=== PATIENT | female | born 1985 | race Caucasian/White ===

== ENCOUNTER 2023-06-14 13:30 | Outpatient (OUT) | payer OTHER, SELFPAY ==
--- NOTE | 2023-06-14 13:42 | US_ITS ---
[address] [address] Patient Name: AZAR LEE MRN: [id number] date: 1985 Sex: F Assigned Patient Location: [facility] Current Patient Location: [facility] Accession/Order Number: [id number] Exam Date: 06/14/2023 13:41 Report Date: 06/14/2023 14:42 At the request of: JOAQUIN ROTHMAN Procedure: US OB transvaginal EXAMINATION: US OB transvaginal HISTORY: MISSED MENSES COMPARISON: No relevant comparison available. FINDINGS: GESTATIONAL SAC: Present and normal appearing. YOLK SAC: Present and normal appearing. POLE: Present and normal appearing. CARDIAC: Present. UTERUS: Normal size and appearance. OVARIES: Right: Normal. Left: Normal. CERVIX: 3.8 cm in length and closed. CUL-DE-SAC: Normal. OTHER: None. AGE BY LMP: Unknown LMP DUYEN BY LMP: AGE BY US CRL: 10 weeks 4 days DUYEN BY US CRL: 01/06/2024 US/US OB transvaginal IMPRESSION: 1. Single live intrauterine 10 weeks 4 days by today's ultrasound. Electronically authenticated by: ANITA SIMENTAL Date: 06/14/2023 14:42
== END 2023-06-14 13:31 | disposition home or self-care (01) ==
LOC: NOMS 13:31
PROVIDERS: Family Provider Internal Medicine; Visit Provider Obstetrics & Gynecology
DX: Z34.91 Encounter for supervision of normal pregnancy, unspecified, first trimester (principal); Z3A.10 10 weeks gestation of pregnancy; N92.6 Irregular menstruation, unspecified
CPT/HCPCS: 76817

== ENCOUNTER 2023-06-16 09:00 | Outpatient (OUT) | payer OTHER, SELFPAY ==
[2023-06-16 09:27] LABS: Basophils Absolute Auto 0.1 10^3/uL (0.0-0.1); Basophils Percent Auto 0.9 % (0.2-2.0); Eosinophils Absolute Auto 0.2 10^3/uL (0.0-0.7); Eosinophils Percent Auto 3.1 % (0.9-7.0); Hemoglobin 12.7 g/dL (12.0-16.0); Immature Granulocytes Abs Auto 0.02 10^3/uL (0.00-0.03); Immature Granulocytes Pct Auto 0.3 % (0.0-0.5); Lymphocytes Absolute Auto 1.5 10^3/uL (1.2-3.8); Mean Corpuscular HGB Conc 34.3 g/dL (29.9-35.2); Mean Corpuscular Hemoglobin 31.5 pg (26.7-34.0); Mean Corpuscular Volume 91.8 fL (81.0-99.0); Mean Platelet Volume 10.3 fL (9.5-13.5); Monocytes Absolute Auto 0.6 10^3/uL (0.3-0.8); Monocytes Percent Auto 8.8 % (1.7-12.0); Neutrophils Absolute Auto 4.3 10^3/uL (1.4-6.5); Neutrophils Percent Auto 63.9 % (43.0-75.0); Platelet Count 245 10^3/uL (150-450); Red Blood Count 4.03 10^6/uL (4.20-5.40); Red Cell Distribution Width 11.4 % (11.0-15.0); White Blood Count 6.7 10^3/uL (4.0-11.0)
[2023-06-16 10:13] LABS: Estimated Average Glucose 88 mg/dL; Glycohemoglobin A1C 4.7 % (4.5-6.2)
[2023-06-17 07:06] LABS: Rubella Antibodies, IgG 1.46 index (Immune >0.99)
[2023-06-17 08:08] LABS: Rapid Plasma Reagin, Quant Non Reactive titer (NonRea<1:1)
[2023-06-17 12:07] LABS: HBsAg Screen Negative (Negative); HCV Ab Non Reactive (Non Reactive); HIV Ab/p24 Ag Screen Non Reactive (Non Reactive)
== END 2023-06-16 09:01 | disposition home or self-care (01) ==
LOC: LAB 09:01
PROVIDERS: Family Provider Internal Medicine; Visit Provider Obstetrics & Gynecology
DX: N92.6 Irregular menstruation, unspecified (principal)
CPT/HCPCS: 36415; 83036; 85025; 86592; 86762; 86803; 86850; 86900; 86901; 87086; 87340; 87389

== ENCOUNTER 2023-07-07 07:03 | Outpatient (OUT) | payer OTHER, SELFPAY ==
[2023-07-07 09:14] LABS: BOX Test Sent Out done
== END 2023-07-07 07:04 | disposition home or self-care (01) ==
LOC: LAB 07:03
PROVIDERS: Family Provider Internal Medicine; Visit Provider Obstetrics & Gynecology
DX: Z34.80 Encounter for supervision of other normal pregnancy, unspecified trimester (principal)
CPT/HCPCS: 36415

== ENCOUNTER 2023-07-18 21:05 | Outpatient (REF) | payer OTHER, SELFPAY ==
[2023-07-23 09:09] LABS: Age Gdln ACOG Testing Note (.); HPV Aptima Negative (Negative); IGP, Aptima HPV, rfx 16/18,45 Note (.)
== END 2023-07-18 21:06 | disposition home or self-care (01) ==
LOC: LAB 21:05
PROVIDERS: Family Provider Internal Medicine; Visit Provider Obstetrics & Gynecology
DX: Z01.419 Encounter for gynecological examination (general) (routine) without abnormal findings (principal)
CPT/HCPCS: 87624; G0145

== ENCOUNTER 2023-08-21 10:55 | Outpatient (OUT) | payer OTHER, SELFPAY ==
--- OUTSIDE RECORDS SUMMARY | 2023-08-21 11:01 | XMS_ITS | CCD ---
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 Name Role Phone Unavailable Primary Care Provider UnavailPAOLA Hong Admitting Unavailable PAOLA VILLANUEVA Attending Unavailable Rene Cruz Unavailable Joseph Lamar Unavailable Bela Fishman Unavailable JOAQUIN ROTHMAN Attending Unavailable Medications Current Medications Medication Drug Class(es) Dates Sig (Normalized) Sig (Original) acetaminophen 325 mg / oxyCODONE hydrochloride 5 mg oral tablet (2 sources) Opioid Agonist Start: 01-28-2021 End: 02-04-2021 oxyCODONE-acetamin ophen (PERCOCET) 5-325 MG per tablet Indications: Rupture of anterior cruciate ligament of right knee, initial encounter Take 1 tablet by mouth every 6 hours as needed for Pain for up to 7 days. Intended supply: 7 days. Take lowest dose possible to manage pain 28 tablet 0 01/28/2021 02/04/2021 Active Start: 01-28-2021 End: 01-28-2021 oxyCODONE-acetaminophen (PER COCET) 5-325 MG per tablet 1 tablet [id number] 200 actuat albuterol 0.09 mg/actuat metered dose inhaler (3 sources) beta2-Adrenergic Agonist Start: 05-17-2023 take 1 puff(s) by inhalation every four hours as needed Albuterol Sulfate Active 1 PUFF INHALATION Every 4 hours May 17, 2023 1:00am [employer] puff as needed Inhalation every 4 hrs; Note: Source Status: Taking; Provider: Sravanthi Cramer ( ) take 1 puff(s) by in halation every four hours as needed Albuterol Sulfate HFA 108 (90 Base) MCG/ACT 1 puff as needed Inhalation every 4 hrs Active 24 hr buPROPion hydrochloride 150 mg extended release oral tablet (1 source) Aminoketone Start: 05-17-2023 take 1 tablet by mouth once daily in the morning Bupropion Hcl (Wellbutrin Xl) 150 mg tablet extended release 24 hr Active 150 MG PO Every morning May 17, 2023 1:00am calcium chloride 0.0014 meq/ml / potassium chloride 0.004 meq/ml / sodium chloride 0.103 meq/ml / sodium lactate 0.028 meq/ml injectable solution (1 source) Start: 01-28-2021 lactated ringers infusion dexamethasone 4 mg oral tablet (3 sources) Corticosteroid Start: 02-17-2020 take 2 tablets by mouth every twenty-four hours Dexamethasone 4 MG 2 tablets Orally Once a day for 5 days Jan, Active 1 ml diphenhydrAMINE hydrochloride 50 mg/ml cartridge (1 source) Histamine-1 Receptor Antagonist Start: 01-28-2021 End: 01-28-2021 diphenhydrAMINE (BENADRYL) injection 12.5 mg docosahexaenoic acid 200 mg oral capsule (1 source) Start: 06-26-2023 Docosahexaenoic Acid ( Dha) 200 mg capsule Active MG PO June 26, 2023 12:00am 1 ml hydrALAZINE hydrochloride 20 mg/ml injection (1 source) Arteriolar Vasodilator Start: 01-28-2021 hydrALAZINE (APRESOLINE) injection 10 mg labetalol (NORMODYNE;TRANDATE) injection syringe 10 mg (1 source) Start: 01-28-2021 labetalol (NORMODYNE;TRANDATE ) injection syringe 10 mg 10 ml lidocaine hydrochloride 10 mg/ml injection (1 source) Antiarrhythmic, Amide Local Anesthetic Start: 01-28-2021 End: 01-28-2021 lidocaine PF 1 % injection 1 mL meperidine hydrochloride 50 mg/ml injectable solution (1 source) Opioid Agonist Start: 01-28-2021 meperidine (DEMEROL) injection 12.5 mg 1 ml morphine sulfate 2 mg/ml cartridge (1 source) Opioid Agonist Start: 01-28-2021 morphine (PF) injection 2 mg 2 ml ondansetron 2 mg/ml injection (1 source) Serotonin-3 Receptor Antagonist Start: 01-28-2021 End: 01-28-2021 ondansetron (ZOFRAN) injection 4 mg predniSONE 20 mg oral tablet (3 sources) Start: 12-10-2022 take 1 tablet by mouth every twelve hours predniSONE 20 MG 1 tablet Orally bid for 5 day(s) Nov, Active Start: 11-11-2021 prednisone 10 mg 5 tablets for 2 days, 4 tablets x2 days, then 3 x2 days, 2 x2 days, 1 x2 days Orally as directed for 10 days Oct, Not-Taking 1 ml promethazine hydrochloride 25 mg/ml injection (1 source) Phenothiazine Start: 01-28-2021 promethazine ( PHENERGAN) injection 6.25 mg 5 ml sodium chloride 9 mg/ml injection (4 sources) Start: 01-28-2021 End: 01-28-2021 0.9 % sodium chloride bolus Start: 01-28-2021 0.9 % sodium c hloride infusion Start: 01-28-2021 sodium chlorid e flush 0.9 % injection 10 mL Completed/Discontinued Medications Medication Drug Class(es) Dates Sig (Normalized) Sig (Original) acetaminophen 325 mg / HYDROcodone bitartrate 5 mg oral tablet (2 sources) Opioid Agonist Start: 12-31-2020 End: 05-17-2023 take 1 tablet by mouth every six hours Hydrocodone-Acetam inophen Discontinued 1 TAB PO Q6H 10 3 December 31, 2020 May 17, 2023 9:12am aprepitant 40 mg oral capsule (1 source) Substance P/Neurokinin-1 Receptor Antagonist Start: 01-28-2021 End: 01-28-2021 aprepitant (EMEND) 40 MG capsule cetirizine hydrochloride 10 mg oral capsule (6 sources) Histamine-1 Receptor Antagonist Start: 12-31-2020 End: 05-17-2023 take 2 capsules by mouth once daily Cetirizine (Zyrtec) 10 mg Capsule Discontinued 20 MG PO Daily December 31, 2020 12:00am May 17, 2023 9:12am take 1 tablet by mouth once jia y ZyrTEC 10 MG 1 tablet Orally Once a day Active 2 ml famotidine 10 mg/ml injection (1 source) Histamine-2 Receptor Antagonist Start: 01-28-2021 End: 01-28-2021 famotidine (PEPCID) 20 MG/2ML injection 2 ml fentaNYL 0.05 mg/ml injection (1 source) Opioid Agonist Start: 01-28-2021 End: 01-28-2021 fentaNYL (SUBLIMAZE) 100 MCG/2ML injection 1 ml HYDROmorphone hydrochloride 1 mg/ml cartridge (4 sources) Opioid Agonist Start: 01-28-2021 End: 01-28-2021 HYDROmorphone (DILAUDID) 1 MG/ML injection Start: 01-28-2021 HYDROmorphone (DILAUDID) injection 0.25 mg Start: 01-28-2021 HYDROmorphone (DILAUDID) injection 0.5 mg ketorolac tromethamine 10 mg oral tablet (5 sources) Nonsteroidal Anti-inflammatory Drug, Cyclooxygenase Inhibitor Start: 12-31-2020 End: 05-17-2023 take 10 mg by mouth every eight hours Ketorolac Discontinued 10 MG PO Q8H December 31, 2020 12:00am May 17, 2023 9:13am 2 ml midazolam 1 mg/ml injection (1 source) Benzodiazepine Start: 01-28-2021 End: 01-28-2021 midazolam (VERSED) 2 MG/2ML injection Multivitamin preparation (2 sources) Start: 05-17-2023 End: 06-26-2023 take 1 tablet by mouth once daily Multivitamin Discontinued 1 TAB PO Daily May 17, 2023 1:00am June 26, 2023 7:36am Start: 05-17-2023 take 1 tablet by jaden once daily Multivitamin Active 1 TAB PO Daily May 17, 2023 12:00am naproxen sodium 220 mg oral capsule (2 sources) Nonsteroidal Anti-inflammatory Drug Start: 05-17-2023 End: 06-26-2023 take 1 capsule by mouth every twelve hours Naproxen Sodium (Aleve) 220 mg capsule Discontinued 220 MG PO Every 12 hours May 17, 2023 1:00am June 26, 2023 7:36am 72 hr scopolamine 0.0139 mg/hr transdermal system (1 source) Anticholinergic Start: 01-28-2021 End: 01-28-2021 scopolamine (TRANSDERM-SCOP) 1 MG/3DAYS transdermal patch traMADol hydrochloride 50 mg oral tablet (5 sources) Opioid Agonist Start: 01-05-2021 take 1 tablet by mouth every four to six hours as needed for pain traMADol HCl 50 MG 1 tablet as needed for pain Orally every 4-6 hrs for 7 days Dec, Not-Taking triamcinolone acetonide 40 mg/ml injectable suspension (3 sources) Corticosteroid Start: 12-10-2022 Kenalog-40 Nov, 40 mg Start: 11-11-2021 Kenalog-40 Oct, 60 mg Problems Active Problems Problem Classification Problem Date Documented Date Episodic/Chronic Acute bronchitis (5 sources) Acute bronchitis; Translations: [Acute bronchitis] Episodic Administrative/social admission (1 source) Persons encountering health services in other specified circumstances; Translations: [Other reasons for seeking consultation] 05-17-2023 Episodic Allergic reactions (2 sources) Allergic contact dermatitis due to plants, except food Onset: 11-11-2021 Resolved: 11-11-2021 Episodic Anxiety disorders (4 sources) Anxiety; Translations: [Anxiety disorder, unspecified] 05-17-2023 Chronic Cardiac dysrhythmias (2 sources) Palpitations; Translations: [Palpitations] 05-17-2023 Episodic Headache; including migraine (4 sources) Migraine; Translations: [Migraine, unspecified, not intractable, without status migrainosus] 05-17-2023 Chronic Joint disorders and dislocations; trauma-related (6 sources) Internal derangement of right knee; Translations: [Unspecified internal derangement of right knee] Onset: 01-05-2021 Resolved: 01-05-2021 Chronic Joint disorders and dislocations; trauma-related (4 sources) Acute tear of lateral meniscus of right knee; Translations: [Other tear of lateral meniscus, current injury, right knee, initial encounter] Onset: 01-07-2021 Resolved: 01-07-2021 Episodic Other nervous system disorders (4 sources) Attention and concentration deficit; Translations: [Impaired concentration] 05-17-2023 Chronic Other and delivery including normal (2 sources) Urine test positive; Translations: [Encounter for test, result positive] 05-30-2023 Episodic Other screening for suspected conditions (not mental disorders or infectious disease) (8 sources) Patient encounter status; Translations: [Encounter for screening for cardiovascular disorders] 05-17-2023 Episodic Residual codes; unclassified (2 sources) Insomnia; Translations: [Insomnia, unspecified] 05-17-2023 Episodic Residual codes; unclassified (2 sources) Insomnia, unspecified; Translations: [Insomnia, unspecified] 05-17-2023 Episodic Sprains and strains (5 sources) Rupture of anterior cruciate ligament of right knee; Translations: [Sprain of anterior cruciate ligament of right knee, initial encounter] Onset: 01-07-2021 Resolved: 01-07-2021 Episodic Past or Other Problems Problem Classification Problem Date Documented Da te Episodic/Chronic Other non-traumatic joint disorders (2 sources) Pain in right knee; Translations: [Acute pain of right knee M25.561] Onset: 01-05-2021 Resolved: 01-07-2021 Episodic Other non-traumatic joint disorders (1 source) Effusion, right knee; Translations: [Swelling of right knee joint M25.461] Onset: 01-05-2021 Resolved: 01-05-2021 Episodic Results Test Name Value Interpretation Reference Range Facil ity Choriogonadotropin.beta subu nit ( test) [Presence] in Urineon 05-25-2023 Beta HCG ( test) Ql (U) Positive [facility] POCT urine pregnancyOrdered By: Paola Villanueva on 01-28-2021 Beta HCG ( test) Ql (U) Negative NEGATIVE [employer] Phone: Comment on above: Specimens with hCG l evels near the threshold of the test (25 mIU/mL) may give a negative or indeterminate result. In such cases, another test should be performed with a new specimen in 48-72 hours. If early is suspected clinically in this setting, correlation with quantitative serum b-hCG level is suggested. TESTING PERFORMED AT [address] [address] [employer] Phone: MR knee RT wo conon 01-07-20 MR knee RT wo con [facility] Main [place] [address] [place] [id number] MRI Report Signed Patient: Kathia Martinez MR#: [id number] 71 : 1985 Acct:[id number] Age/Sex: 35 / F ADM Date: 01/06/21 Loc: [facility] Room: Type: [facility] CLI Attending Dr: Rene Cruz DO Ordering Provider: Rene Cruz DO Date of Service: 01/06/21 MR/MR knee RT wo con: M23.91 INTER DEANGEMENT OF RT KNEE Copies to: Rene Cruz DO MR knee RT wo con 01/06/2021 12:30 PM SIGNS AND SYMPTOMS: Fall from truck 1 week ago with pain laterally and posteriorly. Swelling. PROTOCOL: Multiplanar multisequence MR images of the right knee were obtained without IV contrast. COMPARISON: Radiographs from 12/31/2020 FINDINGS: Fluid: There is a moderate joint effusion. There is no evidence of Aden's cyst. Medial compartment: Medial meniscus: There is a minimally displaced tear of the posterior horn of the medial meniscus.. Medial collateral ligament: There is edema along both sides of the medial collateral ligament suggesting a grade 2 MCL sprain.. Medial femoral condyle cartilage: Preserved. Medial tibial plateau cartilage: There. Lateral compartment: Lateral meniscus: Intact. Lateral collateral ligament: Intact. Lateral femoral condyle cartilage: Preserved. Lateral tibial plateau cartilage: Preserved. Posterolateral corner: Popliteus tendon: Intact. Popliteofibular ligament: Intact. Proximal tibiofibular joint: Intact. Anterior compartment: Alignment: Normal. Quadriceps tendon: Intact. Patellar tendon: Intact. Retinaculum: Medial intact. Lateral intact. Patellar cartilage: Intact. Trochlea: Intact. . Plica: None. Hoffa fat pad: Normal. Intercondylar compartment: Anterior cruciate ligament: There is a full-thickness tear with dependently layering fibers.. Posterior cruciate ligament: Intact. Bones (other than subarticular marrow): There is bone marrow edema along the posterior lateral corner of the lateral tibial plateau and the posterior aspect of the medial tibial plateau to a lesser extent. There is marrow edema along the medial most aspect of the medial femoral condyle. Muscles: Normal. Vessels: Normal. Nerves: Normal. MR/MR knee RT wo con IMPRESSION: There is a full-thickness tear of the anterior cruciate ligament with dependently layering fibers. There is a grade 2 medial collateral ligament sprain. There is a minimally displaced tear of the posterior horn of the medial meniscus. Bone contusions are noted along the posterior aspect of the tibial plateaus, left greater than right and along the medial aspect of the medial femoral condyle. There is a moderate joint effusion. Impression dictated by: Reuben Valentine M.D.01/06/2021 1:43 PM Dictation Location: [place] [address] Transcribed By: [facility] 01/06/21 1343 Dictated By: Reuben Valentine II, MD 01/06/21 1329 Signed By: 01/06/21 1343 [facility] XR knee RT 4V*on 12-31-2020 XR knee RT 4V* [facility] [place] [address] XRay Report Signed Patient: Kathia Martinez MR#: [id number] 71 : 1985 Acct:[id number] Age/Sex: 35 / F ADM Date: 12/31/20 Loc: ER Room: Type: [facility] Attending Dr: Ordering Provider: SELINA Goode Date of Service: 12/31/20 XR/XR knee RT 4V*: Extremity Injury, Lower Copies to: SELINA Goode Right knee 12/31/2020. CLINICAL DATA: Right knee pain after injury. FINDINGS: 4 views of the right knee were obtained. No acute fracture or dislocation is identified. No other bony abnormality is seen. There is no suprapatellar effusion. XR/XR knee RT 4V* IMPRESSION: No acute bony abnormality or effusion. Impression dictated by: Roberth Vargas Jr., M.D.12/31/2020 10:31 AM Dictation Location: [facility] Transcribed By: [facility] 12/31/20 1031 Dictated By: Roberth Vargas Jr, MD 12/31/20 1026 Signed By: 12/31/20 1031 [facility] Vital Signs Date Time Vital Sign Value Performing Clinician Facility 06-26-2023 07:35-0400 Body height 160.02 cm [facility] 06-26-2023 07:35-0400 Body mass index (BMI) [Ratio] 29.4 kg/m2 [facility] 06-26-2023 07:35-0400 Body weight 75.29 kg [facility] 06-26-2023 07:35-0400 Diastolic blood pressure 81 mm[Hg] [facility] 06-26-2023 07:35-0400 Heart rate 89 /min [facility] 06-26-2023 07:35-0400 SaO2% (BldA) [Mass fraction] 95 % [facility] 06-26-2023 07:35-0400 Systolic blood pressure 119 mm[Hg] [facility] 05-25-2023 10:30-0500 Body height 160.02 cm [facility] 05-25-2023 10:30-0500 Body mass index (BMI) [Ratio] 30.4 kg/m2 [facility] 05-25-2023 10:30-0500 Body weight 78.01 kg [facility] 05-25-2023 10:30-0500 Diastolic blood pressure 89 mm[Hg] [facility] 05-25-2023 10:30-0500 Heart rate 86 /min [facility] 05-25-2023 10:30-0500 SaO2% (BldA) [Mass fraction] 99 % [facility] 05-25-2023 10:30-0500 Systolic blood pressure 129 mm[Hg] [facility] 05-17-2023 08:11-0500 Body height 160.02 cm [facility] 05-17-2023 08:11-0500 Body mass index (BMI) [Ratio] 30.2 kg/m2 [facility] 05-17-2023 08:11-0500 Body weight 77.56 kg [facility] 05-17-2023 08:11-0500 Diastolic blood pressure 82 mm[Hg] [facility] 05-17-2023 08:11-0500 Heart rate 78 /min [facility] 05-17-2023 08:11-0500 SaO2% (BldA) [Mass fraction] 98 % [facility] 05-17-2023 08:11-0500 Systolic blood pressure 135 mm[Hg] [facility] 12-10-2022 12:05-0400 Body height 160.02 cm Bela Fishman Other [employer] Other 12-10-2022 12:05-0400 Body mass index (BMI) [Ratio] 30.11 kg/m2 Bela Fishman Other [employer] Other 12-10-2022 12:05-0400 Body temperature 100.3 [degF] Bela Fishman Other [employer] Other 12-10-2022 12:05-0400 Body weight 77.11 kg Bela Fishman Other [employer] Other 12-10-2022 12:05-0400 Diastolic blood pressure 106 mm[Hg] Bela Fishman Other [employer] Other 12-10-2022 12:05-0400 Respiratory rate 18 /min Bela Fishman Other [employer] Other 12-10-2022 12:05-0400 SaO2% (BldA) [Mass fraction] 99 % Bela Fishman Other [employer] Other 12-10-2022 12:05-0400 Systolic blood pressure 170 mm[Hg] Bela Fishman Other [employer] Other 11-11-2021 17:40-0400 Body height 160.02 cm Joseph Lamar Other [employer] Other 11-11-2021 17:40-0400 Body mass index (BMI) [Ratio] 31 kg/m2 Joseph Lamar Other [employer] Other 11-11-2021 17:40-0400 Body temperature 99.8 [degF] Joseph Lamar Other [employer] Other 11-11-2021 17:40-0400 Body weight 79.38 kg Joseph Lamar Other [employer] Other 11-11-2021 17:40-0400 Respiratory rate 18 /min Joseph Lamar Other [employer] Other 11-11-2021 17:40-0400 SaO2% (BldA) [Mass fraction] 98 % Joseph Lamar Other [employer] Other 01-28-2021 14:35-0400 Diastolic blood pressure 88 mm[Hg] Paola Villanueva MD Work Phone: [facility] Work Phone: 01-28-2021 14:35-0400 Heart rate 64 /min Paola Villanueva MD Work Phone: [facility] Work Phone: 01-28-2021 14:35-0400 Respiratory rate 11 /min Paola Villanueva MD Work Phone: [facility] Work Phone: 01-28-2021 14:35-0400 SaO2% (BldA) [Mass fraction] 98 % Paola Villanueva MD Work Phone: [facility] Work Phone: 01-28-2021 14:35-0400 Systolic blood pressure 132 mm[Hg] Paola Villanueva MD Work Phone: [facility] Work Phone: 01-28-2021 13:31-0400 Body temperature 97.81 [degF] Paola Villanueva MD Work Phone: [facility] Work Phone: 01-28-2021 10:22-040 Body height 160 cm Paola Villanueva MD Work Phone: [facility] Work Phone: 01-28-2021 10:10-0400 Body mass index (BMI) [Ratio] 34.72 kg/m2 Paola Villanueva MD Work Phone: [facility] Work Phone: 01-28-2021 10:10040 Body weight 88.91 kg Paola Villanueva MD Work Phone: [facility] Work Phone: Encounters Encounter Date Encounter Type Care Provider Facility Start: 07-18-2023 End: 07-18-2023 ambulatory JOAQUIN LORNA Not Available Start: 06-26-2023 End: 06-26-2023 ambulatory [facility] Work Phone: Start: 06-26-2023 End: 06-26-2023 Patient encounter procedure [facility] Work Phone: Start: 06-14-2023 End: 06-14-2023 ambulatory JOAQUIN LORNA Not Available Start: 05-25-2023 End: 05-25-2023 Patient encounter procedure [facility] Physician [facility] Work Phone: Start: 05-17-2023 End: 05-17-2023 ambulatory [facility] Work Phone: Start: 05-17-2023 End: 05-17-2023 Patient encounter procedure [facility] Physician [facility] Work Phone: Start: 12-10-2022 End: 12-10-2022 ambulatory Bela Fishman Other [employer] Other Start: 12-10-2022 Office outpatient visit 15 minutes Bela Fishman [facility] Start: 11-11-2021 End: 11-11-2021 ambulatory Joseph Lamar Other [employer] Other Start: 11-11-2021 Office outpatient visit 15 minutes Joseph Lamar [facility] Start: 01-28-2021 End: 01-28-2021 ambulatory PAOLA VILLANUEVA [facility] Start: 01-28-2021 End: 01-28-2021 Subsequent hospital visit by physician Paola Villanueva MD Work Phone: [facility] [place] Comment on above: Rupture of anterior cruciate ligament of right knee, initial encounter (Primary Dx) Start: 01-25-2021 Subsequent hospital visit by physician God[facility] Pat Schedule [facility] Pre-Admit Testing Comment on above: Canceled (Other) Start: 01-18-2021 Telephone encounter Rene CARBAJAL [facility] Start: 01-07-2021 Office outpatient visit 25 minutes Rene Cruz [facility] Start: 01-05-2021 Office outpatient ne w 45 minutes Rene Cruz [facility] Procedures Date Procedure Procedure Detail Performing Clinician Start: 01-28-2021 Urine test visual color cmprsn meths Paola Villanueva MD Work Phone: Plan of Treatment Date Care Activity Detail Author Start: 02-10-2021 End: 02-10-2021 Patient encounter procedure [facility] Start: 11-24-2020 Influenza vaccination Flu vaccine (# 1) [facility] Start: 11-22-2013 Screening for malign ant neoplasm of cervix [facility] Start: 11-22-2004 Screening for malign ant neoplasm of cervix Pap smear [facility] Start: 11-22-2002 DTaP/Tdap/Td vaccine (1 - Tdap) DTaP/Tdap/Td vaccine (1 - Tdap) [facility] Start: 11-22-1998 HIV screening HIV screen [facility] Start: 11-22-1984 Varicella vaccine (1 of 2 - 2-dose childhood series) Varicella vaccine (1 of 2 - 2-dose childhood series) [facility] Start: 1985 Hepatitis C screening Hepatitis C [facility] [employer] Comprehensive metabo lic 2000 panel - Serum or Plasma [facility] Oxygen therapy [Mini [facility] Data Set] Initiate Oxygen Therapy Protocol Respiratory Care Routine Daily until discontinued starting 01/28/2021 [employer] Phone: Comment on above: Daily until disconti nued starting 01/28/2021 Phase I & II - meter ed glucose Phase I & II - metered glucose Point of Care Testing Routine As Needed until discontinued starting 01/28/2021 [employer] Phone: Comment on above: As Needed until disc ontinued starting 01/28/2021 End: 01-28-2021 , urine POCT , urine POCT Point of Care Testing Routine One Time for 1 Occurrences starting 01/28/2021 until 01/28/2021 [employer] Phone: Comment on above: One Time for 1 Occur rences starting 01/28/2021 until 01/28/2021 [facility] Payers Date Payer Category Payer Unknown [id number] 1985 Unknown [id number] 1985 Unknown [id number] 1985 Unknown [id number] Self-pay Self Pay [id number] Unknown HCAP/HFA/FAP Active [id number] Social History Date Type Detail Facility Start: 01-24-2021 End: 01-28-2021 Tobacco [facility] status [facility] Start: 01-24-2021 End: 01-28-2021 Tobacco use and exposure Never used [facility] Start: 01-28-2021 Alcohol intake Current drinke r of alcohol (finding) [facility] Work Phone: Start: 01-24-2021 Alcohol Comment social [employer] Work Phone: Start: 1985 Sex Assigned At Not on file M [employer] Work Phone: Exposure to SARS-CoV-2 (event) Not sure [facility] Sex Assigned At Sex Assigned At Bir th [employer] Other Start: 05-17-2023 End: 05-17-2023 Tobacco smoking status NHIS Ex-smoker (finding) [facility] Start: 1985 Sex Assigned At Female F [facility] Medical Equipment Procedure Code Equipment Code Equipment Original Text Equipment Identifier Dates Implant Tib L30m m [id number] Jacques Drvr Fix Dev Aperfix Ii [id number] Start: 01-28-2021 Implant Fem L24m m [id number] Insrt Aperfix Am [id number] Start: 01-28-2021 Single Strand Semitendinosus 0.45 X23.0cm [id number] Start: 01-28-2021 Single Strand Semitendinosus 5mm X 22.3cm [id number] Start: 01-28-2021 Clinical Notes 01-05-2021 to 12-10-2022 Note Date & Type Note Facility 12-10-2022 Evaluation note Encounter Date Diagnosis Assessment Notes Nov, Poison lola dermatitis (ICD-10 - L23.7) Plenty fluids, get plenty of rest. Take the prednisone as prescribed until gone. You may take Benadryl as needed for itching. You may use calamine lotion as well. Follow-up with your family physician if no improvement in 2 to 3 days [employer] Other 08-19-2022 Evaluation note* Encounter Date Diagnosis Assessment Notes Treatment Notes Treatment Clinical Notes Oct, Poison lola dermatitis (ICD-10 - L23.7) Pt received 60mg IM Kenalog in office today. Pt tolerated well. Performed by Lisa Gonzalez CMA. Pt to take meds as prescribed -- start tomorrow. No other nsaids while on steroid. Pt to avoid contact with allergen. Avoid hot showers as it draws out rash. Pt to use topical calamine lotion or benadryl cream prn for itching. Otc benadryl prn. Pt to f/u with pcp as needed for persistent or worsening symptoms. Pt understood and agreed to treatment plan. [employer] Other 11-05-2021 Hospital Discharge instructions* Discharge Instr - Activity* Paola Villanueva MD - 01/28/2021 1:36 PM EDT Crutches partial weightbearing right knee. Patient to wear previous brace as necessary * Additional Instructions* Paola Villanueva MD - [facility]28/2021 [facility]. Paola Villanueva M.D. [phone] POST OPERATIVE DISCHARGE INSTRUCTIONS KNEE ARTHROSCOPY 1. Follow-up in office seven to ten days after surgery. Call for appointment if not already made. ([phone]). 2. Take pain medication as ordered. 3. Keep the dressing/krys wrap on for 72 hours (3 days). After the 72 hours, may remove krys wrap anddressing, place Band-Aids over sutures and then if desired reapply krys wrap. Start wrapping at the ankle and wrap up to the top of the leg. 4. You may shower, but keep the dressing & wounds dry with plastic bag around knee/leg until seen by Dr. Villanueva. 5. After surgery, it is weight bearing as tolerated, unless instructed differently by Dr. Villanueva after surgery. Use crutches or a walker as needed based on how your knee feels. 6. Be sure to keep your leg elevated when sitting or lying down. Use 2-3 pillows under leg. 7. Ice to surgical site for 20 to 30 minutes four times a day for [address] Villauneva recommends taking one Aspirin 325 mg daily for 7 days after surgery to help prevent blood clots. 9. Be sure to do your leg exercises daily. Examples of these exercises are in the knee arthroscopy booklet given in Dr. Villanueva s office. Call Dr. Villanueva s office if you experience any of the followin. Temperature above 101 F. 2. Persistent nausea and vomiting. 3. Severe swelling in the knee, calf, or foot. 4. Severe pain that is not relieved by pain medications. [facility] Dr. Paola Villanueva M.D. [phone] POST OPERATIVE DISCHARGE INSTRUCTIONS KNEE ARTHROSCOPY Follow-up in office seven to ten days after surgery. Call for appointment if not already made. ([phone]). Take pain medication as ordered. Keep the dressing/krys wrap on for 72 hours (3 days). After the 72 hours, may remove krys wrap and dressing, place Band-Aids over sutures and then if desired reapply krys wrap. Start wrapping at the ankle and wrap up to the top of the leg. You may shower, but keep the dressing & wounds dry with plastic bag around knee/leg until seen by Dr. Villauneva. After surgery, it is weight bearing as tolerated, unless instructed differently by Dr. Villanueva after surgery. Use crutches or a walker as needed based on how your knee feels. Be sure to keep your leg elevated when sitting or lying down. Use 2-3 pillows under leg. Ice to surgical site for 20 to 30 minutes four times a day for [address] Villanueva recommends taking one Aspirin 325 mg daily for 7 days after surgery to help prevent bloodclots. Be sure to do your leg exercises daily. Examples of these exercises are in the knee arthroscopy booklet given in Dr. Villanueva s office. Call Dr. Villanueva s office if you experience any of the following: Temperature above 101 F. Persistent nausea and vomiting. Severe swelling in the knee, calf, or foot. Severe pain that is not relieved by pain medications. documented in this [facility] Phone: 1(394) 787-453011-02-2021 History of Present illness Narrative* Venkatesh Hoffman - 01/25/2021 1:00 PM EDT CLINICAL PHARMACY NOTE: MEDS TO BEDS Total # of Prescriptions Filled: 1 The following medications were delivered to the patient: Percocet Additional Documentation: Delivered Medication to Patient * Mima Arias RN - 01/25/2021 1:00 PM EDT DAY OF SURGERY/PROCEDURE GUIDELINES As a patient at the [facility], you can expect quality medical and nursing care that is centered on your individual needs. It is our goal to make your surgical experience as comfortable and excellent as possible. The following instructions are general guidelines, if any information on this sheet is different from what your doctor has instructed you to do, please follow your doctor's instructions. Please arrive on 01/28 @1000 Enter through entrance C. Check in at registration Upon arrival you will be taken to the pre-operative area to get ready for surgery, your family willstay in the waiting room and visit with you once you are ready for surgery. Due to special limitations please limit visitation to 1-2 members of your family at a time. When it is time for surgery your family will return to the waiting room. You will be given a specific time when you will NOT be able to eat, drink, smoke, suck or chew ANYTHING (no water, gum, mints, cigarettes, cigars, pipes, snuff, chewing tobacco, etc.) or your surgerymay be canceled. This will occur during your PAT appointment or by phone 1-2 days before surgery Take a shower or bath on the morning of your surgery/procedure (Hibiclens if directed) [place] your teeth, but do not swallow any water IN CASE OF ILLNESS - If you have a cold or flu symptoms (high fever, runny nose, sore throat, cough, etc.) rash, nausea, vomiting, loose stools, and/or recent contact with someone who has a contagious disease (chick pox, measles, etc.) please call your doctor before coming to the surgery center Take a small sip of water with heart, blood pressure, and/or seizure medication the morning of surgery. If applicable bring your: Inhaler (s) Hearing aid(s) Eyeglasses and Case (If you wear contacts they have to be removed before surgery, bring case and solution) CPAP DO NOT take anticoagulants (blood thinners, aspirin or aspirin-containing products) as instructed by your physician. DO NOT take any diabetic pills or insulin morning of your surgery. Wear loose, comfortable clothing that is easy to put on and take off. They will remain in post-op with the nurse. If you will be returning home the same day as your surgery, you will need to have a responsible adult (18 years of age or older) present to drive you home. You will need someone stay with you at homefor the first 24 hours following your surgery. This is due to the anesthesia and the medication given to you during surgery and recovery. documented in this [facility] Phone: [phone]) 103-567810-15-2021 Evaluation note* Encounter Date Diagnosis Assessment Notes Treatment Notes Treatment Clinical Notes Dec, Acute pain of right knee (ICD-10 - M25.561) Dec, Rupture of anterior cruciate ligament of right knee, subsequent encounter (ICD-10 - S83.511D) Kathia returns today for follow-up of her MRI right knee. At this juncture we have discussed the findings and diagnosis as well as personally reviewed appropriate imaging and performed interpretation of related testing and examination with the patient in office today. Her imaging and exam is consistent with ACL, medial meniscus tears and MCL sprain. At this time I would recommend referral to sports surgery, Dr. Felipe Cortes at [facility] per patient request.at her last visit we did aspirate and inject the knee and she does still have an effusion today. I have instructed on compression as well as icing of the knee. I have also asked her to start physical therapy to obtain a full range of motion. We have also ordered a hinged knee brace in order to treat her MCL although we have been to keep her touchdown weightbearing with use of crutches for the time being. She can follow-up with me as needed The patient has been involved in our cooperative treatment plan and agrees to move forward with treatment at this time. Patient is in need of a hinged knee brace due to their diagnosis of ACL tear, MCL sprain, and medial meniscal tear. This is needed for aid in activities of daily living by increasing safety and stability. This will be needed for approximately 6-12 months. Dec, Sprain of medial collateral ligament of right knee, subsequent encounter (ICD-10 - S83.411D) Hinged knee brace ordered today. She will be kept touchdown weightbearing with use of crutches until evaluated by Dr. Cortes Dec, Other tear of medial meniscus of right knee as current injury, subsequent encounter (ICD-10 - S83.241D) Continue touchdown weightbearing with use of crutches. PT for full range of motion. Compression and ice for swelling. Further care by Dr. Cortes Patient given order for hinged knee brace. Patient instructed to limit weight bearing. Order given for physical therapy to work on ROM exercises. Patient also referred to Dr Felipe Cortes at [facility] Dec, Other The patient has been involved in our cooperative treatment plan and agrees to move forward with treatment at this time. [employer] Other 10-13-2021 Evaluation note* Encounter Date Diagnosis Assessment Notes Treatment Notes Treatment Clinical Notes Dec, Acute pain of right knee (ICD-10 - M25.561) Dec, Internal derangement of right knee (ICD-10 - M23.91) Kathia presents with right knee noncontact pivoting injury and concern for internal derangement. At this juncture we have discussed the findings and diagnosis as well as personally reviewed appropriate imaging and performed interpretation of related testing and examination with the patient in office today. Prior medical notes from the emergency department and history have been reviewed. At this time I would recommend MRI of the knee for evaluation of internal derangement. I have offered aspiration injection of the knee which patient has agreed to. Under sterile technique patient's right knee was aspirated via the superolateral portal vein and 35 cc of blood-tinged joint fluid and injected with 10 cc of Marcaine. We will plan for follow-up after MRI. I have recommended continued use of crutches and limited weightbearing on the right leg until MRI is obtained. We will give her some tramadol for pain control. The patient has been involved in our cooperative treatment plan and agrees to move forward with treatment at this time. I am concerned about potential anterior cruciate ligament (ACL) tear and/or lateral collateral ligament. that will not improve with conservative and non-operative treatments. Continued active use of the knee can lead to worsening of the condition and lead to irreversible damage to the knee. An MRI of the knee will be necessary to identify the source of pain and plan potential surgical treatment. Patient was prepped and knee was injected with lidocaine under sterile conditions. Patient was then aspirated of approximately 30 mls of sanguineous appearing fluid under sterile conditions. 10cc Marcaine injected. Dressing was applied to knee. Dec, Swelling of right knee joint (ICD-10 - M25.461) Dec, Other See orders for this visit as documented in the electronic medical record. [employer] Other Evaluation note* Diagnosis Rupture of anterior cruciate ligament of right knee, initial encounter- Primary Acute lateral meniscus tear of right knee Tear of lateral cartilage or meniscus of knee, current documented in this encounter [employer] Work Phone: evaluation noteNo InformationNort [facility] Other Evaluation note* Diagnosis Onset Date Resolution Status Anxiety acute Impaired concentration acute Insomnia acute Migraine headache acute Screening for heart disease acute Screening for metabolic disorder acute [facility] Work Phone: Evaluation note* Diagnosis Onset Date Resolution Status Anxiety acute Impaired concentration acute Insomnia acute Migraine headache acute Palpitations acute Screening for heart disease acute Screening for metabolic disorder acute Encounter to establish care with new doctor noneactive Positive urine test acute [facility] Work Phone: History general Narrative - Reported* Type Description Date Medical History migraine headache Medical History bacterial infection- stomach inf ection Medical History asthma [employer] Other History general Narrative - Reported* Type Description Date Medical History migraine headache Medical History bacterial infection- stomach inf ection Medical History asthma Surgical History acl repair [employer] Other Summary Purpose Family History No Family History Records Found Relationship Condition Age at Onset Recorded Date/T sonny father Diabetes mellitus Unknown Not Specified Cerebrovascular accident (CVA) Unknown Advance Directives No Advanced Directives Records Found Advance Directive Response Recorded Date/ Time Advance Directives No April 25, 2023 9:26am Advance Directive Response Recorded Date/ Time Advance Directives No April 25, 2023 10:26am Reason for Referral Reason Please refer to Miguelina Cortes [facility]Ortho Surgery Diagnosis 1 Rupture of anterior cruciate ligament of right knee, initial encounter (S83.511A) Referral Organization [facility] Referring Provider First Name Rene Referring Provider Last Name Nancy Referring Provider Specialty Orthopedic Surgery Referred Organization [facility] Referred Address [address] [place] [place], [place],[address] Referred Provider Specialty Orthopedic S urgery Referral Priority Routine Chief Complaint and Reason for Visit Chief Complaint ESTABLISH Reason for Visit Anxiety Impaired concentration Insomnia Migraine headache Screening for heart disease Screening for metabolic disorder Chief Complaint ESTABLISH well woman with pap 6 week follow up Reason for Visit Anxiety Impaired concentration Insomnia Migraine headache Palpitations Screening for heart disease Screening for metabolic disorder Encounter to establish care with new doctor Positive urine test Additional Source Comments Reason for Visit (unrecogniz ed section and content) Status Reason Specialty Diagnoses / Procedures Re ferred By Contact Referred To Contact Diagnoses Tears of meniscus and anterior cruciate ligament of right knee RIGHT KNEE ACL TEAR Procedures OK KNEE SCOPE,AID ANT CRUCIATE REPAIR RIGHT KNEE ACL ARTHROSCOPIC RECONSTRUCTION WITH BIOMET Paola Villanueva MD [address] [place] [address] [facility] Ordered Prescriptions (unrec ognized section and content) Prescription Sig Dispensed Refills Start Date End Da te oxyCODONE-acetaminophen (PERCOCET) 5-325 MG per tabletIndications:Ruptur e of anterior cruciate ligament of right knee, initial encounter Take 1 tablet by mouth every 6 hours as needed for Pain for up to 7 days. Intended supply: 7 days. Take lowest dose possible to manage pain 28 tablet 0 01/28/2021 02/04/2021 Scheduled Active and Recently Administ ered Medications (unrecognized section and content) Medication Order 01/26/2021 01/27/2021 01/28/2021 midazolam PF (VERSED) injection 1 mg 1 mg, IntraVENous, ONCE, On Sun01/28/21 at 1130, For 1 dose, UP TO 2MG, PACU only 1130 (Due) sodium chloride flush 0.9 % injection 10 mL 10 mL, IntraVENous, EVERY 12 HOURS SCHEDULED (2 times per day), First dose on Sun01/28/21 at 1115, Pre-op (day of surgery) 1115 (Due)2100 (Due) Continuous Medication Order 01/26/2021 01/27/2021 01/28/2021 lactated ringers infusion IntraVENous, at 100 mL/hr, CONTINUOUS, Starting on Sun01/28/21 at 1115, Pre-op (day of surgery) 1115 (New Bag - Prov ider: Mechelle Johansen MD)1310 (Anesthesia Volume Adjustment - Provider: Yolis Montiel APRN - [employer] CL[employer])1333 (Anesthesia Volume Adjustment - Provider: Mitchel Saucedo MD) PRN Medication Order 01/26/2021 01/27/2021 01/28/2021 0.9 % sodium chloride bolus 500 mL (5.62 mL/kg), IntraVENous, at 250 mL/hr, Administer over 2 Hours, ONCE PRN, Nausea, Starting on Sun01/28/21 at 1059, For 1 dose, PACU only 0.9 % sodium chloride infusion 25 mL, IntraVENous, at 100 mL/hr, PRN, If patient receiving piggyback infusions without ordered maintenance IV fluids or with frequent/long duration piggyback infusions, Starting on Sun01/28/21 at 1045, Administer at the same rate as the piggyback being infused., Pre-op (day of surgery) diphenhydrAMINE (BENADRYL) injection 12.5 mg 12.5 mg, IntraVENous, ONCE PRN, Itching, Starting on Sun01/28/21 at 1059, For 1 dose, PACU only hydrALAZINE (APRESOLINE) injection 10 mg 10 mg, IntraVENous, EVERY 10 MIN PRN, High Blood Pressure, Starting on Sun01/28/21 at 1059, PRN for SBP > 160 for 2 consecutive measurements, and if one of the following conditions is met: 1) If IV labetolol is ineffective. 2) If HR is under 60. 3) If patient has heart block, COPD or asthma. If both labetalol and hydralazine ineffective, notify anesthesiologist., PACU only HYDROmorphone (DILAUDID) injection 0.25 mg 0.25 mg, IntraVENous, EVERY 5 MIN PRN, Pain Moderate (4-6), Starting on Sun01/28/21 at 1059, For 8 doses, Phase I - Secondary therapy to be used after all initial moderate pain medication doses have been administered., PACU only HYDROmorphone (DILAUDID) injection 0.5 mg 0.5 mg, IntraVENous, EVERY 5 MIN PRN, Pain Severe (7-10), Starting on Sun01/28/21 at 1059, For 4 doses, Phase I - Initial therapy for severe pain., PACU only HYDROmorphone (DILAUDID) injection 0.5 mg 0.5 mg, IntraVENous, EVERY 5 MIN PRN, Pain Severe (7-10), Starting on Sun01/28/21 at 1059, For 4 doses, Phase I - Secondary therapy to be used after all initial severe pain medication doses have been administered., PACU only 1335 (Given - Provid er: Brea Denise RN) labetalol (NORMODYNE;TRANDATE) injection syringe 10 mg 10 mg, IntraVENous, EVERY 10 MIN PRN, High Blood Pressure, Starting on Sun01/28/21 at 1059, PRN for SBP >160 for 2 consecutive measurements, if HR is 60 or greater. If beta radha is contraindicated (HR less than 60, heart block, COPD or asthma) use hydralazine IV order., PACU only lidocaine PF 1 % injection 1 mL 1 mL, IntraDERmal, ONCE PRN, IV start, Starting on Sun01/28/21 at 1045, For 1 dose, Pre-op (day of surgery) meperidine (DEMEROL) injection 12.5 mg 12.5 mg, IntraVENous, EVERY 5 MIN PRN, Shivering, , Starting on Sun01/28/21 at 1059, May give every 5 minutes to max of 25mg., PACU only morphine (PF) injection 2 mg 2 mg, IntraVENous, EVERY 5 MIN PRN, Pain Moderate (4-6), Starting on Sun01/28/21 at 1059, For 10 doses, Phase I - Initial therapy for moderate pain., PACU only ondansetron (ZOFRAN) injection 4 mg 4 mg, IntraVENous, ONCE PRN, Nausea, Starting on Sun01/28/21 at 1059, For 1 dose, PACU only oxyCODONE-acetaminophen (PERCOCET) 5-325 MG per tablet 1 tablet(Linked Group 1) 1 tablet, Oral, PRN, Pain Moderate (4-6), Starting on Sun01/28/21 at 1059, For 1 dose, PHASE II, PACU only oxyCODONE-acetaminophen (PERCOCET) 5-325 MG per tablet 2 tablet(Linked Group 1) 2 tablet, Oral, PRN, Pain Severe (7-10), Starting on Sun01/28/21 at 1059, For 1 dose, PHASE II, PACU only promethazine (PHENERGAN) injection 6.25 mg 6.25 mg, IntraVENous, EVERY 15 MIN PRN, Nausea, Starting on Sun01/28/21 at 1059, For 2 doses, Recommended route is IM. Caution if used IV:Check IV site for infiltrate prior to and during administration. Secondary antiemetic therapy. For IV administration, dilute to 10ml with normal saline. Must be administered over at least 10 minutes., PACU only sodium chloride flush 0.9 % injection 10 mL 10 mL, IntraVENous, PRN, Line Care, After every IV line use, Starting on Sun01/28/21 at 1045, Pre-op (day of surgery) No Frequency Medication Order 01/26/2021 01/27/2021 01/28/2021 aprepitant (EMEND) 40 MG capsule (COMPLETED) Starting on Sun01/28/21 at 1052, For 1 dose, Lisa Arellano: cabinet override 1058 (Given - Provid er: Lisa Arellano, SIRI) dexamethasone (DECADRON) 4 MG/ML injection Starting on Sun01/28/21 at 1336, For 1 dose, NICOLA PLASCENCIA: cabinet override 1345 (Due) famotidine (PEPCID) 20 MG/2ML injection (COMPLETED) Starting on Sun01/28/21 at 1051, For 1 dose, Lisa Arellano: kamilleinet override 1058 (Given - Provid er: Lisa Arellano, SIRI) fentaNYL (SUBLIMAZE) 100 MCG/2ML injection (COMPLETED) Starting on Sun01/28/21 at 1018, For 1 dose, Lisa Arellano: cabinet override 1131 (Given - Provid er: Lisa Arellano, SIRI) midazolam (VERSED) 2 MG/2ML injection (COMPLETED) Starting on Sun01/28/21 at 1018, For 1 dose, Lisa Arellano: cabinet override 1132 (Given - Provid er: Lisa Arellano, RN) scopolamine (TRANSDERM-SCOP) 1 MG/3DAYS transdermal patch (COMPLETED) Starting on Sun01/28/21 at 1051, For 1 dose, Lisa Arellano: cabinet override 1058 (Patch Applied - Provider: Lisa Arellano RN) Linked Groups Order Group 1: oxyCODONE-acetaminophen (PERCOCET) 5-325 MG per tablet 1 tabletJump to med 1 tablet, Oral, PRN, Pain Moderate (4-6), Starting on Sun01/28/21 at 1059, For 1 dose
PHASE II
PACU only Or oxyCODONE-acetaminophen (PERCOCET) 5-325 MG per tablet 2 tabletJump to med 2 tablet, Oral, PRN, Pain Severe (7-10), Starting on Sun01/28/21 at 1059, For 1 dose
PHASE II
PACU only INFORMATION SOURCE (unrecogn ized section and content) DATE CREATED AUTHOR 01/29/2021 [facility] DATE CREATED AUTHOR AUTHOR'S ORGANIZ ATION 06/22/2021 [facility] DATE CREATED AUTHOR AUTHOR'S ORGANIZ ATION 07/20/2023 [facility] [employer] Care Teams (unrecognized sec tion and content) Team Status: Active Member Role Status Dates Cayla Barroso APRN Primary Care Provider Activ e Team Status: Inactive Member Role Status Dates Cayla Barroso APRN Primary Care Provider, Attending Provider Active Start: May 17, 2023 End: May 17, 2023 Team Status: Inactive Member Role Status Dates Cayla Barroso APRN Primary Care Provider, Attending Provider Active Start: May 25, 2023 End: May 25, 2023 Team Status: Inactive Member Role Status Dates Cayla Barroso APRN Primary Care Provider, Attending Provider Active Start: June 26, 2023 End: June 26, 2023 Goals (unrecognized section and content) Goals may be documented in a n alternate section FOR RECORDS PERTAINING TO PATIENTS WHO ARE OR HAVE BEEN ENROLLED IN A CHEMICAL DEPENDENCY/SUBSTANCEABUSE PROGRAM, SOME INFORMATION MAY BE OMITTED. This clinical summary was aggregated from multiple sources. Caution should be exercised in using it in the provision of clinical care. This summary normalizes information from multiple sources, and as a consequence, information in this document may materially change the coding, format and clinical context of patient data. In addition, data may be omitted in some cases. CLINICAL DECISIONS SHOULD BE BASED ON THE PRIMARY CLINICAL RECORDS. [facility] [employer] provides no warranty or guarantee of the accuracy or completeness of information in this document.
[2023-08-23 02:07] LABS: AFP Value 80.9 ng/mL (.); Gest. Age on Collection Date 20.3 weeks (.); Gestat. Age Based On Ultrasound (.); Insulin Dep Diabetes No (.); Maternal Age At EDD 40.1 yr (.); OSBR Risk 1 IN 3220 (.); Results Report (.)
== END 2023-08-21 10:56 | disposition home or self-care (01) ==
LOC: LAB 10:55
PROVIDERS: Family Provider Internal Medicine; Visit Provider Obstetrics & Gynecology
DX: Z34.92 Encounter for supervision of normal pregnancy, unspecified, second trimester (principal); Z3A.15 15 weeks gestation of pregnancy
CPT/HCPCS: 36415; 82105

== ENCOUNTER 2023-08-31 16:50 | Outpatient (OUT) | payer OTHER, SELFPAY ==
--- NOTE | 2023-08-31 | US_ITS ---
[address] [address] Patient Name: AZAR LEE MRN: [id number] date: 1985 Sex: F Assigned Patient Location: US Current Patient Location: Accession/Order Number: [id number] Exam Date: 08/31/2023 17:05 Report Date: 09/01/2023 05:39 At the request of: JOAQUIN ROTHMAN Procedure: US OB cervical length EXAMINATION: US OB anatomy, US OB cervical length HISTORY: Screening, , for anatomic survey, Z36.89 COMPARISON: No relevant comparison available. TECHNIQUE: Transabdominal sonographic examination was performed for obstetrical and evaluation. FINDINGS: Number: 1 Heart Rate: 146.7 bpm H.B. /min Amniotic Fluid Volume: Subjectively normal Placental Location: ANTERIOR with lower margin 1.3 cm from os. Cervix Length: 4.8 cm, closed. ANATOMY: Normal Structures -cerebellum, choroid plexus, cisterna magna, lateral cerebral ventricles, orbits, midline falx, hard palate, four-chamber heart, RVOT, LVOT, stomach, kidneys, bladder, umbilical cord insertion into abdomen, three-vessel cord, cervical spine, thoracic spine, lumbar spine, sacral spine, right upper extremity, left upper extremity, right lower extremity, left lower extremity. SUBOPTIMALLY SEEN: None ABNORMALITIES: None BIOMETRY: BPD: 5.4 cm 22 weeks 4 days HC: 20.1 cm 22 weeks 1 days AC: 17.5 cm 22 weeks 3 days FL: 3.7 cm 21 weeks 4 days EFW:474.8 grams; 64% FL/AC: 20.9 FL/BPD: 67.2 HC/AC: 1.1 GESTATIONAL AGE: Age by EDC: 21 weeks 5 days DUYEN by EDC: 01/06/2024 Age by current US: 22 weeks 1 days DUYEN by current US: 01/03/2024 US/US OB cervical length IMPRESSION: 1. Single live intrauterine with growth detailed above. 2. Low-lying anterior placenta. Electronically authenticated by: ANITA SIMENTAL Date: 09/01/2023 05:39
--- NOTE | 2023-08-31 | US_ITS ---
[address] [address] Patient Name: AZAR LEE MRN: [id number] date: 1985 Sex: F Assigned Patient Location: US Current Patient Location: Accession/Order Number: [id number] Exam Date: 08/31/2023 17:05 Report Date: 09/01/2023 05:39 At the request of: JOAQUIN ROTHMAN Procedure: US OB anatomy EXAMINATION: US OB anatomy, US OB cervical length HISTORY: Screening, , for anatomic survey, Z36.89 COMPARISON: No relevant comparison available. TECHNIQUE: Transabdominal sonographic examination was performed for obstetrical and evaluation. FINDINGS: Number: 1 Heart Rate: 146.7 bpm H.B. /min Amniotic Fluid Volume: Subjectively normal Placental Location: ANTERIOR with lower margin 1.3 cm from os. Cervix Length: 4.8 cm, closed. ANATOMY: Normal Structures -cerebellum, choroid plexus, cisterna magna, lateral cerebral ventricles, orbits, midline falx, hard palate, four-chamber heart, RVOT, LVOT, stomach, kidneys, bladder, umbilical cord insertion into abdomen, three-vessel cord, cervical spine, thoracic spine, lumbar spine, sacral spine, right upper extremity, left upper extremity, right lower extremity, left lower extremity. SUBOPTIMALLY SEEN: None ABNORMALITIES: None BIOMETRY: BPD: 5.4 cm 22 weeks 4 days HC: 20.1 cm 22 weeks 1 days AC: 17.5 cm 22 weeks 3 days FL: 3.7 cm 21 weeks 4 days EFW:474.8 grams; 64% FL/AC: 20.9 FL/BPD: 67.2 HC/AC: 1.1 GESTATIONAL AGE: Age by EDC: 21 weeks 5 days DUYEN by EDC: 01/06/2024 Age by current US: 22 weeks 1 days DUYEN by current US: 01/03/2024 US/US OB anatomy IMPRESSION: 1. Single live intrauterine with growth detailed above. 2. Low-lying anterior placenta. Electronically authenticated by: ANITA SIMENTAL Date: 09/01/2023 05:39
== END 2023-08-31 16:51 | disposition home or self-care (01) ==
LOC: US 16:50
PROVIDERS: Family Provider Internal Medicine; Visit Provider Obstetrics & Gynecology
DX: Z36.89 Encounter for other specified antenatal screening (principal); O44.42 Low lying placenta NOS or without hemorrhage, second trimester; Z3A.22 22 weeks gestation of pregnancy
CPT/HCPCS: 76805; 76817

== ENCOUNTER 2023-09-28 12:00 | Outpatient (OUT) | payer OTHER, SELFPAY ==
--- NOTE | 2023-09-28 12:02 | US_ITS ---
The [address] [address] Patient Name: AZAR LEE MRN: [id number] date: 1985 Sex: F Assigned Patient Location: US Current Patient Location: Accession/Order Number: [id number] Exam Date: 09/28/2023 12:07 Report Date: 09/29/2023 04:11 At the request of: JOAQUIN ROTHMAN Procedure: US OB placenta EXAMINATION: US OB placenta, US OB cervical length HISTORY: Low Laying Placenta O44.40 COMPARISON: Ultrasound OB anatomy 08/31/2023 FINDINGS: PLACENTA: Anterior with lower margin 7.8 cm from os. CERVIX LENGTH: 4.5 cm, closed. Hypoechoic 0.9 cm area within posterior wall of cervix; complex nabothian cyst is favored over a mass. HEART RATE: 144 bpm OTHER: None. US/US OB placenta IMPRESSION: 1. Anterior placenta which is no longer low-lying. 2. Closed cervix 4.5 cm in length. Electronically authenticated by: ANITA SIMENTAL Date: 09/29/2023 04:11
--- OUTSIDE RECORDS SUMMARY | 2023-09-28 12:04 | XMS_ITS | CCD ---
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 Name Role Phone Unavailable Primary Care Provider UnavailPAOLA Hong Admitting Unavailable PAOLA VILLANUEVA Attending Unavailable Rene Cruz Unavailable Joseph Lamar Unavailable Bela Fishman Unavailable JOAQUIN ROTHMAN Attending Unavailable JOAQUIN ROTHMAN Attending Unavailable JOAQUIN ROTHMAN Attending Unavailable Medications Current [...] COCET) 5-325 MG per tablet 1 tablet [id number] 200 actuat albuterol 0.09 mg/actuat metered dose [...] Beta HCG ( test) Ql (U) Positive [facility] POCT urine pregnancyOrdered By: Paola Villanueva on 01-28-2021 Beta HCG ( test) Ql (U) Negative NEGATIVE Embedded Chat Phone: Comment on above: Specimens with hCG l evels near the threshold of the test (25 mIU/mL) may give a negative or indeterminate result. In such cases, another test should be performed with a new specimen in 48-72 hours. If early is suspected clinically in this setting, correlation with quantitative serum b-hCG level is suggested. TESTING PERFORMED AT [address] [address] Embedded Chat Phone: MR knee RT wo conon 01-07-20 21 MR knee RT wo con [facility] Main [address] [address] MRI Report Signed Patient: Kathia Martinez MR#: [id number] 71 : 1985 Acct:[id number] Age/Sex: 35 / F ADM Date: 01/06/21 Loc: [facility] Room: Type: REG CLI Attending Dr: Rene Cruz DO Ordering [...] Reuben Valentine M.D.01/06/2021 1:43 PM Dictation Location: [facility]- Transcribed By: [facility] 01/06/21 1343 Dictated By: Reuben Valentine II, MD 01/06/21 1329 Signed By: 01/06/21 1343 [facility] XR knee RT 4V*on 12-31-2020 XR knee RT 4V* [facility] Main [place] [address] [place] [address] XRay Report Signed Patient: Kathia Martinez MR#: [id number] 71 : 1985 Acct:[id number] Age/Sex: 35 / F ADM Date: 12/31/20 Loc: ER Room: Type: [facility] ER Attending Dr: Ordering Provider: SELINA Goode Date [...] Vargas Jr., M.D.12/31/2020 10:31 AM Dictation Location: [facility]06 Transcribed By: [facility] 12/31/20 1031 Dictated By: Roberth Vargas Jr, MD 12/31/20 1026 Signed By: 12/31/20 1031 [facility] Vital Signs Date Time Vital Sign Value Performing Clinician Facility 06-26-2023 07:35-0400 Body height 160.02 cm [facility] 06-26-2023 07:35-0400 Body mass index (BMI) [Ratio] 29.4 kg/m2 [facility] 06-26-2023 07:35-0400 Body weight 75.29 kg [facility] 06-26-2023 07:35-0400 Diastolic blood pressure 81 mm[Hg] [facility] 06-26-2023 07:35-0400 Heart rate 89 /min [facility] 06-26-2023 07:35-0400 SaO2% (BldA) [Mass fraction] 95 % [facility] 06-26-2023 07:35-0400 Systolic blood pressure 119 mm[Hg] [facility] 05-25-2023 10:30-0500 Body height 160.02 cm [facility] 05-25-2023 10:30-0500 Body mass index (BMI) [Ratio] 30.4 kg/m2 [facility] 05-25-2023 10:30-0500 Body weight 78.01 kg [facility] 05-25-2023 10:30-0500 Diastolic blood pressure 89 mm[Hg] [facility] 05-25-2023 10:30-0500 Heart rate 86 /min [facility] 05-25-2023 10:30-0500 SaO2% (BldA) [Mass fraction] 99 % [facility] 05-25-2023 10:30-0500 Systolic blood pressure 129 mm[Hg] [facility] 05-17-2023 08:11-0500 Body height 160.02 cm [facility] 05-17-2023 08:11-0500 Body mass index (BMI) [Ratio] 30.2 kg/m2 [facility] 05-17-2023 08:11-0500 Body weight 77.56 kg [facility] 05-17-2023 08:11-0500 Diastolic blood pressure 82 mm[Hg] [facility] 05-17-2023 08:11-0500 Heart rate 78 /min [facility] 05-17-2023 08:11-0500 SaO2% (BldA) [Mass fraction] 98 % [facility] 05-17-2023 08:11-0500 Systolic blood pressure 135 mm[Hg] [facility] 12-10-2022 12:05-0400 Body height 160.02 cm Bela Fishman Other [facility] Other 12-10-2022 12:05-0400 Body mass index (BMI) [Ratio] 30.11 kg/m2 Bela Fishman Other [facility] Other 12-10-2022 12:05-0400 Body temperature 100.3 [degF] Bela Fishman Other [facility] Other 12-10-2022 12:05-0400 Body weight 77.11 kg Bela Fishman Other [facility] Other 12-10-2022 12:05-0400 Diastolic blood pressure 106 mm[Hg] Bela Fishman Other [facility] Other 12-10-2022 12:05-0400 Respiratory rate 18 /min Bela Fishman Other [facility] Other 12-10-2022 12:05-0400 SaO2% (BldA) [Mass fraction] 99 % Bela Fishman Other [facility] Other 12-10-2022 12:05-0400 Systolic blood pressure 170 mm[Hg] Bela Fishman Other [facility] Other 11-11-2021 17:40-0400 Body height 160.02 cm Joseph Lamar Other [facility] Other 11-11-2021 17:40-0400 Body mass index (BMI) [Ratio] 31 kg/m2 Joseph Lamar Other [facility] Other 11-11-2021 17:40-0400 Body temperature 99.8 [degF] Joseph Lamar Other [facility] Other 11-11-2021 17:40-0400 Body weight 79.38 kg Joseph Lamar Other [facility] Other 11-11-2021 17:40-0400 Respiratory rate 18 /min Joseph Lamar Other [facility] Other 11-11-2021 17:40-0400 SaO2% (BldA) [Mass fraction] 98 % Joseph Lamar Other [facility] Other 01-28-2021 14:35-0400 Diastolic blood pressure 88 mm[Hg] Paola Villanueva MD Work Phone: [facility] Work Phone: 01-28-2021 14:35-0400 Heart rate 64 /min Paola Villanueva MD Work Phone: [employer] Work Phone: 01-28-2021 14:35-0400 Respiratory rate 11 /min Paola Villanueva MD Work Phone: [employer] Work Phone: 01-28-2021 14:35-0400 SaO2% (BldA) [Mass fraction] 98 % Paola Villanueva MD Work Phone: [facility] Work Phone: 01-28-2021 14:35-0400 Systolic blood pressure 132 mm[Hg] Paola Villanueva MD Work Phone: [employer] Work Phone: 01-28-2021 13:31-0400 Body temperature 97.81 [degF] Paola Villanueva MD Work Phone: [employer] [facility] [employer] Work Phone: 01-28-2021 10:22-040 Body height 160 cm Paola Villanueva MD Work Phone: [employer] [facility] [employer] Work Phone: 01-28-2021 10:10-040 Body mass index (BMI) [Ratio] 34.72 kg/m2 Paola Villanueva MD Work Phone: [employer] Work Phone: 01-28-2021 10:10040 Body weight 88.91 kg Paola Villanueva MD Work Phone: [employer] Work Phone: Encounters Encounter Date Encounter Type Care Provider Facility Start: 09-19-2023 End: 09-19-2023 ambulatory JOAQUIN LORNA Not Available Start: 08-21-2023 End: 08-21-2023 ambulatory JOAQUIN LORNA Not Available Start: 07-18-2023 End: 07-18-2023 ambulatory JOAQUIN LORNA Not Available Start: 06-26-2023 End: 06-26-2023 ambulatory [facility] Work Phone: Start: 06-26-2023 End: 06-26-2023 Patient encounter procedure [facility] Work Phone: Start: 06-14-2023 End: 06-14-2023 ambulatory JOAQUIN LORNA Not Available Start: 05-25-2023 End: 05-25-2023 Patient encounter procedure [facility] Work Phone: Start: 05-17-2023 End: 05-17-2023 ambulatory [facility] Work Phone: Start: 05-17-2023 End: 05-17-2023 Patient encounter procedure [facility] Work Phone: Start: 12-10-2022 End: 12-10-2022 ambulatory Bela Sravanthi Other [facility] Other Start: 12-10-2022 Office outpatient visit 15 minutes Bela Sravanthi [facility] Start: 11-11-2021 End: 11-11-2021 ambulatory Joseph Lamar Other [facility] Other Start: 11-11-2021 Office outpatient visit 15 minutes Joseph Lamar [facility] Start: 01-28-2021 End: 01-28-2021 ambulatory PAOLA VILLANUEVA [facility] Start: 01-28-2021 End: 01-28-2021 Subsequent hospital visit by physician Paola Villanueva MD Work Phone: [facility] Comment on above: Rupture of anterior cruciate ligament of right knee, initial encounter (Primary Dx) Start: 01-25-2021 Subsequent hospital visit by physician [facility] Pat Schedule [facility] Pre-Admit Testing Comment on above: Canceled (Other) Start: 01-18-2021 Telephone encounter Rene CARBAJAL G [facility] Start: 01-07-2021 Office outpatient visit 25 minutes Rene Cruz [facility] Start: 01-05-2021 Office outpatient ne w 45 minutes Rene Cruz [facility] Procedures Date Procedure Procedure Detail Performing Clinician Start: 01-28-2021 Urine test visual color cmprsn meths Paola Villanueva MD Work Phone: Plan of Treatment Date Care Activity Detail Author Start: 02-10-2021 End: 02-10-2021 Patient encounter procedure [facility] Start: 11-24-2020 Influenza vaccination Flu vaccine (# 1) [facility] Start: 11-22-2013 Screening for malign ant neoplasm of cervix [facility] Start: 11-22-2004 Screening for malign ant neoplasm of cervix Pap smear [facility] Start: 11-22-2002 DTaP/Tdap/Td vaccine (1 - Tdap) DTaP/Tdap/Td vaccine (1 - Tdap) [facility] Start: 11-22-1998 HIV screening HIV screen [facility] Start: 11-22-1984 Varicella vaccine (1 of 2 - 2-dose childhood series) Varicella vaccine (1 of 2 - 2-dose childhood series) [facility] Start: 1985 Hepatitis C screening Hepatitis C [facility] Comprehensive metabo lic 2000 panel - Serum or Plasma [facility] Oxygen therapy [[facility] Data Set] Initiate Oxygen Therapy Protocol Respiratory Care Routine Daily until discontinued [facility] Comment on above: Daily until disconti nued starting 01/28/2021 Phase I & II - meter ed glucose Phase I & II - metered glucose Point of Care Testing Routine As Needed until discontinued starting [facility]/28[facility]20[facility] Comment on above: As Needed until disc ontinued starting 01/28/2021 End: 01-28-2021 , urine POCT , urine POCT Point of Care Testing Routine One Time for 1 Occurrences starting 01/28/2021 until 01/28/2021 [facility] Phone: Comment on above: One Time for 1 Occur rences starting 01/28/2021 until 01/28/2021 [facility] Payers Date Payer Category Payer Unknown [id number] 1985 Unknown [id number] 1985 Unknown [id number] 1985 Unknown [id number] [id number] 1985 Unknown [id number] [id number] 1985 Unknown [id number] Self-pay Self Pay [id number] Unknown HCAP/HFA/FAP Active [id number] Social History Date Type Detail Facility Start: 01-24-2021 End: 01-28-2021 Tobacco smoking status WIIS Never smoker [facility] Start: 01-24-2021 End: 01-28-2021 Tobacco use and exposure Never used [facility] Start: 01-28-2021 Alcohol intake Current drinke r of alcohol (finding) [facility] Work Phone: Start: 01-24-2021 Alcohol Comment social meets Work Phone: Start: 1985 Sex Assigned At Not on file M [employer] Work Phone: Exposure to SARS-CoV-2 (event) Not sure [facility] Sex Assigned At Sex Assigned At Bir th [facility] Other Start: 05-17-2023 End: 05-17-2023 Tobacco smoking status [facility] Ex-smoker (finding) [facility] Start: 1985 Sex Assigned At Female F [facility] Medical Equipment Procedure Code Equipment Code Equipment Original Text Equipment Identifier Dates Implant Tib L30m m [id number] Jacques Drvr Fix Dev [employer] [id number] Start: 01-28-2021 Implant Fem L24m m [id number] Insrt [employer] Am [id number] Start: 01-28-2021 Single [...] no improvement in 2 to 3 days [facility] Other 08-19-2022 Evaluation note* Encounter Date Diagnosis [...] Pt understood and agreed to treatment plan. [facility] Other 11-05-2021 Hospital Discharge instructions* Discharge Instr - Activity* Paola Villanueva MD - 01/28/2021 1:36 PM EDT Crutches partial weightbearing right knee. Patient to wear previous brace as necessary * Additional Instructions* Paola Villanueva MD - 01/28/2021 [facility] Dr. Paola Villanueva M.D. [phone] POST OPERATIVE DISCHARGE INSTRUCTIONS KNEE ARTHROSCOPY 1. Follow-up in office seven to ten days after surgery. Call for appointment if not already made. ([phone]). 2. Take pain medication as ordered. 3. [...] a day for [address] Villanueva recommends taking one Aspirin 325 [...] that is not relieved by pain medications. [facility] Dr. Paola Villanueva M.D. [phone] POST OPERATIVE DISCHARGE INSTRUCTIONS KNEE ARTHROSCOPY Follow-up in office seven to ten days after surgery. Call for appointment if not already made. ([phone]). Take pain medication as ordered. Keep the [...] around knee/leg until seen by Dr. Villanueva. After surgery, it is weight bearing as [...] relieved by pain medications. documented [facility] this [facility] Phone: 1(769) 940-711911-02-2021 History of Present illness Narrative* Venkatesh Hoffman - 01/25/2021 1:00 PM EDT CLINICAL PHARMACY NOTE: MEDS TO BEDS Total # of Prescriptions Filled: 1 The following medications were delivered to the patient: Percocet 5/325 Additional Documentation: Delivered Medication to Patient * Mima Arias RN - 01/25/2021 1:00 PM EDT DAY OF SURGERY/PROCEDURE GUIDELINES As a patient at the [facility], you can expect quality medical and nursing [...] morning of your surgery/procedure (Hibiclens if directed) [place] your teeth, but do not swallow any [...] during surgery and recovery. documented [facility] this [facility] Phone: 1(881) 746-539410-15-2021 Evaluation note* Encounter Date Diagnosis Assessment Notes [...] to sports surgery, Dr. Felipe Cortes at [facility] per patient request.at her last visit we [...] also referred to Dr Felipe Cortes at [facility] Dec, Other The patient has been involved in our cooperative treatment plan and agrees to move forward with treatment at this time. [facility] Other 10-13-2021 Evaluation note* Encounter Date Diagnosis [...] as documented in the electronic medical record. [place] [facility] Other Evaluation note* Diagnosis Rupture of anterior cruciate ligament of right knee, initial encounter- Primary Acute lateral meniscus tear of right knee Tear of lateral cartilage or meniscus of knee, current documented in this encounter Embedded Chat Phone: evaluation noteNo Information[facility] Other Evaluation note* Diagnosis Onset Date Resolution Status Anxiety acute Impaired concentration acute Insomnia acute Migraine headache acute Screening for heart disease acute Screening for metabolic disorder acute [facility] Work Phone: Evaluation note* Diagnosis Onset Date Resolution Status Anxiety acute Impaired concentration acute Insomnia acute Migraine headache acute Palpitations acute Screening for heart disease acute Screening for metabolic disorder acute Encounter to establish care with new doctor noneactive Positive urine test [facility] Work Phone: Hisbcgp general Narrative - Reported* Type Description Date Medical History migraine headache Medical History bacterial infection- stomach inf ection Medical History asthma [facility] Other [facility] general Narrative - Reported* Type Description Date Medical History migraine headache Medical History bacterial infection- stomach inf ection Medical History asthma Surgical History acl repair [facility] Other Summary Purpose Family History No Family [...] cruciate ligament of right knee, initial encounter (S83.322A) Referral Organization [facility] Referring Provider First Name Rene Referring Provider Last Name Nancy Referring Provider Specialty Orthopedic Surgery Referred Organization [facility] [address]erred Address [address] [place],[address] Referred Provider Specialty Orthopedic S urgery Referral [...] right knee RIGHT KNEE ACL TEAR Procedures HI KNEE SCOPE,AID ANT CRUCIATE REPAIR RIGHT KNEE ACL ARTHROSCOPIC RECONSTRUCTION WITH BIOMET Paola Villanueva MD [address] [place] [address] [facility] [email or web address] Ordered Prescriptions (unrec ognized section and content) [...] Adjustment - Provider: Yolis Montiel APRN - GREEN ENERGY MARKETING ANALYST)1333 (Anesthesia Volume Adjustment - Provider: Mitchel Saucedo [...] override 1058 (Given - Provid er: Lisa Arellano RN) fentaNYL (SUBLIMAZE) 100 MCG/2ML injection (COMPLETED) Starting on Sun01/28/21 at 1018, For 1 dose, Lisa Arellaon: cabinet override 1131 (Given - Provid er: Lisa Arellano, SIRI) midazolam (VERSED) 2 MG/2ML injection (COMPLETED) Starting on Sun01/28/21 at 1018, For 1 dose, Lisa Arellano: cabinet override 1132 (Given - Provid er: Lisa Arellano RN) scopolamine (TRANSDERM-SCOP) 1 MG/3DAYS transdermal patch [...] section and content) DATE CREATED AUTHOR 01/29/2021 [facility] DATE CREATED AUTHOR AUTHOR'S ORGANIZ ATION 06/22/2021 [facility] DATE CREATED AUTHOR AUTHOR'S ORGANIZ ATION 09/21/2023 [facility] EPIC Care Teams (unrecognized [...] BE BASED ON THE PRIMARY CLINICAL RECORDS. [employer] provides no warranty or guarantee of the accuracy or completeness of information in this document.
--- NOTE | 2023-09-28 12:49 | US_ITS ---
The [address] [address] Patient Name: AZAR LEE MRN: [id number] date: 1985 Sex: F Assigned Patient Location: US Current Patient Location: Accession/Order Number: [id number] Exam Date: 09/28/2023 12:49 Report Date: 09/29/2023 04:11 At the request of: JOAQUIN ROTHMAN Procedure: US OB cervical length EXAMINATION: US OB placenta, US OB cervical length HISTORY: Low Laying Placenta O44.40 COMPARISON: Ultrasound OB anatomy 08/31/2023 FINDINGS: PLACENTA: Anterior with lower margin 7.8 cm from os. CERVIX LENGTH: 4.5 cm, closed. Hypoechoic 0.9 cm area within posterior wall of cervix; complex nabothian cyst is favored over a mass. HEART RATE: 144 bpm OTHER: None. US/US OB cervical length IMPRESSION: 1. Anterior placenta which is no longer low-lying. 2. Closed cervix 4.5 cm in length. Electronically authenticated by: ANITA SIMENTAL Date: 09/29/2023 04:11
== END 2023-09-28 12:01 | disposition home or self-care (01) ==
LOC: US 12:00
PROVIDERS: Family Provider Internal Medicine; Visit Provider Obstetrics & Gynecology
DX: O44.40 Low lying placenta NOS or without hemorrhage, unspecified trimester (principal)
CPT/HCPCS: 76815; 76817

== ENCOUNTER 2023-10-06 08:19 | Outpatient (OUT) | payer OTHER, SELFPAY ==
[2023-10-06 09:41] LABS: Basophils Absolute Auto 0.1 10^3/uL (0.0-0.1); Basophils Percent Auto 0.6 % (0.2-2.0); Eosinophils Absolute Auto 0.1 10^3/uL (0.0-0.7); Hematocrit 36.4 % (36.0-48.0); Hemoglobin 12.4 g/dL (12.0-16.0); Immature Granulocytes Abs Auto 0.08 10^3/uL (0.00-0.03); Lymphocytes Absolute Auto 1.6 10^3/uL (1.2-3.8); Lymphocytes Percent Auto 20.4 % (20.5-60.0); Mean Corpuscular HGB Conc 34.1 g/dL (29.9-35.2); Mean Corpuscular Hemoglobin 31.8 pg (26.7-34.0); Mean Corpuscular Volume 93.3 fL (81.0-99.0); Mean Platelet Volume 10.6 fL (9.5-13.5); Monocytes Absolute Auto 0.5 10^3/uL (0.3-0.8); Monocytes Percent Auto 6.1 % (1.7-12.0); Neutrophils Absolute Auto 5.6 10^3/uL (1.4-6.5); Neutrophils Percent Auto 70.9 % (43.0-75.0); Platelet Count 188 10^3/uL (150-450); White Blood Count 7.9 10^3/uL (4.0-11.0)
[2023-10-06 10:29] LABS: Glucose 1 Hour 133 mg/dL (<130)
== END 2023-10-06 08:20 | disposition home or self-care (01) ==
LOC: LAB 08:19
PROVIDERS: Family Provider Internal Medicine; Visit Provider Obstetrics & Gynecology
DX: Z34.92 Encounter for supervision of normal pregnancy, unspecified, second trimester (principal)
CPT/HCPCS: 36415; 82950; 85025

== ENCOUNTER 2023-10-19 16:56 | Outpatient (OUT) | payer OTHER, SELFPAY ==
--- NOTE | 2023-10-19 16:57 | US_ITS ---
[address] [address] Patient Name: AZAR LEE MRN: [id number] date: 1985 Sex: F Assigned Patient Location: US Current Patient Location: Accession/Order Number: [id number] Exam Date: 10/19/2023 17:36 Report Date: 10/23/2023 05:02 At the request of: JOAQUIN ROTHMAN Procedure: US OB growth EXAMINATION: US OB growth HISTORY: MULTIGRAVIDA OF ADVANCED MATERNAL AGE O09.523 COMPARISON: Ultrasound OB anatomy 08/31/2023 FINDINGS: Heart Rate: 144.39 bpm Amniotic Fluid Volume: 18.5 cm Number: 1 Position: CEPHALIC BIOMETRY: BPD: 7.36 cm; 29 weeks 4 days; 65 % HC: 27.56 cm; 30 weeks 1 day; 60.90 % AC: 25.07 cm; 29 weeks 2 days; 60.80 % FL: 5.21 cm; 27 weeks 5 days; 13.10 % EFW: 1299.96 g; 43.10 % FL/AC: 20.79 FL/BPD: 70.75 HC/AC: 1.10 GESTATIONAL AGE: Age by EDC: 28 weeks 5 days DUYEN by EDC: 2024-01-06 Age by US: 29 weeks 1 day DUYEN by US: 2024-01-03 US/US OB growth IMPRESSION: 1 single live intrauterine with growth detailed above. Electronically authenticated by: ANITA SIMENTAL Date: 10/23/2023 05:02
--- OUTSIDE RECORDS SUMMARY | 2023-10-19 16:59 | XMS_ITS | CCD ---
Author Organization [facility] Care Team Providers Care Bilingual Medical Receptionist Name Role Phone Unavailable Primary Care Provider [...] COCET) 5-325 MG per tablet 1 tablet [id number] 200 actuat albuterol 0.09 mg/actuat metered dose [...] Beta HCG ( test) Ql (U) Positive [facility] POCT urine pregnancyOrdered By: Paola Villanueva on 01-28-2021 Beta HCG ( test) Ql (U) Negative NEGATIVE [employer] Phone: Comment on above: Specimens with hCG l evels near the threshold of the test (25 mIU/mL) may give a negative or indeterminate result. In such cases, another test should be performed with a new specimen in 48-72 hours. If early is suspected clinically in this setting, correlation with quantitative serum b-hCG level is suggested. TESTING PERFORMED AT [address] [address] [employer] Phone: MR knee RT wo conon 01-07-20 21 MR knee RT wo con [facility] Main [address] [address] MRI Report Signed Patient: Kathia Martinez MR#: [id number] 73 : 1985 Acct:[id number] Age/Sex: 35 / F ADM Date: 01/06/21 Loc: [facility] Room: Type: REG CLI Attending [...] Reuben Valentine M.D.01/06/2021 1:43 PM Dictation Location: [facility] [address]- Transcribed By: [facility] 01/06/21 1343 Dictated By: Reuben Valentine II, MD 01/06/21 1329 Signed By: 01/06/21 1343 [facility] XR knee RT 4V*on 12-31-2020 XR knee RT 4V* [facility] Main [place] [address] [place] [address] XRay Report Signed Patient: Kathia Martinez MR#: [id number] 73 : 1985 Acct:[id number] Age/Sex: 35 / F ADM Date: 12/31/20 Loc: ER Room: Type: [facility] ER Attending Dr: Ordering Provider: SELINA [...] Vargas Jr., M.D.12/31/2020 10:31 AM Dictation Location: [facility]06 Transcribed By: [facility] 12/31/20 1031 Dictated By: Roberth Vargas Jr, MD 12/31/20 1026 Signed By: 12/31/20 1031 [facility] Vital Signs Date Time Vital Sign Value Performing Clinician Facility 06-26-2023 07:35-0400 Body height 160.02 cm [facility] 06-26-2023 07:35-0400 Body mass index (BMI) [Ratio] 29.4 kg/m2 [facility] 06-26-2023 07:35-0400 Body weight 75.29 kg [facility] 06-26-2023 07:35-0400 Diastolic blood pressure 81 mm[Hg] [facility] 06-26-2023 07:35-0400 Heart rate 89 /min [facility] 06-26-2023 07:35-0400 SaO2% (BldA) [Mass fraction] 95 % [facility] 06-26-2023 07:35-0400 Systolic blood pressure 119 mm[Hg] [facility] 05-25-2023 10:30-0500 Body height 160.02 cm [facility] 05-25-2023 10:30-0500 Body mass index (BMI) [Ratio] 30.4 kg/m2 [facility] 05-25-2023 10:30-0500 Body weight 78.01 kg [facility] 05-25-2023 10:30-0500 Diastolic blood pressure 89 mm[Hg] [facility] 05-25-2023 10:30-0500 Heart rate 86 /min [facility] 05-25-2023 10:30-0500 SaO2% (BldA) [Mass fraction] 99 % [facility] 05-25-2023 10:30-0500 Systolic blood pressure 129 mm[Hg] [facility] 05-17-2023 08:11-0500 Body height 160.02 cm [facility] 05-17-2023 08:11-0500 Body mass index (BMI) [Ratio] 30.2 kg/m2 [facility] 05-17-2023 08:11-0500 Body weight 77.56 kg [facility] 05-17-2023 08:11-0500 Diastolic blood pressure 82 mm[Hg] [facility] 05-17-2023 08:11-0500 Heart rate 78 /min [facility] 05-17-2023 08:11-0500 SaO2% (BldA) [Mass fraction] 98 % [facility] 05-17-2023 08:11-0500 Systolic blood pressure 135 mm[Hg] [facility] 12-10-2022 12:05-0400 Body height 160.02 cm Bela Fishman Other [employer] Other 12-10-2022 12:05-0400 Body mass index (BMI) [Ratio] 30.11 kg/m2 Bela Fishman Other [employer] Other 12-10-2022 12:05-0400 Body temperature 100.3 [degF] Bela Fishman Other [employer] Other 12-10-2022 12:05-0400 Body weight 77.11 kg Bela Fishman Other [employer] Other 12-10-2022 12:05-0400 Diastolic blood pressure 106 mm[Hg] Bela Fishman Other [employer] Other 12-10-2022 12:05-0400 Respiratory rate 18 /min Bela Fishman Other [employer] Other 12-10-2022 12:05-0400 SaO2% (BldA) [Mass fraction] 99 % Bela Fishman Other [employer] Other 12-10-2022 12:05-0400 Systolic blood pressure 170 mm[Hg] Bela Fishman Other [employer] Other 11-11-2021 17:40-0400 Body height 160.02 cm Joseph Lamar Other [employer] Other 11-11-2021 17:40-0400 Body mass index (BMI) [Ratio] 31 kg/m2 Joseph Lamar Other [employer] Other 11-11-2021 17:40-0400 Body temperature 99.8 [degF] Joseph Lamar Other [employer] Other 11-11-2021 17:40-0400 Body weight 79.38 kg Joseph Lamar Other [employer] Other 11-11-2021 17:40-0400 Respiratory rate 18 /min Joseph Lamar Other [employer] Other 11-11-2021 17:40-0400 SaO2% (BldA) [Mass fraction] 98 % Joseph Lamar Other [employer] Other 01-28-2021 14:35-0400 Diastolic blood pressure 88 mm[Hg] Paola Villanueva MD Work Phone: [facility] Work Phone: 01-28-2021 14:35-0400 Heart rate 64 /min Paola Villanueva MD Work Phone: [facility] Work Phone: 01-28-2021 14:35-0400 Respiratory rate 11 /min Paola Villanueva MD Work Phone: [facility] Work Phone: 01-28-2021 14:35-0400 SaO2% (BldA) [Mass fraction] 98 % Paola Villanueva MD Work Phone: [facility] Work Phone: 01-28-2021 14:35-0400 Systolic blood pressure 132 mm[Hg] Paola Villanueva MD Work Phone: [facility] Work Phone: 01-28-2021 13:31-0400 Body temperature 97.81 [degF] Paola Villanueva MD Work Phone: [facility] Work Phone: 01-28-2021 10:22-040 Body height 160 cm Paola Villanueva MD Work Phone: [facility] Work Phone: 01-28-2021 10:10-040 Body mass index (BMI) [Ratio] 34.72 kg/m2 Paola Villanueva MD Work Phone: [facility] Work Phone: 01-28-2021 10:10040 Body weight 88.91 kg Paola Villanueva MD Work Phone: [facility] Work Phone: Encounters Encounter Date Encounter Type Care Provider Facility Start: 09-19-2023 End: 09-19-2023 ambulatory JOAQUIN LORNA Not Available Start: 08-21-2023 End: 08-21-2023 ambulatory JOAQUIN LORNA Not Available Start: 07-18-2023 End: 07-18-2023 ambulatory JOAQUIN LORNA Not Available Start: 06-26-2023 End: 06-26-2023 ambulatory [facility] Work Phone: Start: 06-26-2023 End: 06-26-2023 Patient encounter procedure [facility] Physician [facility] Work Phone: Start: 06-14-2023 End: 06-14-2023 ambulatory JOAQUIN LORNA Not Available Start: 05-25-2023 End: 05-25-2023 Patient encounter procedure [facility] Physician [facility] Work Phone: Start: 05-17-2023 End: 05-17-2023 ambulatory [facility] Work Phone: Start: 05-17-2023 End: 05-17-2023 Patient encounter procedure [facility] Physician [facility] Work Phone: Start: 12-10-2022 End: 12-10-2022 ambulatory Bela Sravanthi Other [employer] Other Start: 12-10-2022 Office outpatient visit 15 minutes Bela Sravanthi [facility] Start: 11-11-2021 End: 11-11-2021 ambulatory Joseph Lamar Other [employer] Other Start: 11-11-2021 Office outpatient visit 15 minutes Joseph Lamar [facility] [address] Start: 01-28-2021 End: 01-28-[address] [facility] Start: 01-28-2021 End: 01-28-2021 Subsequent hospital visit by physician Paola Villanueva MD Work Phone: [facility] [place] Comment on above: Rupture of anterior cruciate ligament of right knee, initial encounter (Primary Dx) Start: 01-25-2021 Subsequent hospital visit by physician Godfrey [facility] Pat Schedule [facility] Pre-Admit Testing Comment on above: Canceled (Other) Start: 01-18-2021 Telephone encounter Rene CARBAJAL G [facility] Start: 01-07-2021 Office outpatient visit 25 minutes Rene Cruz [facility] Start: 01-05-2021 Office outpatient ne w 45 minutes Rene Cruz [facility] Procedures Date Procedure Procedure Detail Performing Clinician Start: 01-28-2021 Urine test visual color cmprsn meths Paola Villanueva MD Work Phone: Plan of Treatment Date Care Activity Detail Author Start: 02-10-2021 End: 02-10-2021 Patient encounter procedure [facility] Start: 11-24-2020 Influenza vaccination Flu vaccine (# 1) [facility] Start: 11-22-2013 Screening for malign ant neoplasm of cervix [facility] Start: 11-22-2004 Screening for malign ant neoplasm of cervix Pap smear [facility] Start: 11-22-2002 DTaP/Tdap/Td vaccine (1 - Tdap) DTaP/Tdap/Td vaccine (1 - Tdap) [facility] Start: 11-22-1998 HIV screening HIV screen [facility] Start: 11-22-1984 Varicella vaccine (1 of 2 - 2-dose childhood series) Varicella vaccine (1 of 2 - 2-dose childhood series) [facility] Start: 1985 Hepatitis C screening Hepatitis C [facility] Comprehensive metabo lic 2000 panel - Serum or Plasma [facility] Oxygen therapy [[facility] Data Set] Initiate Oxygen Therapy Protocol Respiratory Care Routine Daily until discontinued [facility] Comment on above: Daily until disconti nued starting 01/28/2021 Phase I & II - meter ed glucose Phase I & II - metered glucose Point of Care Testing Routine As Needed until discontinued starting [facility]/28/2021 [facility]: Comment on above: As Needed until disc ontinued starting 01/28/2021 End: 01-28-2021 , urine POCT , urine POCT Point of Care Testing Routine One Time for 1 Occurrences starting 01/28/2021 until 01/28/2021 [facility] [employer] Phone: Comment on above: One Time for 1 Occur rences starting 01/28/2021 until 01/28/2021 [facility] [place] [facility] Payers Date Payer Category Payer Unknown [id number] 1985 Unknown [id number] 1985 Unknown [id number] [id number] 1985 Unknown [id number] [id number] [id number] 1985 Unknown [id number] 2.16.84 [id number] 1985 Unknown [id number] [id number] [id number] Self-pay Self Pay [id number] Unknown HCAP/HFA/FAP Active [id number] Social History Date Type Detail Facility Start: 01-24-2021 End: 01-28-2021 Tobacco smoking status SCIS Never smoker [facility] Start: 01-24-2021 End: 01-28-2021 Tobacco use and exposure Never used [facility] Start: 01-28-2021 Alcohol intake Current drinke r of alcohol (finding) [facility] Work Phone: Start: 01-24-2021 Alcohol Comment social [facility] Work Phone: Start: 1985 Sex Assigned At Not on file [facility] Work Phone: Exposure to SARS-CoV-2 (event) Not sure [facility] Sex Assigned At Sex Assigned At Bir th [employer] Other Start: 05-17-2023 End: 05-17-2023 Tobacco smoking status [facility] Ex-smoker (finding) [facility] Start: 1985 Sex Assigned At Female F [facility] Medical Equipment Procedure Code Equipment Code Equipment Original Text Equipment Identifier Dates Implant Tib L30m m [id number] Jacques Drvr Fix Dev [employer] [id number] Start: 01-28-2021 Implant Fem L24m m [id number] Insrt [employer] [id number] Start: 01-28-2021 Single [...] no improvement in 2 to 3 days [employer] Other 08-19-2022 Evaluation note* Encounter Date Diagnosis [...] Pt understood and agreed to treatment plan. [employer] Other 11-05-2021 Hospital Discharge instructions* Discharge Instr - Activity* Paola Villanueva MD - 01/28/2021 1:36 PM EDT Crutches partial weightbearing right knee. Patient to wear previous brace as necessary * Additional Instructions* Paola Villanueva MD - 01/28/2021 AK[facility]SHA KLINE [facility] Dr. Paola Villanueva M.D. [phone] POST OPERATIVE DISCHARGE INSTRUCTIONS KNEE ARTHROSCOPY 1. Follow-up in office seven to ten days after surgery. Call for appointment if not already made. ([phone]). 2. Take pain medication as ordered. 3. [...] that is not relieved by pain medications. [facility] Dr. Paola Villanueva M.D. [phone] POST OPERATIVE DISCHARGE INSTRUCTIONS KNEE ARTHROSCOPY Follow-up in office seven to ten days after surgery. Call for appointment if not already made. ([phone]). Take pain medication as ordered. Keep the [...] relieved by pain medications. documented [facility] this [facility] Phone: 1(213) 792-353211-02-2021 History of Present illness Narrative* Venkatesh Hoffman - 01/25/2021 1:00 PM EDT CLINICAL PHARMACY NOTE: MEDS TO BEDS Total # of Prescriptions Filled: 1 The following medications were delivered to the patient: Percocet 5/325 Additional Documentation: Delivered Medication to Patient * Mima Arias RN - 01/25/2021 1:00 PM EDT DAY OF SURGERY/PROCEDURE GUIDELINES As a patient at the [facility], you can expect quality medical and nursing [...] morning of your surgery/procedure (Hibiclens if directed) [place] your teeth, but do not swallow any [...] during surgery and recovery. documented in this [facility] Phone: 1(256) 958-379910-15-2021 Evaluation note* Encounter Date Diagnosis Assessment Notes [...] to sports surgery, Dr. Felipe Cortes at [facility] per patient request.at her last visit [...] use of crutches until evaluated by Dr. Cortse Dec, Other tear of medial meniscus of [...] also referred to Dr Felipe Cortes at [facility] Dec, Other The patient has been involved in our cooperative treatment plan and agrees to move forward with treatment at this time. [employer] Other 10-13-2021 Evaluation note* Encounter Date Diagnosis [...] as documented in the electronic medical record. [employer] Other Evaluation note* Diagnosis Rupture of anterior cruciate ligament of right knee, initial encounter- Primary Acute lateral meniscus tear of right knee Tear of lateral cartilage or meniscus of knee, current documented in this encounter [employer] Phone: evaluation [facility]No [facility] [employer] Other Evaluation note* Diagnosis Onset Date Resolution Status Anxiety acute Impaired concentration acute Insomnia acute Migraine headache acute Screening for heart disease acute Screening for metabolic disorder acute [facility] Work Phone: Evaluation note* Diagnosis Onset Date Resolution Status Anxiety acute Impaired concentration acute Insomnia acute Migraine headache acute Palpitations acute Screening for heart disease acute Screening for metabolic disorder acute Encounter to establish care with new doctor noneactive Positive urine test [facility] Work Phone: Hiszrcu general Narrative - Reported* Type Description Date Medical History migraine headache Medical History bacterial infection- stomach inf ection Medical History asthma [facility] [employer] Other [facility] general Narrative - Reported* Type Description Date Medical History migraine headache Medical History bacterial infection- stomach inf ection Medical History asthma Surgical History acl repair [facility] [employer] Other Summary Purpose Family History No Family [...] cruciate ligament of right knee, initial encounter (S83.544A) Referral Organization [facility] Referring Provider First Name Rene Referring Provider Last Name Nancy Referring Provider Specialty Orthopedic Surgery Referred Organization [facility] Referred Address [address] [place] [place],[address] Referred Provider Specialty Orthopedic S urgery Referral [...] right knee RIGHT KNEE ACL TEAR Procedures ME KNEE SCOPE,AID ANT CRUCIATE REPAIR RIGHT KNEE ACL ARTHROSCOPIC RECONSTRUCTION WITH BIOMET Paola Villanueva MD [address] [place] [address] [facility] [employer] Ordered Prescriptions (unrec ognized section and content) [...] Adjustment - Provider: Yolis Montiel APRN - WASH AND GREASER)[id number] (Anesthesia Volume Adjustment - Provider: Mitchel Saucedo [...] section and content) DATE CREATED AUTHOR 01/29/2021 [facility] DATE CREATED AUTHOR AUTHOR'S ORGANIZ ATION 06/22/2021 [facility] DATE CREATED AUTHOR AUTHOR'S ORGANIZ ATION 09/21/2023 [facility] EPIC Care Teams (unrecognized [...] BE BASED ON THE PRIMARY CLINICAL RECORDS. [employer] provides no warranty or guarantee of the accuracy or completeness of information in this document.
== END 2023-10-19 16:57 | disposition home or self-care (01) ==
LOC: US 16:56
PROVIDERS: Family Provider Internal Medicine; Visit Provider Obstetrics & Gynecology
DX: O09.523 Supervision of elderly multigravida, third trimester (principal); Z3A.29 29 weeks gestation of pregnancy
CPT/HCPCS: 76816

== ENCOUNTER 2023-11-12 07:13 | Outpatient (OUT) | payer OTHER, SELFPAY ==
--- OUTSIDE RECORDS SUMMARY | 2023-11-12 07:15 | XMS_ITS | CCD ---
Author Organization [facility] Care Team Providers Care Software Installation Engineer Name Role Phone Unavailable Primary Care Provider UnavailPAOLA Hong Admitting Unavailable PAOLA VILLANUEVA Attending Unavailable Rene Cruz Unavailable Joseph Lamar Unavailable Bela Fishman Unavailable JOAQUIN ROTHMAN Attending Unavailable JOAQUIN ROTHMAN Attending Unavailable JOAQUIN ROTHMAN Attending Unavailable CAMILLE PACHECO Attending Unavailable JOAQUIN ROTHMAN Attending Unavailable Medications [...] COCET) 5-325 MG per tablet 1 tablet [id number] 200 actuat albuterol 0.09 mg/actuat metered dose [...] Start: 05-17-2023 take 1 tablet by jaden th once daily Multivitamin Active 1 TAB PO [...] Beta HCG ( test) Ql (U) Positive [facility] POCT urine pregnancyOrdered By: Paola Villanueva on 01-28-2021 Beta HCG ( test) Ql (U) Negative NEGATIVE [employer] Phone: Comment on above: Specimens with hCG l evels near the threshold of the test (25 mIU/mL) may give a negative or indeterminate result. In such cases, another test should be performed with a new specimen in 48-72 hours. If early is suspected clinically in this setting, correlation with quantitative serum b-hCG level is suggested. TESTING PERFORMED AT [address] [address] [employer] Phone: MR knee RT wo conon 01-07-20 MR knee RT wo con [facility] Main [facility] [address] [place] [address] MRI Report Signed Patient: Kathia Martinez MR#: [id number] 71 : 1985 Acct:[id number] Age/Sex: 35 / F ADM Date: 01/06/21 Loc: [facility] Room: Type: [facility] Attending Dr: Rene Cruz DO Ordering Provider: [...] Reuben Valentine M.D.01/06/2021 1:43 PM Dictation Location: [place] [address] Transcribed By: [facility] 01/06/21 1343 Dictated By: Reuben Valentine II, MD 01/06/21 1329 Signed By: 01/06/21 1343 [facility] XR knee RT 4V*on 12-31-2020 XR knee RT 4V* [facility] Main [facility] [address] [place] [address] XRay Report Signed Patient: Kathia Martinez MR#: [id number] 73 : 1985 Acct:[id number] Age/Sex: 35 / F ADM Date: 12/31/20 Loc: ER Room: Type: [facility] ER Attending Dr: Ordering Provider: SELINA Goode [...] Vargas Jr., M.D.12/31/2020 10:31 AM Dictation Location: [facility]06 Transcribed By: [facility] 12/31/20 1031 Dictated By: Roberth Vargas Jr, MD 12/31/20 1026 Signed By: 12/31/20 1031 [facility] Vital Signs Date Time Vital Sign Value Performing Clinician Facility 06-26-2023 07:35-0400 Body height 160.02 cm [facility] 06-26-2023 07:35-0400 Body mass index (BMI) [Ratio] 29.4 kg/m2 [facility] 06-26-2023 07:35-0400 Body weight 75.29 kg [facility] 06-26-2023 07:35-0400 Diastolic blood pressure 81 mm[Hg] [facility] 06-26-2023 07:35-0400 Heart rate 89 /min [facility] 06-26-2023 07:35-0400 SaO2% (BldA) [Mass fraction] 95 % [facility] 06-26-2023 07:35-0400 Systolic blood pressure 119 mm[Hg] [facility] 05-25-2023 10:30-0500 Body height 160.02 cm [facility] 05-25-2023 10:30-0500 Body mass index (BMI) [Ratio] 30.4 kg/m2 [facility] 05-25-2023 10:30-0500 Body weight 78.01 kg [facility] 05-25-2023 10:30-0500 Diastolic blood pressure 89 mm[Hg] [facility] 05-25-2023 10:30-0500 Heart rate 86 /min [facility] 05-25-2023 10:30-0500 SaO2% (BldA) [Mass fraction] 99 % [facility] 05-25-2023 10:30-0500 Systolic blood pressure 129 mm[Hg] [facility] 05-17-2023 08:11-0500 Body height 160.02 cm [facility] 05-17-2023 08:11-0500 Body mass index (BMI) [Ratio] 30.2 kg/m2 [facility] 05-17-2023 08:11-0500 Body weight 77.56 kg [facility] 05-17-2023 08:11-0500 Diastolic blood pressure 82 mm[Hg] [facility] 05-17-2023 08:11-0500 Heart rate 78 /min [facility] 05-17-2023 08:11-0500 SaO2% (BldA) [Mass fraction] 98 % [facility] 05-17-2023 08:11-0500 Systolic blood pressure 135 mm[Hg] [facility] 12-10-2022 12:05-0400 Body height 160.02 cm Bela Fishman Other [employer] Other 12-10-2022 12:05-0400 Body mass index (BMI) [Ratio] 30.11 kg/m2 Bela Fishman Other [employer] Other 12-10-2022 12:05-0400 Body temperature 100.3 [degF] Bela Fishman Other [employer] Other 12-10-2022 12:05-0400 Body weight 77.11 kg Bela Fishman Other [employer] Other 12-10-2022 12:05-0400 Diastolic blood pressure 106 mm[Hg] Bela Fishman Other [employer] Other 12-10-2022 12:05-0400 Respiratory rate 18 /min Bela Fishman Other [employer] Other 12-10-2022 12:05-0400 SaO2% (BldA) [Mass fraction] 99 % Bela Fishman Other [employer] Other 12-10-2022 12:05-0400 Systolic blood pressure 170 mm[Hg] Bela Nguyenmond Other [employer] Other 11-11-2021 17:40-0400 Body height 160.02 cm Joseph Lamar Other [employer] Other 11-11-2021 17:40-0400 Body mass index (BMI) [Ratio] 31 kg/m2 Joseph Lamar Other [employer] Other 11-11-2021 17:40-0400 Body temperature 99.8 [degF] Joseph Lamar Other [employer] Other 11-11-2021 17:40-0400 Body weight 79.38 kg Joseph Lamar Other [employer] Other 11-11-2021 17:40-0400 Respiratory rate 18 /min Joseph Lamar Other [employer] Other 11-11-2021 17:40-0400 SaO2% (BldA) [Mass fraction] 98 % Joseph Lamar Other [employer] Other 01-28-2021 14:35-0400 Diastolic blood pressure 88 mm[Hg] Paola Villanueva MD Work Phone: [employer] Work Phone: 01-28-2021 14:35-0400 Heart rate 64 /min Paola Villanueva MD Work Phone: [employer] Work Phone: 01-28-2021 14:35-0400 Respiratory rate 11 /min Paola Villanueva MD Work Phone: [employer] Work Phone: 01-28-2021 14:35-0400 SaO2% (BldA) [Mass fraction] 98 % Paola Villanueva MD Work Phone: [employer] Work Phone: 01-28-2021 14:35-0400 Systolic blood pressure 132 mm[Hg] Paola Villanueva MD Work Phone: [employer] Work Phone: 01-28-2021 13:31-0400 Body temperature 97.81 [degF] Paola Villanueva MD Work Phone: [employer] Work Phone: 01-28-2021 10:22-0400 Body height 160 cm Paola Villanueva MD Work Phone: [employer] Work Phone: 01-28-2021 10:10-0400 Body mass index (BMI) [Ratio] 34.72 kg/m2 Paola Villanueva MD Work Phone: [employer] Work Phone: 01-28-2021 10:10040 Body weight 88.91 kg Paola Villanueva MD Work Phone: [employer] Work Phone: Encounters Encounter Date Encounter Type Care Provider Facility Start: 10-31-2023 End: 10-31-2023 ambulatory JOAQUIN LORNA Not Available Start: 10-17-2023 End: 10-17-2023 ambulatory CAMILLE TARA Not Available Start: 09-19-2023 End: 09-19-2023 ambulatory JOAQUIN LORNA Not Available Start: 08-21-2023 End: 08-21-2023 ambulatory JOAQUIN LORNA Not Available Start: 07-18-2023 End: 07-18-2023 ambulatory JOAQUIN LORNA Not Available Start: 06-26-2023 End: 06-26-2023 ambulatory [facility] Work Phone: Start: 06-26-2023 End: 06-26-2023 Patient encounter procedure [facility] Work Phone: Start: 06-14-2023 End: 06-14-2023 ambulatory JOAQUIN LORNA Not Available Start: 05-25-2023 End: 05-25-2023 Patient encounter procedure [facility] Work Phone: Start: 05-17-2023 End: 05-17-2023 ambulatory [facility] Work Phone: Start: 05-17-2023 End: 05-17-2023 Patient encounter procedure [facility] Work Phone: Start: 12-10-2022 End: 12-10-2022 ambulatory Bela Nguyenmond Other [employer] Other Start: 12-10-2022 Office outpatient visit 15 minutes Bela Fishman [facility] Start: 11-11-2021 End: 11-11-2021 ambulatory Natyclare Brianda Other [employer] Other Start: 11-11-2021 Office outpatient visit 15 minutes Joseph Lamar [facility] [address] Start: 01-28-2021 End: 01-28-2021 ambulatory PAOLA VILLANUEVA [facility] Start: 01-28-2021 End: 01-28-2021 Subsequent hospital visit by physician Paola Villanueva MD Work Phone: [facility] Comment on above: Rupture of anterior cruciate ligament of right knee, initial encounter (Primary Dx) Start: 01-25-2021 Subsequent hospital visit by physician God[facility] Pat Schedule [facility] Pre-Admit Testing Comment on above: Canceled (Other) Start: 01-18-2021 Telephone encounter Rene CARBAJAL [facility] Start: 01-07-2021 Office outpatient visit 25 minutes Rene Cruz [facility] Start: 01-05-2021 Office outpatient ne w 45 minutes Rene Cruz [facility] Procedures Date Procedure Procedure Detail Performing Clinician Start: 01-28-2021 Urine test visual color cmprsn meths Paola Villanueva MD Work Phone: Plan of Treatment Date Care Activity Detail Author Start: 02-10-2021 End: 02-10-2021 Patient encounter procedure [facility] Start: 11-24-2020 Influenza vaccination Flu vaccine (# 1) [facility] Start: 11-22-2013 Screening for malign ant neoplasm of cervix [facility] Start: 11-22-2004 Screening for malign ant neoplasm of cervix Pap smear [facility] Start: 11-22-2002 DTaP/Tdap/Td vaccine (1 - Tdap) DTaP/Tdap/Td vaccine (1 - Tdap) [facility] Start: 11-22-1998 HIV screening HIV screen [facility] Start: 11-22-1984 Varicella vaccine (1 of 2 - 2-dose childhood series) Varicella vaccine (1 of 2 - 2-dose childhood series) [facility] Start: 1985 Hepatitis C screening Hepatitis C sc reen [facility] Comprehensive metabo lic 2000 panel - Serum or Plasma [facility] Oxygen therapy [[facility] Data Set] Initiate Oxygen Therapy Protocol Respiratory Care Routine Daily until discontinued starting [facility]/28[facility]2021 [facility]: Comment on above: Daily until disconti nued starting 01/28/2021 Phase I & II - meter ed glucose Phase I & II - metered glucose Point of Care Testing Routine As Needed until discontinued starting 01/28/2021 [facility] [employer] Phone: Comment on above: As Needed until disc ontinued starting 01/28/2021 End: 01-28-2021 , urine POCT , urine POCT Point of Care Testing Routine One Time for 1 Occurrences starting 01/28/2021 until 01/28/2021 [facility] Phone: Comment on above: One Time for 1 Occur rences starting 01/28/2021 until 01/28/2021 [facility] Payers Date Payer Category Payer Unknown [id number] 1985 Unknown [id number] 1985 Unknown [id number] 2.16.84 [id number] 1985 Unknown [id number] 2.16.84 [id number] 1985 Unknown [id number] 2.16.84 [id number] 1985 Unknown [id number] 2.16.84 [id number] 1985 Unknown [id number] 2.16.84 [id number] 1985 Unknown [id number] 2.16.84 [id number] Self-pay Self Pay [id number] Unknown HCAP/HFA/FAP Active [id number] Social History Date Type Detail Facility Start: 01-24-2021 End: 01-28-2021 Tobacco smoking status NDIS Never smoker [facility] Start: 01-24-2021 End: 01-28-2021 Tobacco use and exposure Never used [facility] Start: 01-28-2021 Alcohol intake Current drinke r of alcohol (finding) [employer] Work Phone: Start: 01-24-2021 Alcohol Comment social [facility] [employer] [facility] Work Phone: Start: 1985 Sex Assigned At Not on file [email or web address] Work Phone: Exposure to SARS-CoV-2 (event) Not sure [facility] Sex Assigned At Sex Assigned At Bir th [employer] Other Start: 05-17-2023 End: 05-17-2023 Tobacco smoking status [facility] Ex-smoker (finding) [facility] Start: 1985 Sex Assigned At Female F [facility] Medical Equipment Procedure Code Equipment Code Equipment Original Text Equipment Identifier Dates Implant Tib L30m m [id number] Jacques Drvr Fix Dev [employer] Ii [id number] Start: 01-28-2021 Implant Fem L24m m [id number] Insrt [employer] Am [id number] Start: 01-28-2021 Single [...] no improvement in 2 to 3 days [employer] Other 08-19-2022 Evaluation note* Encounter Date Diagnosis [...] Pt understood and agreed to treatment plan. [employer] Other 11-05-2021 Hospital Discharge instructions* Discharge Instr - Activity* Paola Villanueva MD - 01/28/2021 1:36 PM EDT Crutches partial weightbearing right knee. Patient to wear previous brace as necessary * Additional Instructions* Paola Villanueva MD - 01/28/2021 [facility] Dr. Paola Villanueva M.D. [phone] POST OPERATIVE DISCHARGE INSTRUCTIONS KNEE ARTHROSCOPY 1. Follow-up in office seven to ten days after surgery. Call for appointment if not already made. ([phone]). 2. Take pain medication as ordered. 3. [...] that is not relieved by pain medications. [facility] Dr. Paola Villanueva M.D. [phone] POST OPERATIVE DISCHARGE INSTRUCTIONS KNEE ARTHROSCOPY Follow-up in office seven to ten days after surgery. Call for appointment if not already made. ([phone]). Take pain medication as ordered. Keep the [...] relieved by pain medications. [facility] Phone: 1(600) 651-578511-02-2021 History of Present illness Narrative* Venkatesh Hoffman - 01/25/2021 1:00 PM EDT CLINICAL PHARMACY NOTE: MEDS TO BEDS Total # of Prescriptions Filled: 1 The following medications were delivered to the patient: Percocet 5/325 Additional Documentation: Delivered Medication to Patient * Mima Arias RN - 01/25/2021 1:00 PM EDT DAY OF SURGERY/PROCEDURE GUIDELINES As a patient at the [facility], you can expect quality medical and nursing care that is centered on your individual needs. It is our goal to make your surgical experience as comfortable and excellent as possible. The following instructions are general guidelines, if any information on this sheet is different from what your doctor has instructed you to do, please follow your doctor's instructions. Please arrive on 11/5 @1000 Enter through entrance C. Check in [...] morning of your surgery/procedure (Hibiclens if directed) [place] your teeth, but do not swallow any [...] during surgery and recovery. documented [facility] this [facility] Phone: [phone]) 190-126510-15-2021 Evaluation note* Encounter Date Diagnosis Assessment Notes [...] surgery, Dr. Felipe Cortes at [facility] per patient request.at her last visit we [...] to Dr Felipe Cortes at [facility] Dec, Other The patient has been involved in our cooperative treatment plan and agrees to move forward with treatment at this time. [employer] Other 10-13-2021 Evaluation note* Encounter Date Diagnosis [...] as documented in the electronic medical record. [employer] Other Evaluation note* Diagnosis Rupture of anterior cruciate ligament of right knee, initial encounter- Primary Acute lateral meniscus tear of right knee Tear of lateral cartilage or meniscus of knee, current documented in this encounter [employer] Phone: evaluation [facility]No [facility] [employer] Other Evaluation note* Diagnosis Onset Date Resolution Status Anxiety acute Impaired concentration acute Insomnia acute Migraine headache acute Screening for heart disease acute Screening for metabolic disorder acute [facility] Work Phone: Evaluation note* Diagnosis Onset Date Resolution Status Anxiety acute Impaired concentration acute Insomnia acute Migraine headache acute Palpitations acute Screening for heart disease acute Screening for metabolic disorder acute Encounter to establish care with new doctor noneactive Positive urine test acute [facility] Work Phone: History general Narrative - Reported* Type Description Date Medical History migraine headache Medical History bacterial infection- stomach inf ection Medical History asthma [employer] [facility] [employer] Other Hiscjtd general Narrative - Reported* Type Description Date Medical History migraine headache Medical History bacterial infection- stomach inf ection Medical History asthma Surgical History acl repair [facility] [employer] Other Summary Purpose Family History No Family [...] cruciate ligament of right knee, initial encounter (S83.518A) Referral Organization [facility] Referring Provider First Name Rene Referring Provider Last Name Nancy Referring Provider Specialty Orthopedic Surgery Referred Organization [facility] Ref[place] Address [address] [place] [place],[address] Referred Provider Specialty Orthopedic S urgery Referral [...] right knee RIGHT KNEE ACL TEAR Procedures [place] KNEE SCOPE,AID ANT CRUCIATE REPAIR RIGHT KNEE ACL ARTHROSCOPIC RECONSTRUCTION WITH BIOMET Paola Villanueva MD [address] [place] [address] [facility] Ordered Prescriptions (unrec ognized section and [...] Adjustment - Provider: Yolis Montiel APRN - PIPE LAYER HELPER)1333 (Anesthesia Volume Adjustment - Provider: Mitchel Saucedo [...] at 1052, For 1 dose, Lisa Arellano: kamilleinet override 1058 (Given - Provid er: Lisa Arellano, SIRI) dexamethasone (DECADRON) 4 MG/ML injection Starting on Sun01/28/21 at 1336, For 1 dose, NICOLA PLASCENCIA: cabinet override 1345 (Due) famotidine (PEPCID) 20 MG/2ML injection (COMPLETED) Starting on Sun01/28/21 at 1051, For 1 dose, Lisa Arellano: cabinet override 1058 (Given - Provid er: Lisa Arellnao RN) fentaNYL (SUBLIMAZE) 100 MCG/2ML injection (COMPLETED) Starting on Sun01/28/21 at 1018, For 1 dose, Lisa Arellano: kamilleinet override 1131 (Given - Provid er: Lisa Arellano RN) midazolam (VERSED) 2 MG/2ML injection (COMPLETED) Starting on Sun01/28/21 at 1018, For 1 dose, Lisa Arellano: kamilleinet override 1132 (Given - Provid er: Lisa Arellano RN) scopolamine (TRANSDERM-SCOP) 1 MG/3DAYS transdermal patch (COMPLETED) Starting on Sun01/28/21 at 1051, For 1 dose, Lisa Arellano: kamilleinet override 1058 (Patch Applied - Provider: Lisa Arellano RN) Linked Groups Order Group 1: oxyCODONE-acetaminophen (PERCOCET) 5-325 MG per tablet 1 tabletJump to med 1 tablet, Oral, PRN, Pain Moderate (4-6), Starting on Sun01/28/21 at 1059, For 1 dose
PHASE II
PACU only Or oxyCODONE-acetaminophen (PERCOCET) 5-325 MG per tablet 2 tabletJump to med 2 tablet, Oral, PRN, Pain Severe (7-10), Starting on 01/28/21 at 1059, For 1 dose
PHASE II
PACU only INFORMATION SOURCE (unrecogn ized section and content) DATE CREATED AUTHOR 01/29/2021 [facility] DATE CREATED AUTHOR AUTHOR'S ORGANIZ ATION 06/22/2021 [facility] DATE CREATED AUTHOR AUTHOR'S ORGANIZ ATION 11/03/2023 [facility] EPIC Care Teams (unrecognized sec [...] BE BASED ON THE PRIMARY CLINICAL RECORDS. [employer] provides no warranty or guarantee of the accuracy or completeness of information in this document.
--- NOTE | 2023-11-12 17:11 | US_ITS ---
[address] [address] Patient Name: AZAR LEE MRN: [id number] date: 1985 Sex: F Assigned Patient Location: [facility] Current Patient Location: Accession/Order Number: [id number] Exam Date: 11/12/2023 17:15 Report Date: 11/13/2023 07:12 At the request of: JOAQUIN ROTHMAN Procedure: US OB BPP w non-stress EXAMINATION: US OB BPP w non-stress HISTORY: MULTIGRAVIDA OF ADVANCED MATERNAL AGE O09.523 COMPARISON: No relevant comparison available. TECHNIQUE: Ultrasound biophysical profile was performed in the radiology department. non-reactive stress testing was performed by nursing staff in the birthing center. FINDINGS: BREATHING MOVEMENTS: 2 GROSS BODY MOVEMENTS: 2 TONE: 2 QUALITATIVE AMNIOTIC FLUID VOLUME: 2 PRESENTATION: CEPHALIC HEART RATE: 143.62 bpm AMNIOTIC FLUID VOLUME: 14.0 cm GESTATIONAL AGE: 32 weeks 0 days US/US OB BPP w non-stress IMPRESSION: Total biophysical profile score: 8 Electronically authenticated by: REE MILLER Date: 11/13/2023 07:12
[2023-11-12 18:05] VITALS: BP 136/87; PULSE 74
== END 2023-11-12 18:11 | disposition home or self-care (01) ==
LOC: US 07:13 → FBC 17:08
PROVIDERS: Family Provider Internal Medicine; Visit Provider Obstetrics & Gynecology
DX: O09.523 Supervision of elderly multigravida, third trimester (principal); Z3A.32 32 weeks gestation of pregnancy
CPT/HCPCS: 76818

== ENCOUNTER 2023-11-15 07:07 | Outpatient (OUT) | payer OTHER, SELFPAY ==
--- OUTSIDE RECORDS SUMMARY | 2023-11-15 07:09 | XMS_ITS | CCD ---
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 In such cases, another test should be performed with a new specimen in 48-72 hours. If early is suspected clinically in this setting, correlation with quantitative serum b-hCG level is suggested. TESTING PERFORMED AT [address] [address] [employer] Phone: MR knee RT wo conon 01-07-20 MR knee RT wo con [facility] Main [place] [address] [place] [address] MRI Report Signed Patient: Kathia Martinez MR#: [id number] 71 : 1985 Acct:[id number] Age/Sex: 35 / F ADM Date: 01/06/21 Loc: [facility] Room: Type: [facility] Attending Dr: Rene Cruz DO Ordering Provider: [...] Reuben Valentine M.D.01/06/2021 1:43 PM Dictation Location: [place] [address] Transcribed By: [facility] 01/06/21 1343 Dictated By: Reuben Valentine II, MD 01/06/21 1329 Signed By: 01/06/21 1343 [facility] XR knee RT 4V*on 12-31-2020 XR knee RT 4V* [facility] Main [place] [address] [place] [address] XRay Report Signed Patient: Kathia Martinez MR#: [id number] 71 : 1985 Acct:[id number] Age/Sex: 35 / F ADM Date: 12/31/20 Loc: ER Room: Type: [facility] ER Attending Dr: Ordering Provider: SELINA [...] Vargas Jr., M.D.12/31/2020 10:31 AM Dictation Location: [facility]06 Transcribed By: [facility] 12/31/20 1031 Dictated By: Roberth Vargas Jr, MD 12/31/20 1026 Signed By: 12/31/20 1031 [facility] Vital Signs Date Time Vital Sign Value Performing Clinician Facility 06-26-2023 07:35-0400 Body height 160.02 cm [facility] 06-26-2023 07:35-0400 Body mass index (BMI) [Ratio] 29.4 kg/m2 [facility] 06-26-2023 07:35-0400 Body weight 75.29 kg [facility] 06-26-2023 07:35-0400 Diastolic blood pressure 81 mm[Hg] [facility] 06-26-2023 07:35-0400 Heart rate 89 /min [facility] 06-26-2023 07:35-0400 SaO2% (BldA) [Mass fraction] 95 % [facility] 06-26-2023 07:35-0400 Systolic blood pressure 119 mm[Hg] [facility] 05-25-2023 10:30-0500 Body height 160.02 cm [facility] 05-25-2023 10:30-0500 Body mass index (BMI) [Ratio] 30.4 kg/m2 [facility] 05-25-2023 10:30-0500 Body weight 78.01 kg [facility] 05-25-2023 10:30-0500 Diastolic blood pressure 89 mm[Hg] [facility] 05-25-2023 10:30-0500 Heart rate 86 /min [facility] 05-25-2023 10:30-0500 SaO2% (BldA) [Mass fraction] 99 % [facility] 05-25-2023 10:30-0500 Systolic blood pressure 129 mm[Hg] [facility] 05-17-2023 08:11-0500 Body height 160.02 cm [facility] 05-17-2023 08:11-0500 Body mass index (BMI) [Ratio] 30.2 kg/m2 [facility] 05-17-2023 08:11-0500 Body weight 77.56 kg [facility] 05-17-2023 08:11-0500 Diastolic blood pressure 82 mm[Hg] [facility] 05-17-2023 08:11-0500 Heart rate 78 /min [facility] 05-17-2023 08:11-0500 SaO2% (BldA) [Mass fraction] 98 % [facility] 05-17-2023 08:11-0500 Systolic blood pressure 135 mm[Hg] [facility] 12-10-2022 12:05-0400 Body height 160.02 cm Bela Fishman Other [facility] Other 12-10-2022 12:05-0400 Body mass index (BMI) [Ratio] 30.11 kg/m2 Bela Fishman Other [facility] Other 12-10-2022 12:05-0400 Body temperature 100.3 [degF] Bela Fishman Other [facility] Other 12-10-2022 12:05-0400 Body weight 77.11 kg Bela Fishman Other [facility] Other 12-10-2022 12:05-0400 Diastolic blood pressure 106 mm[Hg] Bela Fishman Other [facility] Other 12-10-2022 12:05-0400 Respiratory rate 18 /min Bela Fishman Other [facility] Other 12-10-2022 12:05-0400 SaO2% (BldA) [Mass fraction] 99 % Bela Fishman Other [facility] Other 12-10-2022 12:05-0400 Systolic blood pressure 170 mm[Hg] Bela Nguyenmond Other [facility] Other 11-11-2021 17:40-0400 Body height 160.02 cm Joseph Lamar Other [facility] Other 11-11-2021 17:40-0400 Body mass index (BMI) [Ratio] 31 kg/m2 Joseph Lamar Other [facility] Other 11-11-2021 17:40-0400 Body temperature 99.8 [degF] Joseph Lamar Other [facility] Other 11-11-2021 17:40-0400 Body weight 79.38 kg Joseph Lamar Other [facility] Other 11-11-2021 17:40-0400 Respiratory rate 18 /min Joseph Lamar Other [facility] Other 11-11-2021 17:40-0400 SaO2% (BldA) [Mass fraction] 98 % Joseph Lamar Other [facility] Other 01-28-2021 14:35-0400 Diastolic blood pressure 88 mm[Hg] Paola Villanueva MD Work Phone: [facility] Work Phone: 01-28-2021 14:35-0400 Heart rate 64 /min Paola Villanueva MD Work Phone: [facility] Work Phone: 01-28-2021 14:35-0400 Respiratory rate 11 /min Paola Villanueva MD Work Phone: [facility] Work Phone: 01-28-2021 14:35-0400 SaO2% (BldA) [Mass fraction] 98 % Paola Villanueva MD Work Phone: [facility] Work Phone: 01-28-2021 14:35-0400 Systolic blood pressure 132 mm[Hg] Paola Villanueva MD Work Phone: [facility] Work Phone: 01-28-2021 13:31-0400 Body temperature 97.81 [degF] Paola Villanueva MD Work Phone: [facility] Work Phone: 01-28-2021 10:22-0400 Body height 160 cm Paola Villanueva MD Work Phone: [facility] Work Phone: 01-28-2021 10:10-0400 Body mass index (BMI) [Ratio] 34.72 kg/m2 Paola Villanueva MD Work Phone: [facility] Work Phone: 01-28-2021 10:10040 Body weight 88.91 kg Paola Villanueva MD Work Phone: [facility] Work Phone: Encounters Encounter Date Encounter Type Care Provider Facility Start: 10-31-2023 End: 10-31-2023 ambulatory JOAQUIN LORNA Not Available Start: 10-17-2023 End: 10-17-2023 ambulatory CAMILLE TARA Not Available Start: 09-19-2023 End: 09-19-2023 ambulatory JOAQUIN LORNA Not Available Start: 08-21-2023 End: 08-21-2023 ambulatory JOAQUIN LORNA Not Available Start: 07-18-2023 End: 07-18-2023 ambulatory JOAQUIN LORNA Not Available Start: 06-26-2023 End: 06-26-2023 ambulatory [facility] Work Phone: Start: 06-26-2023 End: 06-26-2023 Patient encounter procedure [facility] Work Phone: Start: 06-14-2023 End: 06-14-2023 ambulatory JOAQUIN LORNA Not Available Start: 05-25-2023 End: 05-25-2023 Patient encounter procedure [facility] Work Phone: Start: 05-17-2023 End: 05-17-2023 ambulatory [facility] Work Phone: Start: 05-17-2023 End: 05-17-2023 Patient encounter procedure [facility] Work Phone: Start: 12-10-2022 End: 12-10-2022 ambulatory Bela Nguyenmond Other [facility] Other Start: 12-10-2022 Office outpatient visit 15 minutes Bela Fishman [facility] Start: 11-11-2021 End: 11-11-2021 ambulatory Natyclare Brianda Other [facility] Other Start: 11-11-2021 Office outpatient visit 15 minutes Joseph Lamar [facility] [address] Start: 01-28-2021 End: 01-28-2021 ambulatory PAOLA VILLANUEVA [facility] Start: 01-28-2021 End: 01-28-2021 Subsequent hospital visit [...] outpatient visit 25 minutes Rene Cruz [facility] Start: 01-05-2021 Office outpatient ne w 45 minutes Rene Cruz [facility] Procedures Date Procedure Procedure Detail Performing Clinician Start: 01-28-2021 Urine test visual color cmprsn meths Paola Villanueva MD Work Phone: Plan of Treatment Date Care Activity Detail Author Start: 02-10-2021 End: 02-10-2021 Patient encounter procedure [facility] Start: 11-24-2020 Influenza vaccination Flu vaccine (# 1) [facility] Start: 11-22-2013 Screening for malign ant neoplasm of cervix [facility] Start: 11-22-2004 Screening for malign ant neoplasm of cervix Pap smear [facility] Start: 11-22-2002 DTaP/Tdap/Td vaccine (1 - Tdap) DTaP/Tdap/Td vaccine (1 - Tdap) [facility] Start: 11-22-1998 HIV screening HIV screen [facility] Start: 11-22-1984 Varicella vaccine (1 of 2 - 2-dose childhood series) Varicella vaccine (1 of 2 - 2-dose childhood series) [facility] Start: 1985 Hepatitis C screening Hepatitis C sc reen [facility] Comprehensive metabo lic 2000 panel - Serum or Plasma [facility] Oxygen therapy [[facility] Data Set] Initiate Oxygen Therapy Protocol Respiratory Care Routine Daily until discontinued starting 01/28/2021 [facility]: Comment on above: Daily until disconti nued starting 01/28/2021 Phase I & II - meter ed glucose Phase I & II - metered glucose Point of Care Testing Routine As Needed until discontinued starting 01/28/2021 [facility] [employer] Phone: Comment on above: As Needed until disc ontinued starting 01/28/2021 End: 01-28-2021 , urine POCT , urine POCT Point of Care Testing Routine One Time for 1 Occurrences starting 01/28/2021 until 01/28/2021 [facility] Phone: Comment on above: One Time for 1 Occur rences starting 01/28/2021 until 01/28/2021 [facility] Payers Date Payer Category Payer Unknown [id number] 1985 Unknown [id number] 1985 Unknown [id number] 2.16.84 [id number] 1985 Unknown [id number] 2.16.84 [id number] 1985 Unknown [id number] 2.16.84 [id number] 1985 Unknown [id number] 2.16.84 [id number] 1985 Unknown [id number] 2.16.84 [id number] 1985 Unknown [id number] 2.16.84 [id number] Self-pay Self Pay [id number] Unknown HCAP/HFA/FAP Active [id number] Social History Date Type Detail Facility Start: 01-24-2021 End: 01-28-2021 Tobacco smoking status NVIS Never smoker [facility] Start: 01-24-2021 End: 01-28-2021 Tobacco use and exposure Never used [facility] Start: 01-28-2021 Alcohol intake Current drinke r of alcohol (finding) [facility] Work Phone: Start: 01-24-2021 Alcohol Comment social [place] Work Phone: Start: 1985 Sex Assigned At Not on file M [employer] Work Phone: Exposure to SARS-CoV-2 (event) Not sure [facility] Sex Assigned At Sex Assigned At Bir th [facility] Other Start: 05-17-2023 End: 05-17-2023 Tobacco smoking status [facility] Ex-smoker (finding) [facility] Start: 1985 Sex Assigned At Female F [facility] Medical Equipment Procedure Code Equipment Code Equipment Original Text Equipment Identifier Dates Implant Tib L30m m [id number] Jacques Drvr Fix Dev [employer] [id number] Start: 01-28-2021 Implant Fem L24m m [id number] Insrt [employer] Am [id number] Start: 01-28-2021 Single [...] no improvement in 2 to 3 days [facility] Other 08-19-2022 Evaluation note* Encounter Date Diagnosis [...] Pt understood and agreed to treatment plan. [facility] Other 11-05-2021 Hospital Discharge instructions* Discharge Instr - Activity* Paola Villanueva MD - 01/28/2021 1:36 PM EDT Crutches partial weightbearing right knee. Patient to wear previous brace as necessary * Additional Instructions* Paola Villanueva MD - 01/28/2021 [facility] Dr. Paola Villanueva M.D. [phone] POST OPERATIVE DISCHARGE INSTRUCTIONS KNEE ARTHROSCOPY 1. Follow-up in office seven to ten days after surgery. Call for appointment if not already made. ([phone]). 2. Take pain medication as ordered. 3. [...] that is not relieved by pain medications. [facility] Dr. Paola Villanueva M.D. [phone] POST OPERATIVE DISCHARGE INSTRUCTIONS KNEE ARTHROSCOPY Follow-up in office seven to ten days after surgery. Call for appointment if not already made. ([phone]). Take pain medication as ordered. Keep the [...] relieved by pain medications. [facility]: 1(669) 200-344311-02-2021 History of Present illness Narrative* Venkatesh Hoffman - 01/25/2021 1:00 PM EDT CLINICAL PHARMACY NOTE: MEDS TO BEDS Total # of Prescriptions Filled: 1 The following medications were delivered to the patient: Percocet 5/325 Additional Documentation: Delivered Medication to Patient * Mima Arias RN - 01/25/2021 1:00 PM EDT DAY OF SURGERY/PROCEDURE GUIDELINES As a patient at the [facility], you can expect quality medical and nursing [...] morning of your surgery/procedure (Hibiclens if directed) [place] your teeth, but do not swallow any [...] during surgery and recovery. [facility] Phone: 1(767) 293-957810-15-2021 Evaluation note* Encounter Date Diagnosis Assessment Notes [...] move forward with treatment at this time. [facility] Other 10-13-2021 Evaluation note* Encounter Date Diagnosis [...] as documented in the electronic medical record. [facility] Other Evaluation note* Diagnosis Rupture of anterior cruciate ligament of right knee, initial encounter- Primary Acute lateral meniscus tear of right knee Tear of lateral cartilage or meniscus of knee, current documented in this encounter [employer] Phone: evaluation noteNo [facility] [employer] Other Evaluation note* Diagnosis Onset Date Resolution Status Anxiety acute Impaired concentration acute Insomnia acute Migraine headache acute Screening for heart disease acute Screening for metabolic disorder acute [facility] Work Phone: Evaluation note* Diagnosis Onset Date Resolution Status Anxiety acute Impaired concentration acute Insomnia acute Migraine headache acute Palpitations acute Screening for heart disease acute Screening for metabolic disorder acute Encounter to establish care with new doctor noneactive Positive urine test acute [facility] Work Phone: History general Narrative - Reported* Type Description Date Medical History migraine headache Medical History bacterial infection- stomach inf ection Medical History asthma [employer] [facility] [employer] Other Hisjbto general Narrative - Reported* Type Description Date Medical History migraine headache Medical History bacterial infection- stomach inf ection Medical History asthma Surgical History acl repair [facility] [employer] Other Summary Purpose Family History No Family [...] cruciate ligament of right knee, initial encounter (S83.808A) Referral Organization [facility] Referring Provider First Name Rene Referring Provider Last Name Nancy Referring Provider Specialty Orthopedic Surgery Referred Organization [facility] [address]erred Address [address] [place] [place],[address] Referred Provider Specialty Orthopedic S urgery Referral [...] right knee RIGHT KNEE ACL TEAR Procedures CT KNEE SCOPE,AID ANT CRUCIATE REPAIR RIGHT KNEE ACL ARTHROSCOPIC RECONSTRUCTION WITH BIOMET Paola Villanueva MD [address] [place] [address] [facility] Ordered Prescriptions (unrec ognized section and content) [...] Adjustment - Provider: Yolis Montiel APRN - VIDEO CONTROL OPERATOR)1333 (Anesthesia Volume Adjustment - Provider: Mitchel Saucedo [...] section and content) DATE CREATED AUTHOR 01/29/2021 [facility] DATE CREATED AUTHOR AUTHOR'S ORGANIZ ATION 06/22/2021 [facility] DATE CREATED AUTHOR AUTHOR'S ORGANIZ ATION 11/03/2023 [facility] [employer] Care Teams (unrecognized sec [...] BE BASED ON THE PRIMARY CLINICAL RECORDS. [employer] provides no warranty or guarantee of the accuracy or completeness of information in this document.
[2023-11-15 17:03] VITALS: BP 146/86; PULSE 75
[2023-11-15 17:50] VITALS: BP 149/100; PULSE 68
[2023-11-15 17:51] VITALS: BP 141/95; PULSE 69
[2023-11-15] MEDS: LABETALOL HCL 200 MG TABLET PO (18:13)
[2023-11-15 18:21] LABS: Basophils Absolute Auto 0.1 10^3/uL (0.0-0.1); Basophils Percent Auto 0.5 % (0.2-2.0); Eosinophils Absolute Auto 0.1 10^3/uL (0.0-0.7); Hematocrit 37.4 % (36.0-48.0); Hemoglobin 12.8 g/dL (12.0-16.0); Immature Granulocytes Abs Auto 0.09 10^3/uL (0.00-0.03); Immature Granulocytes Pct Auto 0.7 % (0.0-0.5); Lymphocytes Absolute Auto 2.2 10^3/uL (1.2-3.8); Lymphocytes Percent Auto 16.7 % (20.5-60.0); Mean Corpuscular HGB Conc 34.2 g/dL (29.9-35.2); Mean Corpuscular Hemoglobin 31.7 pg (26.7-34.0); Mean Corpuscular Volume 92.6 fL (81.0-99.0); Mean Platelet Volume 11.6 fL (9.5-13.5); Monocytes Absolute Auto 1.1 10^3/uL (0.3-0.8); Monocytes Percent Auto 7.9 % (1.7-12.0); Neutrophils Absolute Auto 9.7 10^3/uL (1.4-6.5); Neutrophils Percent Auto 73.2 % (43.0-75.0); Platelet Count 198 10^3/uL (150-450); Red Blood Count 4.04 10^6/uL (4.20-5.40); Red Cell Distribution Width 11.9 % (11.0-15.0); White Blood Count 13.3 10^3/uL (4.0-11.0)
[2023-11-15 18:27] LABS: Alanine Aminotransferase 21 U/L (14-59); Aspartate Amino Transferase 16 U/L (15-37); Estimated GFR (African America >60 (>=60); Estimated GFR (Non-African Ame >60 (>=60); Uric Acid 4.2 mg/dL (2.6-6.0)
[2023-11-15 18:37] VITALS: BP 134/86; PULSE 74
--- NOTE | 2023-11-15 18:43 | PC.NURSE ---
1749: BP repeated at 149/100 - patient denies visual changes, headaches, or epigastric pain. DTR's 1+ bilateral patellar. 1800: TC to DR Pierre and report given regarding BP's and patient asymptomatic. Order received and plan of care discussed with patient. 1813: labetalol 200 mg po. If labs WNL and BP< 140/90 after medication - patient may be discharged and complete 24 hour urine protein as outpatient.
[2023-11-15 18:52] VITALS: BP 124/80; PULSE 72
[2023-11-15 19:10] LABS: Partial Thromboplastin Time 24.7 sec (22.3-36.2); Prothrombin Time 9.3 sec (9.0-11.6)
[2023-11-15 20:23] LABS: INR <0.93
[2023-11-15 20:38] LABS: Fibrinogen 474 mg/dL (200-400)
== END 2023-11-15 18:55 | disposition home or self-care (01) ==
LOC: FBCO 07:07 → FBC 16:57
PROVIDERS: Family Provider Internal Medicine; Visit Provider Obstetrics & Gynecology
DX: O09.519 Supervision of elderly primigravida, unspecified trimester (principal)
CPT/HCPCS: 36415; 59025; 82565; 84450; 84460; 84520; 84550; 85025; 85384; 85610; 85730

== ENCOUNTER 2023-11-16 18:30 | Outpatient (REF) | payer OTHER, SELFPAY ==
--- OUTSIDE RECORDS SUMMARY | 2023-11-16 18:34 | XMS_ITS | CCD ---
Author Organization [facility] Care Team Providers Care Revenue Audit Clerk Name Role Phone Unavailable Primary Care Provider UnavailPAOLA Hong Admitting Unavailable PAOLA VILLANUEVA Attending Unavailable Rene Cruz Unavailable Joseph Lamar Unavailable Bela Fishman Unavailable JOAQUIN ROTHMAN Attending Unavailable JOAQUIN ROTHMAN Attending Unavailable JOAQUIN ROTHMAN Attending Unavailable CAMILLE PACHECO Attending Unavailable JOAQUIN ROTHMAN Attending Unavailable JOAQUIN [...] COCET) 5-325 MG per tablet 1 tablet [id number] 200 actuat albuterol 0.09 mg/actuat metered dose [...] Beta HCG ( test) Ql (U) Positive [facility] POCT urine pregnancyOrdered By: Paola Villanueva on 01-28-2021 Beta HCG ( test) Ql (U) Negative NEGATIVE [employer] Phone: Comment on above: Specimens with hCG l evels near the threshold of the test (25 mIU/mL) may give a negative or indeterminate result. In such cases, another test should be performed with a new specimen in 48-72 hours. If early is suspected clinically in this setting, correlation with quantitative serum b-hCG level is suggested. TESTING PERFORMED AT [address] [address] [employer] Phone: MR knee RT wo conon 01-07-20 MR knee RT wo con [facility] [place] [address] MRI Report Signed Patient: Kathia Martinez MR#: [id number] 73 : 1985 Acct:[id number] Age/Sex: 35 / F ADM Date: 01/06/21 Loc: [facility] Room: Type: [facility] CLI Attending Dr: Rene Cruz DO [...] Reuben Valentine M.D.01/06/2021 1:43 PM Dictation Location: [place] [address] Transcribed By: [facility] 01/06/21 1343 Dictated By: Reuben Valentine II, MD 01/06/21 1329 Signed By: 01/06/21 1343 [facility] XR knee RT 4V*on 12-31-2020 XR knee RT 4V* [facility] [address] XRay Report Signed Patient: Kathia Martinez MR#: [id number] 73 : 1985 Acct:[id number] Age/Sex: 35 / F ADM Date: 12/31/20 Loc: ER Room: Type: [facility] ER Attending Dr: Ordering Provider: SELINA [...] Vargas Jr., M.D.12/31/2020 10:31 AM Dictation Location: [facility] Transcribed By: [facility] 12/31/20 1031 Dictated By: Roberth Vargas Jr, MD 12/31/20 1026 Signed By: 12/31/20 1031 [facility] Vital Signs Date Time Vital Sign Value Performing Clinician Facility 06-26-2023 07:35-0400 Body height 160.02 cm [facility] 06-26-2023 07:35-0400 Body mass index (BMI) [Ratio] 29.4 kg/m2 [facility] 06-26-2023 07:35-0400 Body weight 75.29 kg [facility] 06-26-2023 07:35-0400 Diastolic blood pressure 81 mm[Hg] [facility] 06-26-2023 07:35-0400 Heart rate 89 /min [facility] 06-26-2023 07:35-0400 SaO2% (BldA) [Mass fraction] 95 % [facility] 06-26-2023 07:35-0400 Systolic blood pressure 119 mm[Hg] [facility] 05-25-2023 10:30-0500 Body height 160.02 cm [facility] 05-25-2023 10:30-0500 Body mass index (BMI) [Ratio] 30.4 kg/m2 [facility] 05-25-2023 10:30-0500 Body weight 78.01 kg [facility] 05-25-2023 10:30-0500 Diastolic blood pressure 89 mm[Hg] [facility] 05-25-2023 10:30-0500 Heart rate 86 /min [facility] 05-25-2023 10:30-0500 SaO2% (BldA) [Mass fraction] 99 % [facility] 05-25-2023 10:30-0500 Systolic blood pressure 129 mm[Hg] [facility] 05-17-2023 08:11-0500 Body height 160.02 cm [facility] 05-17-2023 08:11-0500 Body mass index (BMI) [Ratio] 30.2 kg/m2 [facility] 05-17-2023 08:11-0500 Body weight 77.56 kg [facility] 05-17-2023 08:11-0500 Diastolic blood pressure 82 mm[Hg] [facility] 05-17-2023 08:11-0500 Heart rate 78 /min [facility] 05-17-2023 08:11-0500 SaO2% (BldA) [Mass fraction] 98 % [facility] 05-17-2023 08:11-0500 Systolic blood pressure 135 mm[Hg] [facility] 12-10-2022 12:05-0400 Body height 160.02 cm Bela Fishman Other [employer] Other 12-10-2022 12:05-0400 Body mass index (BMI) [Ratio] 30.11 kg/m2 Bela Fishman Other [facility] Other 12-10-2022 12:05-0400 Body temperature 100.3 [degF] Bela Fishman Other [facility] Other 12-10-2022 12:05-0400 Body weight 77.11 kg Bela Fishman Other [facility] Other 12-10-2022 12:05-0400 Diastolic blood pressure 106 mm[Hg] Bela Fishman Other [facility] Other 12-10-2022 12:05-0400 Respiratory rate 18 /min Bela Fishman Other [facility] [facility] Other 12-10-2022 12:05-0400 SaO2% (BldA) [Mass fraction] 99 % Bela Fishman Other [facility] [facility] Other 12-10-2022 12:05-0400 Systolic blood pressure 170 mm[Hg] Bela Fishman Other [facility] Other 11-11-2021 17:40-0400 Body height 160.02 cm Joseph Lamar Other [facility] Other 11-11-2021 17:40-0400 Body mass index (BMI) [Ratio] 31 kg/m2 Joseph Lamar Other [facility] Other 11-11-2021 17:40-0400 Body temperature 99.8 [degF] Joseph Lamar Other [facility] Other 11-11-2021 17:40-0400 Body weight 79.38 kg Joseph Lamar Other [facility] Other 11-11-2021 17:40-0400 Respiratory rate 18 /min Joseph Lamar Other [facility] Other 11-11-2021 17:40-0400 SaO2% (BldA) [Mass fraction] 98 % Joseph Lamar Other [facility] Other 01-28-2021 14:35-0400 Diastolic blood pressure 88 mm[Hg] Paola Villanueva MD Work Phone: [employer] Work Phone: 01-28-2021 14:35-0400 Heart rate 64 /min Paola Villanueva MD Work Phone: [employer] Work Phone: 01-28-2021 14:35-0400 Respiratory rate 11 /min Paola Villanueva MD Work Phone: [employer] Work Phone: 01-28-2021 14:35-0400 SaO2% (BldA) [Mass fraction] 98 % Paola Villanueva MD Work Phone: [employer] Work Phone: 01-28-2021 14:35-0400 Systolic blood pressure 132 mm[Hg] Paola Villanueva MD Work Phone: [employer] Work Phone: 01-28-2021 13:31-0400 Body temperature 97.81 [degF] Paola Villanueva MD Work Phone: [employer] Work Phone: 01-28-2021 10:22-0400 Body height 160 cm Paola Villanueva MD Work Phone: [employer] Work Phone: 01-28-2021 10:10-0400 Body mass index (BMI) [Ratio] 34.72 kg/m2 Paola Villanueva MD Work Phone: [employer] Work Phone: 01-28-2021 10:10-0400 Body weight 88.91 kg Paola Villanueva MD Work Phone: [employer] Work Phone: Encounters Encounter Date Encounter Type Care Provider Facility Start: 11-14-2023 End: 11-14-2023 ambulatory JOAQUIN LORNA Not Available Start: 10-31-2023 End: 10-31-2023 ambulatory JOAQUIN LORNA Not Available Start: 10-17-2023 End: 10-17-2023 ambulatory CAMILLE TARA Not Available Start: 09-19-2023 End: 09-19-2023 ambulatory JOAQUIN LORNA Not Available Start: 08-21-2023 End: 08-21-2023 ambulatory JOAQUIN LORNA Not Available Start: 07-18-2023 End: 07-18-2023 ambulatory JOAQUIN LORNA Not Available Start: 06-26-2023 End: 06-26-2023 ambulatory [facility] Work Phone: Start: 06-26-2023 End: 06-26-2023 Patient encounter procedure [facility]ly [facility] Work Phone: Start: 06-14-2023 End: 06-14-2023 ambulatory JOAQUIN LORNA Not Available Start: 05-25-2023 End: 05-25-2023 Patient encounter procedure [facility] Work Phone: Start: 05-17-2023 End: 05-17-2023 ambulatory [facility] Work Phone: Start: 05-17-2023 End: 05-17-2023 Patient encounter procedure [facility] Work Phone: Start: 12-10-2022 End: 12-10-2022 ambulatory Bela Fishman Other [facility] Other Start: 12-10-2022 Office outpatient visit 15 minutes Bela Fishman [facility] Start: 11-11-2021 End: 11-11-2021 ambulatory Joseph Lamar Other [facility] Other Start: 11-11-2021 Office outpatient visit 15 minutes Joseph Lamar [facility] Start: 01-28-2021 End: 01-28-2021 ambulatory PAOLA VILLANUEVA [facility] Start: 01-28-2021 End: 01-28-2021 Subsequent hospital visit [...] 01-07-2021 Office outpatient visit 25 minutes Rene GUTIERREZ [facility] Start: 01-05-2021 Office outpatient ne w 45 minutes Rene Cruz [facility] Procedures Date Procedure Procedure Detail Performing Clinician Start: 01-28-2021 Urine test visual color cmprsn meths Paola Villanueva MD Work Phone: Plan of Treatment Date Care Activity Detail Author Start: 02-10-2021 End: 02-10-2021 Patient encounter procedure [facility] Start: 11-24-2020 Influenza vaccination Flu vaccine (# 1) [facility] Start: 11-22-2013 Screening for malign ant neoplasm of cervix [facility] Start: 11-22-2004 Screening for malign ant neoplasm of cervix Pap smear [facility] Start: 11-22-2002 DTaP/Tdap/Td vaccine (1 - Tdap) DTaP/Tdap/Td vaccine (1 - Tdap) [facility] Start: 11-22-1998 HIV screening HIV screen [facility] Start: 11-22-1984 Varicella vaccine (1 of 2 - 2-dose childhood series) Varicella vaccine (1 of 2 - 2-dose childhood series) [facility] Start: 1985 Hepatitis C [facility] metab[facility] lic 2000 panel - Serum or Plasma [facility] Oxygen therapy [[facility] Data Set] Initiate Oxygen Therapy Protocol Respiratory Care Routine Daily until discontinued starting 01/28/2021 [facility] [employer] Phone: Comment on above: Daily until disconti nued starting 01/28/2021 Phase I & II - meter ed glucose Phase I & II - metered glucose Point of Care Testing Routine As Needed until discontinued starting 01/28/2021 [facility] [employer] Phone: Comment on above: As Needed until disc ontinued starting 01/28/2021 End: 01-28-2021 , urine POCT , urine POCT Point of Care Testing Routine One Time for 1 Occurrences starting 01/28/2021 until 01/28/2021 [facility] [employer] Phone: Comment on above: One Time for 1 Occur rences starting 01/28/2021 until 01/28/2021 [facility] Payers Date Payer Category Payer Unknown [id number] 1985 Unknown [id number] [id number] 1985 Unknown [id number] 2.16.84 [id number] 1985 Unknown [id number] 2.16.84 [id number] 1985 Unknown [id number] 2.16.84 [id number] 1985 Unknown [id number] 2.16.84 [id number] 1985 Unknown [id number] 2.16.84 [id number] 1985 Unknown [id number] 2.16.84 [id number] 1985 Unknown [id number] 2.16.84 [id number] Self-pay Self Pay [id number] Unknown HCAP/HFA/FAP Active [id number] Social History Date Type Detail Facility Start: 01-24-2021 End: 01-28-2021 Tobacco smoking status [email or web address] Never smoker [employer] Start: 01-24-2021 End: 01-28-2021 Tobacco use and exposure Never used [facility] Start: 01-28-2021 Alcohol intake Current drinke r of alcohol (finding) [employer] Work Phone: Start: 01-24-2021 Alcohol Comment social [employer] [facility] Work Phone: Start: 1985 Sex Assigned At Not on file M [employer] Work Phone: Exposure to SARS-CoV-2 (event) Not sure [employer] Sex Assigned At Sex Assigned At Bir th [facility] Other Start: 05-17-2023 End: 05-17-2023 Tobacco smoking status HIIS Ex-smoker (finding) [facility] Start: 1985 Sex Assigned At Female F [place] [facility] Procedure Code Equipment Code Equipment Original Text Equipment Identifier Dates Implant Tib L30m m [id number] Jacques Drvr Fix Dev [employer] [id number] [id number] Start: 01-28-2021 Implant Fem L24m m [id number] Insrt [employer] Am [id number] Start: 01-28-2021 Single [...] no improvement in 2 to 3 days [facility] Other 08-19-2022 Evaluation note* Encounter Date Diagnosis [...] Pt understood and agreed to treatment plan. [facility] Other 11-05-2021 Hospital Discharge instructions* Discharge Instr - Activity* Paola Villanueva MD - 01/28/2021 1:36 PM EDT Crutches partial weightbearing right knee. Patient to wear previous brace as necessary * Additional Instructions* Paola Villanueva MD - 01/28/2021 [facility] Dr. Paola Villanueva M.D. [phone] POST OPERATIVE DISCHARGE INSTRUCTIONS KNEE ARTHROSCOPY 1. Follow-up in office seven to ten days after surgery. Call for appointment if not already made. ([phone]). 2. Take pain medication as ordered. 3. [...] is not relieved by pain medications. [facility] Dr. Paola Villanueva M.D. [phone] POST OPERATIVE DISCHARGE INSTRUCTIONS KNEE ARTHROSCOPY Follow-up in office seven to ten days after surgery. Call for appointment if not already made. ([phone]). Take pain medication as ordered. Keep the [...] relieved by pain medications. [facility] this [facility] Phone: 1(919) 248-156511-02-2021 History of Present illness Narrative* Venkatesh Hoffman - 01/25/2021 1:00 PM EDT CLINICAL PHARMACY NOTE: MEDS TO BEDS Total # of Prescriptions Filled: 1 The following medications were delivered to the patient: Percocet 5/325 Additional Documentation: Delivered Medication to Patient * Mima Arias RN - 01/25/2021 1:00 PM EDT DAY OF SURGERY/PROCEDURE GUIDELINES As a patient at the [facility], you can expect quality medical [...] morning of your surgery/procedure (Hibiclens if directed) [place] your teeth, but do not swallow any [...] during surgery and recovery. documented in [employer] Phone: [phone]) 643-572810-15-2021 Evaluation note* Encounter Date Diagnosis Assessment Notes [...] to sports surgery, Dr. Felipe Cortes at [facility] per patient request.at her last visit [...] also referred to Dr Felipe Cortes at [facility] Dec, Other The patient has been involved in our cooperative treatment plan and agrees to move forward with treatment at this time. [facility] Other 10-13-2021 Evaluation note* Encounter Date Diagnosis [...] as documented in the electronic medical record. [employer] Other Evaluation note* Diagnosis Rupture of anterior cruciate ligament of right knee, initial encounter- Primary Acute lateral meniscus tear of right knee Tear of lateral cartilage or meniscus of knee, current documented in this encounter [employer] Work Phone: evaluation noteNo InformationNortUpper [facility] [employer] Other Evaluation note* Diagnosis Onset Date Resolution Status Anxiety acute Impaired concentration acute Insomnia acute Migraine headache acute Screening for heart disease acute Screening for metabolic disorder acute [facility] Work Phone: Evaluation note* Diagnosis Onset Date Resolution Status Anxiety acute Impaired concentration acute Insomnia acute Migraine headache acute Palpitations acute Screening for heart disease acute Screening for metabolic disorder acute Encounter to establish care with new doctor noneactive Positive urine test acute [facility] Work Phone: History general Narrative - Reported* Type Description Date Medical History migraine headache Medical History bacterial infection- stomach inf ection Medical History asthma [employer] Other History general Narrative - Reported* Type Description Date Medical History migraine headache Medical History bacterial infection- stomach inf ection Medical History asthma Surgical History acl repair [employer] [facility] [employer] Other Summary Purpose Family History No Family [...] right knee, initial encounter (S83.511A) Referral Organization [facility] Referring Provider First Name Rene Referring Provider Last Name Nancy Referring Provider Specialty Orthopedic Surgery Referred Organization [facility] [address] Address [address] [place],[address] Referred Provider Specialty Orthopedic S urgery Referral [...] right knee RIGHT KNEE ACL TEAR Procedures [place] KNEE SCOPE,AID ANT CRUCIATE REPAIR RIGHT KNEE ACL ARTHROSCOPIC RECONSTRUCTION WITH BIOMET Paola Villanueva MD [address] [place] [address] [facility] Ordered Prescriptions (unrec ognized section and [...] Adjustment - Provider: Yolis Montiel APRN - MARKETING CO OP)[phone] (Anesthesia Volume Adjustment - Provider: Mitchel Saucedo [...] section and content) DATE CREATED AUTHOR 01/29/2021 [facility] DATE CREATED AUTHOR AUTHOR'S ORGANIZ ATION 06/22/2021 [facility] DATE CREATED AUTHOR AUTHOR'S ORGANIZ ATION 11/16/2023 [facility] EPIC Care Teams (unrecognized [...] BE BASED ON THE PRIMARY CLINICAL RECORDS. [employer] [facility]. provides no warranty or guarantee of the accuracy or completeness of information in this document.
[2023-11-17 11:07] LABS: Total Protein Urine Random 14.9 mg/dL (<=11.9)
[2023-11-17 12:48] LABS: Total Protein 24 Hour Urine 163.9 mg/24hr (<=149.1); Total Volume 24 Hour Urine 1100 mL/24hr
== END 2023-11-16 18:31 | disposition home or self-care (01) ==
LOC: LAB 18:30
PROVIDERS: Family Provider Internal Medicine; Visit Provider Obstetrics & Gynecology
DX: I10 Essential (primary) hypertension (principal)
CPT/HCPCS: 81050; 84156

== ENCOUNTER 2023-11-19 07:16 | Outpatient (OUT) | payer OTHER, SELFPAY ==
--- OUTSIDE RECORDS SUMMARY | 2023-11-19 07:23 | XMS_ITS | CCD ---
Author Organization [facility] Care Team Providers Care Manager Of Internal Name Role Phone Unavailable Primary Care Provider [...] COCET) 5-325 MG per tablet 1 tablet [id number] 200 actuat albuterol 0.09 mg/actuat metered dose [...] Beta HCG ( test) Ql (U) Positive [facility] POCT urine pregnancyOrdered By: Paola Villanueva on 01-28-2021 Beta HCG ( test) Ql (U) Negative NEGATIVE [employer] Phone: Comment on above: Specimens with hCG l evels near the threshold of the test (25 mIU/mL) may give a negative or indeterminate result. In such cases, another test should be performed with a new specimen in 48-72 hours. If early is suspected clinically in this setting, correlation with quantitative serum b-hCG level is suggested. TESTING PERFORMED AT [address] [address] [employer] Phone: MR knee RT wo conon 01-07-20 MR knee RT wo con [place] [address] MRI Report Signed Patient: Kathia Martinez MR#: [id number] 73 : 1985 Acct:[id number] Age/Sex: 35 / F ADM Date: 01/06/21 Loc: [facility] Room: Type: [facility] CLI Attending Dr: Rene Cruz DO Ordering [...] Reuben Valentine M.D.01/06/2021 1:43 PM Dictation Location: [place] [address] Transcribed By: [facility] 01/06/21 1343 Dictated By: Reuben Valentine II, MD 01/06/21 1329 Signed By: 01/06/21 1343 [facility] XR knee RT 4V*on 12-31-2020 XR knee RT 4V* [place] [address] XRay Report Signed Patient: Kathia Martinez MR#: [id number] [birth year] : 1985 Acct:[id number] Age/Sex: 35 / F ADM Date: 12/31/20 Loc: ER Room: Type: [facility] ER Attending Dr: Ordering Provider: SELINA [...] Vargas Jr., M.D.12/31/2020 10:31 AM Dictation Location: [facility] Transcribed By: [facility] 12/31/20 1031 Dictated By: Roberth Vargas Jr, MD 12/31/20 1026 Signed By: 12/31/20 1031 [facility] Vital Signs Date Time Vital Sign Value Performing Clinician Facility 06-26-2023 07:35-0400 Body height 160.02 cm [facility] 06-26-2023 07:35-0400 Body mass index (BMI) [Ratio] 29.4 kg/m2 [facility] 06-26-2023 07:35-0400 Body weight 75.29 kg [facility] 06-26-2023 07:35-0400 Diastolic blood pressure 81 mm[Hg] [facility] 06-26-2023 07:35-0400 Heart rate 89 /min [facility] 06-26-2023 07:35-0400 SaO2% (BldA) [Mass fraction] 95 % [facility] 06-26-2023 07:35-0400 Systolic blood pressure 119 mm[Hg] [facility] 05-25-2023 10:30-0500 Body height 160.02 cm [facility] 05-25-2023 10:30-0500 Body mass index (BMI) [Ratio] 30.4 kg/m2 [facility] 05-25-2023 10:30-0500 Body weight 78.01 kg [facility] 05-25-2023 10:30-0500 Diastolic blood pressure 89 mm[Hg] [facility] 05-25-2023 10:30-0500 Heart rate 86 /min [facility] 05-25-2023 10:30-0500 SaO2% (BldA) [Mass fraction] 99 % [facility] 05-25-2023 10:30-0500 Systolic blood pressure 129 mm[Hg] [facility] 05-17-2023 08:11-0500 Body height 160.02 cm [facility] 05-17-2023 08:11-0500 Body mass index (BMI) [Ratio] 30.2 kg/m2 [facility] 05-17-2023 08:11-0500 Body weight 77.56 kg [facility] 05-17-2023 08:11-0500 Diastolic blood pressure 82 mm[Hg] [facility] 05-17-2023 08:11-0500 Heart rate 78 /min [facility] 05-17-2023 08:11-0500 SaO2% (BldA) [Mass fraction] 98 % [facility] 05-17-2023 08:11-0500 Systolic blood pressure 135 mm[Hg] [facility] 12-10-2022 12:05-0400 Body height 160.02 cm Bela Fishman Other [employer] Other 12-10-2022 12:05-0400 Body mass index (BMI) [Ratio] 30.11 kg/m2 Bela Fishman Other [facility] Other 12-10-2022 12:05-0400 Body temperature 100.3 [degF] Bela Fishman Other [employer] Other 12-10-2022 12:05-0400 Body weight 77.11 kg Bela Fishman Other [employer] Other 12-10-2022 12:05-0400 Diastolic blood pressure 106 mm[Hg] Bela Fishman Other [employer] Other 12-10-2022 12:05-0400 Respiratory rate 18 /min Bela Fishman Other [employer] Other 12-10-2022 12:05-0400 SaO2% (BldA) [Mass fraction] 99 % Bela Fishman Other [employer] Other 12-10-2022 12:05-0400 Systolic blood pressure 170 mm[Hg] Bela Fishman Other [employer] Other 11-11-2021 17:40-0400 Body height 160.02 cm Joseph Lamar Other [employer] Other 11-11-2021 17:40-0400 Body mass index (BMI) [Ratio] 31 kg/m2 Joseph Lamar Other [employer] Other 11-11-2021 17:40-0400 Body temperature 99.8 [degF] Joseph Lamar Other [employer] Other 11-11-2021 17:40-0400 Body weight 79.38 kg Joseph Lamar Other [employer] Other 11-11-2021 17:40-0400 Respiratory rate 18 /min Joseph Lamar Other [employer] Other 11-11-2021 17:40-0400 SaO2% (BldA) [Mass fraction] 98 % Joseph Lamar Other [employer] Other 01-28-2021 14:35-0400 Diastolic blood pressure 88 mm[Hg] Paola Villanueva MD Work Phone: [facility] Work Phone: 01-28-2021 14:35-0400 Heart rate 64 /min Paola Villanueva MD Work Phone: [facility] Work Phone: 01-28-2021 14:35-0400 Respiratory rate 11 /min Paola Villanueva MD Work Phone: [facility] Work Phone: 01-28-2021 14:35-0400 SaO2% (BldA) [Mass fraction] 98 % Paola Villanueva MD Work Phone: [facility] Work Phone: 01-28-2021 14:35-0400 Systolic blood pressure 132 mm[Hg] Paola Villanueva MD Work Phone: [facility] Work Phone: 01-28-2021 13:31-0400 Body temperature 97.81 [degF] Paola Villanueva MD Work Phone: [facility] Work Phone: 01-28-2021 10:22-0400 Body height 160 cm Paola Villanueva MD Work Phone: [facility] Work Phone: 01-28-2021 10:10-0400 Body mass index (BMI) [Ratio] 34.72 kg/m2 Paola Villanueva MD Work Phone: [facility] Work Phone: 01-28-2021 10:10-0400 Body weight 88.91 kg Paola Villanueva MD Work Phone: [facility] Work Phone: Encounters Encounter Date Encounter Type [...] Not Available Start: 06-26-2023 End: 06-26-2023 ambulatory [facility] Work Phone: Start: 06-26-2023 End: 06-26-2023 Patient encounter procedure [facility] Work Phone: Start: 06-14-2023 End: 06-14-2023 ambulatory JOAQUIN LORNA Not Available Start: 05-25-2023 End: 05-25-2023 Patient encounter procedure [facility] Work Phone: Start: 05-17-2023 End: 05-17-2023 ambulatory [facility] Work Phone: Start: 05-17-2023 End: 05-17-2023 Patient encounter procedure [facility] Work Phone: Start: 12-10-2022 End: 12-10-2022 ambulatory Bela Fishman Other [employer] Other Start: 12-10-2022 Office outpatient visit 15 minutes Bela Fishman [facility] Start: 11-11-2021 End: 11-11-2021 ambulatory Joseph Lamar Other [employer] Other Start: 11-11-2021 Office outpatient visit 15 minutes Joseph Lamar [facility] Start: 01-28-2021 End: 01-28-2021 ambulatory PAOLA VILLANUEVA [facility] Start: 01-28-2021 End: 01-28-2021 Subsequent hospital [...] Office outpatient visit 25 minutes Rene GUTIERREZ [facility] Start: 01-05-2021 Office outpatient ne w 45 minutes Rene Cruz [facility] Procedures Date Procedure Procedure Detail Performing Clinician Start: 01-28-2021 Urine test visual color cmprsn meths Paola Villanueva MD Work Phone: Plan of Treatment Date Care Activity Detail Author Start: 02-10-2021 End: 02-10-2021 Patient encounter procedure [facility] Start: 11-24-2020 Influenza vaccination Flu vaccine (# 1) [facility] Start: 11-22-2013 Screening for malign ant neoplasm of cervix [facility] Start: 11-22-2004 Screening for malign ant neoplasm of cervix Pap smear [facility] Start: 11-22-2002 DTaP/Tdap/Td vaccine (1 - Tdap) DTaP/Tdap/Td vaccine (1 - Tdap) [facility] Start: 11-22-1998 HIV screening HIV screen [facility] Start: 11-22-1984 Varicella vaccine (1 of 2 - 2-dose childhood series) Varicella vaccine (1 of 2 - 2-dose childhood series) [facility] Start: 1985 Hepatitis C screening [facility] 2000 panel - Serum or Plasma [facility] Oxygen therapy [[facility] Data Set] Initiate Oxygen Therapy Protocol Respiratory Care Routine Daily until discontinued starting 01/28/2021 [facility] [employer] Phone: Comment on above: Daily until disconti nued starting 01/28/2021 Phase I & II - meter ed glucose Phase I & II - metered glucose Point of Care Testing Routine As Needed until discontinued starting 01/28/2021 [facility] [employer] Phone: Comment on above: As Needed until disc ontinued starting 01/28/2021 End: 01-28-2021 , urine POCT , urine POCT Point of Care Testing Routine One Time for 1 Occurrences starting 01/28/2021 until 01/28/2021 [facility] [employer] Phone: Comment on above: One Time for 1 Occur rences starting 01/28/2021 until 01/28/2021 [facility] Payers Date Payer Category Payer Unknown [id number] 1985 Unknown [id number] [id number] 1985 Unknown [id number] 2.16.84 [id number] 1985 Unknown [id number] 2.16.84 [id number] 1985 Unknown [id number] 2.16.84 [id number] 1985 Unknown [id number] 2.16.84 [id number] 1985 Unknown [id number] 2.16.84 [id number] 1985 Unknown [id number] 2.16.84 [id number] 1985 Unknown [id number] 2.16.84 [id number] Self-pay Self Pay [id number] Unknown HCAP/HFA/FAP Active [id number] Social History Date Type Detail Facility Start: 01-24-2021 End: 01-28-2021 Tobacco smoking status [facility] Never smoker [facility] Start: 01-24-2021 End: 01-28-2021 Tobacco use and exposure Never used [facility] Start: 01-28-2021 Alcohol intake Current drinke r of alcohol (finding) [facility] Work Phone: Start: 01-24-2021 Alcohol Comment social [facility] Work Phone: Start: 1985 Sex Assigned At Not on file M [employer] Work Phone: Exposure to SARS-CoV-2 (event) Not sure [facility] Sex Assigned At Sex Assigned At Bir th [facility] [facility] Other Start: 05-17-2023 End: 05-17-2023 Tobacco smoking status LAIS Ex-smoker (finding) [facility] Start: 1985 Sex Assigned At Female F [facility] Medical Equipment Procedure Code Equipment Code Equipment Original Text Equipment Identifier Dates Implant Tib L30m m [id number] Jacques Drvr Fix Dev [employer] [id number] Start: 01-28-2021 Implant Fem L24m m [id number] Insrt [employer] Am [id number] Start: 01-28-2021 Single [...] no improvement in 2 to 3 days [employer] Other 08-19-2022 Evaluation note* Encounter Date Diagnosis [...] Pt understood and agreed to treatment plan. [employer] Other 11-05-2021 Hospital Discharge instructions* Discharge Instr - Activity* Paola Villanueva MD - 01/28/2021 1:36 PM EDT Crutches partial weightbearing right knee. Patient to wear previous brace as necessary * Additional Instructions* Paola Villanueva MD - 01/28/2021 [facility] Dr. Paola Villanueva M.D. [phone] POST OPERATIVE DISCHARGE INSTRUCTIONS KNEE ARTHROSCOPY 1. Follow-up in office seven to ten days after surgery. Call for appointment if not already made. ([phone]). 2. Take pain medication as ordered. 3. [...] that is not relieved by pain medications. [facility] Dr. Paola Villanueva M.D. [phone] POST OPERATIVE DISCHARGE INSTRUCTIONS KNEE ARTHROSCOPY Follow-up in office seven to ten days after surgery. Call for appointment if not already made. ([phone]). Take pain medication as ordered. Keep the [...] relieved by pain medications. [facility]: 1(151) 418-369211-02-2021 History of Present illness Narrative* Venkatesh Hoffman - 01/25/2021 1:00 PM EDT CLINICAL PHARMACY NOTE: MEDS TO BEDS Total # of Prescriptions Filled: 1 The following medications were delivered to the patient: Percocet 5/325 Additional Documentation: Delivered Medication to Patient * Mima Arias RN - 01/25/2021 1:00 PM EDT DAY OF SURGERY/PROCEDURE GUIDELINES As a patient at the [facility], you can expect quality medical and [...] morning of your surgery/procedure (Hibiclens if directed) May your teeth, but do not swallow any [...] during surgery and recovery. documented in this [facility] Phone: 1(514) 465-560110-15-2021 Evaluation note* Encounter Date Diagnosis Assessment Notes [...] to sports surgery, Dr. Felipe Cortes at [facility] per patient request.at her last visit [...] also referred to Dr Felipe Cortes at [facility] Dec, Other The patient has been involved in our cooperative treatment plan and agrees to move forward with treatment at this time. [employer] Other 10-13-2021 Evaluation note* Encounter Date Diagnosis [...] as documented in the electronic medical record. [employer] Other Evaluation note* Diagnosis Rupture of anterior cruciate ligament of right knee, initial encounter- Primary Acute lateral meniscus tear of right knee Tear of lateral cartilage or meniscus of knee, current documented in this encounter [facility] Work Phone: evaluation noteNo InformationNortHoly [facility] [employer] Other Evaluation note* Diagnosis Onset Date Resolution Status Anxiety acute Impaired concentration acute Insomnia acute Migraine headache acute Screening for heart disease acute Screening for metabolic disorder acute [facility] Work Phone: Evaluation note* Diagnosis Onset Date Resolution Status Anxiety acute Impaired concentration acute Insomnia acute Migraine headache acute Palpitations acute Screening for heart disease acute Screening for metabolic disorder acute Encounter to establish care with new doctor noneactive Positive urine test acute [facility] Work Phone: History general Narrative - Reported* Type Description Date Medical History migraine headache Medical History bacterial infection- stomach inf ection Medical History asthma [employer] Other History general Narrative - Reported* Type Description Date Medical History migraine headache Medical History bacterial infection- stomach inf ection Medical History asthma Surgical History acl repair [employer] [facility] [employer] Other Summary Purpose Family History No Family [...] right knee, initial encounter (S83.511A) Referral Organization [facility] Referring Provider First Name Rene Referring Provider Last Name Nancy Referring Provider Specialty Orthopedic Surgery Referred Organization [facility] [place] Address [address] [place] [place],[address] Referred Provider Specialty Orthopedic S urgery Referral [...] ARTHROSCOPIC RECONSTRUCTION WITH BIOMET Paola Villanueva MD [address] [facility] [address] [place] [address] [facility] Ordered Prescriptions (unrec ognized section and [...] Adjustment - Provider: Yolis Montiel APRN - OPHTHALMOLOGY TECHNICIAN)[id number] (Anesthesia Volume Adjustment - Provider: Mitchel Saucedo [...] section and content) DATE CREATED AUTHOR 01/29/2021 [facility] DATE CREATED AUTHOR AUTHOR'S ORGANIZ ATION 06/22/2021 [facility] DATE CREATED AUTHOR AUTHOR'S ORGANIZ ATION 11/16/2023 [facility] [employer] Care Teams (unrecognized [...] BE BASED ON THE PRIMARY CLINICAL RECORDS. [employer] [facility]. provides no warranty or guarantee of the accuracy or completeness of information in this document.
[2023-11-19 16:51] VITALS: BP 124/86; PULSE 83
--- NOTE | 2023-11-19 17:12 | US_ITS ---
[address] [address] Patient Name: AZAR LEE MRN: [facility]:[id number] date: 1985 Sex: F Assigned Patient Location: [facility] Current Patient Location: Accession/Order Number: [id number] Exam Date: 11/19/2023 17:50 Report Date: 11/20/2023 07:17 At the request of: CAMILLE PACHECO Procedure: US OB BPP w non-stress EXAMINATION: US OB BPP w non-stress HISTORY: MULTIGRAVIDA OF ADVANCED MATERNAL AGE O09.523 COMPARISON: No relevant comparison available. TECHNIQUE: Ultrasound biophysical profile was performed in the radiology department. non-reactive stress testing was performed by nursing staff in the birthing center. FINDINGS: BREATHING MOVEMENTS: 2 GROSS BODY MOVEMENTS: 2 TONE: 2 QUALITATIVE AMNIOTIC FLUID VOLUME: 2 PRESENTATION: CEPHALIC HEART RATE: 145.16 bpm AMNIOTIC FLUID VOLUME: 16.7 cm GESTATIONAL AGE: 33 weeks 1 day US/US OB BPP w non-stress IMPRESSION: Total biophysical profile score: 8 Electronically authenticated by: REE MILLER Date: 11/20/2023 07:17
== END 2023-11-19 18:48 | disposition home or self-care (01) ==
LOC: US 07:16 → FBC 16:45
PROVIDERS: Family Provider Internal Medicine; Visit Provider Physician Assistant
DX: O09.523 Supervision of elderly multigravida, third trimester (principal); Z3A.33 33 weeks gestation of pregnancy
CPT/HCPCS: 76818

== ENCOUNTER 2023-11-22 09:08 | Outpatient (OUT) | payer OTHER, SELFPAY ==
--- OUTSIDE RECORDS SUMMARY | 2023-11-22 09:33 | XMS_ITS | CCD ---
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 In such cases, another test should be performed with a new specimen in 48-72 hours. If early is suspected clinically in this setting, correlation with quantitative serum b-hCG level is suggested. TESTING PERFORMED AT [address] [address] [employer] Phone: MR knee RT wo conon 01-07-20 MR knee RT wo con [facility] [place] [address] MRI Report Signed Patient: Kathia Martinez MR#: [id number] 71 : 1985 Acct:[id number] Age/Sex: 35 / F ADM Date: 01/06/21 Loc: [facility] Room: Type: [facility] CLI Attending Dr: Rene Cruz DO [...] Reuben Valentine M.D.01/06/2021 1:43 PM Dictation Location: [place] [address] Transcribed By: [facility] 01/06/21 1343 Dictated By: Reuben Valentine II, MD 01/06/21 1329 Signed By: 01/06/21 1343 [facility] XR knee RT 4V*on 12-31-2020 XR knee RT 4V* [facility] [place] [address] XRay Report Signed Patient: Kathia Martinez MR#: [id number] 71 : 1985 Acct:[id number] Age/Sex: 35 / F ADM Date: 12/31/20 Loc: ER Room: Type: [facility] ER Attending Dr: Ordering Provider: SELINA [...] Vargas Jr., M.D.12/31/2020 10:31 AM Dictation Location: [facility] Transcribed By: [facility] 12/31/20 1031 Dictated By: Roberth Vargas Jr, MD 12/31/20 1026 Signed By: 12/31/20 1031 [facility] Vital Signs Date Time Vital Sign Value Performing Clinician Facility 06-26-2023 07:35-0400 Body height 160.02 cm [facility] 06-26-2023 07:35-0400 Body mass index (BMI) [Ratio] 29.4 kg/m2 [facility] 06-26-2023 07:35-0400 Body weight 75.29 kg [facility] 06-26-2023 07:35-0400 Diastolic blood pressure 81 mm[Hg] [facility] 06-26-2023 07:35-0400 Heart rate 89 /min [facility] 06-26-2023 07:35-0400 SaO2% (BldA) [Mass fraction] 95 % [facility] 06-26-2023 07:35-0400 Systolic blood pressure 119 mm[Hg] [facility] 05-25-2023 10:30-0500 Body height 160.02 cm [facility] 05-25-2023 10:30-0500 Body mass index (BMI) [Ratio] 30.4 kg/m2 [facility] 05-25-2023 10:30-0500 Body weight 78.01 kg [facility] 05-25-2023 10:30-0500 Diastolic blood pressure 89 mm[Hg] [facility] 05-25-2023 10:30-0500 Heart rate 86 /min [facility] 05-25-2023 10:30-0500 SaO2% (BldA) [Mass fraction] 99 % [facility] 05-25-2023 10:30-0500 Systolic blood pressure 129 mm[Hg] [facility] 05-17-2023 08:11-0500 Body height 160.02 cm [facility] 05-17-2023 08:11-0500 Body mass index (BMI) [Ratio] 30.2 kg/m2 [facility] 05-17-2023 08:11-0500 Body weight 77.56 kg [facility] 05-17-2023 08:11-0500 Diastolic blood pressure 82 mm[Hg] [facility] 05-17-2023 08:11-0500 Heart rate 78 /min [facility] 05-17-2023 08:11-0500 SaO2% (BldA) [Mass fraction] 98 % [facility] 05-17-2023 08:11-0500 Systolic blood pressure 135 mm[Hg] [facility] 12-10-2022 12:05-0400 Body height 160.02 cm Bela Fishman Other [employer] Other 12-10-2022 12:05-0400 Body mass index (BMI) [Ratio] 30.11 kg/m2 Bela Fishman Other [employer] Other 12-10-2022 12:05-0400 Body temperature 100.3 [degF] Bela Fishman Other [employer] Other 12-10-2022 12:05-0400 Body weight 77.11 kg Bela Fishman Other [employer] Other 12-10-2022 12:05-0400 Diastolic blood pressure 106 mm[Hg] Bela Fishman Other [employer] Other 12-10-2022 12:05-0400 Respiratory rate 18 /min Bela Fishman Other [employer] Other 12-10-2022 12:05-0400 SaO2% (BldA) [Mass fraction] 99 % Bela Fishman Other [employer] Other 12-10-2022 12:05-0400 Systolic blood pressure 170 mm[Hg] Bela Fishman Other [employer] Other 11-11-2021 17:40-0400 Body height 160.02 cm Joseph Lamar Other [employer] Other 11-11-2021 17:40-0400 Body mass index (BMI) [Ratio] 31 kg/m2 Joseph Lamar Other [employer] Other 11-11-2021 17:40-0400 Body temperature 99.8 [degF] Joseph Lamar Other [employer] Other 11-11-2021 17:40-0400 Body weight 79.38 kg Joseph Lamar Other [employer] Other 11-11-2021 17:40-0400 Respiratory rate 18 /min Joseph Lamar Other [employer] Other 11-11-2021 17:40-0400 SaO2% (BldA) [Mass fraction] 98 % Joseph Lamar Other [employer] Other 01-28-2021 14:35-0400 Diastolic blood pressure 88 mm[Hg] Paola Villanueva MD Work Phone: [employer] Work Phone: 01-28-2021 14:35-0400 Heart rate 64 /min Paola Villanueva MD Work Phone: [employer] Work Phone: 01-28-2021 14:35-0400 Respiratory rate 11 /min Paola Villanueva MD Work Phone: [employer] Work Phone: 01-28-2021 14:35-0400 SaO2% (BldA) [Mass fraction] 98 % Paola Villanueva MD Work Phone: [employer] Work Phone: 01-28-2021 14:35-0400 Systolic blood pressure 132 mm[Hg] Paola Villanueva MD Work Phone: [employer] Work Phone: 01-28-2021 13:31-0400 Body temperature 97.81 [degF] Paola Villanueva MD Work Phone: [employer] Work Phone: 01-28-2021 10:22-0400 Body height 160 cm Paola Villanueva MD Work Phone: [employer] Work Phone: 01-28-2021 10:10-0400 Body mass index (BMI) [Ratio] 34.72 kg/m2 Paola Villanueva MD Work Phone: [employer] Work Phone: 01-28-2021 10:10-0400 Body weight 88.91 kg Paola Villanueva MD Work Phone: [employer] Work Phone: Encounters Encounter Date Encounter Type Care Provider Facility Start: 11-14-2023 End: 11-14-2023 ambulatory JOAQUIN LORNA Not Available Start: 10-31-2023 End: 10-31-2023 ambulatory JOAQUIN LORNA Not Available Start: 10-17-2023 End: 10-17-2023 ambulatory CAMILLE TARA Not Available Start: 09-19-2023 End: 09-19-2023 ambulatory JOAQUIN LORNA Not Available Start: 08-21-2023 End: 08-21-2023 ambulatory JOAQUIN LORNA Not Available Start: 07-18-2023 End: 07-18-2023 ambulatory JOAQUIN LONRA Not Available Start: 06-26-2023 End: 06-26-2023 ambulatory [facility] Work Phone: Start: 06-26-2023 End: 06-26-2023 Patient encounter procedure [facility] Work Phone: Start: 06-14-2023 End: 06-14-2023 ambulatory JOAQUIN LORNA Not Available Start: 05-25-2023 End: 05-25-2023 Patient encounter procedure [facility] Work Phone: Start: 05-17-2023 End: 05-17-2023 ambulatory [facility] Work Phone: Start: 05-17-2023 End: 05-17-2023 Patient encounter procedure [facility] Work Phone: Start: 12-10-2022 End: 12-10-2022 ambulatory Bela Fishman Other [employer] Other Start: 12-10-2022 Office outpatient visit 15 minutes Bela Fishman [facility] Start: 11-11-2021 End: 11-11-2021 ambulatory Joseph Lamar Other [employer] Other Start: 11-11-2021 Office outpatient visit 15 minutes Joseph Lamar [facility] Start: 01-28-2021 End: 01-28-2021 ambulatory PAOLA VILLANUEVA [facility] Start: 01-28-2021 End: 01-28-2021 Subsequent hospital [...] Office outpatient visit 25 minutes Rene GUTIERREZ [facility] Start: 01-05-2021 Office outpatient ne w 45 minutes Rene Cruz [facility] Procedures Date Procedure Procedure Detail Performing Clinician Start: 01-28-2021 Urine test visual color cmprsn meths Paola Villanueva MD Work Phone: Plan of Treatment Date Care Activity Detail Author Start: 02-10-2021 End: 02-10-2021 Patient encounter procedure [facility] Start: 11-24-2020 Influenza vaccination Flu vaccine (# 1) [facility] Start: 11-22-2013 Screening for malign ant neoplasm of cervix [facility] Start: 11-22-2004 Screening for malign ant neoplasm of cervix Pap smear [facility] Start: 11-22-2002 DTaP/Tdap/Td vaccine (1 - Tdap) DTaP/Tdap/Td vaccine (1 - Tdap) [facility] Start: 11-22-1998 HIV screening HIV screen [facility] Start: 11-22-1984 Varicella vaccine (1 of 2 - 2-dose childhood series) Varicella vaccine (1 of 2 - 2-dose childhood series) [facility] Start: 1985 Hepatitis C screening [facility] 2000 panel - Serum or Plasma [facility] Oxygen therapy [Mini [facility] Data Set] Initiate Oxygen Therapy Protocol Respiratory Care Routine Daily until discontinued starting 01/28/2021 [facility] [employer] Phone: Comment on above: Daily until disconti nued starting 01/28/2021 Phase I & II - meter ed glucose Phase I & II - metered glucose Point of Care Testing Routine As Needed until discontinued starting 01/28/2021 [facility] [employer] Phone: Comment on above: As Needed until disc ontinued starting 01/28/2021 End: 01-28-2021 , urine POCT , urine POCT Point of Care Testing Routine One Time for 1 Occurrences starting 01/28/2021 until 01/28/2021 [facility] [employer] Phone: Comment on above: One Time for 1 Occur rences starting 01/28/2021 until 01/28/2021 [facility] Payers Date Payer Category Payer Unknown [id number] 1985 Unknown [id number] 1985 Unknown [id number] 2.16.84 [id number] 1985 Unknown [id number] 2.16.84 [id number] 1985 Unknown [id number] 2.16.84 [id number] 1985 Unknown [id number] 2.16.84 [id number] 1985 Unknown [id number] 2.16.84 [id number] 1985 Unknown [id number] 2.16.84 [id number] 1985 Unknown [id number] 2.16.84 [id number] Self-pay Self Pay [id number] Unknown HCAP/HFA/FAP Active [id number] Social History Date Type Detail Facility Start: 01-24-2021 End: 01-28-2021 Tobacco smoking status [facility] Never smoker [employer] Start: 01-24-2021 End: 01-28-2021 Tobacco use and exposure Never used [employer] Start: 01-28-2021 Alcohol intake Current drinke r of alcohol (finding) [employer] Work Phone: Start: 01-24-2021 Alcohol Comment social [employer] [facility] Work Phone: Start: 1985 Sex Assigned At Not on file M [employer] Work Phone: Exposure to SARS-CoV-2 (event) Not sure [employer] Sex Assigned At Sex Assigned At Bir th [employer] Other Start: 05-17-2023 End: 05-17-2023 Tobacco smoking status MNIS Ex-smoker (finding) [facility] Start: 1985 Sex Assigned At Female F [facility] Medical Equipment Procedure Code Equipment Code Equipment Original Text Equipment Identifier Dates Implant Tib L30m m [id number] Jacques Drvr Fix Dev [employer] [id number] Start: 01-28-2021 Implant Fem L24m m [id number] Insrt [employer] Am [id number] Start: 01-28-2021 Single [...] no improvement in 2 to 3 days [employer] Other 08-19-2022 Evaluation note* Encounter Date Diagnosis [...] Pt understood and agreed to treatment plan. [employer] Other 11-05-2021 Hospital Discharge instructions* Discharge Instr - Activity* Paola Villanueva MD - 01/28/2021 1:36 PM EDT Crutches partial weightbearing right knee. Patient to wear previous brace as necessary * Additional Instructions* Paola Villanueva MD - 01/28/2021 [facility] Dr. Paola Villanueva M.D. [phone] POST OPERATIVE DISCHARGE INSTRUCTIONS KNEE ARTHROSCOPY 1. Follow-up in office seven to ten days after surgery. Call for appointment if not already made. ([phone]). 2. Take pain medication as ordered. 3. [...] is not relieved by pain medications. [facility] Dr. Paola Villanueva M.D. [phone] POST OPERATIVE DISCHARGE INSTRUCTIONS KNEE ARTHROSCOPY Follow-up in office seven to ten days after surgery. Call for appointment if not already made. ([phone]). Take pain medication as ordered. Keep the [...] relieved by pain medications. [facility] 1(918) 702-913111-02-2021 History of Present illness Narrative* Venkatesh Hoffman - 01/25/2021 1:00 PM EDT CLINICAL PHARMACY NOTE: MEDS TO BEDS Total # of Prescriptions Filled: 1 The following medications were delivered to the patient: Percocet 5/325 Additional Documentation: Delivered Medication to Patient * Mima Arias RN - 01/25/2021 1:00 PM EDT DAY OF SURGERY/PROCEDURE GUIDELINES As a patient at the [facility], you can expect quality medical and nursing [...] morning of your surgery/procedure (Hibiclens if directed) [place] your teeth, but do not swallow any [...] during surgery and recovery. documented in this encounter[employer] Phone: [phone]) 892-970510-15-2021 Evaluation note* Encounter Date Diagnosis Assessment Notes [...] to sports surgery, Dr. Felipe Cortes at [facility] per patient request.at her last visit we [...] also referred to Dr Felipe Cortes at [facility] Dec, Other The patient has been involved in our cooperative treatment plan and agrees to move forward with treatment at this time. [employer] Other 10-13-2021 Evaluation note* Encounter Date Diagnosis [...] as documented in the electronic medical record. [employer] Other Evaluation note* Diagnosis Rupture of anterior cruciate ligament of right knee, initial encounter- Primary Acute lateral meniscus tear of right knee Tear of lateral cartilage or meniscus of knee, current documented in this encounter [employer] Work Phone: evaluation noteNo Information[facility]Al[facility] [employer] Other Evaluation note* Diagnosis Onset Date Resolution Status Anxiety acute Impaired concentration acute Insomnia acute Migraine headache acute Screening for heart disease acute Screening for metabolic disorder acute [facility] Work Phone: Evaluation note* Diagnosis Onset Date Resolution Status Anxiety acute Impaired concentration acute Insomnia acute Migraine headache acute Palpitations acute Screening for heart disease acute Screening for metabolic disorder acute Encounter to establish care with new doctor noneactive Positive urine test acute [facility] Work Phone: History general Narrative - Reported* Type Description Date Medical History migraine headache Medical History bacterial infection- stomach inf ection Medical History asthma [employer] Other History general Narrative - Reported* Type Description Date Medical History migraine headache Medical History bacterial infection- stomach inf ection Medical History asthma Surgical History acl repair [email or web address] [facility] [employer] Other Summary Purpose Family History No Family [...] Referring Provider Specialty Orthopedic Surgery Referred Organization [facility] [address] Address [address] [place], [place],[address] Referred Provider Specialty Orthopedic S urgery Referral [...] ARTHROSCOPIC RECONSTRUCTION WITH BIOMET Paola Villanueva MD [address] [facility] [address] [place] [address] [facility] Ordered Prescriptions (unrec ognized section and [...] Adjustment - Provider: Yolis Montiel APRN - WHEEL GRINDER)[id number] (Anesthesia Volume Adjustment - Provider: Mitchel Saucedo [...] section and content) DATE CREATED AUTHOR 01/29/2021 [facility] DATE CREATED AUTHOR AUTHOR'S ORGANIZ ATION 06/22/2021 [facility] DATE CREATED AUTHOR AUTHOR'S ORGANIZ ATION 11/16/2023 [facility] dical Specialists EPIC Care Teams (unrecognized [...] BE BASED ON THE PRIMARY CLINICAL RECORDS. [employer] [facility]. provides no warranty or guarantee of the accuracy or completeness of information in this document.
[2023-11-22 16:44] VITALS: BP 132/80; PULSE 65
== END 2023-11-22 17:15 | disposition home or self-care (01) ==
LOC: FBCO 09:08 → FBC 16:30
PROVIDERS: Family Provider Internal Medicine; Visit Provider Obstetrics & Gynecology
DX: O09.529 Supervision of elderly multigravida, unspecified trimester (principal)
CPT/HCPCS: 59025

== ENCOUNTER 2023-11-27 07:13 | Outpatient (OUT) | payer OTHER, SELFPAY ==
--- OUTSIDE RECORDS SUMMARY | 2023-11-27 07:15 | XMS_ITS | CCD ---
Author Organization [facility] Care Team Providers Care Information Technology Officer Name Role Phone Unavailable Primary Care Provider UnavailPAOLA Hong Admitting Unavailable PAOLA VILLANUEVA Attending Unavailable Rene Cruz Unavailable Joseph Lamar Unavailable Bela Fishman Unavailable JOAQUIN ROTHMAN Attending Unavailable JOAQUIN ROTHMAN Attending Unavailable JOAQUIN ROTHMAN Attending Unavailable CAMILLE PACHECO Attending Unavailable JOAQUIN ROTHMAN Attending Unavailable OJAQUIN ROTHMAN Attending Unavailable Medications Current Medications Medication [...] COCET) 5-325 MG per tablet 1 tablet [id number] 200 actuat albuterol 0.09 mg/actuat metered dose [...] HCG ( test) Ql (U) Positive [facility] POCT urine pregnancyOrdered By: Paola Villanueva on 01-28-2021 Beta HCG ( test) Ql (U) Negative NEGATIVE [employer] Phone: Comment on above: Specimens with hCG l evels near the threshold of the test (25 mIU/mL) may give a negative or indeterminate result. In such cases, another test should be performed with a new specimen in 48-72 hours. If early is suspected clinically in this setting, correlation with quantitative serum b-hCG level is suggested. TESTING PERFORMED AT [address] [address] [employer] Phone: MR knee RT wo conon 01-07-20 MR knee RT wo con [facility] [address] MRI Report Signed Patient: Kathia Martinez MR#: [id number] 71 : 1985 Acct:[id number] Age/Sex: 35 / F ADM Date: 01/06/21 Loc: [facility] Room: Type: [facility] CLI Attending Dr: Rene Cruz DO Ordering [...] Reuben Valentine M.D.01/06/2021 1:43 PM Dictation Location: [place] [address] Transcribed By: [facility] 01/06/21 1343 Dictated By: Reuben Valentine II, MD 01/06/21 1329 Signed By: 01/06/21 1343 [facility] XR knee RT 4V*on 12-31-2020 XR knee RT 4V* [place] [address] XRay Report Signed Patient: Kathia Martinez MR#: [id number] 73 : 1985 Acct:[id number] Age/Sex: 35 / F ADM Date: 12/31/20 Loc: ER Room: Type: [facility] ER Attending Dr: Ordering Provider: SELINA Goode [...] Vargas Jr., M.D.12/31/2020 10:31 AM Dictation Location: [facility] Transcribed By: [facility] 12/31/20 1031 Dictated By: Roberth Vargas Jr, MD 12/31/20 1026 Signed By: 12/31/20 1031 [facility] Vital Signs Date Time Vital Sign Value Performing Clinician Facility 06-26-2023 07:35-0400 Body height 160.02 cm [facility] 06-26-2023 07:35-0400 Body mass index (BMI) [Ratio] 29.4 kg/m2 [facility] 06-26-2023 07:35-0400 Body weight 75.29 kg [facility] 06-26-2023 07:35-0400 Diastolic blood pressure 81 mm[Hg] [facility] 06-26-2023 07:35-0400 Heart rate 89 /min [facility] 06-26-2023 07:35-0400 SaO2% (BldA) [Mass fraction] 95 % [facility] 06-26-2023 07:35-0400 Systolic blood pressure 119 mm[Hg] [facility] 05-25-2023 10:30-0500 Body height 160.02 cm [facility] 05-25-2023 10:30-0500 Body mass index (BMI) [Ratio] 30.4 kg/m2 [facility] 05-25-2023 10:30-0500 Body weight 78.01 kg [facility] 05-25-2023 10:30-0500 Diastolic blood pressure 89 mm[Hg] [facility] 05-25-2023 10:30-0500 Heart rate 86 /min [facility] 05-25-2023 10:30-0500 SaO2% (BldA) [Mass fraction] 99 % [facility] 05-25-2023 10:30-0500 Systolic blood pressure 129 mm[Hg] [facility] 05-17-2023 08:11-0500 Body height 160.02 cm [facility] 05-17-2023 08:11-0500 Body mass index (BMI) [Ratio] 30.2 kg/m2 [facility] 05-17-2023 08:11-0500 Body weight 77.56 kg [facility] 05-17-2023 08:11-0500 Diastolic blood pressure 82 mm[Hg] [facility] 05-17-2023 08:11-0500 Heart rate 78 /min [facility] 05-17-2023 08:11-0500 SaO2% (BldA) [Mass fraction] 98 % [facility] 05-17-2023 08:11-0500 Systolic blood pressure 135 mm[Hg] [facility] 12-10-2022 12:05-0400 Body height 160.02 cm Bela Fishman Other [employer] Other 12-10-2022 12:05-0400 Body mass index (BMI) [Ratio] 30.11 kg/m2 Bela Fishman Other [facility] [employer] Other 12-10-2022 12:05-0400 Body temperature 100.3 [degF] Bela Fishman Other [facility] Other 12-10-2022 12:05-0400 Body weight 77.11 kg Bela Fishman Other [facility] Other 12-10-2022 12:05-0400 Diastolic blood pressure 106 mm[Hg] Bela Fishman Other [facility] Other 12-10-2022 12:05-0400 Respiratory rate 18 /min Bela Fishman Other [facility] [facility] Other 12-10-2022 12:05-0400 SaO2% (BldA) [Mass fraction] 99 % Bela Fishman Other [facility] Other 12-10-2022 12:05-0400 Systolic blood pressure 170 mm[Hg] Bela Fishman Other [facility] Other 11-11-2021 17:40-0400 Body height 160.02 cm Joseph Lamar Other [facility] Other 11-11-2021 17:40-0400 Body mass index (BMI) [Ratio] 31 kg/m2 Joseph Lamar Other [facility] Other 11-11-2021 17:40-0400 Body temperature 99.8 [degF] Joseph Lamar Other [facility] Other 11-11-2021 17:40-0400 Body weight 79.38 kg Joseph Lamar Other [facility] Other 11-11-2021 17:40-0400 Respiratory rate 18 /min Joseph Lamar Other [facility] Other 11-11-2021 17:40-0400 SaO2% (BldA) [Mass fraction] 98 % Joseph Lamar Other [facility] Other 01-28-2021 14:35-0400 Diastolic blood pressure 88 mm[Hg] Paola Villanueva MD Work Phone: [employer] Work Phone: 01-28-2021 14:35-0400 Heart rate 64 /min Paola Villanueva MD Work Phone: [employer] Work Phone: 01-28-2021 14:35-0400 Respiratory rate 11 /min Paloa Villanueva MD Work Phone: [employer] Work Phone: 01-28-2021 14:35-0400 SaO2% (BldA) [Mass fraction] 98 % Paola Villanueva MD Work Phone: [employer] Work Phone: 01-28-2021 14:35-0400 Systolic blood pressure 132 mm[Hg] Paola Villanueva MD Work Phone: [employer] Work Phone: 01-28-2021 13:31-0400 Body temperature 97.81 [degF] Paola Villanueva MD Work Phone: [employer] Work Phone: 01-28-2021 10:22-0400 Body height 160 cm Paola Villanueva MD Work Phone: [employer] Work Phone: 01-28-2021 10:10-0400 Body mass index (BMI) [Ratio] 34.72 kg/m2 Paola Villanueva MD Work Phone: [employer] Work Phone: 01-28-2021 10:10-0400 Body weight 88.91 kg Paola Villanueva MD Work Phone: [employer] Work Phone: Encounters Encounter Date Encounter Type [...] Not Available Start: 06-26-2023 End: 06-26-2023 ambulatory [facility] Work Phone: Start: 06-26-2023 End: 06-26-2023 Patient encounter procedure [facility] Work Phone: Start: 06-14-2023 End: 06-14-2023 ambulatory JOAQUIN LORNA Not Available Start: 05-25-2023 End: 05-25-2023 Patient encounter procedure [facility] Work Phone: Start: 05-17-2023 End: 05-17-2023 ambulatory [facility] Work Phone: Start: 05-17-2023 End: 05-17-2023 Patient encounter procedure [facility] Work Phone: Start: 12-10-2022 End: 12-10-2022 ambulatory Bela Fishman Other [facility] [employer] Other Start: 12-10-2022 Office outpatient visit 15 minutes Bela Fishman [facility] Start: 11-11-2021 End: 11-11-2021 ambulatory Joseph Lamar Other [facility] [employer] Other Start: 11-11-2021 Office outpatient visit 15 minutes Joseph Lamar [facility] Start: 01-28-2021 End: 01-28-2021 ambulatory PAOLA VILLANUEVA [facility] Start: 01-28-2021 End: 01-28-2021 Subsequent hospital visit [...] Office outpatient visit 25 minutes Rene GUTIERREZ [facility] Start: 01-05-2021 Office outpatient ne w 45 minutes Rene Cruz [facility] Procedures Date Procedure Procedure Detail Performing Clinician Start: 01-28-2021 Urine test visual color cmprsn meths Paola Villanueva MD Work Phone: Plan of Treatment Date Care Activity Detail Author Start: 02-10-2021 End: 02-10-2021 Patient encounter procedure [facility] Start: 11-24-2020 Influenza vaccination Flu vaccine (# 1) [facility] Start: 11-22-2013 Screening for malign ant neoplasm of cervix [facility] Start: 11-22-2004 Screening for malign ant neoplasm of cervix Pap smear [facility] Start: 11-22-2002 DTaP/Tdap/Td vaccine (1 - Tdap) DTaP/Tdap/Td vaccine (1 - Tdap) [facility] Start: 11-22-1998 HIV screening HIV screen [facility] Start: 11-22-1984 Varicella vaccine (1 of 2 - 2-dose childhood series) Varicella vaccine (1 of 2 - 2-dose childhood series) [facility] Start: 1985 Hepatitis C screening [facility] metabo lic 2000 panel - Serum or Plasma [facility] Oxygen therapy [Mini [facility] Data Set] Initiate Oxygen Therapy Protocol Respiratory Care Routine Daily until discontinued starting 01/28/2021 [facility] [employer] Phone: Comment on above: Daily until disconti nued starting 01/28/2021 Phase I & II - meter ed glucose Phase I & II - metered glucose Point of Care Testing Routine As Needed until discontinued starting 01/28/2021 [facility] [employer] Phone: Comment on above: As Needed until disc ontinued starting 01/28/2021 End: 01-28-2021 , urine POCT , urine POCT Point of Care Testing Routine One Time for 1 Occurrences starting 01/28/2021 until 01/28/2021 [facility] [employer] Phone: Comment on above: One Time for 1 Occur rences starting 01/28/2021 until 01/28/2021 [facility] Payers Date Payer Category Payer Unknown [id number] 1985 Unknown [id number] [id number] 1985 Unknown [id number] 2.16.84 [id number] 1985 Unknown [id number] 2.16.84 [id number] 1985 Unknown [id number] 2.16.84 [id number] 1985 Unknown [id number] 2.16.84 [id number] 1983 Unknown [id number] 2.16.84 [id number] 1985 Unknown [id number] 2.16.84 [id number] 1985 Unknown [id number] 2.16.84 [id number] Self-pay Self Pay [id number] Unknown HCAP/HFA/FAP Active [id number] Social History Date Type Detail Facility Start: 01-24-2021 End: 01-28-2021 Tobacco smoking status [facility] Never smoker [employer] [employer] Start: 01-24-2021 End: 01-28-2021 Tobacco use and exposure Never used [employer] [employer] Start: 01-28-2021 Alcohol intake Current drinke r of alcohol (finding) [employer] Work Phone: Start: 01-24-2021 Alcohol Comment [email or web address] [facility] Work Phone: Start: 1985 Sex Assigned At Not on file [facility] [employer] Work Phone: Exposure to SARS-CoV-2 (event) Not sure [employer] Sex Assigned At Sex Assigned At Bir th [employer] Other Start: 05-17-2023 End: 05-17-2023 Tobacco smoking status WAIS Ex-smoker (finding) [facility] Start: 1985 Sex Assigned At Female F [facility] Medical Equipment Procedure Code Equipment Code Equipment Original Text Equipment Identifier Dates Implant Tib L30m m [id number] Jacques Drvr Fix Dev [employer] [id number] [id number] Start: 01-28-2021 Implant Fem L24m m [id number] Insrt [employer] Am [id number] Start: 01-28-2021 Single [...] no improvement in 2 to 3 days [employer] Other 08-19-2022 Evaluation note* Encounter Date Diagnosis [...] Pt understood and agreed to treatment plan. [employer] [facility] Other 11-05-2021 Hospital Discharge instructions* Discharge Instr - Activity* Paola Villanueva MD - 01/28/2021 1:36 PM EDT Crutches partial weightbearing right knee. Patient to wear previous brace as necessary * Additional Instructions* Paola Villanueva MD - 01/28/[address] [facility] [address] Paola Villanueva M.D. [phone] POST OPERATIVE DISCHARGE INSTRUCTIONS KNEE ARTHROSCOPY 1. Follow-up in office seven to ten days after surgery. Call for appointment if not already made. ([phone]). 2. Take pain medication as ordered. 3. [...] that is not relieved by pain medications. [facility] Dr. Paola Villanueva M.D. [phone] POST OPERATIVE DISCHARGE INSTRUCTIONS KNEE ARTHROSCOPY Follow-up in office seven to ten days after surgery. Call for appointment if not already made. ([phone]). Take pain medication as ordered. Keep the [...] relieved by pain medications. documented in this [facility] Phone: 1(850) 810-410211-02-2021 History of Present illness Narrative* Venkatesh Hoffman - 01/25/2021 1:00 PM EDT CLINICAL PHARMACY NOTE: MEDS TO BEDS Total # of Prescriptions Filled: 1 The following medications were delivered to the patient: Percocet 5/325 Additional Documentation: Delivered Medication to Patient * Mima Arias RN - 01/25/2021 1:00 PM EDT DAY OF SURGERY/PROCEDURE GUIDELINES As a patient at the [facility], you can expect quality medical and [...] morning of your surgery/procedure (Hibiclens if directed) [place] your teeth, but do not swallow any [...] during surgery and recovery. documented [employer] Phone: 1(765) 303-567410-15-2021 Evaluation note* Encounter Date Diagnosis Assessment Notes [...] to sports surgery, Dr. Felipe Cortes at [facility] per patient request.at her last visit [...] also referred to Dr Felipe Cortes at [facility] Dec, Other The patient has been involved in our cooperative treatment plan and agrees to move forward with treatment at this time. [employer] Other 10-13-2021 Evaluation note* Encounter Date Diagnosis [...] as documented in the electronic medical record. [employer] Other Evaluation note* Diagnosis Rupture of anterior cruciate ligament of right knee, initial encounter- Primary Acute lateral meniscus tear of right knee Tear of lateral cartilage or meniscus of knee, current documented in this encounter [employer] Work Phone: evaluation noteNo InformationN[facility]Cl[facility] [employer] Other Evaluation note* Diagnosis Onset Date Resolution Status Anxiety acute Impaired concentration acute Insomnia acute Migraine headache acute Screening for heart disease acute Screening for metabolic disorder acute [facility] Work Phone: Evaluation note* Diagnosis Onset Date Resolution Status Anxiety acute Impaired concentration acute Insomnia acute Migraine headache acute Palpitations acute Screening for heart disease acute Screening for metabolic disorder acute Encounter to establish care with new doctor noneactive Positive urine test acute [facility] Work Phone: History general Narrative - Reported* Type Description Date Medical History migraine headache Medical History bacterial infection- stomach inf ection Medical History asthma [employer] Other History general Narrative - Reported* Type Description Date Medical History migraine headache Medical History bacterial infection- stomach inf ection Medical History asthma Surgical History acl repair [facility] [employer] Other Summary Purpose Family History No Family [...] right knee, initial encounter (S83.511A) Referral Organization [facility] Referring Provider First Name Rene Referring Provider Last Name Nancy Referring Provider Specialty Orthopedic Surgery Referred Organization [facility] [place] Address [address] [place],[address] Referred Provider Specialty Orthopedic S urgery Referral [...] right knee RIGHT KNEE ACL TEAR Procedures RI KNEE SCOPE,AID ANT CRUCIATE REPAIR RIGHT KNEE ACL ARTHROSCOPIC RECONSTRUCTION WITH BIOMET Paola Villanueva MD [address] [place] [address] [facility] Ordered Prescriptions (unrec ognized section and content) [...] Adjustment - Provider: Yolis Montiel APRN - PATIENT ACCESS REGISTRAR)1333 (Anesthesia Volume Adjustment - Provider: Mitchel Saucedo [...] section and content) DATE CREATED AUTHOR 01/29/2021 [facility] DATE CREATED AUTHOR AUTHOR'S ORGANIZ ATION 06/22/2021 [facility] DATE CREATED AUTHOR AUTHOR'S ORGANIZ ATION 11/16/2023 [facility] [employer] Care Teams (unrecognized sec [...] BE BASED ON THE PRIMARY CLINICAL RECORDS. [employer] [facility]. provides no warranty or guarantee of the accuracy or completeness of information in this document.
--- NOTE | 2023-11-27 16:04 | US_ITS ---
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 BREATHING MOVEMENTS: 2 GROSS BODY MOVEMENTS: 2 TONE: 2 QUALITATIVE AMNIOTIC FLUID VOLUME: 2 PRESENTATION: CEPHALIC HEART RATE: 154.29 bpm AMNIOTIC FLUID VOLUME: 14.52 cm GESTATIONAL AGE: 34 weeks 2 days US/US OB BPP w non-stress IMPRESSION: Total biophysical profile score: 8 Electronically authenticated by: ANITA SIMENTAL Date: 11/28/2023 05:53
[2023-11-27 16:36] VITALS: BP 131/77; PULSE 81
== END 2023-11-27 17:20 | disposition home or self-care (01) ==
LOC: US 07:13 → FBC 15:57
PROVIDERS: Family Provider Internal Medicine; Visit Provider Physician Assistant
DX: O09.523 Supervision of elderly multigravida, third trimester (principal); Z3A.34 34 weeks gestation of pregnancy
CPT/HCPCS: 76818

== ENCOUNTER 2023-11-30 07:00 | Outpatient (OUT) | payer OTHER, SELFPAY ==
--- OUTSIDE RECORDS SUMMARY | 2023-11-30 07:03 | XMS_ITS | CCD ---
Author Organization [facility] Care Team Providers Care It Web Development Consultant Name Role Phone Unavailable Primary Care Provider [...] COCET) 5-325 MG per tablet 1 tablet [id number] 200 actuat albuterol 0.09 mg/actuat metered dose [...] Beta HCG ( test) Ql (U) Positive [facility] POCT urine pregnancyOrdered By: Paola Villanueva on 01-28-2021 Beta HCG ( test) Ql (U) Negative NEGATIVE [facility] Phone: Comment on above: Specimens with hCG l evels near the threshold of the test (25 mIU/mL) may give a negative or indeterminate result. In such cases, another test should be performed with a new specimen in 48-72 hours. If early is suspected clinically in this setting, correlation with quantitative serum b-hCG level is suggested. TESTING PERFORMED AT [address] [address] [facility] Phone: MR knee RT wo conon 01-07-20 MR knee RT wo con [facility] [place] [address] MRI Report Signed Patient: Kathia Martinez MR#: [id number] 71 : 1985 Acct:[id number] Age/Sex: 35 / F ADM Date: 01/06/21 Loc: [facility] Room: Type: [facility] CLI Attending Dr: Rene Cruz [...] Reuben Valentine M.D.01/06/2021 1:43 PM Dictation Location: [place] [address] Transcribed By: [facility] 01/06/21 1343 Dictated By: Reuben Valentine II, MD 01/06/21 1329 Signed By: 01/06/21 1343 [facility] XR knee RT 4V*on 12-31-2020 XR knee RT 4V* [facility] [place] [address] XRay Report Signed Patient: Kathia Martinez MR#: [id number] 71 : 1985 Acct:[id number] Age/Sex: 35 / F ADM Date: 12/31/20 Loc: ER Room: Type: [facility] ER Attending Dr: Ordering Provider: [...] Vargas Jr., M.D.12/31/2020 10:31 AM Dictation Location: [facility] Transcribed By: [facility] 12/31/20 1031 Dictated By: Roberth Vargas Jr, MD 12/31/20 1026 Signed By: 12/31/20 1031 [facility] Vital Signs Date Time Vital Sign Value Performing Clinician Facility 06-26-2023 07:35-0400 Body height 160.02 cm [facility] 06-26-2023 07:35-0400 Body mass index (BMI) [Ratio] 29.4 kg/m2 [facility] 06-26-2023 07:35-0400 Body weight 75.29 kg [facility] 06-26-2023 07:35-0400 Diastolic blood pressure 81 mm[Hg] [facility] 06-26-2023 07:35-0400 Heart rate 89 /min [facility] 06-26-2023 07:35-0400 SaO2% (BldA) [Mass fraction] 95 % [facility] 06-26-2023 07:35-0400 Systolic blood pressure 119 mm[Hg] [facility] 05-25-2023 10:30-0500 Body height 160.02 cm [facility] 05-25-2023 10:30-0500 Body mass index (BMI) [Ratio] 30.4 kg/m2 [facility] 05-25-2023 10:30-0500 Body weight 78.01 kg [facility] 05-25-2023 10:30-0500 Diastolic blood pressure 89 mm[Hg] [facility] 05-25-2023 10:30-0500 Heart rate 86 /min [facility] 05-25-2023 10:30-0500 SaO2% (BldA) [Mass fraction] 99 % [facility] 05-25-2023 10:30-0500 Systolic blood pressure 129 mm[Hg] [facility] 05-17-2023 08:11-0500 Body height 160.02 cm [facility] 05-17-2023 08:11-0500 Body mass index (BMI) [Ratio] 30.2 kg/m2 [facility] 05-17-2023 08:11-0500 Body weight 77.56 kg [facility] 05-17-2023 08:11-0500 Diastolic blood pressure 82 mm[Hg] [facility] 05-17-2023 08:11-0500 Heart rate 78 /min [facility] 05-17-2023 08:11-0500 SaO2% (BldA) [Mass fraction] 98 % [facility] 05-17-2023 08:11-0500 Systolic blood pressure 135 mm[Hg] [facility] 12-10-2022 12:05-0400 Body height 160.02 cm Bela Fishman Other [facility] Other 12-10-2022 12:05-0400 Body mass index (BMI) [Ratio] 30.11 kg/m2 Bela Fishman Other [facility] Other 12-10-2022 12:05-0400 Body temperature 100.3 [degF] Bela Fishman Other [facility] Other 12-10-2022 12:05-0400 Body weight 77.11 kg Bela Fishman Other [facility] Other 12-10-2022 12:05-0400 Diastolic blood pressure 106 mm[Hg] Bela Fishman Other [facility] Other 12-10-2022 12:05-0400 Respiratory rate 18 /min Bela Fishman Other [facility] Other 12-10-2022 12:05-0400 SaO2% (BldA) [Mass fraction] 99 % Bela Fishman Other [facility] Other 12-10-2022 12:05-0400 Systolic blood pressure 170 mm[Hg] Bela Fishman Other [facility] Other 11-11-2021 17:40-0400 Body height 160.02 cm Joseph Lamar Other [facility] Other 11-11-2021 17:40-0400 Body mass index (BMI) [Ratio] 31 kg/m2 Joseph Lamar Other [facility] Other 11-11-2021 17:40-0400 Body temperature 99.8 [degF] Joseph Lamar Other [facility] Other 11-11-2021 17:40-0400 Body weight 79.38 kg Joseph Lamar Other [facility] Other 11-11-2021 17:40-0400 Respiratory rate 18 /min Joseph Lamar Other [facility] Other 11-11-2021 17:40-0400 SaO2% (BldA) [Mass fraction] 98 % Joseph Lamar Other [facility] Other 01-28-2021 14:35-0400 Diastolic blood pressure 88 mm[Hg] Paola Villanueva MD Work Phone: [facility] Work Phone: 01-28-2021 14:35-0400 Heart rate 64 /min Paola Villanueva MD Work Phone: [facility] Work Phone: 01-28-2021 14:35-0400 Respiratory rate 11 /min Paola Villanueva MD Work Phone: [facility] Work Phone: 01-28-2021 14:35-0400 SaO2% (BldA) [Mass fraction] 98 % Paola Villanueva MD Work Phone: [facility] Work Phone: 01-28-2021 14:35-0400 Systolic blood pressure 132 mm[Hg] Paola Villanueva MD Work Phone: [facility] Work Phone: 01-28-2021 13:31-0400 Body temperature 97.81 [degF] Paola Villanueva MD Work Phone: [facility] Work Phone: 01-28-2021 10:22-0400 Body height 160 cm Paola Villanueva MD Work Phone: [facility] Work Phone: 01-28-2021 10:10-0400 Body mass index (BMI) [Ratio] 34.72 kg/m2 Paola Villanueva MD Work Phone: [facility] Work Phone: 01-28-2021 10:10-0400 Body weight 88.91 kg Paola Villanueva MD Work Phone: [facility] Work Phone: Encounters Encounter Date Encounter Type [...] Not Available Start: 06-26-2023 End: 06-26-2023 ambulatory [facility] Work Phone: Start: 06-26-2023 End: 06-26-2023 Patient encounter procedure [facility] Work Phone: Start: 06-14-2023 End: 06-14-2023 ambulatory JOAQUIN LORNA Not Available Start: 05-25-2023 End: 05-25-2023 Patient encounter procedure [facility] Work Phone: Start: 05-17-2023 End: 05-17-2023 ambulatory [facility] Work Phone: Start: 05-17-2023 End: 05-17-2023 Patient encounter procedure [facility] Work Phone: Start: 12-10-2022 End: 12-10-2022 ambulatory Bela Fishman Other [facility] Other Start: 12-10-2022 Office outpatient visit 15 minutes Bela Fishman [facility] Start: 11-11-2021 End: 11-11-2021 ambulatory Joseph Lamar Other [facility] Other Start: 11-11-2021 Office outpatient visit 15 minutes Joseph Lamar [facility] Start: 01-28-2021 End: 01-28-2021 ambulatory PAOLA VILLANUEVA [facility] Start: 01-28-2021 End: 01-28-2021 Subsequent hospital [...] Office outpatient visit 25 minutes Rene GUTIERREZ [facility] Start: 01-05-2021 Office outpatient ne w 45 minutes Rene Cruz [facility] Procedures Date Procedure Procedure Detail Performing Clinician Start: 01-28-2021 Urine test visual color cmprsn meths Paola Villanueva MD Work Phone: Plan of Treatment Date Care Activity Detail Author Start: 02-10-2021 End: 02-10-2021 Patient encounter procedure [facility] Start: 11-24-2020 Influenza vaccination Flu vaccine (# 1) [facility] Start: 11-22-2013 Screening for malign ant neoplasm of cervix [facility] Start: 11-22-2004 Screening for malign ant neoplasm of cervix Pap smear [facility] Start: 11-22-2002 DTaP/Tdap/Td vaccine (1 - Tdap) DTaP/Tdap/Td vaccine (1 - Tdap) [facility] Start: 11-22-1998 HIV screening HIV screen [facility] Start: 11-22-1984 Varicella vaccine (1 of 2 - 2-dose childhood series) Varicella vaccine (1 of 2 - 2-dose childhood series) [facility] Start: 1985 Hepatitis C screening [facility] Comprehensive metabo lic 2000 panel - Serum or Plasma [facility] O[place] therapy [place] [place] Initiate Oxygen Therapy Protocol Respiratory Care Routine Daily until discontinued starting 01/28/2021 [facility] Phone: Comment on above: Daily until disconti nued starting 01/28/2021 Phase I & II - meter ed glucose Phase I & II - metered glucose Point of Care Testing Routine As Needed until discontinued starting 01/28/2021 [facility] Phone: Comment on above: As Needed until disc ontinued starting 01/28/2021 End: 01-28-2021 , urine POCT , urine POCT Point of Care Testing Routine One Time for 1 Occurrences starting 01/28/2021 until 01/28/2021 [facility] Phone: Comment on above: One Time for 1 Occur rences starting 01/28/2021 until 01/28/2021 [facility] Payers Date Payer Category Payer Unknown [id number] 1985 Unknown [id number] [id number] 1985 Unknown [id number] 2.16.84 [id number] 1985 Unknown [id number] 2.16.84 [id number] 1985 Unknown [id number] 2.16.84 [id number] 1985 Unknown [id number] 2.16.84 [id number] 1985 Unknown [id number] 2.16.84 [id number] 1985 Unknown [id number] 2.16.84 [id number] 1985 Unknown [id number] 2.16.84 [id number] Self-pay Self Pay [id number] Unknown HCAP/HFA/FAP Active [id number] Social History Date Type Detail Facility Start: 01-24-2021 End: 01-28-2021 Tobacco smoking status [facility] Never smoker [facility] Start: 01-24-2021 End: 01-28-2021 Tobacco use and exposure Never used [facility] Start: 01-28-2021 Alcohol intake Current drinke r of alcohol (finding) [facility] Work Phone: Start: 01-24-2021 Alcohol Comment social [facility] Work Phone: Start: 1985 Sex Assigned At Not on file [employer] Work Phone: Exposure to SARS-CoV-2 (event) Not sure [facility] Sex Assigned At Sex Assigned At Bir th [facility] Other Start: 05-17-2023 End: 05-17-2023 Tobacco smoking status [facility] Ex-smoker (finding) [facility] Start: 1985 Sex Assigned At Female F [facility] Medical Equipment Procedure Code Equipment Code Equipment Original Text Equipment Identifier Dates Implant Tib L30m m [id number] Jacques Drvr Fix Dev [employer] [id number] Start: 01-28-2021 Implant Fem L24m m [id number] Insrt [employer] Am [id number] Start: 01-28-2021 Single [...] no improvement in 2 to 3 days [facility] Other 08-19-2022 Evaluation note* Encounter Date Diagnosis [...] Pt understood and agreed to treatment plan. [facility] Other 11-05-2021 Hospital Discharge instructions* Discharge Instr - Activity* Paola Villanueva MD - 01/28/2021 1:36 PM EDT Crutches partial weightbearing right knee. Patient to wear previous brace as necessary * Additional Instructions* Paola Villanueva MD - 01/28/[address]21 [facility] [address] Paola Villanueva M.D. [phone] POST OPERATIVE DISCHARGE INSTRUCTIONS KNEE ARTHROSCOPY 1. Follow-up in office seven to ten days after surgery. Call for appointment if not already made. ([phone]). 2. Take pain medication as ordered. 3. [...] that is not relieved by pain medications. [facility] Dr. Paola Villanueva M.D. [phone] POST OPERATIVE DISCHARGE INSTRUCTIONS KNEE ARTHROSCOPY Follow-up in office seven to ten days after surgery. Call for appointment if not already made. ([phone]). Take pain medication as ordered. Keep the [...] [facility]: 1(763) 321-322011-02-2021 History of Present illness Narrative* Venkatesh Hoffman - 01/25/2021 1:00 PM EDT CLINICAL PHARMACY NOTE: MEDS TO BEDS Total # of Prescriptions Filled: 1 The following medications were delivered to the patient: Percocet 5/325 Additional Documentation: Delivered Medication to Patient * Mima Arias RN - 01/25/2021 1:00 PM EDT DAY OF SURGERY/PROCEDURE GUIDELINES As a patient at the [facility], you can expect quality medical and [...] morning of your surgery/procedure (Hibiclens if directed) [place] your teeth, but do not swallow any [...] during surgery and recovery. documented in this encounter[facility] Phone: [phone]) 955-685910-15-2021 Evaluation note* Encounter Date Diagnosis Assessment Notes [...] to sports surgery, Dr. Felipe Cortes at [facility] per patient request.at her last visit [...] ROM exercises. Patient also referred to Dr Feilpe Cortes at [facility] Dec, Other The patient has been involved in our cooperative treatment plan and agrees to move forward with treatment at this time. [facility] Other 10-13-2021 Evaluation note* Encounter Date Diagnosis [...] as documented in the electronic medical record. [facility] Other Evaluation note* Diagnosis Rupture of anterior cruciate ligament of right knee, initial encounter- Primary Acute lateral meniscus tear of right knee Tear of lateral cartilage or meniscus of knee, current documented in this encounter [facility] Work Phone: evaluation noteNo InformationNortEncompass [facility] Other Evaluation note* Diagnosis Onset Date Resolution Status Anxiety acute Impaired concentration acute Insomnia acute Migraine headache acute Screening for heart disease acute Screening for metabolic disorder acute [facility] Work Phone: Evaluation note* Diagnosis Onset Date Resolution Status Anxiety acute Impaired concentration acute Insomnia acute Migraine headache acute Palpitations acute Screening for heart disease acute Screening for metabolic disorder acute Encounter to establish care with new doctor noneactive Positive urine test acute [facility] Work Phone: History general Narrative - Reported* Type Description Date Medical History migraine headache Medical History bacterial infection- stomach inf ection Medical History asthma [facility] Other History general Narrative - Reported* Type Description Date Medical History migraine headache Medical History bacterial infection- stomach inf ection Medical History asthma Surgical History acl repair [employer] [facility] [employer] Other Summary Purpose Family History No Family [...] right knee, initial encounter (S83.511A) Referral Organization [facility] Referring Provider First Name Rene Referring Provider Last Name Nancy Referring Provider Specialty Orthopedic Surgery Referred Organization [facility] [address] Address [address] [place],[address] Referred Provider Specialty Orthopedic S urgery Referral [...] right knee RIGHT KNEE ACL TEAR Procedures [place] KNEE SCOPE,AID ANT CRUCIATE REPAIR RIGHT KNEE ACL ARTHROSCOPIC RECONSTRUCTION WITH BIOMET Paola Villanueva MD [address] [facility] [address] [place] [address] [facility] Ordered Prescriptions (unrec ognized section [...] Adjustment - Provider: Yolis Montiel APRN - ASSET ACCOUNTANT)[id number] (Anesthesia Volume Adjustment - Provider: Mitchel Saucedo [...] section and content) DATE CREATED AUTHOR 01/29/2021 [facility] DATE CREATED AUTHOR AUTHOR'S ORGANIZ ATION 06/22/2021 [facility] DATE CREATED AUTHOR AUTHOR'S ORGANIZ ATION 11/16/2023 [facility] [employer] Care Teams (unrecognized [...] BE BASED ON THE PRIMARY CLINICAL RECORDS. [employer] [facility]. provides no warranty or guarantee of the accuracy or completeness of information in this document.
[2023-11-30 14:29] VITALS: BP 131/89; PULSE 69; TEMP 36.2
== END 2023-11-30 14:52 | disposition home or self-care (01) ==
LOC: FBCO 07:00 → FBC 14:23
PROVIDERS: Family Provider Internal Medicine; Visit Provider Obstetrics & Gynecology
DX: O09.523 Supervision of elderly multigravida, third trimester (principal); Z3A.00 Weeks of gestation of pregnancy not specified
CPT/HCPCS: 59025

== ENCOUNTER 2023-12-03 07:07 | Outpatient (OUT) | payer OTHER, SELFPAY ==
--- OUTSIDE RECORDS SUMMARY | 2023-12-03 07:09 | XMS_ITS | CCD ---
Author Organization [facility] Care Team Providers Care Financial Services Education Consultant Name Role Phone Unavailable Primary Care Provider UnavailPAOLA Hong Admitting Unavailable PAOLA VILLANUEVA Attending Unavailable Rene Cruz Unavailable Joseph Lamar Unavailable Bela Fishman Unavailable JOAQUIN ROTHMAN Attending Unavailable JOAQUIN ROTHMAN Attending Unavailable JOAQUIN ROTHMAN Attending Unavailable CAMILLE PACHECO Attending Unavailable JOAQUIN ROTHMAN Attending Unavailable JOAQUIN ROTHMAN Attending Unavailable CAMILLE PACHECO Attending Unavailable Medications Current Medications Medication Drug [...] COCET) 5-325 MG per tablet 1 tablet [id number] 200 actuat albuterol 0.09 mg/actuat metered dose [...] Beta HCG ( test) Ql (U) Positive [facility] POCT urine pregnancyOrdered By: Paola Villanueva on 01-28-2021 Beta HCG ( test) Ql (U) Negative NEGATIVE [employer] Phone: Comment on above: Specimens with hCG l evels near the threshold of the test (25 mIU/mL) may give a negative or indeterminate result. In such cases, another test should be performed with a new specimen in 48-72 hours. If early is suspected clinically in this setting, correlation with quantitative serum b-hCG level is suggested. TESTING PERFORMED AT [address] [address] [employer] Phone: MR knee RT wo shanaeon 01-07-20 MR knee RT wo con [facility] [place] [address] [place], [place] [address] MRI Report Signed Patient: Kathia Martinez MR#: [id number] 73 : 1985 Acct:[id number] Age/Sex: 35 / F ADM Date: 01/06/21 Loc: [facility] Room: Type: [facility] CLI Attending Dr: Rene Cruz DO [...] Reuben Valentine M.D.01/06/2021 1:43 PM Dictation Location: [place] [address] Transcribed By: [facility] 01/06/21 1343 Dictated By: Reuben Valentine II, MD 01/06/21 1329 Signed By: 01/06/21 1343 [facility] XR knee RT 4V*on 12-31-2020 XR knee RT 4V* [facility] [place] [place] [address] XRay Report Signed Patient: Kathia Martinez MR#: [id number] 73 : 1985 Acct:[id number] Age/Sex: 35 / F ADM Date: 12/31/20 Loc: ER Room: Type: [facility] ER Attending Dr: Ordering Provider: SELINA [...] Vargas Jr., M.D.12/31/2020 10:31 AM Dictation Location: [place] [address] Transcribed By: [facility] 12/31/20 1031 Dictated By: Roberth Vargas Jr, MD 12/31/20 1026 Signed By: 12/31/20 1031 [facility] Vital Signs Date Time Vital Sign Value Performing Clinician Facility 06-26-2023 07:35-0400 Body height 160.02 cm [facility] 06-26-2023 07:35-0400 Body mass index (BMI) [Ratio] 29.4 kg/m2 [facility] 06-26-2023 07:35-0400 Body weight 75.29 kg [facility] 06-26-2023 07:35-0400 Diastolic blood pressure 81 mm[Hg] [facility] 06-26-2023 07:35-0400 Heart rate 89 /min [facility] 06-26-2023 07:35-0400 SaO2% (BldA) [Mass fraction] 95 % [facility] 06-26-2023 07:35-0400 Systolic blood pressure 119 mm[Hg] [facility] 05-25-2023 10:30-0500 Body height 160.02 cm [facility] 05-25-2023 10:30-0500 Body mass index (BMI) [Ratio] 30.4 kg/m2 [facility] 05-25-2023 10:30-0500 Body weight 78.01 kg [facility] 05-25-2023 10:30-0500 Diastolic blood pressure 89 mm[Hg] [facility] 05-25-2023 10:30-0500 Heart rate 86 /min [facility] 05-25-2023 10:30-0500 SaO2% (BldA) [Mass fraction] 99 % [facility] 05-25-2023 10:30-0500 Systolic blood pressure 129 mm[Hg] [facility] 05-17-2023 08:11-0500 Body height 160.02 cm [facility] 05-17-2023 08:11-0500 Body mass index (BMI) [Ratio] 30.2 kg/m2 [facility] 05-17-2023 08:11-0500 Body weight 77.56 kg [facility] 05-17-2023 08:11-0500 Diastolic blood pressure 82 mm[Hg] [facility] 05-17-2023 08:11-0500 Heart rate 78 /min [facility] 05-17-2023 08:11-0500 SaO2% (BldA) [Mass fraction] 98 % [facility] 05-17-2023 08:11-0500 Systolic blood pressure 135 mm[Hg] [facility] 12-10-2022 12:05-0400 Body height 160.02 cm Bela Fishman Other [employer] Other 12-10-2022 12:05-0400 Body mass index (BMI) [Ratio] 30.11 kg/m2 Bela Fishman Other [employer] Other 12-10-2022 12:05-0400 Body temperature 100.3 [degF] Bela Fishman Other [employer] Other 12-10-2022 12:05-0400 Body weight 77.11 kg Bela Fishman Other [employer] Other 12-10-2022 12:05-0400 Diastolic blood pressure 106 mm[Hg] Bela Fishman Other [employer] Other 12-10-2022 12:05-0400 Respiratory rate 18 /min Bela Fishman Other [employer] Other 12-10-2022 12:05-0400 SaO2% (BldA) [Mass fraction] 99 % Bela Fishman Other [employer] Other 12-10-2022 12:05-0400 Systolic blood pressure 170 mm[Hg] Bela Sravanthi Other [employer] Other 11-11-2021 17:40-0400 Body height 160.02 cm Joseph Lamar Other [employer] Other 11-11-2021 17:40-0400 Body mass index (BMI) [Ratio] 31 kg/m2 Joseph Lamar Other [employer] Other 11-11-2021 17:40-0400 Body temperature 99.8 [degF] Joseph Lamar Other [employer] Other 11-11-2021 17:40-0400 Body weight 79.38 kg Joseph Lamar Other [employer] Other 11-11-2021 17:40-0400 Respiratory rate 18 /min Joseph Lamar Other [employer] Other 11-11-2021 17:40-0400 SaO2% (BldA) [Mass fraction] 98 % Joseph Lamar Other [employer] Other 01-28-2021 14:35-0400 Diastolic blood pressure 88 mm[Hg] Paola Villanueva MD Work Phone: [employer] Work Phone: 01-28-2021 14:35-0400 Heart rate 64 /min Paola Villanueva MD Work Phone: [facility] Work Phone: 01-28-2021 14:35-0400 Respiratory rate 11 /min Paola Villanueva MD Work Phone: [facility] Work Phone: 01-28-2021 14:35-0400 SaO2% (BldA) [Mass fraction] 98 % Paola Villanueva MD Work Phone: [employer] Phone: 01-28-2021 14:35-0400 Systolic blood pressure 132 mm[Hg] Paola Villanueva MD Work Phone: [employer] Phone: 01-28-2021 13:31-0400 Body temperature 97.81 [degF] Paola Villanueva MD Work Phone: [facility] Work Phone: 01-28-2021 10:22-0400 Body height 160 cm Paola Villanueva MD Work Phone: [facility] Work Phone: 01-28-2021 10:10-0400 Body mass index (BMI) [Ratio] 34.72 kg/m2 Paola Villanueva MD Work Phone: [facility] Work Phone: 01-28-2021 10:10-0400 Body weight 88.91 kg Paola Villanueva MD Work Phone: [facility] Work Phone: Encounters Encounter Date Encounter Type Care Provider Facility Start: 11-29-2023 End: 11-29-2023 ambulatory CAMILLE TARA Not Available Start: 11-14-2023 End: 11-14-2023 ambulatory JOAQUIN LORNA Not Available Start: 10-31-2023 End: 10-31-2023 ambulatory JOAQUIN LORNA Not Available Start: 10-17-2023 End: 10-17-2023 ambulatory CAMILLE TARA Not Available Start: 09-19-2023 End: 09-19-2023 ambulatory JOAQUIN LORNA Not Available Start: 08-21-2023 End: 08-21-2023 ambulatory JOAQUIN LORNA Not Available Start: 07-18-2023 End: 07-18-2023 ambulatory JOAQUIN LORNA Not Available Start: 06-26-2023 End: 06-26-2023 ambulatory [facility] Work Phone: Start: 06-26-2023 End: 06-26-2023 Patient encounter procedure [facility] Work Phone: Start: 06-14-2023 End: 06-14-2023 ambulatory JOAQUIN LORNA Not Available Start: 05-25-2023 End: 05-25-2023 Patient encounter procedure [facility] Work Phone: Start: 05-17-2023 End: 05-17-2023 ambulatory [facility] Work Phone: Start: 05-17-2023 End: 05-17-2023 Patient encounter procedure [facility] Work Phone: Start: 12-10-2022 End: 12-10-2022 ambulatory Bela Fishman Other [employer] Other Start: 12-10-2022 Office outpatient visit 15 minutes Bela Fishman [facility] Start: 11-11-2021 End: 11-11-2021 ambulatory Joseph Lamar Other [employer] Other Start: 11-11-2021 Office outpatient visit 15 minutes Joseph Lamar [facility] Start: 01-28-2021 End: 01-28-2021 ambulatory PAOLA VILLANUEVA [facility] Start: 01-28-2021 End: 01-28-2021 Subsequent hospital visit by physician Paola Villanueva MD Work Phone: [facility] Comment on above: Rupture of anterior cruciate ligament of right knee, initial encounter (Primary Dx) Start: 01-25-2021 Subsequent hospital visit by physician [facility] Pat Schedule [facility] Pre-Admit Testing Comment on above: Canceled (Other) Start: 01-18-2021 Telephone encounter Rene CARBAJAL G [facility] Start: 01-07-2021 Office outpatient visit 25 minutes Rene GUTIERREZ [facility] Start: 01-05-2021 Office outpatient ne w 45 minutes Rene Cruz [facility] Procedures Date Procedure Procedure Detail Performing Clinician Start: 01-28-2021 Urine test visual color cmprsn meths Paola Villanueva MD Work Phone: Plan of Treatment Date Care Activity Detail Author Start: 02-10-2021 End: 02-10-2021 Patient encounter procedure [facility] Start: 11-24-2020 Influenza vaccination Flu vaccine (# 1) [facility] Start: 11-22-2013 Screening for malign ant neoplasm of cervix [facility] Start: 11-22-2004 Screening for malign ant neoplasm of cervix Pap smear [facility] Start: 11-22-2002 DTaP/Tdap/Td vaccine (1 - Tdap) DTaP/Tdap/Td vaccine (1 - Tdap) [facility] Start: 11-22-1998 HIV screening HIV screen [facility] Start: 11-22-1984 Varicella vaccine (1 of 2 - 2-dose childhood series) Varicella vaccine (1 of 2 - 2-dose childhood series) [facility] Start: 1985 Hepatitis C screening Hepatitis C sc [facility] metabo lic 2000 panel - Serum or Plasma [facility] Oxygen therapy [[facility] Data Set] Initiate Oxygen Therapy Protocol Respiratory Care Routine Daily until discontinued starting 01/28/2021 [facility] Phone: Comment on above: Daily until disconti nued starting 01/28/2021 Phase I & II - meter ed glucose Phase I & II - metered glucose Point of Care Testing Routine As Needed until discontinued starting 01/28/2021 [facility]: Comment on above: As Needed until disc ontinued starting 01/28/2021 End: 01-28-2021 , urine POCT , urine POCT Point of Care Testing Routine One Time for 1 Occurrences starting 01/28/2021 until 01/28/2021 [facility]: Comment on above: One Time for 1 Occur rences starting 01/28/2021 until 01/28/2021 [facility] Payers Date Payer Category Payer Unknown [id number] 1985 Unknown [id number] 2.16.8 [id number] 1985 Unknown [id number] 2.16.84 [id number] 1985 Unknown [id number] 2.16.84 [id number] 1985 Unknown [id number] 2.16.84 [id number] 1985 Unknown [id number] 2.16.84 [id number] 1985 Unknown [id number] 2.16.84 [id number] 1985 Unknown [id number] 2.16.84 [id number] 1985 Unknown [id number] 2.16.84 [id number] 1985 Unknown [id number] 2.16.84 [id number] Self-pay Self Pay [id number] Unknown HCAP/HFA/FAP Active [id number] Social History Date Type Detail Facility Start: 01-24-2021 End: 01-28-2021 Tobacco smoking status [facility] Never smoker [facility] Start: 01-24-2021 End: 01-28-2021 Tobacco use and exposure Never used [facility] Start: 01-28-2021 Alcohol intake Current drinke r of alcohol (finding) [facility] Work Phone: Start: 01-24-2021 Alcohol Comment [facility] Work Phone: Start: 1985 Sex Assigned At [facility] Work Phone: Exposure to SARS-CoV-2 (event) Not sure [facility] Sex Assigned At Sex Assigned At Bir th [employer] Other Start: 05-17-2023 End: 05-17-2023 Tobacco smoking status NHIS Ex-smoker (finding) [facility] Start: 1985 Sex Assigned At Female F [facility] Medical Equipment Procedure Code Equipment Code Equipment Original Text Equipment Identifier Dates Implant Tib L30m m [id number] Drvr Fix Dev [employer] [id number] Start: 01-28-2021 Implant Fem L24m m [id number] Insrt [employer] Am [id number] Start: 01-28-2021 Single [...] no improvement in 2 to 3 days [employer] Other 08-19-2022 Evaluation note* Encounter Date Diagnosis [...] Pt understood and agreed to treatment plan. [employer] Other 11-05-2021 Hospital Discharge instructions* Discharge Instr - Activity* Villanueva, Paola J, MD - 01/28/2021 1:36 PM EDT Crutches partial weightbearing right knee. Patient to wear previous brace as necessary * Additional Instructions* Paola Villanueva MD - 01/28/2021 [facility] Dr. Paola Villanueva M.D. [phone] POST OPERATIVE DISCHARGE INSTRUCTIONS KNEE ARTHROSCOPY 1. Follow-up in office seven to ten days after surgery. Call for appointment if not already made. ([phone]). 2. Take pain medication as ordered. 3. [...] that is not relieved by pain medications. [facility] Dr. Paola Villanueva M.D. [phone] POST OPERATIVE DISCHARGE INSTRUCTIONS KNEE ARTHROSCOPY Follow-up in office seven to ten days after surgery. Call for appointment if not already made. ([phone]). Take pain medication as ordered. Keep the [...] relieved by pain medications. [facility] Phone: 1(525) 296-182411-02-2021 History of Present illness Narrative* Venkatesh Hoffman - 01/25/2021 1:00 PM EDT CLINICAL PHARMACY NOTE: MEDS TO BEDS Total # of Prescriptions Filled: 1 The following medications were delivered to the patient: Percocet 5/325 Additional Documentation: Delivered Medication to Patient * Mima Arias RN - 01/25/2021 1:00 PM EDT DAY OF SURGERY/PROCEDURE GUIDELINES As a patient at the [facility], you can expect quality medical [...] morning of your surgery/procedure (Hibiclens if directed) Hubbard your teeth, but do not swallow any [...] during surgery and recovery. documented in this [employer] Phone: [phone] 630-254610-15-2021 Evaluation note* Encounter Date Diagnosis Assessment Notes [...] to sports surgery, Dr. Felipe Cortes at [facility] per patient request.at her last visit we [...] also referred to Dr Felipe Cortes at [facility] Dec, Other The patient has been involved in our cooperative treatment plan and agrees to move forward with treatment at this time. [employer] Other 10-13-2021 Evaluation note* Encounter Date Diagnosis [...] as documented in the electronic medical record. [employer] Other Evaluation note* Diagnosis Rupture of anterior cruciate ligament of right knee, initial encounter- Primary Acute lateral meniscus tear of right knee Tear of lateral cartilage or meniscus of knee, current documented in this encounter [facility] [employer] [facility] Work Phone: evaluation noteNo [email or web address] Other Evaluation note* Diagnosis Onset Date Resolution Status Anxiety acute Impaired concentration acute Insomnia acute Migraine headache acute Screening for heart disease acute Screening for metabolic disorder acute [facility] Work Phone: Evaluation note* Diagnosis Onset Date Resolution Status Anxiety acute Impaired concentration acute Insomnia acute Migraine headache acute Palpitations acute Screening for heart disease acute Screening for metabolic disorder acute Encounter to establish care with new doctor noneactive Positive urine test acute [facility] Work Phone: Hissxry general Narrative - Reported* Type Description Date Medical History migraine headache Medical History bacterial infection- stomach inf ection Medical History asthma [employer] Other Hischjl general Narrative - Reported* Type Description Date Medical History migraine headache Medical History bacterial infection- stomach inf ection Medical History asthma Surgical History acl repair [employer] Other Summary Purpose Family History No Family [...] right knee, initial encounter (S83.511A) Referral Organization [facility] Referring Provider First Name Rene Referring Provider Last Name Nancy Referring Provider Specialty Orthopedic Surgery Referred Organization [facility] Referred Address [address] [place], [place],[address] Referred Provider Specialty Orthopedic S urgery Referral [...] ARTHROSCOPIC RECONSTRUCTION WITH BIOMET Paola Villanueva MD [address] [place] [address] [facility] Ordered Prescriptions (unrec ognized section and [...] Adjustment - Provider: Yolis Montiel APRN - WINDOWS MOBILE DEVELOPER)1333 (Anesthesia Volume Adjustment - Provider: Mitchel Saucedo [...] section and content) DATE CREATED AUTHOR 01/29/2021 [facility] DATE CREATED AUTHOR AUTHOR'S ORGANIZ ATION 06/22/2021 [facility] DATE CREATED AUTHOR AUTHOR'S ORGANIZ ATION 11/30/2023 [facility] d[facility] Specialists EPIC Care Teams (unrecognized sec [...] PRIMARY CLINICAL RECORDS. [facility]. provides no warranty or guarantee of the accuracy or completeness of information in this document.
--- NOTE | 2023-12-03 17:07 | US_ITS ---
[address] [address] Patient Name: AZAR LEE MRN: [facility]:[id number] date: 1985 Sex: F Assigned Patient Location: [facility] Current Patient Location: Accession/Order Number: [id number] Exam Date: 12/03/2023 17:11 Report Date: 12/04/2023 12:46 At the request of: CAMILLE PACHECO Procedure: US OB BPP w non-stress EXAMINATION: US OB BPP w non-stress HISTORY:MULTIGRAVIDA OF ADVANCED MATERNAL AGE O09.523 COMPARISON: OB biophysical 11/27/2023 TECHNIQUE: Ultrasound biophysical profile was performed in the radiology department. BREATHING MOVEMENTS: 2 GROSS BODY MOVEMENTS: 2 TONE: 2 QUALITATIVE AMNIOTIC FLUID VOLUME: 2 PRESENTATION: CEPHALIC HEART RATE: 145.16 bpm AMNIOTIC FLUID VOLUME: 16.54 cm GESTATIONAL AGE: 35 weeks 1 day US/US OB BPP w non-stress IMPRESSION: Total biophysical profile score: 8 Electronically authenticated by: ANITA SIMENTAL Date: 12/04/2023 12:46
[2023-12-03 17:36] VITALS: BP 129/81; PULSE 80
== END 2023-12-03 18:00 | disposition home or self-care (01) ==
LOC: US 07:07 → FBC 17:03
PROVIDERS: Family Provider Internal Medicine; Visit Provider Physician Assistant
DX: O09.523 Supervision of elderly multigravida, third trimester (principal); Z3A.35 35 weeks gestation of pregnancy
CPT/HCPCS: 76818

== ENCOUNTER 2023-12-05 08:05 | Outpatient (OUT) | payer OTHER, SELFPAY ==
--- NOTE | 2023-12-05 08:08 | US_ITS ---
[address] [address] Patient Name: AZAR LEE MRN: [facility]:[id number] date: 1985 Sex: F Assigned Patient Location: [facility] Current Patient Location: Accession/Order Number: [id number] Exam Date: 12/05/2023 08:08 Report Date: 12/05/2023 10:13 At the request of: CAMILLE PACHECO Procedure: US OB growth EXAMINATION: US OB growth HISTORY: ADVANCE MATERNAL AGE COMPARISON: No relevant comparison available. FINDINGS: Heart Rate: 143 bpm Amniotic Fluid Volume: 12.5 cm, largest fluid pocket 4.5 cm Number: 1 Position: Cephalic presentation, longitudinal lie BIOMETRY: BPD: 8.30 cm; 33 weeks 3 days; 7.40 % HC: 31.40 cm; 35 weeks 1 day; 14.50 % AC: 30.22 cm; 34 weeks 1 day; 22.90 % FL: 6.58 cm; 33 weeks 6 days; 10.90 % EFW: 2264.82 g; 16.50 %, 5 lbs. 3 oz. FL/AC: 21.77 FL/BPD: 79.28 HC/AC: 1.04 GESTATIONAL AGE: Age by EDC: 35 weeks 3 days DUYEN by EDC: 2024-01-06 Age by US: 34 weeks 1 day DUYEN by US: 2024-01-15 US/US OB growth IMPRESSION: Normal interval growth Electronically authenticated by: REE MILLER Date: 12/05/2023 10:13
== END 2023-12-05 08:06 | disposition home or self-care (01) ==
LOC: NOMS 08:06
PROVIDERS: Family Provider Internal Medicine; Visit Provider Physician Assistant
DX: O09.523 Supervision of elderly multigravida, third trimester (principal); Z3A.34 34 weeks gestation of pregnancy
CPT/HCPCS: 76816

== ENCOUNTER 2023-12-06 07:08 | Outpatient (OUT) | payer OTHER, SELFPAY ==
--- OUTSIDE RECORDS SUMMARY | 2023-12-06 07:11 | XMS_ITS | CCD ---
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 In such cases, another test should be performed with a new specimen in 48-72 hours. If early is suspected clinically in this setting, correlation with quantitative serum b-hCG level is suggested. TESTING PERFORMED AT [address] [address] [employer] Phone: MR knee RT wo shanaeon 01-07-20 MR knee RT wo con [facility] Main [place] [address] [place], [place] [id number] MRI Report Signed Patient: Kathia Martinez MR#: [id number] 71 : 1985 Acct:[id number] Age/Sex: 35 / F ADM Date: 01/06/21 Loc: [facility] Room: Type: [facility] CLI Attending Dr: Rene Cruz DO Ordering [...] M.D.01/06/2021 1:43 PM Dictation Location: [place] [address] Transcribed By: [facility] 01/06/21 1343 Dictated By: Reuben Valentine II, MD 01/06/21 1329 Signed By: 01/06/21 1343 [facility] XR knee RT 4V*on 12-31-2020 XR knee RT 4V* [facility] [place] [address] XRay Report Signed Patient: Kathia Martinez MR#: [id number] 71 : 1985 Acct:[id number] Age/Sex: 35 / F ADM Date: 12/31/20 Loc: ER Room: Type: [facility] ER Attending Dr: Ordering Provider: SELINA Goode [...] Vargas Jr., M.D.12/31/2020 10:31 AM Dictation Location: [place] [address] Transcribed By: [facility] 12/31/20 1031 Dictated By: Roberth Vargas Jr, MD 12/31/20 1026 Signed By: 12/31/20 1031 [facility] Vital Signs Date Time Vital Sign Value Performing Clinician Facility 06-26-2023 07:35-0400 Body height 160.02 cm [facility] 06-26-2023 07:35-0400 Body mass index (BMI) [Ratio] 29.4 kg/m2 [facility] 06-26-2023 07:35-0400 Body weight 75.29 kg [facility] 06-26-2023 07:35-0400 Diastolic blood pressure 81 mm[Hg] [facility] 06-26-2023 07:35-0400 Heart rate 89 /min [facility] 06-26-2023 07:35-0400 SaO2% (BldA) [Mass fraction] 95 % [facility] 06-26-2023 07:35-0400 Systolic blood pressure 119 mm[Hg] [facility] 05-25-2023 10:30-0500 Body height 160.02 cm [facility] 05-25-2023 10:30-0500 Body mass index (BMI) [Ratio] 30.4 kg/m2 [facility] 05-25-2023 10:30-0500 Body weight 78.01 kg [facility] 05-25-2023 10:30-0500 Diastolic blood pressure 89 mm[Hg] [facility] 05-25-2023 10:30-0500 Heart rate 86 /min [facility] 05-25-2023 10:30-0500 SaO2% (BldA) [Mass fraction] 99 % [facility] 05-25-2023 10:30-0500 Systolic blood pressure 129 mm[Hg] [facility] 05-17-2023 08:11-0500 Body height 160.02 cm [facility] 05-17-2023 08:11-0500 Body mass index (BMI) [Ratio] 30.2 kg/m2 [facility] 05-17-2023 08:11-0500 Body weight 77.56 kg [facility] 05-17-2023 08:11-0500 Diastolic blood pressure 82 mm[Hg] [facility] 05-17-2023 08:11-0500 Heart rate 78 /min [facility] 05-17-2023 08:11-0500 SaO2% (BldA) [Mass fraction] 98 % [facility] 05-17-2023 08:11-0500 Systolic blood pressure 135 mm[Hg] [facility] 12-10-2022 12:05-0400 Body height 160.02 cm Bela Fishman Other [employer] Other 12-10-2022 12:05-0400 Body mass index (BMI) [Ratio] 30.11 kg/m2 Bela Fishman Other [employer] Other 12-10-2022 12:05-0400 Body temperature 100.3 [degF] Bela Fishman Other [employer] Other 12-10-2022 12:05-0400 Body weight 77.11 kg Bela Fishman Other [employer] Other 12-10-2022 12:05-0400 Diastolic blood pressure 106 mm[Hg] Bela Fishman Other [employer] Other 12-10-2022 12:05-0400 Respiratory rate 18 /min Bela Fishman Other [employer] Other 12-10-2022 12:05-0400 SaO2% (BldA) [Mass fraction] 99 % Bela Fishman Other [employer] Other 12-10-2022 12:05-0400 Systolic blood pressure 170 mm[Hg] Bela Sravanthi Other [employer] Other 11-11-2021 17:40-0400 Body height 160.02 cm Joseph Lamar Other [employer] Other 11-11-2021 17:40-0400 Body mass index (BMI) [Ratio] 31 kg/m2 Joseph Lamar Other [employer] Other 11-11-2021 17:40-0400 Body temperature 99.8 [degF] Joseph Lamar Other [employer] Other 11-11-2021 17:40-0400 Body weight 79.38 kg Joseph Lamar Other [employer] Other 11-11-2021 17:40-0400 Respiratory rate 18 /min Joseph Lamar Other [employer] Other 11-11-2021 17:40-0400 SaO2% (BldA) [Mass fraction] 98 % Joseph Lamar Other [employer] Other 01-28-2021 14:35-0400 Diastolic blood pressure 88 mm[Hg] Paola Villanueva MD Work Phone: [employer] Work Phone: 01-28-2021 14:35-0400 Heart rate 64 /min Paola Villanueva MD Work Phone: [employer] Work Phone: 01-28-2021 14:35-0400 Respiratory rate 11 /min Paola Villanueva MD Work Phone: [employer] Work Phone: 01-28-2021 14:35-0400 SaO2% (BldA) [Mass fraction] 98 % Paola Villanueva MD Work Phone: [employer] Phone: 01-28-2021 14:35-0400 Systolic blood pressure 132 mm[Hg] Paola Villanueva MD Work Phone: [employer] Phone: 01-28-2021 13:31-0400 Body temperature 97.81 [degF] Paola Villanueva MD Work Phone: [employer] Work Phone: 01-28-2021 10:22-0400 Body height 160 cm Paola Villanueva MD Work Phone: [employer] Work Phone: 01-28-2021 10:10-0400 Body mass index (BMI) [Ratio] 34.72 kg/m2 Paola Villanueva MD Work Phone: [employer] Work Phone: 01-28-2021 10:10-0400 Body weight 88.91 kg Paola Villanueva MD Work Phone: [employer] Work Phone: Encounters Encounter Date Encounter Type Care Provider Facility Start: 11-29-2023 End: 11-29-2023 ambulatory CAMILLE TARA Not Available Start: 11-14-2023 End: 11-14-2023 ambulatory JOAQUIN LORNA Not Available Start: 10-31-2023 End: 10-31-2023 ambulatory JOAQUIN LORNA Not Available Start: 10-17-2023 End: 10-17-2023 ambulatory CAMILLE ATRA Not Available Start: 09-19-2023 End: 09-19-2023 ambulatory JOAQUIN LORNA Not Available Start: 08-21-2023 End: 08-21-2023 ambulatory JOAQUIN LORNA Not Available Start: 07-18-2023 End: 07-18-2023 ambulatory JOAQUIN LORNA Not Available Start: 06-26-2023 End: 06-26-2023 ambulatory [facility] Work Phone: Start: 06-26-2023 End: 06-26-2023 Patient encounter procedure [facility] Work Phone: Start: 06-14-2023 End: 06-14-2023 ambulatory JOAQUIN LORNA Not Available Start: 05-25-2023 End: 05-25-2023 Patient encounter procedure [facility] Work Phone: Start: 05-17-2023 End: 05-17-2023 ambulatory [facility] Work Phone: Start: 05-17-2023 End: 05-17-2023 Patient encounter procedure [facility] Work Phone: Start: 12-10-2022 End: 12-10-2022 ambulatory Bela Fishman Other [employer] Other Start: 12-10-2022 Office outpatient visit 15 minutes Bela Fishman [facility] Start: 11-11-2021 End: 11-11-2021 ambulatory Joseph Lamar Other [employer] Other Start: 11-11-2021 Office outpatient visit 15 minutes Joseph Lamar [facility] Start: 01-28-2021 End: 01-28-2021 ambulatory PAOLA VILLANUEVA [facility] Start: 01-28-2021 End: 01-28-2021 Subsequent hospital visit by physician Paola Villanueva MD Work Phone: [facility] Comment on above: Rupture of anterior cruciate ligament of right knee, initial encounter (Primary Dx) Start: 01-25-2021 Subsequent hospital visit by physician [facility] Pat Schedule [facility] Pre-Admit Testing Comment on above: Canceled (Other) Start: 01-18-2021 Telephone encounter Rene CARBAJAL [facility] Start: 01-07-2021 Office outpatient visit 25 minutes Rene GUTIERREZ [facility] Start: 01-05-2021 Office outpatient ne w 45 minutes Rene Cruz [facility] Procedures Date Procedure Procedure Detail Performing Clinician Start: 01-28-2021 Urine test visual color cmprsn meths Paola Villanueva MD Work Phone: Plan of Treatment Date Care Activity Detail Author Start: 02-10-2021 End: 02-10-2021 Patient encounter procedure [facility] Start: 11-24-2020 Influenza vaccination Flu vaccine (# 1) [facility] Start: 11-22-2013 Screening for malign ant neoplasm of cervix [facility] Start: 11-22-2004 Screening for malign ant neoplasm of cervix Pap smear [facility] Start: 11-22-2002 DTaP/Tdap/Td vaccine (1 - Tdap) DTaP/Tdap/Td vaccine (1 - Tdap) [facility] Start: 11-22-1998 HIV screening HIV screen [facility] Start: 11-22-1984 Varicella vaccine (1 of 2 - 2-dose childhood series) Varicella vaccine (1 of 2 - 2-dose childhood series) [facility] Start: 1985 Hepatitis C screening Hepatitis C sc [facility] metabo lic 2000 panel - Serum or Plasma [facility] Oxygen therapy [[facility] Data Set] Initiate Oxygen Therapy Protocol Respiratory Care Routine Daily until discontinued starting 01/28/[address] [facility]: Comment on above: Daily until disconti nued starting 01/28/2021 Phase I & II - meter ed glucose Phase I & II - metered glucose Point of Care Testing Routine As Needed until discontinued starting 01/28/[address] [facility]: Comment on above: As Needed until disc ontinued starting 01/28/2021 End: 01-28-2021 , urine POCT , urine POCT Point of Care Testing Routine One Time for 1 Occurrences starting 01/28/2021 until 01/28/[address] [facility] Phone: Comment on above: One Time for 1 Occur rences starting 01/28/2021 until 01/28/2021 [facility] Payers Date Payer Category Payer Unknown [id number] 1985 Unknown [id number] [id number] 1985 Unknown [id number] 2.16.84 [id number] 1985 Unknown [id number] 2.16.84 [id number] 1985 Unknown [id number] 2.16.84 [id number] 1985 Unknown [id number] 2.16.84 [id number] 1985 Unknown [id number] 2.16.84 [id number] 1985 Unknown [id number] 2.16.84 [id number] 1985 Unknown [id number] 2.16.84 [id number] 1985 Unknown [id number] 2.16.84 [id number] Self-pay Self Pay [id number] Unknown HCAP/HFA/FAP Active [id number] Social History Date Type Detail Facility Start: 01-24-2021 End: 01-28-2021 Tobacco smoking status [facility] Never smoker [facility] Start: 01-24-2021 End: 01-28-2021 Tobacco use and exposure Never used [facility] Start: 01-28-2021 Alcohol intake Current drinke r of alcohol (finding) [facility] Work Phone: Start: 01-24-2021 Alcohol Comment social [facility] Work Phone: Start: 1985 [facility]: Exposure to SARS-CoV-2 (event) Not sure [facility] Sex Assigned At Sex Assigned At Bir th [employer] Other Start: 05-17-2023 End: 05-17-2023 Tobacco smoking status NHIS Ex-smoker (finding) [facility] Start: 1985 Sex Assigned At Female F [facility] Medical Equipment Procedure Code Equipment Code Equipment Original Text Equipment Identifier Dates Implant Tib L30m m [id number] Jacques Drvr Fix Dev [employer] [id number] Start: 01-28-2021 Implant Fem L24m m [id number] Insrt [employer] Am [id number] Start: 01-28-2021 Single [...] no improvement in 2 to 3 days [employer] Other 08-19-2022 Evaluation note* Encounter Date [...] Pt understood and agreed to treatment plan. [employer] Other 11-05-2021 Hospital Discharge instructions* Discharge Instr - Activity* Villanueva, Paola J, MD - 01/28/2021 1:36 PM EDT Crutches partial weightbearing right knee. Patient to wear previous brace as necessary * Additional Instructions* Paola Villanueva MD - 01/28/2021 [facility] Dr. Paola Villanueva M.D. [phone] POST OPERATIVE DISCHARGE INSTRUCTIONS KNEE ARTHROSCOPY 1. Follow-up in office seven to ten days after surgery. Call for appointment if not already made. ([phone]). 2. Take pain medication as ordered. 3. [...] is not relieved by pain medications. [facility] Dr. Paola Villanueva M.D. [phone] POST OPERATIVE DISCHARGE INSTRUCTIONS KNEE ARTHROSCOPY Follow-up in office seven to ten days after surgery. Call for appointment if not already made. ([phone]). Take pain medication as ordered. Keep the [...] relieved by pain medications. documented in this [facility] Phone: 1(255) 385-636511-02-2021 History of Present illness Narrative* Venkatesh Hoffman - 01/25/2021 1:00 PM EDT CLINICAL PHARMACY NOTE: MEDS TO BEDS Total # of Prescriptions Filled: 1 The following medications were delivered to the patient: Percocet 5/325 Additional Documentation: Delivered Medication to Patient * Mima Arias RN - 01/25/2021 1:00 PM EDT DAY OF SURGERY/PROCEDURE GUIDELINES As a patient at the [facility], you can expect quality medical and [...] morning of your surgery/procedure (Hibiclens if directed) [place] your teeth, but do not swallow any [...] during surgery and recovery. documented in this [facility] Phone: [phone]) 867-981810-15-2021 Evaluation note* Encounter Date Diagnosis Assessment Notes [...] sports surgery, Dr. Felipe Cortes at [facility] per patient request.at her last [...] referred to Dr Felipe Cortes at [facility] Dec, Other The patient has been involved in our cooperative treatment plan and agrees to move forward with treatment at this time. [employer] Other 10-13-2021 Evaluation note* Encounter Date [...] as documented in the electronic medical record. [employer] Other Evaluation note* Diagnosis Rupture of anterior cruciate ligament of right knee, initial encounter- Primary Acute lateral meniscus tear of right knee Tear of lateral cartilage or meniscus of knee, current documented in this encounter [employer] Work Phone: evaluation noteNo InformationNort [employer] Other Evaluation note* Diagnosis Onset Date Resolution Status Anxiety acute Impaired concentration acute Insomnia acute Migraine headache acute Screening for heart disease acute Screening for metabolic disorder acute [facility] Work Phone: Evaluation note* Diagnosis Onset Date Resolution Status Anxiety acute Impaired concentration acute Insomnia acute Migraine headache acute Palpitations acute Screening for heart disease acute Screening for metabolic disorder acute Encounter to establish care with new doctor noneactive Positive urine test acute [facility] Work Phone: Hisxuby general Narrative - Reported* Type Description Date Medical History migraine headache Medical History bacterial infection- stomach inf ection Medical History asthma [employer] Other Hiszxle general Narrative - Reported* Type Description Date Medical History migraine headache Medical History bacterial infection- stomach inf ection Medical History asthma Surgical History acl repair [employer] Other Summary Purpose Family History No [...] right knee, initial encounter (S83.511A) Referral Organization [facility] Referring Provider First Name Rene Referring Provider Last Name Nancy Referring Provider Specialty Orthopedic Surgery Referred Organization [facility] Referred Address [address] [place], [place],[address] Referred Provider Specialty Orthopedic S urgery Referral [...] right knee RIGHT KNEE ACL TEAR Procedures IN KNEE SCOPE,AID ANT CRUCIATE REPAIR RIGHT KNEE ACL ARTHROSCOPIC RECONSTRUCTION WITH BIOMET Paola Villanueva MD [address] [place] [address] [facility] Ordered Prescriptions (unrec ognized section and [...] Adjustment - Provider: Yolis Montiel APRN - ECONOMICS PROFESSOR)[id number] (Anesthesia Volume Adjustment - Provider: Mitchel Saucedo [...] section and content) DATE CREATED AUTHOR 01/29/2021 [facility] DATE CREATED AUTHOR AUTHOR'S ORGANIZ ATION 06/22/2021 [facility] DATE CREATED AUTHOR AUTHOR'S ORGANIZ ATION 11/30/2023 [facility] EPIC Care Teams (unrecognized sec [...] BE BASED ON THE PRIMARY CLINICAL RECORDS. [facility] [employer] [facility]. provides no warranty or guarantee of the accuracy or completeness of information in this document.
[2023-12-06 17:07] VITALS: BP 141/92; PULSE 68
[2023-12-06 17:11] VITALS: BP 136/93; PULSE 69
[2023-12-06 17:41] VITALS: BP 147/87; PULSE 72
== END 2023-12-06 18:29 | disposition home or self-care (01) ==
LOC: FBCO 07:08 → FBC 16:45
PROVIDERS: Family Provider Internal Medicine; Visit Provider Obstetrics & Gynecology
DX: O09.529 Supervision of elderly multigravida, unspecified trimester (principal)
CPT/HCPCS: 59025

== ENCOUNTER 2023-12-07 09:49 | Observation (INO) | payer OTHER, SELFPAY ==
[2023-12-07] VITALS (7 sets, daily range): BP systolic 129–141; BP diastolic 87–96; PULSE 62–75; TEMP 36.5–36.6
--- OUTSIDE RECORDS SUMMARY | 2023-12-07 10:04 | XMS_ITS | CCD ---
Author Organization [facility] Care Team Providers Care Film Flat Inspector Name Role Phone Unavailable Primary Care Provider UnavailPAOLA Hong Admitting Unavailable PAOLA VILLANUEVA Attending Unavailable Rene Cruz Unavailable Joseph Lamar Unavailable Bela Fishman Unavailable JOAQUIN ROTHMAN Attending Unavailable JOAQUIN ROTHMAN Attending Unavailable LORNA, JOAQUIN Attending Unavailable CAMILLE PACHECO Attending Unavailable JOAQUIN ROTHMAN Attending Unavailable JOAQUIN ROTHMAN Attending Unavailable CAMILLE PACHECO Attending Unavailable CAMILLE PACHECO Attending Unavailable Medications [...] COCET) 5-325 MG per tablet 1 tablet [id number] 200 actuat albuterol 0.09 mg/actuat metered dose [...] Beta HCG ( test) Ql (U) Positive [facility] POCT urine pregnancyOrdered By: Paola Villanueva on 01-28-2021 Beta HCG ( test) Ql (U) Negative NEGATIVE [facility] Phone: Comment on above: Specimens with hCG l evels near the threshold of the test (25 mIU/mL) may give a negative or indeterminate result. In such cases, another test should be performed with a new specimen in 48-72 hours. If early is suspected clinically in this setting, correlation with quantitative serum b-hCG level is suggested. TESTING PERFORMED AT [address] [address] [facility] Phone: MR knee RT wo conon 01-07-20 MR knee RT wo con [facility] [place] [address] [place] [address] MRI Report Signed Patient: Kathia Martinez MR#: [id number] 73 : 1985 Acct:[id number] Age/Sex: 35 / F ADM Date: 01/06/21 Loc: [facility] Room: Type: [facility] Attending Dr: Rene Cruz DO [...] Reuben Valentine M.D.01/06/2021 1:43 PM Dictation Location: [place] [address] Transcribed By: [facility] 01/06/21 1343 Dictated By: Reuben Valentine II, MD 01/06/21 1329 Signed By: 01/06/21 1343 [facility] XR knee RT 4V*on 12-31-2020 XR knee RT 4V* [place] [address] XRay Report Signed Patient: Kathia Martinez MR#: [id number] 73 : 1985 Acct:[id number] Age/Sex: 35 / F ADM Date: 12/31/20 Loc: ER Room: Type: [facility] ER Attending Dr: Ordering Provider: SELINA [...] Vargas Jr., M.D.12/31/2020 10:31 AM Dictation Location: [place] [address] Transcribed By: [facility] 12/31/20 1031 Dictated By: Roberth Vargas Jr, MD 12/31/20 1026 Signed By: 12/31/20 1031 Normal [facility] Vital Signs Date Time Vital Sign Value Performing Clinician Facility 06-26-2023 07:35-0400 Body height 160.02 cm [place] 06-26-2023 07:35-0400 Body mass index (BMI) [Ratio] 29.4 kg/m2 [facility] 06-26-2023 07:35-0400 Body weight 75.29 kg [place] 06-26-2023 07:35-0400 Diastolic blood pressure 81 mm[Hg] [facility] 06-26-2023 07:35-0400 Heart rate 89 /min [place] 06-26-2023 07:35-0400 SaO2% (BldA) [Mass fraction] 95 % [facility] 06-26-2023 07:35-0400 Systolic blood pressure 119 mm[Hg] [facility] 05-25-2023 10:30-0500 Body height 160.02 cm [place] 05-25-2023 10:30-0500 Body mass index (BMI) [Ratio] 30.4 kg/m2 [facility] 05-25-2023 10:30-0500 Body weight 78.01 kg [place] 05-25-2023 10:30-0500 Diastolic blood pressure 89 mm[Hg] [facility] 05-25-2023 10:30-0500 Heart rate 86 /min [place] 05-25-2023 10:30-0500 SaO2% (BldA) [Mass fraction] 99 % [facility] 05-25-2023 10:30-0500 Systolic blood pressure 129 mm[Hg] [facility] 05-17-2023 08:11-0500 Body height 160.02 cm [place] 05-17-2023 08:11-0500 Body mass index (BMI) [Ratio] 30.2 kg/m2 [facility] 05-17-2023 08:11-0500 Body weight 77.56 kg [place] 05-17-2023 08:11-0500 Diastolic blood pressure 82 mm[Hg] [facility] 05-17-2023 08:11-0500 Heart rate 78 /min [place] 05-17-2023 08:11-0500 SaO2% (BldA) [Mass fraction] 98 % [facility] 05-17-2023 08:11-0500 Systolic blood pressure 135 mm[Hg] [facility] 12-10-2022 12:05-0400 Body height 160.02 cm Bela Nguyenmond Other [facility] Other 12-10-2022 12:05-0400 Body mass index (BMI) [Ratio] 30.11 kg/m2 Bela Nguyenmond Other [employer] Other 12-10-2022 12:05-0400 Body temperature 100.3 [degF] Bela Nguyenmond Other [employer] Other 12-10-2022 12:05-0400 Body weight 77.11 kg Bela Nguyenmond Other [employer] Other 12-10-2022 12:05-0400 Diastolic blood pressure 106 mm[Hg] Bela Nguyenmond Other [employer] Other 12-10-2022 12:05-0400 Respiratory rate 18 /min Bela Nguyenmond Other [employer] Other 12-10-2022 12:05-0400 SaO2% (BldA) [Mass fraction] 99 % Bela Nguyenmond Other [employer] Other 12-10-2022 12:05-0400 Systolic blood pressure 170 mm[Hg] Bela Sravanthi Other [employer] Other 11-11-2021 17:40-0400 Body height 160.02 cm Joseph Lamar Other [employer] Other 11-11-2021 17:40-0400 Body mass index (BMI) [Ratio] 31 kg/m2 Joseph Lamar Other [facility] Other 11-11-2021 17:40-0400 Body temperature 99.8 [degF] Joseph Lamar Other [employer] Other 11-11-2021 17:40-0400 Body weight 79.38 kg Joseph Lamar Other [employer] Other 11-11-2021 17:40-0400 Respiratory rate 18 /min Joseph Lamar Other [employer] Other 11-11-2021 17:40-0400 SaO2% (BldA) [Mass fraction] 98 % Joseph Lamar Other [employer] Other 01-28-2021 14:35-0400 Diastolic blood pressure 88 mm[Hg] Paola Villanueva MD Work Phone: [facility] Work Phone: 01-28-2021 14:35-0400 Heart rate 64 /min Paola Villanueva MD Work Phone: [facility] Work Phone: 01-28-2021 14:35-0400 Respiratory rate 11 /min Paola Villanueva MD Work Phone: [facility] Work Phone: 01-28-2021 14:35-0400 SaO2% (BldA) [Mass fraction] 98 % Paola Villanueva MD Work Phone: [facility] Work Phone: 01-28-2021 14:35-0400 Systolic blood pressure 132 mm[Hg] Paola Villanueva MD Work Phone: [facility] Work Phone: 01-28-2021 13:31-0400 Body temperature 97.81 [degF] Paola Villanueva MD Work Phone: [facility] Work Phone: 01-28-2021 10:22-0400 Body height 160 cm Paola Villanueva MD Work Phone: [facility] Work Phone: 01-28-2021 10:10-0400 Body mass index (BMI) [Ratio] 34.72 kg/m2 Paola Villanueva MD Work Phone: [facility] Work Phone: 01-28-2021 10:10-0400 Body weight 88.91 kg Paola Villanueva MD Work Phone: [facility] Work Phone: Encounters Encounter Date Encounter Type Care Provider Facility Start: 12-05-2023 End: 12-05-2023 ambulatory CAMILLE TARA Not Available Start: 11-29-2023 End: 11-29-2023 ambulatory CAMILLE TARA [...] Not Available Start: 06-26-2023 End: 06-26-2023 ambulatory [facility] Work Phone: Start: 06-26-2023 End: 06-26-2023 Patient encounter procedure [facility] Work Phone: Start: 06-14-2023 End: 06-14-2023 ambulatory JOAQUIN ROTHMAN Not Available Start: 05-25-2023 End: 05-25-2023 Patient encounter procedure [facility] Work Phone: Start: 05-17-2023 End: 05-17-2023 ambulatory [facility] Work Phone: Start: 05-17-2023 End: 05-17-2023 Patient encounter procedure [facility] Work Phone: Start: 12-10-2022 End: 12-10-2022 ambulatory Bela Fishman Other [facility] Other Start: 12-10-2022 Office outpatient visit [address] [facility] Start: 11-11-2021 End: 11-11-2021 ambulatory Joseph Lamar Other [facility] Other Start: 11-11-2021 Office outpatient visit [address] [facility] [address] Start: 01-28-2021 End: 01-28-2021 ambulatory PAOLA VILLANUEVA [facility] Start: 01-28-2021 End: 01-28-2021 Subsequent hospital visit by physician Paola Villanueva MD Work Phone: [facility] Comment on above: Rupture of anterior cruciate ligament of right knee, initial encounter (Primary Dx) Start: 01-25-2021 Subsequent hospital visit by physician [facility] Pat Schedule [facility] Pre-Admit Testing Comment on above: Canceled (Other) Start: 01-18-2021 Telephone encounter [facility] Start: 01-07-2021 Office outpatient visit [address] [facility] Start: 01-05-2021 Office outpatient ne w [address] [facility] Procedures Date Procedure Procedure Detail Performing Clinician Start: 01-28-2021 Urine test visual color cmprsn ahmets Paola Villanueva MD Work Phone: Plan of Treatment Date Care Activity Detail Author Start: 02-10-2021 End: 02-10-2021 Patient encounter procedure [facility] Start: 11-24-2020 Influenza vaccination Flu vaccine (# 1) [facility] Start: 11-22-2013 Screening for malign ant neoplasm of cervix [facility] Start: 11-22-2004 Screening for malign ant neoplasm of cervix Pap smear [facility] Start: 11-22-2002 DTaP/Tdap/Td vaccine (1 - Tdap) DTaP/Tdap/Td vaccine (1 - Tdap) [facility] Start: 11-22-1998 HIV screening HIV screen [facility] Start: 11-22-1984 Varicella vaccine (1 of 2 - 2-dose childhood series) Varicella vaccine (1 of 2 - 2-dose childhood series) [facility] Start: 1985 Hepatitis C screening Hepatitis C [facility] Comprehensive metabo lic 2000 panel - Serum or Plasma [facility] Oxygen therapy [[facility] Data Set] Initiate Oxygen Therapy Protocol Respiratory Care Routine Daily until discontinued starting 01/28/2021 [facility] Work Phone: Comment on above: Daily until disconti nued starting 01/28/2021 Phase I & II - meter ed glucose Phase I & II - metered glucose Point of Care Testing Routine As Needed until discontinued starting 01/28/2021 [facility] Work Phone: Comment on above: As Needed until disc ontinued starting 01/28/2021 End: 01-28-2021 , urine POCT , urine POCT Point of Care Testing Routine One Time for 1 Occurrences starting 01/28/2021 until 01/28/2021 [facility] [employer] Phone: Comment on above: One Time for 1 Occur rences starting 01/28/2021 until 01/28/2021 [facility] Payers Date Payer Category Payer Unknown [id number] 1985 Unknown [id number] [id number] 1985 Unknown [id number] 2.16.84 [id number] 1983 Unknown [id number] 2.16.84 [id number] 1983 Unknown [id number] 2.16.84 [id number] 1983 Unknown [id number] 2.16.84 [id number] 1983 Unknown [id number] 2.16.84 [id number] 1983 Unknown [id number] 2.16.84 [id number] 1983 Unknown [id number] 2.16.84 [id number] 1985 Unknown [id number] 2.16.84 [id number] 1985 Unknown [id number] 2.16.84 [id number] Self-pay Self Pay [id number] Unknown HCAP/HFA/FAP Active [id number] Social History Date Type Detail Facility Start: 01-24-2021 End: 01-28-2021 Tobacco smoking status ORIS Never smoker [facility] Start: 01-24-2021 End: 01-28-2021 Tobacco use and exposure Never used [facility] Start: 01-28-2021 Alcohol intake Current drinke r of alcohol (finding) [facility] Work Phone: Start: 01-24-2021 Alcohol Comment social [facility] Work Phone: Start: 1985 Sex Assigned At Not on file [facility] [employer] Work Phone: Exposure to SARS-CoV-2 (event) Not sure [facility] Sex Assigned At Sex Assigned At Bir th [facility] Other Start: 05-17-2023 End: 05-17-2023 Tobacco smoking status NHIS Ex-smoker (finding) [facility] Start: 1985 Sex Assigned At Female F [facility] Medical Equipment Procedure Code Equipment Code Equipment Original Text Equipment Identifier Dates Implant Tib L30m m [id number] Jacques Drvr Fix Dev [employer] [id number] Start: 01-28-2021 Implant Fem L24m m [id number] Insrt [employer] Am [id number] Start: 01-28-2021 Single [...] no improvement in 2 to 3 days [facility] [employer] Other 08-19-2022 Evaluation note* Encounter Date Diagnosis [...] Pt understood and agreed to treatment plan. [facility] Other 11-05-2021 Hospital Discharge instructions* Discharge Instr - Activity* Paola Villanueva MD - 01/28/2021 1:36 PM EDT Crutches partial weightbearing right knee. Patient to wear previous brace as necessary * Additional Instructions* Paola Villanueva MD - 01/28/2021 [facility] Dr. Paola Villanueva M.D. [phone] POST OPERATIVE DISCHARGE INSTRUCTIONS KNEE ARTHROSCOPY 1. Follow-up in office seven to ten days after surgery. Call for appointment if not already made. ([phone]). 2. Take pain medication as ordered. 3. [...] that is not relieved by pain medications. [facility] Dr. Paola Villanueva M.D. [phone] POST OPERATIVE DISCHARGE INSTRUCTIONS KNEE ARTHROSCOPY Follow-up in office seven to ten days after surgery. Call for appointment if not already made. ([phone]). Take pain medication as ordered. Keep the [...] this [facility] Phone: 1(966) 896-705411-02-2021 History of Present illness Narrative* Venkatesh Hoffman - 01/25/2021 1:00 PM EDT CLINICAL PHARMACY NOTE: MEDS TO BEDS Total # of Prescriptions Filled: 1 The following medications were delivered to the patient: Percocet 5/325 Additional Documentation: Delivered Medication to Patient * Mima Arias RN - 01/25/2021 1:00 PM EDT DAY OF SURGERY/PROCEDURE GUIDELINES As a patient at the [facility], you can expect quality medical [...] morning of your surgery/procedure (Hibiclens if directed) [place] your teeth, but do not swallow any [...] during surgery and recovery. documented in this [facility]Del[facility] Phone: [phone]) 331-755010-15-2021 Evaluation note* Encounter Date Diagnosis Assessment Notes [...] to sports surgery, Dr. Felipe Cortes at [facility] per patient request.at her last visit [...] also referred to Dr Felipe Cortes at [facility] Dec, Other The patient has been involved in our cooperative treatment plan and agrees to move forward with treatment at this time. [employer] Other 10-13-2021 Evaluation note* Encounter Date Diagnosis [...] as documented in the electronic medical record. [employer] Other Evaluation note* Diagnosis Rupture of anterior cruciate ligament of right knee, initial encounter- Primary Acute lateral meniscus tear of right knee Tear of lateral cartilage or meniscus of knee, current documented in this encounter [facility] Work Phone: evaluation noteNo InformationNort RecordSled Other Evaluation note* Diagnosis Onset Date Resolution Status Anxiety acute Impaired concentration acute Insomnia acute Migraine headache acute Screening for heart disease acute Screening for metabolic disorder acute [facility] Work Phone: Evaluation note* Diagnosis Onset Date Resolution Status Anxiety acute Impaired concentration acute Insomnia acute Migraine headache acute Palpitations acute Screening for heart disease acute Screening for metabolic disorder acute Encounter to establish care with new doctor noneactive Positive urine test acute [facility] Work Phone: Hisrgry general Narrative - Reported* Type Description Date Medical History migraine headache Medical History bacterial infection- stomach inf ection Medical History asthma [employer] Other History general Narrative - Reported* Type Description Date Medical History migraine headache Medical History bacterial infection- stomach inf ection Medical History asthma Surgical History acl repair [employer] Other Summary Purpose Family History No Family [...] cruciate ligament of right knee, initial encounter (S83.360A) Referral Organization [facility] Referring Provider First Name Rene Referring Provider Last Name Nancy Referring Provider Specialty Orthopedic Surgery Referred Organization [facility] Referred Address [address] [place], [place],[address] Referred Provider Specialty Orthopedic S urgery Referral [...] right knee RIGHT KNEE ACL TEAR Procedures MN KNEE SCOPE,AID ANT CRUCIATE REPAIR RIGHT KNEE ACL ARTHROSCOPIC RECONSTRUCTION WITH BIOMET Paola Villanueva MD [address] [facility] [address] [place] [address] [facility] Ordered Prescriptions (unrec ognized section and content) [...] Adjustment - Provider: Yolis Montiel APRN - EDUCATIONAL TECHNOLOGY COORDINATOR)1333 (Anesthesia Volume Adjustment - Provider: Mitchel Saucedo [...] override 1058 (Patch Applied - Provider: Lisa Arellano, RN) Linked Groups Order Group 1: oxyCODONE-acetaminophen [...] section and content) DATE CREATED AUTHOR 01/29/2021 [facility] DATE CREATED AUTHOR AUTHOR'S ORGANIZ ATION 06/22/2021 [place] DATE CREATED AUTHOR AUTHOR'S ORGANIZ ATION 12/07/2023 [facility] [employer] Care Teams (unrecognized [...] BE BASED ON THE PRIMARY CLINICAL RECORDS. [facility]. provides no warranty or guarantee of the accuracy or completeness of information in this document.
--- NOTE | 2023-12-07 11:51 | US_ITS ---
[address] [address] Patient Name: AZAR LEE MRN: [id number] date: 1985 Sex: F Assigned Patient Location: [facility] Current Patient Location: [facility] Accession/Order Number: [id number] Exam Date: 12/07/2023 11:52 Report Date: 12/07/2023 12:42 At the request of: JOAQUIN ROTHMAN Procedure: US OB BPP w non-stress EXAMINATION: US OB BPP w non-stress HISTORY: elevated bp COMPARISON: 12/03/2023 TECHNIQUE: Ultrasound biophysical profile was performed in the radiology department. non-reactive stress testing was performed by nursing staff in the birthing center. FINDINGS: BREATHING MOVEMENTS: 2 GROSS BODY MOVEMENTS: 2 TONE: 2 QUALITATIVE AMNIOTIC FLUID VOLUME: 2 PRESENTATION: CEPHALIC HEART RATE: 156.07 bpm AMNIOTIC FLUID VOLUME: 17.4 cm GESTATIONAL AGE: 35 weeks 5 days Other: Nuchal cord US/US OB BPP w non-stress IMPRESSION: Total biophysical profile score: 8/8 Nuchal cord Electronically authenticated by: REE MILLER Date: 12/07/2023 12:42
--- NOTE | 2023-12-07 12:12 | PC.NURSE ---
1040Dr Pierre on unit and reviews pt hx and complaints, orders obtained and explained to pt.
--- NOTE | 2023-12-07 12:21 | PC.NURSE ---
1110 24 hr urine collection begun, 1140 lab in and draws blood. declines tylenol for headache, states it is just slight
[2023-12-07 12:24] LABS: Basophils Absolute Auto 0.1 10^3/uL (0.0-0.1); Basophils Percent Auto 0.7 % (0.2-2.0); Eosinophils Absolute Auto 0.2 10^3/uL (0.0-0.7); Eosinophils Percent Auto 1.5 % (0.9-7.0); Hematocrit 40.3 % (36.0-48.0); Hemoglobin 13.6 g/dL (12.0-16.0); Lymphocytes Absolute Auto 1.8 10^3/uL (1.2-3.8); Lymphocytes Percent Auto 17.5 % (20.5-60.0); Mean Corpuscular HGB Conc 33.7 g/dL (29.9-35.2); Mean Corpuscular Hemoglobin 31.4 pg (26.7-34.0); Mean Corpuscular Volume 93.1 fL (81.0-99.0); Mean Platelet Volume 11.8 fL (9.5-13.5); Monocytes Absolute Auto 0.8 10^3/uL (0.3-0.8); Monocytes Percent Auto 7.8 % (1.7-12.0); Neutrophils Absolute Auto 7.4 10^3/uL (1.4-6.5); Neutrophils Percent Auto 71.5 % (43.0-75.0); Platelet Count 218 10^3/uL (150-450); Red Blood Count 4.33 10^6/uL (4.20-5.40); Red Cell Distribution Width 12.5 % (11.0-15.0); White Blood Count 10.4 10^3/uL (4.0-11.0)
[2023-12-07 12:30] LABS: Alanine Aminotransferase 24 U/L (14-59); Aspartate Amino Transferase 18 U/L (15-37); Estimated GFR (African America >60 (>=60); Estimated GFR (Non-African Ame >60 (>=60)
[2023-12-07 12:45] LABS: Creatinine Urine Random 47.71 mg/dL (20.00-300.00); Protein Creatinine Ratio Urine 0.18; Total Protein Urine Random 8.5 mg/dL (<=11.9)
[2023-12-07] MEDS: 0.9 % SODIUM CHLORIDE 1,000 ML 999 ML IV (13:10)
[2023-12-07 13:25] LABS: Partial Thromboplastin Time 26.4 sec (22.3-36.2); Prothrombin Time 9.2 sec (9.0-11.6)
[2023-12-07 13:41] LABS: INR <0.93
[2023-12-07 13:42] LABS: Fibrinogen 486 mg/dL (200-400)
[2023-12-07] MEDS: PROMETHAZINE HCL 12.5 MG in 0.9 % SODIUM CHLORIDE 50 ML 202 MG IV (14:14)
[2023-12-07] MEDS: 0.9 % SODIUM CHLORIDE 1,000 ML 125 ML IV ×2 (14:17→21:54)
[2023-12-07] MEDS: ONDANSETRON PF 4 MG/2 ML VIAL IV (17:49)
[2023-12-07] MEDS: LABETALOL HCL 200 MG TABLET PO (20:26)
[2023-12-07] MEDS: ZOLPIDEM TARTRATE 5 MG TABLET PO (21:51)
[2023-12-08] VITALS (16 sets, daily range): BP systolic 118–165; BP diastolic 70–99; PULSE 58–73; TEMP 35.8–36.8
[2023-12-08] MEDS: 0.9 % SODIUM CHLORIDE 1,000 ML 125 ML IV (05:30)
[2023-12-08] MEDS: LABETALOL HCL 200 MG TABLET PO (08:12)
--- NOTE | 2023-12-08 11:04 | PM.OBPN ---
OB - PN: Subj Subjective Interval history: denies severe headache, visual changes, RUQ pain, nausea and vomiting, dizziness, baby moving well Patient comments: no complaints Exam Narrative Exam Narrative: voicing no complaints Constitutional Vital Signs, click to edit/add: Last Vital Signs Temp 98.3 F 12/08/23 07:40 Pulse 66 12/08/23 08:53 Resp 16 12/08/23 07:40 BP 140/81 12/08/23 08:53 O2 Del Method Room Air 12/08/23 07:40 Common normals: no apparent distress, oriented x3, no limitations, healthy appearing, alert and well nourished General appearance: cooperative and comfortable HENNY Common normals: normocephalic and head/scalp atraumatic Eye Pupil: PERRL and accommodation reflex normal Neck & C-Spine Common normals: full ROM and supple Respiratory Common normals: normal respiratory effort Auscultation: clear to auscultation bilaterally Cardio Common normals: regular rate and regular rhythm GI Common normals: Normal to inspection, nondistended, normoactive bowel sounds present Common normals: no CVA tenderness Back & Pelvis Common normals: no thoracic nor lumbar tenderness Extremity Common normals: normal to inspection, full ROM, no clubbing, cyanosis or edema (plus one lower extremity edema, no nondependent edema) and no calf tenderness Neuro Common normals: CN's II-XII intact bilaterally, moves all extremities, no focal motor deficits, no sensory deficits noted and deep tendon reflexes 2+ bilaterally (not hyper reflexive) Sensorium/orientation: awake, alert, oriented to person and oriented to place Psych Common normals: mental status grossly normal, thought process normal, cooperative, affect normal and speech normal Results Labs Labs: Short CBC 12/07/23 Range/Units 12:09 WBC 10.4 (4.0-11.0) 10^3/uL Hgb 13.6 (12.0-16.0) g/dL Hct 40.3 (36.0-48.0) % Plt Count 218 (150-450) 10^3/uL BMP 12/07/23 12:09 BUN 12.0 Creatinine 0.67 Liver Function 12/07/23 Range/Units 12:09 AST 18 (15-37) U/L ALT 24 (14-59) U/L OB - PN: A/P Assessment and Plan (1) Gestational hypertension: Assessment and Plan: was started on labetalol 200 mg po bid, blood pressures in mid to high 150'sm no severe maternal features, P:C ration normal, 24 hour urine pending, clinical exam neg for significant dependent edema and no non dependent edema, BPP 8/8, baby moving well, LFT's normal. She is hemoconcentrated, platelets are normal and uric acid is 5. have increased her labetalol to 300 mg po q 12 hours. if can maintain blood pressure within 140's systolic and below 90's diastolic, and remains asymptomatic, may be discharged tomorrow pending Dr. Pierre's decision Plan not ready to discharge today, blood pressure still too high and will increase labetalol to 300 mg po BID. NST is CAT I. recent BPP 8/8. 24 hour urine for total protein and creatinine clearance pending. delivery for maternal severe features of toxemia or indications of jeopardy. Time Spent with Patient Time: Total time spent is greater than 50% in coordination of care (as documented) at patient's floor/unit and/or counseling patient: Total time spent with greater than 50% in coordination of care (as documented) at patient's floor/unit and/or counseling patient: 25 - 35 minutes (explained to patient and that blood pressure remains elevated and the dose of labetalol needs to be increased to 300 mg BID. described gestational hypertension vs preeclampsia. discussed indications, (maternal or ) for early delivery. stated understanding.)
[2023-12-08] MEDS: LABETALOL HCL 100 MG TABLET PO (11:18)
[2023-12-08] MEDS: ACETAMINOPHEN 500 MG TABLET 1000 MG PO (11:23)
[2023-12-08 11:53] LABS: Total Protein Urine Random <6.0 mg/dL (<=11.9)
[2023-12-08 11:54] LABS: Total Volume 24 Hour Urine 3800 mL/24hr
[2023-12-08] MEDS: ACETAMINOPHEN 300 MG/ 30 MG CODEINE TABLET 1 TAB PO (18:01)
[2023-12-08] MEDS: LABETALOL HCL 200 MG TABLET 300 MG PO (20:49)
[2023-12-08] MEDS: ZOLPIDEM TARTRATE 5 MG TABLET PO (21:58)
[2023-12-09] VITALS (8 sets, daily range): BP systolic 119–148; BP diastolic 73–93; PULSE 60–72; TEMP 35.9–36.3
[2023-12-09] MEDS: ACETAMINOPHEN 300 MG/ 30 MG CODEINE TABLET 1 TAB PO (05:29)
--- NOTE | 2023-12-09 05:47 | PC.NURSE ---
Rechecked blood pressure after settled in bed. Set BP cuff to cycle every 30 min
--- NOTE | 2023-12-09 05:48 | PC.NURSE ---
Patient sat up quickly while BP was taking. Complains of headache.
[2023-12-09] MEDS: LABETALOL HCL 200 MG TABLET 300 MG PO (08:45)
--- NOTE | 2023-12-09 11:47 | PM.OBPN ---
OB - PN: Subj Subjective Interval history: denies severe headache, visual changes, RUQ pain, nausea and vomiting, dizziness, baby moving well Patient comments: no complaints Exam Constitutional Vital Signs, click to edit/add: Last Vital Signs Temp 97.3 F L 12/09/23 08:42 Pulse 70 12/09/23 10:05 Resp 16 12/09/23 08:49 BP 131/84 12/09/23 10:05 O2 Del Method Room Air 12/09/23 08:49 Documenting provider has reviewed patient's vital signs: yes Common normals: no apparent distress Respiratory Common normals: clear to auscultation bilaterally Cardio Common normals: regular rate and regular rhythm GI Common normals: Normal to inspection, nondistended, normoactive bowel sounds present Extremity Common normals: no calf tenderness OB - PN: A/P Assessment and Plan (1) Gestational hypertension: Assessment and Plan: dc home, cont labetalol, rx given, precautions given Time Spent with Patient Time: Total time spent is greater than 50% in coordination of care (as documented) at patient's floor/unit and/or counseling patient: Total time spent with greater than 50% in coordination of care (as documented) at patient's floor/unit and/or counseling patient: less than 15 minutes
== END 2023-12-09 12:15 | disposition home or self-care (01) ==
PROVIDERS: Admitting Provider Obstetrics & Gynecology; Family Provider Internal Medicine; Visit Provider Obstetrics & Gynecology
DX: O13.3 Gestational [pregnancy-induced] hypertension without significant proteinuria, third trimester (principal); Z3A.35 35 weeks gestation of pregnancy
CPT/HCPCS: 36415; 76818; 81050; 82565; 82570; 84156; 84450; 84460; 84520; 84550; 85025; 85384; 85610; 85730; 96374; 96375; G0378; G0379; J2250; J2405

== ENCOUNTER 2023-12-10 07:02 | Outpatient (OUT) | payer OTHER, SELFPAY ==
--- OUTSIDE RECORDS SUMMARY | 2023-12-10 07:06 | XMS_ITS | CCD ---
Author Organization [facility] Care Team Providers Care Internship Name Role Phone Unavailable Primary Care Provider [...] COCET) 5-325 MG per tablet 1 tablet [id number] 200 actuat albuterol 0.09 mg/actuat metered dose [...] Beta HCG ( test) Ql (U) Positive [facility] POCT urine pregnancyOrdered By: Paola Villanueva on 01-28-2021 Beta HCG ( test) Ql (U) Negative NEGATIVE [employer] Phone: Comment on above: Specimens with hCG l evels near the threshold of the test (25 mIU/mL) may give a negative or indeterminate result. In such cases, another test should be performed with a new specimen in 48-72 hours. If early is suspected clinically in this setting, correlation with quantitative serum b-hCG level is suggested. TESTING PERFORMED AT [address] [address] [employer] Phone: MR knee RT wo conon 01-07-20 MR knee RT wo con [facility] [place] [address] [place] [address] MRI Report Signed Patient: Kathia Martinez MR#: [id number] 73 : 1985 Acct:[id number] Age/Sex: 35 / F ADM Date: 01/06/21 Loc: [facility] Room: Type: [facility] Attending Dr: Rene Cruz DO Ordering [...] Reuben Valentine M.D.01/06/2021 1:43 PM Dictation Location: [place] [address] Transcribed By: [facility] 01/06/21 1343 Dictated By: Reuben Valentine II, MD 01/06/21 1329 Signed By: 01/06/21 1343 [facility] XR knee RT 4V*on 12-31-2020 XR knee RT 4V* [facility] [place] [address] XRay Report Signed Patient: Kathia Martinez MR#: [id number] 71 : 1985 Acct:[id number] Age/Sex: 35 / F ADM Date: 12/31/20 Loc: ER Room: Type: [facility] ER Attending Dr: Ordering Provider: SELINA Goode [...] Vargas Jr., M.D.12/31/2020 10:31 AM Dictation Location: [place] [address] Transcribed By: [facility] 12/31/20 1031 Dictated By: Roberth Vargas Jr, MD 12/31/20 1026 Signed By: 12/31/20 1031 Normal [facility] Vital Signs Date Time Vital Sign Value Performing Clinician Facility 06-26-2023 07:35-0400 Body height 160.02 cm [facility] 06-26-2023 07:35-0400 Body mass index (BMI) [Ratio] 29.4 kg/m2 [facility] 06-26-2023 07:35-0400 Body weight 75.29 kg [facility] 06-26-2023 07:35-0400 Diastolic blood pressure 81 mm[Hg] [facility] 06-26-2023 07:35-0400 Heart rate 89 /min [facility] 06-26-2023 07:35-0400 SaO2% (BldA) [Mass fraction] 95 % [facility] 06-26-2023 07:35-0400 Systolic blood pressure 119 mm[Hg] [facility] 05-25-2023 10:30-0500 Body height 160.02 cm [facility] 05-25-2023 10:30-0500 Body mass index (BMI) [Ratio] 30.4 kg/m2 [facility] 05-25-2023 10:30-0500 Body weight 78.01 kg [facility] 05-25-2023 10:30-0500 Diastolic blood pressure 89 mm[Hg] [facility] 05-25-2023 10:30-0500 Heart rate 86 /min [facility] 05-25-2023 10:30-0500 SaO2% (BldA) [Mass fraction] 99 % [facility] 05-25-2023 10:30-0500 Systolic blood pressure 129 mm[Hg] [facility] 05-17-2023 08:11-0500 Body height 160.02 cm [facility] 05-17-2023 08:11-0500 Body mass index (BMI) [Ratio] 30.2 kg/m2 [facility] 05-17-2023 08:11-0500 Body weight 77.56 kg [facility] 05-17-2023 08:11-0500 Diastolic blood pressure 82 mm[Hg] [facility] 05-17-2023 08:11-0500 Heart rate 78 /min [facility] 05-17-2023 08:11-0500 SaO2% (BldA) [Mass fraction] 98 % [facility] 05-17-2023 08:11-0500 Systolic blood pressure 135 mm[Hg] [facility] 12-10-2022 12:05-0400 Body height 160.02 cm Bela Nguyenmond Other [employer] Other 12-10-2022 12:05-0400 Body mass index (BMI) [Ratio] 30.11 kg/m2 Bela Nguyenmond Other [employer] Other 12-10-2022 12:05-0400 Body temperature 100.3 [degF] Bela Nguyenmond Other [employer] Other 12-10-2022 12:05-0400 Body weight 77.11 kg Bela Nguyenmond Other [employer] Other 12-10-2022 12:05-0400 Diastolic blood pressure 106 mm[Hg] Bela Nguyenmond Other [employer] Other 12-10-2022 12:05-0400 Respiratory rate 18 /min Bela Nguyenmond Other [employer] Other 12-10-2022 12:05-0400 SaO2% (BldA) [Mass fraction] 99 % Bela Nguyenmond Other [employer] Other 12-10-2022 12:05-0400 Systolic blood pressure 170 mm[Hg] Bela Sravanthi Other [employer] Other 11-11-2021 17:40-0400 Body height 160.02 cm Joseph Lamar Other [employer] Other 11-11-2021 17:40-0400 Body mass index (BMI) [Ratio] 31 kg/m2 Joseph Lamar Other [employer] Other 11-11-2021 17:40-0400 Body temperature 99.8 [degF] Joseph Lamar Other [employer] Other 11-11-2021 17:40-0400 Body weight 79.38 kg Joseph Lamar Other [employer] Other 11-11-2021 17:40-0400 Respiratory rate 18 /min Joseph Lamar Other [employer] Other 11-11-2021 17:40-0400 SaO2% (BldA) [Mass fraction] 98 % Joseph Lamar Other [employer] Other 01-28-2021 14:35-0400 Diastolic blood pressure 88 mm[Hg] Paola Villanueva MD Work Phone: [employer] Work Phone: 01-28-2021 14:35-0400 Heart rate 64 /min Paola Villanueva MD Work Phone: [employer] Work Phone: 01-28-2021 14:35-0400 Respiratory rate 11 /min Paola Villanueva MD Work Phone: [employer] Work Phone: 01-28-2021 14:35-0400 SaO2% (BldA) [Mass fraction] 98 % Paola Villanueva MD Work Phone: [employer] Work Phone: 01-28-2021 14:35-0400 Systolic blood pressure 132 mm[Hg] Paola Villanueva MD Work Phone: [employer] Work Phone: 01-28-2021 13:31-0400 Body temperature 97.81 [degF] Paola Villanueva MD Work Phone: [employer] Work Phone: 01-28-2021 10:22-0400 Body height 160 cm Paola Villanueva MD Work Phone: [employer] Work Phone: 01-28-2021 10:10-0400 Body mass index (BMI) [Ratio] 34.72 kg/m2 Paola Villanueva MD Work Phone: [employer] Work Phone: 01-28-2021 10:10-0400 Body weight 88.91 kg Paola Villanueva MD Work Phone: [employer] Work Phone: Encounters Encounter Date Encounter [...] Not Available Start: 06-26-2023 End: 06-26-2023 ambulatory [facility] Work Phone: Start: 06-26-2023 End: 06-26-2023 Patient encounter procedure [facility] Work Phone: Start: 06-14-2023 End: 06-14-2023 ambulatory JOAQUIN ROTHMAN Not Available Start: 05-25-2023 End: 05-25-2023 Patient encounter procedure [facility] Work Phone: Start: 05-17-2023 End: 05-17-2023 ambulatory [facility] Work Phone: Start: 05-17-2023 End: 05-17-2023 Patient encounter procedure [facility] Work Phone: Start: 12-10-2022 End: 12-10-2022 ambulatory Bela Fishman Other [employer] Other Start: 12-10-2022 Office outpatient visit 15 minutes Bela Fishman [facility] Start: 11-11-2021 End: 11-11-2021 ambulatory Joseph Lamar Other [employer] Other Start: 11-11-2021 Office outpatient visit 15 minutes Joseph Lamar [facility] [address] Start: 01-28-2021 End: 01-28-2021 ambulatory PAOLA VILLANUEVA [facility] Start: 01-28-2021 End: 01-28-2021 Subsequent [...] Office outpatient visit 25 minutes Rene Cruz [facility] Start: 01-05-2021 Office outpatient ne w 45 minutes Rene Cruz [facility] Procedures Date Procedure Procedure Detail Performing Clinician Start: 01-28-2021 Urine test visual color cmprsn ahmets Paola Villanueva MD Work Phone: Plan of Treatment Date Care Activity Detail Author Start: 02-10-2021 End: 02-10-2021 Patient encounter procedure [facility] Start: 11-24-2020 Influenza vaccination Flu vaccine (# 1) [facility] Start: 11-22-2013 Screening for malign ant neoplasm of cervix [facility] Start: 11-22-2004 Screening for malign ant neoplasm of cervix Pap smear [facility] Start: 11-22-2002 DTaP/Tdap/Td vaccine (1 - Tdap) DTaP/Tdap/Td vaccine (1 - Tdap) [facility] Start: 11-22-1998 HIV screening HIV screen [facility] Start: 11-22-1984 Varicella vaccine (1 of 2 - 2-dose childhood series) Varicella vaccine (1 of 2 - 2-dose childhood series) [facility] Start: 1985 Hepatitis C screening Hepatitis C [facility] Comprehensive metabo lic 2000 panel - Serum or Plasma [facility] Oxygen therapy [Mini [facility] [place] Data Set] Initiate Oxygen Therapy Protocol Respiratory Care Routine Daily until discontinued starting 01/28/2021 [facility] Work Phone: Comment on above: Daily until disconti nued starting 01/28/2021 Phase I & II - meter ed glucose Phase I & II - metered glucose Point of Care Testing Routine As Needed until discontinued starting 01/28/2021 [facility] Work Phone: Comment on above: As Needed until disc ontinued starting 01/28/2021 End: 01-28-2021 , urine POCT , urine POCT Point of Care Testing Routine One Time for 1 Occurrences starting 01/28/2021 until 01/28/2021 [facility] [employer] Phone: Comment on above: One Time for 1 Occur rences starting 01/28/2021 until 01/28/2021 [facility] Payers Date Payer Category Payer Unknown [id number] 1985 Unknown [id number] [id number] 1985 Unknown [id number] 2.16.84 [id number] 1985 Unknown [id number] 2.16.84 [id number] 1985 Unknown [id number] 2.16.84 [id number] 1985 Unknown [id number] 2.16.84 [id number] 1983 Unknown [id number] 2.16.84 [id number] 1985 Unknown [id number] 2.16.84 [id number] 1985 Unknown [id number] 2.16.84 [id number] 1985 Unknown [id number] 2.16.84 [id number] 1985 Unknown [id number] 2.16.84 [id number] Self-pay Self Pay [id number] Unknown HCAP/HFA/FAP Active [id number] Social History Date Type Detail Facility Start: 01-24-2021 End: 01-28-2021 Tobacco smoking status MOIS Never smoker [employer] Start: 01-24-2021 End: 01-28-2021 Tobacco use and exposure Never used [employer] Start: 01-28-2021 Alcohol intake Current drinke r of alcohol (finding) [employer] Work Phone: Start: 01-24-2021 Alcohol Comment social [facility] Work Phone: Start: 1985 Sex Assigned At Not on file M [facility] Work Phone: Exposure to SARS-CoV-2 (event) Not sure [employer] Sex Assigned At Sex Assigned At Bir th [employer] Other Start: 05-17-2023 End: 05-17-2023 Tobacco smoking status NHIS Ex-smoker (finding) [facility] Start: 1985 Sex Assigned At Female F [facility] Medical Equipment Procedure Code Equipment Code Equipment Original Text Equipment Identifier Dates Implant Tib L30m m [id number] Jacques Drvr Fix Dev [employer] [id number] Start: 01-28-2021 Implant Fem L24m m [id number] Insrt [employer] Am [id number] Start: 01-28-2021 Single [...] no improvement in 2 to 3 days [facility] [employer] Other 08-19-2022 Evaluation note* Encounter Date Diagnosis [...] Pt understood and agreed to treatment plan. [employer] Other 11-05-2021 Hospital Discharge instructions* Discharge Instr - Activity* Paola Villanueva MD - 01/28/2021 1:36 PM EDT Crutches partial weightbearing right knee. Patient to wear previous brace as necessary * Additional Instructions* Paola Villanueva MD - 01/28/[address]21 [facility] Dr. Paola Villanueva M.D. [phone] POST OPERATIVE DISCHARGE INSTRUCTIONS KNEE ARTHROSCOPY 1. Follow-up in office seven to ten days after surgery. Call for appointment if not already made. ([phone]). 2. Take pain medication as ordered. 3. [...] that is not relieved by pain medications. [facility] Dr. Paola Villanueva M.D. [phone] POST OPERATIVE DISCHARGE INSTRUCTIONS KNEE ARTHROSCOPY Follow-up in office seven to ten days after surgery. Call for appointment if not already made. ([phone]). Take pain medication as ordered. Keep the [...] relieved by pain medications. documented [facility] Phone: 1(323) 394-348111-02-2021 History of Present illness Narrative* Venkatesh Hoffman - 01/25/2021 1:00 PM EDT CLINICAL PHARMACY NOTE: MEDS TO BEDS Total # of Prescriptions Filled: 1 The following medications were delivered to the patient: Percocet 5/325 Additional Documentation: Delivered Medication to Patient * Mima Arias RN - 01/25/2021 1:00 PM EDT DAY OF SURGERY/PROCEDURE GUIDELINES As a patient at the [facility], you can expect quality medical and [...] morning of your surgery/procedure (Hibiclens if directed) [place] your teeth, but do not swallow any [...] during surgery and recovery. documented in this [employer] Phone: 1(247) 975-696110-15-2021 Evaluation note* Encounter Date Diagnosis Assessment Notes [...] to sports surgery, Dr. Felipe Cortes at [facility] per patient request.at her last [...] also referred to Dr Felipe Cortes at [facility] Dec, Other The patient has been involved in our cooperative treatment plan and agrees to move forward with treatment at this time. [employer] Other 10-13-2021 Evaluation note* Encounter Date Diagnosis [...] as documented in the electronic medical record. [employer] Other Evaluation note* Diagnosis Rupture of anterior cruciate ligament of right knee, initial encounter- Primary Acute lateral meniscus tear of right knee Tear of lateral cartilage or meniscus of knee, current documented in this encounter [facility] Work Phone: evaluation noteNo [employer] Other Evaluation note* Diagnosis Onset Date Resolution Status Anxiety acute Impaired concentration acute Insomnia acute Migraine headache acute Screening for heart disease acute Screening for metabolic disorder acute [facility] Work Phone: Evaluation note* Diagnosis Onset Date Resolution Status Anxiety acute Impaired concentration acute Insomnia acute Migraine headache acute Palpitations acute Screening for heart disease acute Screening for metabolic disorder acute Encounter to establish care with new doctor noneactive Positive urine test acute [facility] Work Phone: [employer] general Narrative - Reported* Type Description Date Medical History migraine headache Medical History bacterial infection- stomach inf ection Medical History asthma [employer] Other History general Narrative - Reported* Type Description Date Medical History migraine headache Medical History bacterial infection- stomach inf ection Medical History asthma Surgical History acl repair [employer] Other Summary Purpose Family History No Family [...] cruciate ligament of right knee, initial encounter (S83.453A) Referral Organization [facility] Referring Provider First Name Rene Referring Provider Last Name Nancy Referring Provider Specialty Orthopedic Surgery Referred Organization [facility] Referred Address [address] [place], [place],[address] Referred Provider Specialty Orthopedic S urgery Referral [...] ARTHROSCOPIC RECONSTRUCTION WITH BIOMET Paola Villanueva MD [address] [facility] [address] [place] [address] [facility] Ordered Prescriptions (unrec ognized section and [...] Adjustment - Provider: Yolis Montiel APRN - MECHANICAL DESIGNER)[id number] (Anesthesia Volume Adjustment - Provider: Mitchel Saucedo [...] section and content) DATE CREATED AUTHOR 01/29/2021 [facility] DATE CREATED AUTHOR AUTHOR'S ORGANIZ ATION 06/22/2021 [facility] DATE CREATED AUTHOR AUTHOR'S ORGANIZ ATION 12/07/2023 [facility] EPIC Care Teams (unrecognized [...] BE BASED ON THE PRIMARY CLINICAL RECORDS. [facility] [employer] [facility]. provides no warranty or guarantee of the accuracy or completeness of information in this document.
--- NOTE | 2023-12-10 17:06 | US_ITS ---
[address] [address] Patient Name: AZAR LEE MRN: [id number] date: 1985 Sex: F Assigned Patient Location: [facility] Current Patient Location: Accession/Order Number: [id number] Exam Date: 12/10/2023 17:10 Report Date: 12/11/2023 07:40 At the request of: CAMILLE PACHECO Procedure: US OB BPP w non-stress EXAMINATION: US OB BPP w non-stress HISTORY: Multigravida of advanced maternal age O09.523 COMPARISON: No relevant comparison available. TECHNIQUE: Ultrasound biophysical profile was performed in the radiology department. non-reactive stress testing was performed by nursing staff in the birthing center. FINDINGS: BREATHING MOVEMENTS: 2 GROSS BODY MOVEMENTS: 2 TONE: 2 QUALITATIVE AMNIOTIC FLUID VOLUME: 2 PRESENTATION: CEPHALIC HEART RATE: 139.90 bpm AMNIOTIC FLUID VOLUME: 12.4 cm GESTATIONAL AGE: 36 weeks 0 days US/US OB BPP w non-stress IMPRESSION: Total biophysical profile score: 8 Electronically authenticated by: REE MILLER Date: 12/11/2023 07:40
[2023-12-10 17:27] VITALS: BP 138/92; PULSE 73
[2023-12-10 17:50] VITALS: BP 125/79; PULSE 72
== END 2023-12-10 17:58 | disposition home or self-care (01) ==
LOC: US 07:02 → FBC 16:57
PROVIDERS: Family Provider Internal Medicine; Visit Provider Physician Assistant
DX: O09.523 Supervision of elderly multigravida, third trimester (principal); Z3A.36 36 weeks gestation of pregnancy
CPT/HCPCS: 76818

== ENCOUNTER 2023-12-13 07:04 | Outpatient (OUT) | payer OTHER, SELFPAY ==
--- OUTSIDE RECORDS SUMMARY | 2023-12-13 07:07 | XMS_ITS | CCD ---
Author Organization [facility] Care Team Providers Care Staff Certified Nurse Midwife Name Role Phone Unavailable Primary Care Provider UnavailPAOLA Hong Admitting Unavailable PAOLA VILLANUEVA Attending Unavailable Rene Cruz Unavailable Joseph Lamar Unavailable Bela Fishman Unavailable JOAQUNI ROTHMAN Attending Unavailable JOAQUIN ROTHMAN Attending Unavailable [...] COCET) 5-325 MG per tablet 1 tablet [id number] 200 actuat albuterol 0.09 mg/actuat metered dose [...] Beta HCG ( test) Ql (U) Positive [facility] POCT urine pregnancyOrdered By: Paola Villanueva on 01-28-2021 Beta HCG ( test) Ql (U) Negative NEGATIVE [employer] Phone: Comment on above: Specimens with hCG l evels near the threshold of the test (25 mIU/mL) may give a negative or indeterminate result. In such cases, another test should be performed with a new specimen in 48-72 hours. If early is suspected clinically in this setting, correlation with quantitative serum b-hCG level is suggested. TESTING PERFORMED AT [address] [address] [employer] Phone: MR knee RT wo conon 01-07-20 MR knee RT wo con [facility] [place] [address] [place] [address] MRI Report Signed Patient: Kathia Martinez MR#: [id number] 73 : 1985 Acct:[id number] Age/Sex: 35 / F ADM Date: 01/06/21 Loc: [facility] Room: Type: [facility] Attending Dr: Rene Cruz DO Ordering [...] Reuben Valentine M.D.01/06/2021 1:43 PM Dictation Location: [place] [address] Transcribed By: [facility] 01/06/21 1343 Dictated By: Reuben Valentine II, MD 01/06/21 1329 Signed By: 01/06/21 1343 [facility] XR knee RT 4V*on 12-31-2020 XR knee RT 4V* [facility] [place] [address] XRay Report Signed Patient: Kathia Martinez MR#: [id number] 73 : 1985 Acct:[id number] Age/Sex: 35 / F ADM Date: 12/31/20 Loc: ER Room: Type: [facility] ER Attending Dr: Ordering Provider: SELINA Goode [...] Vargas Jr., M.D.12/31/2020 10:31 AM Dictation Location: [place] [address] Transcribed By: [facility] 12/31/20 1031 Dictated By: Roberth Vargas Jr, MD 12/31/20 1026 Signed By: 12/31/20 1031 Normal [facility] Vital Signs Date Time Vital Sign Value Performing Clinician Facility 06-26-2023 07:35-0400 Body height 160.02 cm [facility] 06-26-2023 07:35-0400 Body mass index (BMI) [Ratio] 29.4 kg/m2 [facility] 06-26-2023 07:35-0400 Body weight 75.29 kg [facility] 06-26-2023 07:35-0400 Diastolic blood pressure 81 mm[Hg] [facility] 06-26-2023 07:35-0400 Heart rate 89 /min [facility] 06-26-2023 07:35-0400 SaO2% (BldA) [Mass fraction] 95 % [facility] 06-26-2023 07:35-0400 Systolic blood pressure 119 mm[Hg] [facility] 05-25-2023 10:30-0500 Body height 160.02 cm [facility] 05-25-2023 10:30-0500 Body mass index (BMI) [Ratio] 30.4 kg/m2 [facility] 05-25-2023 10:30-0500 Body weight 78.01 kg [facility] 05-25-2023 10:30-0500 Diastolic blood pressure 89 mm[Hg] [facility] 05-25-2023 10:30-0500 Heart rate 86 /min [facility] 05-25-2023 10:30-0500 SaO2% (BldA) [Mass fraction] 99 % [facility] 05-25-2023 10:30-0500 Systolic blood pressure 129 mm[Hg] [facility] 05-17-2023 08:11-0500 Body height 160.02 cm [facility] 05-17-2023 08:11-0500 Body mass index (BMI) [Ratio] 30.2 kg/m2 [facility] 05-17-2023 08:11-0500 Body weight 77.56 kg [facility] 05-17-2023 08:11-0500 Diastolic blood pressure 82 mm[Hg] [facility] 05-17-2023 08:11-0500 Heart rate 78 /min [facility] 05-17-2023 08:11-0500 SaO2% (BldA) [Mass fraction] 98 % [facility] 05-17-2023 08:11-0500 Systolic blood pressure 135 mm[Hg] [facility] 12-10-2022 12:05-0400 Body height 160.02 cm Bela Nguyenmond Other [facility] Other 12-10-2022 12:05-0400 Body mass index (BMI) [Ratio] 30.11 kg/m2 Bela Nguyenmond Other [facility] Other 12-10-2022 12:05-0400 Body temperature 100.3 [degF] Bela Nguyenmond Other [facility] Other 12-10-2022 12:05-0400 Body weight 77.11 kg Bela Nguyenmond Other [facility] Other 12-10-2022 12:05-0400 Diastolic blood pressure 106 mm[Hg] Bela Nguyenmond Other [facility] Other 12-10-2022 12:05-0400 Respiratory rate 18 /min Bela Nguyenmond Other [facility] Other 12-10-2022 12:05-0400 SaO2% (BldA) [Mass fraction] 99 % Bela Nguyenmond Other [facility] Other 12-10-2022 12:05-0400 Systolic blood pressure 170 mm[Hg] Bela Sravanthi Other [facility] Other 11-11-2021 17:40-0400 Body height 160.02 cm Joseph Lamar Other [facility] Other 11-11-2021 17:40-0400 Body mass index (BMI) [Ratio] 31 kg/m2 Joseph Lamar Other [facility] Other 11-11-2021 17:40-0400 Body temperature 99.8 [degF] Joseph Lamar Other [facility] Other 11-11-2021 17:40-0400 Body weight 79.38 kg Joseph Lamar Other [facility] Other 11-11-2021 17:40-0400 Respiratory rate 18 /min Joseph aLmar Other [facility] Other 11-11-2021 17:40-0400 SaO2% (BldA) [Mass fraction] 98 % Joseph Lamar Other [facility] Other 01-28-2021 14:35-0400 Diastolic blood pressure 88 mm[Hg] Paola Villanueva MD Work Phone: [employer] Work Phone: 01-28-2021 14:35-0400 Heart rate 64 /min Paola Villaneuva MD Work Phone: [employer] Work Phone: 01-28-2021 14:35-0400 Respiratory rate 11 /min Paola Villanueva MD Work Phone: [employer] Work Phone: 01-28-2021 14:35-0400 SaO2% (BldA) [Mass fraction] 98 % Paola Villanueva MD Work Phone: [employer] Work Phone: 01-28-2021 14:35-0400 Systolic blood pressure 132 mm[Hg] Paola Villanueva MD Work Phone: [employer] Work Phone: 01-28-2021 13:31-0400 Body temperature 97.81 [degF] Paola Villanueva MD Work Phone: [employer] Work Phone: 01-28-2021 10:22-0400 Body height 160 cm Paola Villanueva MD Work Phone: [employer] Work Phone: 01-28-2021 10:10-0400 Body mass index (BMI) [Ratio] 34.72 kg/m2 Paola Villanueva MD Work Phone: [employer] Work Phone: 01-28-2021 10:10-0400 Body weight 88.91 kg Paola Villanueva MD Work Phone: [employer] Work Phone: Encounters Encounter Date Encounter Type [...] Start: 06-26-2023 End: 06-26-2023 ambulatory [facility] Work Phone: Start: 06-26-2023 End: 06-26-2023 Patient encounter procedure [facility] Work Phone: Start: 06-14-2023 End: 06-14-2023 ambulatory JOAQUIN ROTHMAN Not Available Start: 05-25-2023 End: 05-25-2023 Patient encounter procedure [facility] Work Phone: Start: 05-17-2023 End: 05-17-2023 ambulatory [facility] Work Phone: Start: 05-17-2023 End: 05-17-2023 Patient encounter procedure [facility] Work Phone: Start: 12-10-2022 End: 12-10-2022 ambulatory Bela Fishman Other [facility] Other Start: 12-10-2022 Office outpatient visit 15 minutes Bela Fishman [facility] Start: 11-11-2021 End: 11-11-2021 ambulatory Joseph Lamar Other [facility] Other Start: 11-11-2021 Office outpatient visit 15 minutes Joseph Lamar [facility] [address] Start: 01-28-2021 End: 01-28-2021 ambulatory PAOLA VILLANUEVA [facility] Start: 01-28-2021 End: 01-28-2021 Subsequent [...] Rene Cruz [facility] Start: 01-05-2021 Office outpatient ne w 45 minutes Rene Cruz [facility] Procedures Date Procedure Procedure Detail Performing Clinician Start: 01-28-2021 Urine test visual color cmprsn ahmets Paola Villanueva MD Work Phone: Plan of Treatment Date Care Activity Detail Author Start: 02-10-2021 End: 02-10-2021 Patient encounter procedure [facility] Start: 11-24-2020 Influenza vaccination Flu vaccine (# 1) [facility] Start: 11-22-2013 Screening for malign ant neoplasm of cervix [facility] Start: 11-22-2004 Screening for malign ant neoplasm of cervix Pap smear [facility] Start: 11-22-2002 DTaP/Tdap/Td vaccine (1 - Tdap) DTaP/Tdap/Td vaccine (1 - Tdap) [facility] Start: 11-22-1998 HIV screening HIV screen [facility] Start: 11-22-1984 Varicella vaccine (1 of 2 - 2-dose childhood series) Varicella vaccine (1 of 2 - 2-dose childhood series) [facility] Start: 1985 Hepatitis C screening Hepatitis C [facility] Comprehensive metabo lic 2000 panel - Serum or Plasma [facility] Oxygen therapy [[facility] Data Set] Initiate Oxygen Therapy Protocol Respiratory Care Routine Daily until discontinued starting 01/28/2021 [facility] Work Phone: Comment on above: Daily until disconti nued starting 01/28/2021 Phase I & II - meter ed glucose Phase I & II - metered glucose Point of Care Testing Routine As Needed until discontinued starting 01/28/2021 [facility] Work Phone: Comment on above: As Needed until disc ontinued starting 01/28/2021 End: 01-28-2021 , urine POCT , urine POCT Point of Care Testing Routine One Time for 1 Occurrences starting 01/28/2021 until 01/28/2021 [facility] [employer] Phone: Comment on above: One Time for 1 Occur rences starting 01/28/2021 until 01/28/2021 [facility] Payers Date Payer Category Payer Unknown [id number] 1985 Unknown [id number] 2.16.8 [id number] 1985 Unknown [id number] 2.16.84 [id number] 1985 Unknown [id number] 2.16.84 [id number] 1985 Unknown [id number] 2.16.84 [id number] 1985 Unknown [id number] 2.16.84 [id number] 1985 Unknown [id number] 2.16.84 [id number] 1985 Unknown [id number] 2.16.84 [id number] 1985 Unknown [id number] 2.16.84 [id number] 1985 Unknown [id number] 2.16.84 [id number] 1985 Unknown [id number] 2.16.84 [id number] Self-pay Self Pay [id number] Unknown HCAP/HFA/FAP Active [id number] Social History Date Type Detail Facility Start: 01-24-2021 End: 01-28-2021 Tobacco smoking status WVIS Never smoker [employer] Start: 01-24-2021 End: 01-28-2021 Tobacco use and exposure Never used [employer] Start: 01-28-2021 Alcohol intake Current drinke r of alcohol (finding) [facility] Work Phone: Start: 01-24-2021 Alcohol Comment social [facility] Work Phone: Start: 1985 Sex Assigned At Not on file M [employer] Work Phone: Exposure to SARS-CoV-2 (event) Not sure [facility] Sex Assigned At Sex Assigned At Bir th [facility] Other Start: 05-17-2023 End: 05-17-2023 Tobacco smoking status NHIS Ex-smoker (finding) [facility] Start: 1985 Sex Assigned At Female F [facility] Medical Equipment Procedure Code Equipment Code Equipment Original Text Equipment Identifier Dates Implant Tib L30m m [id number] Jacques Drvr Fix Dev [employer] [id number] Start: 01-28-2021 Implant Fem L24m m [id number] Insrt [employer] Am [id number] Start: 01-28-2021 Single [...] no improvement in 2 to 3 days [email or web address] Other 08-19-2022 Evaluation note* Encounter Date Diagnosis Assessment Notes Treatment Notes Treatment Clinical Notes Oct, Poison lola dermatitis (ICD-10 - L23.7) Pt received 60mg IM Kenalog in office today. Pt tolerated well. Performed by Lisa Gonzalze CMA. Pt to take meds as prescribed [...] Pt understood and agreed to treatment plan. [facility] Other 11-05-2021 Hospital Discharge instructions* Discharge Instr - Activity* Paola Villanueva MD - 01/28/2021 1:36 PM EDT Crutches partial weightbearing right knee. Patient to wear previous brace as necessary * Additional Instructions* Paola Villanueva MD - 01/28/2021 [facility] Dr. Paola Villanueva M.D. [phone] POST OPERATIVE DISCHARGE INSTRUCTIONS KNEE ARTHROSCOPY 1. Follow-up in office seven to ten days after surgery. Call for appointment if not already made. ([phone]). 2. Take pain medication as ordered. 3. [...] is not relieved by pain medications. [facility] Dr. Paola Villanueva M.D. [phone] POST OPERATIVE DISCHARGE INSTRUCTIONS KNEE ARTHROSCOPY Follow-up in office seven to ten days after surgery. Call for appointment if not already made. ([phone]). Take pain medication as ordered. Keep the [...] relieved by pain medications. documented in this [email or web address] Phone: 1(785) 419-329611-02-2021 History of Present illness Narrative* Venkatesh Hoffman - 01/25/2021 1:00 PM EDT CLINICAL PHARMACY NOTE: MEDS TO BEDS Total # of Prescriptions Filled: 1 The following medications were delivered to the patient: Percocet 5/325 Additional Documentation: Delivered Medication to Patient * Mima Arias RN - 01/25/2021 1:00 PM EDT DAY OF SURGERY/PROCEDURE GUIDELINES As a patient at the [facility], you can expect quality medical and nursing [...] morning of your surgery/procedure (Hibiclens if directed) [place] your teeth, but do not swallow any [...] during surgery and recovery. documented in this [employer] Phone: [phone]) 619-895410-15-2021 Evaluation note* Encounter Date Diagnosis Assessment Notes [...] to sports surgery, Dr. Felipe Cortes at [facility] per patient request.at her last visit [...] also referred to Dr Felipe Cortes at [facility] Dec, Other The patient has been involved in our cooperative treatment plan and agrees to move forward with treatment at this time. [facility] Other 10-13-2021 Evaluation note* Encounter Date Diagnosis [...] as documented in the electronic medical record. [facility] Other Evaluation note* Diagnosis Rupture of anterior cruciate ligament of right knee, initial encounter- Primary Acute lateral meniscus tear of right knee Tear of lateral cartilage or meniscus of knee, current documented in this encounter [facility] Work [facility]: evaluation noteNo [employer] Other Evaluation note* Diagnosis Onset Date Resolution Status Anxiety acute Impaired concentration acute Insomnia acute Migraine headache acute Screening for heart disease acute Screening for metabolic disorder acute [facility] Work Phone: Evaluation note* Diagnosis Onset Date Resolution Status Anxiety acute Impaired concentration acute Insomnia acute Migraine headache acute Palpitations acute Screening for heart disease acute Screening for metabolic disorder acute Encounter to establish care with new doctor noneactive Positive urine test acute [facility] Work Phone: Hisac[facility] general Narrative - Reported* Type Description Date Medical History migraine headache Medical History bacterial infection- stomach inf ection Medical History asthma [facility] Other History general Narrative - Reported* Type Description Date Medical History migraine headache Medical History bacterial infection- stomach inf ection Medical History asthma Surgical History acl repair [facility] Other Summary Purpose Family History No Family [...] cruciate ligament of right knee, initial encounter (S83.832A) Referral Organization [facility] Referring Provider First Name Rene Referring Provider Last Name Nancy Referring Provider Specialty Orthopedic Surgery Referred Organization [facility] Referred Address [address] [place], [place],[address] Referred Provider Specialty Orthopedic S urgery Referral [...] right knee RIGHT KNEE ACL TEAR Procedures LA KNEE SCOPE,AID ANT CRUCIATE REPAIR RIGHT KNEE ACL ARTHROSCOPIC RECONSTRUCTION WITH BIOMET Paola Villanueva MD [address] [facility] [address] [place] [address] [facility] Ordered Prescriptions (unrec ognized section and [...] Adjustment - Provider: Yolis Montiel APRN - [employer])[id number] (Anesthesia Volume Adjustment - Provider: Mitchel Saucedo [...] section and content) DATE CREATED AUTHOR 01/29/2021 [facility] DATE CREATED AUTHOR AUTHOR'S ORGANIZ ATION 06/22/2021 [facility] DATE CREATED AUTHOR AUTHOR'S ORGANIZ ATION 12/07/2023 [facility] EPIC Care Teams (unrecognized [...] ON THE PRIMARY CLINICAL RECORDS. [facility]. provides no warranty or guarantee of the accuracy or completeness of information in this document.
[2023-12-13 17:18] VITALS: BP 130/79; PULSE 65
== END 2023-12-13 17:48 | disposition home or self-care (01) ==
LOC: FBCO 07:05 → FBC 17:15
PROVIDERS: Family Provider Internal Medicine; Visit Provider Obstetrics & Gynecology
DX: O09.523 Supervision of elderly multigravida, third trimester (principal); Z3A.36 36 weeks gestation of pregnancy
CPT/HCPCS: 59025; 87081; 87150

== ENCOUNTER 2023-12-13 18:59 | Outpatient (REF) | payer OTHER, SELFPAY ==
--- OUTSIDE RECORDS SUMMARY | 2023-12-13 19:02 | XMS_ITS | CCD ---
Author Organization [facility] Care Team Providers Care Chief Digital Officer Name Role Phone Unavailable Primary Care [...] COCET) 5-325 MG per tablet 1 tablet [id number] 200 actuat albuterol 0.09 mg/actuat metered dose [...] Beta HCG ( test) Ql (U) Positive [facility] POCT urine pregnancyOrdered By: Paola Villanueva on 01-28-2021 Beta HCG ( test) Ql (U) Negative NEGATIVE [facility] Phone: Comment on above: Specimens with hCG l evels near the threshold of the test (25 mIU/mL) may give a negative or indeterminate result. In such cases, another test should be performed with a new specimen in 48-72 hours. If early is suspected clinically in this setting, correlation with quantitative serum b-hCG level is suggested. TESTING PERFORMED AT [address] [address] [facility] Phone: MR knee RT wo conon 01-07-20 MR knee RT wo con [facility] Main [place] [address] [place] [address] MRI Report Signed Patient: Kathia Martinez MR#: [id number] 73 : 1985 Acct:[id number] Age/Sex: 35 / F ADM Date: 01/06/21 Loc: [facility] Room: Type: [facility] Attending Dr: Rene Cruz DO Ordering Provider: [...] M.D.01/06/2021 1:43 PM Dictation Location: [place] [address] Transcribed By: [facility] 01/06/21 1343 Dictated By: Reuben Valentine II, MD 01/06/21 1329 Signed By: 01/06/21 1343 [facility] XR knee RT 4V*on 12-31-2020 XR knee RT 4V* [facility] [place] [address] XRay Report Signed Patient: Kathia Martinez MR#: [id number] 73 : 1985 Acct:[id number] Age/Sex: 35 / F ADM Date: 12/31/20 Loc: ER Room: Type: [facility] ER Attending Dr: Ordering Provider: [...] Vargas Jr., M.D.12/31/2020 10:31 AM Dictation Location: [place] [address] Transcribed By: [facility] 12/31/20 1031 Dictated By: Roberth Vargas Jr, MD 12/31/20 1026 Signed By: 12/31/20 1031 Normal [facility] Vital Signs Date Time Vital Sign Value Performing Clinician Facility 06-26-2023 07:35-0400 Body height 160.02 cm [facility] 06-26-2023 07:35-0400 Body mass index (BMI) [Ratio] 29.4 kg/m2 [facility] 06-26-2023 07:35-0400 Body weight 75.29 kg [facility] 06-26-2023 07:35-0400 Diastolic blood pressure 81 mm[Hg] [facility] 06-26-2023 07:35-0400 Heart rate 89 /min [facility] 06-26-2023 07:35-0400 SaO2% (BldA) [Mass fraction] 95 % [facility] 06-26-2023 07:35-0400 Systolic blood pressure 119 mm[Hg] [facility] 05-25-2023 10:30-0500 Body height 160.02 cm [facility] 05-25-2023 10:30-0500 Body mass index (BMI) [Ratio] 30.4 kg/m2 [facility] 05-25-2023 10:30-0500 Body weight 78.01 kg [facility] 05-25-2023 10:30-0500 Diastolic blood pressure 89 mm[Hg] [facility] 05-25-2023 10:30-0500 Heart rate 86 /min [facility] 05-25-2023 10:30-0500 SaO2% (BldA) [Mass fraction] 99 % [facility] 05-25-2023 10:30-0500 Systolic blood pressure 129 mm[Hg] [facility] 05-17-2023 08:11-0500 Body height 160.02 cm [facility] 05-17-2023 08:11-0500 Body mass index (BMI) [Ratio] 30.2 kg/m2 [facility] 05-17-2023 08:11-0500 Body weight 77.56 kg [facility] 05-17-2023 08:11-0500 Diastolic blood pressure 82 mm[Hg] [facility] 05-17-2023 08:11-0500 Heart rate 78 /min [facility] 05-17-2023 08:11-0500 SaO2% (BldA) [Mass fraction] 98 % [facility] 05-17-2023 08:11-0500 Systolic blood pressure 135 mm[Hg] [facility] 12-10-2022 12:05-0400 Body height 160.02 cm Bela Nguyenmond Other [facility] Other 12-10-2022 12:05-0400 Body mass index (BMI) [Ratio] 30.11 kg/m2 Bela Nguyenmond Other [facility] Other 12-10-2022 12:05-0400 Body temperature 100.3 [degF] Bela Nguyenmond Other [facility] Other 12-10-2022 12:05-0400 Body weight 77.11 kg Bela Nguyenmond Other [facility] Other 12-10-2022 12:05-0400 Diastolic blood pressure 106 mm[Hg] Bela Nguyenmond Other [facility] Other 12-10-2022 12:05-0400 Respiratory rate 18 /min Bela Nguyenmond Other [facility] Other 12-10-2022 12:05-0400 SaO2% (BldA) [Mass fraction] 99 % Bela Nguyenmond Other [facility] Other 12-10-2022 12:05-0400 Systolic blood pressure 170 mm[Hg] Bela Sravanthi Other [facility] Other 11-11-2021 17:40-0400 Body height 160.02 cm Joseph Lamar Other [facility] Other 11-11-2021 17:40-0400 Body mass index (BMI) [Ratio] 31 kg/m2 Joseph Lamar Other [facility] Other 11-11-2021 17:40-0400 Body temperature 99.8 [degF] Joseph Lamar Other [facility] Other 11-11-2021 17:40-0400 Body weight 79.38 kg Joseph Lamar Other [facility] Other 11-11-2021 17:40-0400 Respiratory rate 18 /min Joseph Lamar Other [facility] Other 11-11-2021 17:40-0400 SaO2% (BldA) [Mass fraction] 98 % Joseph Lamar Other [facility] Other 01-28-2021 14:35-0400 Diastolic blood pressure 88 mm[Hg] Paola Villanueva MD Work Phone: [employer] Work Phone: 01-28-2021 14:35-0400 Heart rate 64 /min Paola Villanueva MD Work Phone: [employer] Work Phone: 01-28-2021 14:35-0400 Respiratory rate 11 /min Paola Villanueva MD Work Phone: [employer] Work Phone: 01-28-2021 14:35-0400 SaO2% (BldA) [Mass fraction] 98 % Paola Villanueva MD Work Phone: [employer] Work Phone: 01-28-2021 14:35-0400 Systolic blood pressure 132 mm[Hg] Paola Villanueva MD Work Phone: [employer] Work Phone: 01-28-2021 13:31-0400 Body temperature 97.81 [degF] Paola Villanueva MD Work Phone: [employer] Work Phone: 01-28-2021 10:22-0400 Body height 160 cm Paola Villanueva MD Work Phone: [employer] Work Phone: 01-28-2021 10:10-0400 Body mass index (BMI) [Ratio] 34.72 kg/m2 Paola Villanueva MD Work Phone: [employer] Work Phone: 01-28-2021 10:10-0400 Body weight 88.91 kg Paola Villanueva MD Work Phone: [employer] Work Phone: Encounters Encounter Date Encounter Type [...] Not Available Start: 06-26-2023 End: 06-26-2023 ambulatory [facility] Work Phone: Start: 06-26-2023 End: 06-26-2023 Patient encounter procedure [facility] Work Phone: Start: 06-14-2023 End: 06-14-2023 ambulatory JOAQUIN ROTHMAN Not Available Start: 05-25-2023 End: 05-25-2023 Patient encounter procedure [facility] Work Phone: Start: 05-17-2023 End: 05-17-2023 ambulatory [facility] Work Phone: Start: 05-17-2023 End: 05-17-2023 Patient encounter procedure [facility] Work Phone: Start: 12-10-2022 End: 12-10-2022 ambulatory Bela Fishman Other [facility] Other Start: 12-10-2022 Office outpatient visit 15 minutes Bela Fishman [facility] Start: 11-11-2021 End: 11-11-2021 ambulatory Joseph Lamar Other [facility] Other Start: 11-11-2021 Office outpatient visit 15 minutes Joseph Lamar [facility] [address] Start: 01-28-2021 End: 01-28-2021 ambulatory PAOLA [...] Office outpatient visit 25 minutes Rene Cruz [facility] Start: 01-05-2021 Office outpatient ne w 45 minutes Rene Cruz [facility] Procedures Date Procedure Procedure Detail Performing Clinician Start: 01-28-2021 Urine test visual color cmprsn ahmets Paola Villanueva MD Work Phone: Plan of Treatment Date Care Activity Detail Author Start: 02-10-2021 End: 02-10-2021 Patient encounter procedure [facility] Start: 11-24-2020 Influenza vaccination Flu vaccine (# 1) [facility] Start: 11-22-2013 Screening for malign ant neoplasm of cervix [facility] Start: 11-22-2004 Screening for malign ant neoplasm of cervix Pap smear [facility] Start: 11-22-2002 DTaP/Tdap/Td vaccine (1 - Tdap) DTaP/Tdap/Td vaccine (1 - Tdap) [facility] Start: 11-22-1998 HIV screening HIV screen [facility] Start: 11-22-1984 Varicella vaccine (1 of 2 - 2-dose childhood series) Varicella vaccine (1 of 2 - 2-dose childhood series) [facility] Start: 1985 Hepatitis C screening Hepatitis C [facility] Comprehensive metabo lic 2000 panel - Serum or Plasma [facility] Oxygen therapy [Mini [facility] Data Set] Initiate Oxygen Therapy Protocol Respiratory Care Routine Daily until discontinued starting 01/28/2021 [facility] Work Phone: Comment on above: Daily until disconti nued starting 01/28/2021 Phase I & II - meter ed glucose Phase I & II - metered glucose Point of Care Testing Routine As Needed until discontinued starting 01/28/2021 [facility] Work Phone: Comment on above: As Needed until disc ontinued starting 01/28/2021 End: 01-28-2021 , urine POCT , urine POCT Point of Care Testing Routine One Time for 1 Occurrences starting 01/28/2021 until 01/28/2021 [facility] Phone: Comment on above: One Time for 1 Occur rences starting 01/28/2021 until 01/28/2021 [facility] Payers Date Payer Category Payer Unknown [id number] 1985 Unknown [id number] [id number] 1985 Unknown [id number] 2.16.84 [id number] 1985 Unknown [id number] 2.16.84 [id number] 1985 Unknown [id number] 2.16.84 [id number] 1985 Unknown [id number] 2.16.84 [id number] 1985 Unknown [id number] 2.16.84 [id number] 1985 Unknown [id number] 2.16.84 [id number] 1985 Unknown [id number] 2.16.84 [id number] 1985 Unknown [id number] 2.16.84 [id number] 1985 Unknown [id number] 2.16.84 [id number] Self-pay Self Pay [id number] Unknown HCAP/HFA/FAP Active [id number] Social History Date Type Detail Facility Start: 01-24-2021 End: 01-28-2021 Tobacco smoking status COIS Never smoker [facility] Start: 01-24-2021 End: 01-28-2021 Tobacco use and exposure Never used [facility] Start: 01-28-2021 Alcohol intake Current drinke r of alcohol (finding) [employer] [facility] Work Phone: Start: 01-24-2021 Alcohol Comment social [facility] Work Phone: Start: 1985 Sex Assigned At Not on file [facility] Work Phone: Exposure to SARS-CoV-2 (event) Not sure [facility] Sex Assigned At Sex Assigned At Bir th [facility] Other Start: 05-17-2023 End: 05-17-2023 Tobacco smoking status NHIS Ex-smoker (finding) [facility] Start: 1985 Sex Assigned At Female [facility] Medical Equipment Procedure Code Equipment Code Equipment Original Text Equipment Identifier Dates Implant Tib L30m m [id number] Jacques Drvr Fix Dev [employer] [id number] Start: 01-28-2021 Implant Fem L24m m [id number] Insrt [employer] Am [id number] Start: 01-28-2021 Single [...] no improvement in 2 to 3 days [facility] [employer] Other 08-19-2022 Evaluation note* Encounter Date [...] Pt understood and agreed to treatment plan. [facility] Other 11-05-2021 Hospital Discharge instructions* Discharge Instr - Activity* Paola Villanueva MD - 01/28/2021 1:36 PM EDT Crutches partial weightbearing right knee. Patient to wear previous brace as necessary * Additional Instructions* Paola Villanueva MD - 01/28/[address] [facility] [address] Paola Villanueva M.D. [phone] POST OPERATIVE DISCHARGE INSTRUCTIONS KNEE ARTHROSCOPY 1. Follow-up in office seven to ten days after surgery. Call for appointment if not already made. ([phone]). 2. Take pain medication as ordered. 3. [...] that is not relieved by pain medications. [facility] Dr. Paola Villanueva M.D. [phone] POST OPERATIVE DISCHARGE INSTRUCTIONS KNEE ARTHROSCOPY Follow-up in office seven to ten days after surgery. Call for appointment if not already made. ([phone]). Take pain medication as ordered. Keep the [...] by pain medications. [facility] Phone: 1(925) 953-310411-02-2021 History of Present illness Narrative* Venkatesh Hoffman - 01/25/2021 1:00 PM EDT CLINICAL PHARMACY NOTE: MEDS TO BEDS Total # of Prescriptions Filled: 1 The following medications were delivered to the patient: Percocet 5/325 Additional Documentation: Delivered Medication to Patient * Mima Arias RN - 01/25/2021 1:00 PM EDT DAY OF SURGERY/PROCEDURE GUIDELINES As a patient at the [facility], you can expect quality medical and [...] morning of your surgery/procedure (Hibiclens if directed) [place] your teeth, but do not swallow any [...] during surgery and recovery. documented in this encounter[facility]rapeutic Monitoring Services Phone: 1(347) 149-596010-15-2021 Evaluation note* Encounter Date Diagnosis Assessment Notes [...] to sports surgery, Dr. Felipe Cortes at [facility] per patient request.at her last visit [...] also referred to Dr Felipe Cortes at [facility] Dec, Other The patient has been involved in our cooperative treatment plan and agrees to move forward with treatment at this time. [facility] Other 10-13-2021 Evaluation note* Encounter Date Diagnosis [...] as documented in the electronic medical record. [facility] Other Evaluation note* Diagnosis Rupture of anterior cruciate ligament of right knee, initial encounter- Primary Acute lateral meniscus tear of right knee Tear of lateral cartilage or meniscus of knee, current documented [facility] this encounter [facility] Work Phone: evaluation noteNo Information[employer] Other Evaluation note* Diagnosis Onset Date Resolution Status Anxiety acute Impaired concentration acute Insomnia acute Migraine headache acute Screening for heart disease acute Screening for metabolic disorder acute [facility] Work Phone: Evaluation note* Diagnosis Onset Date Resolution Status Anxiety acute Impaired concentration acute Insomnia acute Migraine headache acute Palpitations acute Screening for heart disease acute Screening for metabolic disorder acute Encounter to establish care with new doctor noneactive Positive urine test acute [facility] Work Phone: Hisqdfi general Narrative - Reported* Type Description Date Medical History migraine headache Medical History bacterial infection- stomach inf ection Medical History asthma [facility] Other History general Narrative - Reported* Type Description Date Medical History migraine headache Medical History bacterial infection- stomach inf ection Medical History asthma Surgical History acl repair [facility] Other Summary Purpose Family History No Family [...] cruciate ligament of right knee, initial encounter (S83.358A) Referral Organization [facility] Referring Provider First Name Rene Referring Provider Last Name Nancy Referring Provider Specialty Orthopedic Surgery Referred Organization [facility] Referred Address [address] [place], [place],[address] Referred Provider Specialty Orthopedic S urgery Referral [...] right knee RIGHT KNEE ACL TEAR Procedures DE KNEE SCOPE,AID ANT CRUCIATE REPAIR RIGHT KNEE ACL ARTHROSCOPIC RECONSTRUCTION WITH BIOMET Paola Villanueva MD [address] [facility] [address] [place] [address] [facility] Ordered Prescriptions (unrec ognized section [...] Adjustment - Provider: Yolis Montiel APRN - METAL REED TUNER)[phone] (Anesthesia Volume Adjustment - Provider: Mitchel Saucedo [...] section and content) DATE CREATED AUTHOR 01/29/2021 [facility] DATE CREATED AUTHOR AUTHOR'S ORGANIZ ATION 06/22/2021 [facility] DATE CREATED AUTHOR AUTHOR'S ORGANIZ ATION 12/07/2023 [facility] d[facility] [employer] Care Teams (unrecognized [...] BE BASED ON THE PRIMARY CLINICAL RECORDS. [facility] [employer] [facility]. provides no warranty or guarantee of the accuracy or completeness of information in this document.
== END 2023-12-13 19:00 | disposition home or self-care (01) ==
LOC: LAB 18:59
PROVIDERS: Family Provider Internal Medicine; Visit Provider Obstetrics & Gynecology
DX: Z34.93 Encounter for supervision of normal pregnancy, unspecified, third trimester (principal)
CPT/HCPCS: 87081; 87150

== ENCOUNTER 2023-12-17 05:13 | Inpatient (IN) | payer OTHER, SELFPAY ==
[2023-12-17] VITALS (58 sets, daily range): BP systolic 102–169; BP diastolic 70–102; PULSE 56–75; TEMP 35.9–36.8; O2SAT 95–97
--- OUTSIDE RECORDS SUMMARY | 2023-12-17 05:16 | XMS_ITS | CCD ---
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 Name Role Phone Unavailable Primary Care Provider UnavailPAOLA Hong Admitting Unavailable PAOLA VILLANUEVA Attending Unavailable Rene Cruz Unavailable Joseph Lamar Unavailable Bela Fishman Unavailable JOAQUIN ROTHMAN Attending Unavailable LORNA, JOAQUIN Attending Unavailable LORNA, JOAQUIN Attending Unavailable CAMILLE PACHECO Attending Unavailable LORNA, JOAQUIN Attending Unavailable LORNA, JOAQUIN Attending Unavailable CAMILLE PACHECO Attending Unavailable CAMILLE PACHECO Attending Unavailable JOAQUIN [...] COCET) 5-325 MG per tablet 1 tablet [id number] 200 actuat albuterol 0.09 mg/actuat metered dose [...] Beta HCG ( test) Ql (U) Positive [facility] POCT urine pregnancyOrdered By: Paola Villanueva on 01-28-2021 Beta HCG ( test) Ql (U) Negative NEGATIVE [employer] Phone: Comment on above: Specimens with hCG l evels near the threshold of the test (25 mIU/mL) may give a negative or indeterminate result. In such cases, another test should be performed with a new specimen in 48-72 hours. If early is suspected clinically in this setting, correlation with quantitative serum b-hCG level is suggested. [place] [address] [employer] Phone: MR knee RT wo conon 01-07-20 MR knee RT wo con [facility] Main [place] [address] [place] [address] MRI Report Signed Patient: Kathia Martinez MR#: [id number] 71 : 1985 Acct:[id number] Age/Sex: 35 / F ADM Date: 01/06/21 Loc: [facility] Room: Type: REG CLI Attending Dr: Rene [...] Reuben Valentine M.D.01/06/2021 1:43 PM Dictation Location: [facility]- Transcribed By: [facility] 01/06/21 1343 Dictated By: Reuben Valentine II, MD 01/06/21 1329 Signed By: 01/06/21 1343 [facility] XR knee RT 4V*on 12-31-2020 XR knee RT 4V* [facility] [place] [address] XRay Report Signed Patient: Kathia Martinez MR#: [id number] 71 : 1985 Acct:[id number] Age/Sex: 35 / F ADM Date: 12/31/20 Loc: ER Room: Type: [facility] ER Attending Dr: Ordering Provider: SELINA [...] Vargas Jr., M.D.12/31/2020 10:31 AM Dictation Location: [place] [address] Transcribed By: [facility] 12/31/20 1031 Dictated By: Roberth Vargas Jr, MD 12/31/20 1026 Signed By: 10/08/21 1031 [facility] Vital Signs Date Time Vital Sign Value Performing Clinician Facility 06-26-2023 07:35-0400 Body height 160.02 cm [facility] 06-26-2023 07:35-0400 Body mass index (BMI) [Ratio] 29.4 kg/m2 [facility] 06-26-2023 07:35-0400 Body weight 75.29 kg [facility] 06-26-2023 07:35-0400 Diastolic blood pressure 81 mm[Hg] [facility] 06-26-2023 07:35-0400 Heart rate 89 /min [facility] 06-26-2023 07:35-0400 SaO2% (BldA) [Mass fraction] 95 % [facility] 06-26-2023 07:35-0400 Systolic blood pressure 119 mm[Hg] [facility] 05-25-2023 10:30-0500 Body height 160.02 cm [facility] 05-25-2023 10:30-0500 Body mass index (BMI) [Ratio] 30.4 kg/m2 [facility] 05-25-2023 10:30-0500 Body weight 78.01 kg [facility] 05-25-2023 10:30-0500 Diastolic blood pressure 89 mm[Hg] [facility] 05-25-2023 10:30-0500 Heart rate 86 /min [facility] 05-25-2023 10:30-0500 SaO2% (BldA) [Mass fraction] 99 % [facility] 05-25-2023 10:30-0500 Systolic blood pressure 129 mm[Hg] [facility] 05-17-2023 08:11-0500 Body height 160.02 cm [facility] 05-17-2023 08:11-0500 Body mass index (BMI) [Ratio] 30.2 kg/m2 [facility] 05-17-2023 08:11-0500 Body weight 77.56 kg [facility] 05-17-2023 08:11-0500 Diastolic blood pressure 82 mm[Hg] [facility] 05-17-2023 08:11-0500 Heart rate 78 /min [facility] 05-17-2023 08:11-0500 SaO2% (BldA) [Mass fraction] 98 % [facility] 05-17-2023 08:11-0500 Systolic blood pressure 135 mm[Hg] [facility] 12-10-2022 12:05-0400 Body height 160.02 cm Bela Nguyenmond Other [employer] Other 12-10-2022 12:05-0400 Body mass index (BMI) [Ratio] 30.11 kg/m2 Bela Fishman Other [employer] Other 12-10-2022 12:05-0400 Body temperature 100.3 [degF] Bela Nguyenmond Other [employer] Other 12-10-2022 12:05-0400 Body weight 77.11 kg Bela Fishman Other [employer] Other 12-10-2022 12:05-0400 Diastolic blood pressure 106 mm[Hg] Bela Nguyenmond Other [employer] Other 12-10-2022 12:05-0400 Respiratory rate 18 /min Bela Nguyenmond Other [employer] Other 12-10-2022 12:05-0400 SaO2% (BldA) [Mass fraction] 99 % Bela Nguyenmond Other [employer] Other 12-10-2022 12:05-0400 Systolic blood pressure 170 mm[Hg] Bela Sravanthi Other [employer] Other 11-11-2021 17:40-0400 Body height 160.02 cm Joseph Lamar Other [employer] Other 11-11-2021 17:40-0400 Body mass index (BMI) [Ratio] 31 kg/m2 Joseph Lamar Other [employer] Other 11-11-2021 17:40-0400 Body temperature 99.8 [degF] Joseph Lamar Other [employer] Other 11-11-2021 17:40-0400 Body weight 79.38 kg Joseph Lamar Other [employer] Other 11-11-2021 17:40-0400 Respiratory rate 18 /min Joseph Lamar Other [employer] Other 11-11-2021 17:40-0400 SaO2% (BldA) [Mass fraction] 98 % Joseph Lamar Other [employer] Other 01-28-2021 14:35-0400 Diastolic blood pressure 88 mm[Hg] Paola Villanueva MD Work Phone: [employer] Work Phone: 01-28-2021 14:35-0400 Heart rate 64 /min Paola Villanueva MD Work Phone: [employer] Work Phone: 01-28-2021 14:35-0400 Respiratory rate 11 /min Paola Villanueva MD Work Phone: [employer] Work Phone: 01-28-2021 14:35-0400 SaO2% (BldA) [Mass fraction] 98 % Paola Villanueva MD Work Phone: [employer] Work Phone: 01-28-2021 14:35-0400 Systolic blood pressure 132 mm[Hg] Paola Villanueva MD Work Phone: [employer] Work Phone: 01-28-2021 13:31-0400 Body temperature 97.81 [degF] Paola Villanueva MD Work Phone: [employer] Work Phone: 01-28-2021 10:22-0400 Body height 160 cm Paola Villanueva MD Work Phone: [employer] Work Phone: 01-28-2021 10:10-0400 Body mass index (BMI) [Ratio] 34.72 kg/m2 Paola Villanueva MD Work Phone: [employer] Work Phone: 01-28-2021 10:10-0400 Body weight 88.91 kg Paola Villanueva MD Work Phone: [employer] Work Phone: Encounters Encounter Date Encounter Type Care Provider Facility Start: 12-13-2023 End: 12-13-2023 ambulatory JOAQUIN LORNA Not Available Start: 12-05-2023 End: 12-05-2023 ambulatory CAMILLE TARA [...] Start: 06-26-2023 End: 06-26-2023 ambulatory [facility] Work Phone: Start: 06-26-2023 End: 06-26-2023 Patient encounter procedure [facility] Work Phone: Start: 06-14-2023 End: 06-14-2023 ambulatory JOAQUIN ROTHMAN Not Available Start: 05-25-2023 End: 05-25-2023 Patient encounter procedure [facility] Work Phone: Start: 05-17-2023 End: 05-17-2023 ambulatory [facility] Work Phone: Start: 05-17-2023 End: 05-17-2023 Patient encounter procedure [facility] Work Phone: Start: 12-10-2022 End: 12-10-2022 ambulatory Bela Fishman Other [employer] Other Start: 12-10-2022 Office outpatient visit 15 minutes Bela Fishman [facility] Start: 11-11-2021 End: 11-11-2021 ambulatory Joseph Lamar Other [employer] Other Start: 11-11-2021 Office outpatient visit 15 minutes Joseph Lamar [facility] Start: 01-28-2021 End: 01-28-2021 ambulatory PAOLA VILLANUEVA [facility] Start: 01-28-2021 End: 01-28-2021 Subsequent [...] Office outpatient visit 25 minutes Rene Cruz [facility] Start: 01-05-2021 Office outpatient ne w 45 minutes Rene Cruz [facility] Procedures Date Procedure Procedure Detail Performing Clinician Start: 01-28-2021 Urine test visual color cmprsn elvie Villanueva MD Work Phone: Plan of Treatment Date Care Activity Detail Author Start: 02-10-2021 End: 02-10-2021 Patient encounter procedure [facility] Start: 11-24-2020 Influenza vaccination Flu vaccine (# 1) [facility] Start: 11-22-2013 Screening for malign ant neoplasm of cervix [facility] Start: 11-22-2004 Screening for malign ant neoplasm of cervix Pap smear [facility] Start: 11-22-2002 DTaP/Tdap/Td vaccine (1 - Tdap) DTaP/Tdap/Td vaccine (1 - Tdap) [facility] Start: 11-22-1998 HIV screening HIV screen [facility] Start: 11-22-1984 Varicella vaccine (1 of 2 - 2-dose childhood series) Varicella vaccine (1 of 2 - 2-dose childhood series) [facility] Start: 1985 Hepatitis C screening Hepatitis C sc [facility] Comprehensive metabo lic 2000 panel - Serum or Plasma [facility] Oxygen therapy [[facility] Data Set] Initiate Oxygen Therapy Protocol Respiratory Care Routine Daily until discontinued starting 01/28[facility]2021 [facility] Comment on above: Daily until disconti nued starting 01/28/2021 Phase I & II - meter ed glucose Phase I & II - metered glucose Point of Care Testing Routine As Needed until discontinued starting 01/28/2021 [facility]: Comment on above: As Needed until disc ontinued starting 01/28/2021 End: 01-28-2021 , urine POCT , urine POCT Point of Care Testing Routine One Time for 1 Occurrences starting 01/28/2021 until 01/28/2021 [facility]: Comment on above: One Time for 1 Occur rences starting 01/28/2021 until 01/28/2021 [facility] Payers Date Payer Category Payer Unknown [id number] 1985 Unknown [id number] 2.16.8 [id number] 1985 Unknown [id number] 2.16.84 [id number] 1983 Unknown [id number] 2.16.84 [id number] 1983 Unknown [id number] 2.16.84 [id number] 1983 Unknown [id number] 2.16.84 [id number] 1983 Unknown [id number] 2.16.84 [id number] 1983 Unknown [id number] 2.16.84 [id number] 1985 Unknown [id number] 2.16.84 [id number] 1983 Unknown [id number] 2.16.84 [id number] 1985 Unknown [id number] 2.16.84 [id number] 1985 Unknown [id number] 2.16.84 [id number] Self-pay Self Pay [id number] Unknown HCAP/HFA/FAP Active [id number] Social History Date Type Detail Facility Start: 01-24-2021 End: 01-28-2021 Tobacco smoking status [facility] Never smoker [facility] Start: 01-24-2021 End: 01-28-2021 Tobacco use and exposure Never used [employer] Start: 01-28-2021 Alcohol intake Current drinke r of alcohol (finding) [employer] Work Phone: Start: 01-24-2021 Alcohol Comment social [employer] Work Phone: Start: 1985 Sex Assigned At Not on file M [employer] Work Phone: Exposure to SARS-CoV-2 (event) Not sure [employer] Sex Assigned At Sex Assigned At Bir th [employer] Other Start: 05-17-2023 End: 05-17-2023 Tobacco smoking status NHIS Ex-smoker (finding) [facility] Start: 1985 Sex Assigned At Female F [facility] Medical Equipment Procedure Code Equipment Code Equipment Original Text Equipment Identifier Dates Implant Tib L30m m [id number] Jacques Drvr Fix Dev [employer] Ii [id number] Start: 01-28-2021 Implant Fem L24m m [id number] Insrt [employer] Am [id number] Start: 01-28-2021 Single [...] no improvement in 2 to 3 days [facility] [employer] Other 08-19-2022 Evaluation note* Encounter Date Diagnosis [...] Pt understood and agreed to treatment plan. [employer] Other 11-05-2021 Hospital Discharge instructions* Discharge Instr - Activity* Paola Villanueva MD - 01/28/2021 1:36 PM EDT Crutches partial weightbearing right knee. Patient to wear previous brace as necessary * Additional Instructions* Paola Villanueva MD - 01/28/2021 [facility] Dr. Paola Villanueva M.D. [phone] POST OPERATIVE DISCHARGE INSTRUCTIONS KNEE ARTHROSCOPY 1. Follow-up in office seven to ten days after surgery. Call for appointment if not already made. ([phone]). 2. Take pain medication as ordered. 3. [...] that is not relieved by pain medications. [facility] Dr. Paola Villanueva M.D. [phone] POST OPERATIVE DISCHARGE INSTRUCTIONS KNEE ARTHROSCOPY Follow-up in office seven to ten days after surgery. Call for appointment if not already made. ([phone]). Take pain medication as ordered. Keep the [...] relieved by pain medications. documented [facility] this [facility] [employer] Work Phone: 1(893) 125-625911-02-2021 History of Present illness Narrative* Venkatesh Hoffman - 01/25/2021 1:00 PM EDT CLINICAL PHARMACY NOTE: MEDS TO BEDS Total # of Prescriptions Filled: 1 The following medications were delivered to the patient: Percocet Additional Documentation: Delivered Medication to Patient * Mima Arias RN - 01/25/2021 1:00 PM EDT DAY OF SURGERY/PROCEDURE GUIDELINES As a patient at the [facility], you can expect quality medical [...] morning of your surgery/procedure (Hibiclens if directed) [place] your teeth, but do not swallow any [...] during surgery and recovery. documented in this [employer]ocollect Phone: 1(131) 933-480010-15-2021 Evaluation note* Encounter Date Diagnosis Assessment Notes [...] to sports surgery, Dr. Felipe Cortes at [facility] per patient request.at her last [...] also referred to Dr Felipe Cortes at [facility] Dec, Other The patient has been involved in our cooperative treatment plan and agrees to move forward with treatment at this time. [employer] Other 10-13-2021 Evaluation note* Encounter Date Diagnosis [...] as documented in the electronic medical record. [employer] Other Evaluation note* Diagnosis Rupture of anterior cruciate ligament of right knee, initial encounter- Primary Acute lateral meniscus tear of right knee Tear of lateral cartilage or meniscus of knee, current documented in this encounter [employer] Work Phone: evaluation noteNo [employer]Nort [employer] Other Evaluation note* Diagnosis Onset Date Resolution Status Anxiety acute Impaired concentration acute Insomnia acute Migraine headache acute Screening for heart disease acute Screening for metabolic disorder acute [facility] Work Phone: Evaluation note* Diagnosis Onset Date Resolution Status Anxiety acute Impaired concentration acute Insomnia acute Migraine headache acute Palpitations acute Screening for heart disease acute Screening for metabolic disorder acute Encounter to establish care with new doctor noneactive Positive urine test acute [facility] Work Phone: History general Narrative - Reported* Type Description Date Medical History migraine headache Medical History bacterial infection- stomach inf ection Medical History asthma [employer] Other History general Narrative - Reported* Type Description Date Medical History migraine headache Medical History bacterial infection- stomach inf ection Medical History asthma Surgical History acl repair [employer] Other Summary Purpose Family History No Family [...] cruciate ligament of right knee, initial encounter (S83.218A) Referral Organization [facility] Referring Provider First Name Rene Referring Provider Last Name Nancy Referring Provider Specialty Orthopedic Surgery Referred Organization [facility] [address]erred Address [address] [place], [place],[address] Referred Provider Specialty Orthopedic S urgery Referral [...] right knee RIGHT KNEE ACL TEAR Procedures CA KNEE SCOPE,AID ANT CRUCIATE REPAIR RIGHT KNEE ACL ARTHROSCOPIC RECONSTRUCTION WITH BIOMET Paola Villanueva MD [address] [facility] [address] [place] [address] [facility] Ordered Prescriptions (unrec ognized section and content) [...] Adjustment - Provider: Yolis Montiel APRN - EMBEDDED NURSE)1333 (Anesthesia Volume Adjustment - Provider: Mitchel Saucedo [...] 1131 (Given - Provid er: Lisa Arellano, RN) midazolam (VERSED) 2 MG/2ML injection (COMPLETED) Starting on Sun01/28/21 at 1018, For 1 dose, Lisa Arellano: cabinet override 1132 (Given - Provid er: Lisa Arellano, RN) scopolamine (TRANSDERM-SCOP) 1 MG/3DAYS transdermal patch (COMPLETED) Starting on Sun01/28/21 at 1051, For 1 dose, Lisa Arellano: cabinet override 1058 (Patch Applied - Provider: Lisa Arellano, SIRI) Linked Groups Order Group 1: oxyCODONE-acetaminophen (PERCOCET) [...] section and content) DATE CREATED AUTHOR 01/29/2021 [facility] DATE CREATED AUTHOR AUTHOR'S ORGANIZ ATION 06/22/2021 [facility] DATE CREATED AUTHOR AUTHOR'S ORGANIZ ATION 12/15/2023 [facility] EPIC Care Teams (unrecognized [...] BE BASED ON THE PRIMARY CLINICAL RECORDS. [employer] [facility]. provides no warranty or guarantee of the accuracy or completeness of information in this document.
[2023-12-17] MEDS: 0.9 % SODIUM CHLORIDE 1,000 ML 125 ML IV ×3 (06:15→21:04)
[2023-12-17] MEDS: OXYTOCIN/0.9 % SODIUM CHLORIDE 10 UNITS/500 ML PLAST..BAG 6 UNIT IV (06:30)
[2023-12-17] MEDS: AMPICILLIN SODIUM 2,000 MG in 0.9 % SODIUM CHLORIDE 100 ML 200 MG IV (06:45)
[2023-12-17 07:27] LABS: Hemoglobin 12.6 g/dL (12.0-16.0); Mean Corpuscular HGB Conc 34.1 g/dL (29.9-35.2); Mean Corpuscular Hemoglobin 31.9 pg (26.7-34.0); Mean Corpuscular Volume 93.7 fL (81.0-99.0); Mean Platelet Volume 12.6 fL (9.5-13.5); Platelet Count 187 10^3/uL (150-450); Red Blood Count 3.95 10^6/uL (4.20-5.40); Red Cell Distribution Width 12.6 % (11.0-15.0); White Blood Count 10.4 10^3/uL (4.0-11.0)
[2023-12-17 07:47] LABS: Amphetamine Screen Urine NEGATIVE (NEGATIVE); Barbiturates Screen Urine NEGATIVE (NEGATIVE); Benzodiazepines Screen Urine NEGATIVE (NEGATIVE); Buprenorphine Screen Urine NEGATIVE (NEGATIVE); Cannabinoid Screen Urine POSITIVE (NEGATIVE); Cocaine Screen Urine NEGATIVE (NEGATIVE); Methadone Screen Urine NEGATIVE (NEGATIVE); Methamphetamines Screen Urine NEGATIVE (NEGATIVE); Opiate Screen Urine POSITIVE (NEGATIVE); Oxycodone Screen Urine NEGATIVE (NEGATIVE); Phencyclidine Screen Urine NEGATIVE (NEGATIVE); Tricyclic Antidepressant Urine NEGATIVE (NEGATIVE)
[2023-12-17] MEDS: AMPICILLIN SODIUM 1,000 MG in 0.9 % SODIUM CHLORIDE 50 ML 100 MG IV ×4 (10:04→21:28)
[2023-12-17] MEDS: NALBUPHINE HCL 10 MG/ML AMPULE IV (16:05)
[2023-12-17] MEDS: 0.9 % SODIUM CHLORIDE 1,000 ML 1000 ML IV (17:25)
[2023-12-17] MEDS: ROPIVACAINE HCL/PF 400 MG/200 ML PREMIX 6 MG EPIDURAL (18:06)
[2023-12-17] MEDS: LABETALOL HCL 100 MG TABLET 300 MG PO (20:24)
[2023-12-17] MEDS: ONDANSETRON PF 4 MG/2 ML VIAL IV (21:28)
[2023-12-17] MEDS: CEFAZOLIN SODIUM/DEXTROSE,ISO 2 GM/50 ML PIGGYBACK IV (21:58)
[2023-12-17] MEDS: METOCLOPRAMIDE HCL 10 MG/2 ML VIAL IVP (21:58)
[2023-12-17] MEDS: CITRIC ACID/SODIUM CITRATE 30 ML SOLUTION ORACIT SHOHL'S SOLN PO (21:58)
[2023-12-17] MEDS: FAMOTIDINE/PF 20 MG/2 ML VIAL IV (21:58)
--- NOTE | 2023-12-17 23:04 | P.ON_ITS ---
Brief Operative Note Date of procedure: 12/17/23 Pre-op diagnosis general: iup at 37wks, mild preeclampsia, failure to induce Post-op diagnosis: same as pre-op Procedure: NAME OF PROCEDURE: [ section ] PROCEDURE: Patient was taken back to the Operating Room where she was given a spinal anesthesia with Duramorph without difficulty. She was prepped and draped in the normal sterile fashion. A Pfannenstiel skin incision was then made 2 cm above the symphysis pubis and carried down to underlying rectus fascia using a Bovie. The fascia was incised in the midline and extended laterally using Humphreys scissors. Two Dejan clamps were placed on the superior aspect of the fascia and dissected off the underlying rectus muscles. The same was performed on the inferior aspect as well. The muscles were then in the midline. Peritoneum was identified and entered bluntly. The peritoneum was then extended superiorly and inferiorly with good visualization of the bladder. The bladder blade was inserted. A low transverse incision was made on the patient's uterus and extended laterally digitally. The infant was then delivered atraumatically after the bladder blade was removed in the cephalic position. The cord was clamped and cut. Cord blood was obtained. The infant was handed off to awaiting team. The patient's placenta was spontaneously delivered. The uterus was then exteriorized. The uterus was cleared of all clots and debris. The bladder blade was reinserted. The patient's uterine incision was closed using #0 Vicryl in a running lock fashion. Excellent hemostasis was assured. The uterus was then returned to the patient's abdomen. The patient's abdomen was copiously irrigated using warm saline. Peritoneal gutters were cleared of all clots and debris. Again excellent hemostasis was assured. The patient's peritoneum was closed using 3-0 Vicryl in a running fashion. The patient's fascia was closed using #0 Vicryl in a running fashion. The patient's skin was closed using 4-0 Vicryl subcuticularly. The patient tolerated the procedure well. Sponge, lap, and needle counts were correct x2. The patient was taken to the Recovery Room in stable condition. Anesthesia: epidural Surgeon: Jb Pierre Administrative Assistant: Ileana Fraser Estimated blood loss (mL): 575 Pathology: other (placenta) Condition: stable Disposition: PACU Urinary Catheter Management Urinary Catheter Management Urethral: Cath placed during this visit: no
[2023-12-17] MEDS: OXYTOCIN/0.9 % SODIUM CHLORIDE 20 UNITS/1,000 ML PLAST..BAG 125 UNIT IV (23:51)
[2023-12-18] VITALS (16 sets, daily range): BP systolic 117–152; BP diastolic 63–115; PULSE 58–88; TEMP 36.4–36.7; O2SAT 97
[2023-12-18] MEDS: CEFAZOLIN SODIUM/DEXTROSE,ISO 2 GM/50 ML PIGGYBACK IV (04:54)
[2023-12-18] MEDS: KETOROLAC TROMETHAMINE 30 MG/ML VIAL IVP ×3 (04:54→18:45)
[2023-12-18 06:23] LABS: Basophils Percent Auto 0.2 % (0.2-2.0); Hematocrit 36.5 % (36.0-48.0); Hemoglobin 12.3 g/dL (12.0-16.0); Immature Granulocytes Abs Auto 0.11 10^3/uL (0.00-0.03); Immature Granulocytes Pct Auto 0.6 % (0.0-0.5); Lymphocytes Absolute Auto 0.8 10^3/uL (1.2-3.8); Mean Corpuscular HGB Conc 33.7 g/dL (29.9-35.2); Mean Corpuscular Hemoglobin 31.3 pg (26.7-34.0); Mean Corpuscular Volume 92.9 fL (81.0-99.0); Mean Platelet Volume 11.7 fL (9.5-13.5); Monocytes Absolute Auto 0.4 10^3/uL (0.3-0.8); Neutrophils Absolute Auto 17.5 10^3/uL (1.4-6.5); Neutrophils Percent Auto 93.2 % (43.0-75.0); Platelet Count 171 10^3/uL (150-450); Red Blood Count 3.93 10^6/uL (4.20-5.40); Red Cell Distribution Width 12.5 % (11.0-15.0); White Blood Count 18.8 10^3/uL (4.0-11.0)
--- NOTE | 2023-12-18 08:05 | P.OBPN_ITS ---
OB - PN: Subj Subjective Patient comments: no complaints [place] status: doing well feeding status: breast and bottle feeding Exam Narrative Exam Narrative: patient currently bottle feeding due to baby's weight Constitutional Vital Signs, click to edit/add: Last Vital Signs Temp 97.6 F 12/18/23 07:28 Pulse 65 12/18/23 00:05 Resp 16 12/18/23 07:28 BP 140/93 H 12/18/23 07:28 Pulse Ox 97 12/18/23 00:00 O2 Del Method Room Air 12/18/23 07:32 Documenting provider has reviewed patient's vital signs: yes Common normals: no apparent distress General appearance: cooperative, well kempt and well developed Orientation/consciousness: Yes awake, Yes oriented to person, Yes oriented to place and Yes oriented to time HENMT Common normals: normocephalic Face and sinus: normal facial exam Eye Common normals: EOMs intact bilaterally Neck & C-Spine Common normals: full ROM and no lymphadenopathy Lymph Lymphatic: no lymphadenopathy noted Chest Common normals: inspection of chest normal Respiratory Common normals: normal respiratory effort Effort & inspection: able to speak in complete sentences Auscultation: clear to auscultation bilaterally Cardio Common normals: regular rate and regular rhythm Rate: regular rate Rhythm: regular rhythm GI Common normals: Normal to inspection, nondistended, normoactive bowel sounds present Palpation: soft Common normals: no CVA tenderness Back & Pelvis Common normals: no CVA tenderness Thoracic spine/upper back: normal to inspection Extremity Common normals: normal to inspection Neuro Common normals: oriented x3 Sensorium/orientation: awake, alert, oriented to person, oriented to place and oriented to time Psych Common normals: mental status grossly normal, thought process normal, cooperative, affect normal, speech normal, activity/motor behavior normal, denies hallucinations, denies homicidal ideation and denies suicidal ideation Appearance: grossly normal Attitude: calm Activity/motor behavior: appropriate eye contact Speech: normal speech Results Labs Labs: Short CBC 12/18/23 Range/Units 06:11 WBC 18.8 H (4.0-11.0) 10^3/uL Hgb 12.3 (12.0-16.0) g/dL Hct 36.5 (36.0-48.0) % Plt Count 171 (150-450) 10^3/uL Urinary Catheter Management Urinary Catheter Management Urethral: Cath placed during this visit: no Urethral indwelling: No OB - PN: A/P Plan - Plan: routine postop care Time Spent with Patient Time: Total time spent is greater than 50% in coordination of care (as documented) at patient's floor/unit and/or counseling patient: Total time spent with greater than 50% in coordination of care (as documented) at patient's floor/unit and/or counseling patient: less than 15 minutes
[2023-12-18] MEDS: LABETALOL HCL 100 MG TABLET 300 MG PO ×2 (09:44→20:14)
[2023-12-18] MEDS: DOCUSATE SODIUM 100 MG CAPSULE PO ×2 (09:44→20:14)
[2023-12-18] MEDS: BUPROPION HCL 150 MG XL TABLET 24H PO (09:44)
[2023-12-18] MEDS: CETIRIZINE HCL 10 MG TABLET 20 MG PO (09:44)
[2023-12-18] MEDS: ENOXAPARIN SODIUM 40 MG/0.4 ML SYRINGE SUBQ (09:45)
[2023-12-18] MEDS: ONDANSETRON PF 4 MG/2 ML VIAL IV (09:49)
[2023-12-18] MEDS: OXYCODONE HCL/ACETAMINOPHEN 5MG/325MG 1 TAB PO ×2 (09:49→20:14)
--- NOTE | 2023-12-18 11:47 | PC.NURSE ---
Discussed pumping and feeding. Expected timeline for onset of milk supply. Demo of hand expression and return demo of same. Aware that every drop should be placed on infants tongue as is beneficial. Demo of slow paced bottle feeding for with benefits reviewed. Parents are agreeable with plan of care.
--- NOTE | 2023-12-18 14:21 | SWNOTE1 ---
SW consulted due to positive drug screen, opiates and marijuana. SW spoke with nurse and pt does have a confirmed prescription for Tylenol with Codeine due to her headaches. No concerns from nursing. Pt and father of baby are appropriate with baby. Pt and father of baby voiced they do have everything they need at home for baby, plus some! They do have a 20 year old daughter as well. They have amazing support from family, pt's mother in law is a nurse of 40 years. SW spoke to patient about positive drug screen. Pt did confirm she does have a prescription from doctor for Tylenol with codeine. She does have migraines/headaches and that is what it is for. Pt's did show SW proof of a text message that he accidentally gave her a tylenol the other night instead of her blood pressure medication. Pt also was positive for marijuana. She ate gummies to help with her insomnia and to help her eat as well as she lost her appetite. Pt also voiced she has ADD and at night it is hard for her to sleep so gummies help. Pt does not have a medical marijuana card at this time. Pt and father of baby caring for baby appropriately. SW did advise pt and father that SW is mandated media reporter and will make a report to [facility] CPS. They both voiced understanding. No further questions at this time. Referral called and made to [facility] CPS. HIPAA form filled out and sent to [facility].
[2023-12-19] MEDS: KETOROLAC TROMETHAMINE 30 MG/ML VIAL IVP ×4 (00:59→21:09)
[2023-12-19] MEDS: OXYCODONE HCL/ACETAMINOPHEN 5MG/325MG 2 TAB PO ×2 (01:00→22:48)
[2023-12-19 01:05] VITALS: BP 118/67; PULSE 69; TEMP 36.8
[2023-12-19 07:46] VITALS: BP 123/67; PULSE 66; TEMP 37.2
--- NOTE | 2023-12-19 07:56 | P.OBPN_ITS ---
OB - PN: Subj Subjective Patient comments: no complaints and pain well controlled [place] status: doing well Exam Constitutional Vital Signs, click to edit/add: Last Vital Signs Temp 98.2 F 12/19/23 01:05 Pulse 66 12/19/23 07:46 Resp 16 12/18/23 20:20 BP 123/67 12/19/23 07:46 Pulse Ox 97 12/18/23 00:00 O2 Del Method Room Air 12/19/23 01:00 Documenting provider has reviewed patient's vital signs: yes Common normals: no apparent distress Respiratory Common normals: normal respiratory effort and clear to auscultation bilaterally Cardio Common normals: regular rate and regular rhythm GI Common normals: Normal to inspection, nondistended, normoactive bowel sounds present Extremity Common normals: no calf tenderness Urinary Catheter Management Urinary Catheter Management Urethral: Cath placed during this visit: no Urethral indwelling: No OB - PN: A/P Plan - day: 2 Plan: routine postop care Time Spent with Patient Time: Total time spent is greater than 50% in coordination of care (as documented) at patient's floor/unit and/or counseling patient: Total time spent with greater than 50% in coordination of care (as documented) at patient's floor/unit and/or counseling patient: less than 15 minutes
[2023-12-19] MEDS: CETIRIZINE HCL 10 MG TABLET 20 MG PO (09:05)
[2023-12-19] MEDS: BUPROPION HCL 150 MG XL TABLET 24H PO (09:05)
[2023-12-19] MEDS: DOCUSATE SODIUM 100 MG CAPSULE PO ×2 (09:05→21:10)
[2023-12-19] MEDS: LABETALOL HCL 100 MG TABLET 300 MG PO ×2 (09:05→21:10)
--- NOTE | 2023-12-19 11:01 | PC.NURSE ---
DEONTE into see pt. Parents bottle feeding baby at this time. Using slow paced feeding as demo's yesterday. Kathia has done hand expression a few times since yesterday, only obtaining drops which were then wiped onto baby's tongue/gums. would like demo of use of hand pump so could begin expressing. Has her own pump at home, so will use hand pump today. [facility] is still interested in providing milk for so will try to actively express. Support offered.
[2023-12-19] MEDS: OXYCODONE HCL/ACETAMINOPHEN 5MG/325MG 1 TAB PO (12:03)
[2023-12-19] MEDS: ENOXAPARIN SODIUM 40 MG/0.4 ML SYRINGE SUBQ (12:03)
[2023-12-19 17:07] VITALS: BP 118/57; PULSE 72; TEMP 36.6
[2023-12-19 21:09] VITALS: BP 132/84; PULSE 71
[2023-12-19 21:30] VITALS: BP 132/84; PULSE 71; TEMP 36.8; O2SAT 97
[2023-12-20] MEDS: IBUPROFEN 400 MG TABLET 800 MG PO (05:52)
[2023-12-20 07:22] VITALS: BP 142/78; PULSE 74
[2023-12-20 08:00] VITALS: TEMP 36.8
--- NOTE | 2023-12-20 08:29 | P.OBPN_ITS ---
OB - PN: Subj Subjective Patient comments: no complaints and pain well controlled [place] status: doing well Exam Constitutional Vital Signs, click to edit/add: Last Vital Signs Temp 98.2 F 12/20/23 08:00 Pulse 74 12/20/23 07:22 Resp 18 12/20/23 07:53 BP 142/78 H 12/20/23 07:22 Pulse Ox 97 12/19/23 21:30 O2 Del Method Room Air 12/20/23 07:53 Documenting provider has reviewed patient's vital signs: yes Common normals: no apparent distress Respiratory Common normals: normal respiratory effort and clear to auscultation bilaterally Cardio Common normals: regular rate and regular rhythm GI Common normals: Normal to inspection, nondistended, normoactive bowel sounds present Extremity Common normals: no clubbing, cyanosis or edema Urinary Catheter Management Urinary Catheter Management Urethral: Cath placed during this visit: no Urethral indwelling: No OB - PN: A/P Plan - day: 3 Plan: routine postop care, discharge home and follow up 6 weeks Time Spent with Patient Time: Total time spent is greater than 50% in coordination of care (as documented) at patient's floor/unit and/or counseling patient: Total time spent with greater than 50% in coordination of care (as documented) at patient's floor/unit and/or counseling patient: less than 15 minutes
[2023-12-20] MEDS: DOCUSATE SODIUM 100 MG CAPSULE PO (08:32)
[2023-12-20] MEDS: BUPROPION HCL 150 MG XL TABLET 24H PO (08:32)
[2023-12-20] MEDS: LABETALOL HCL 100 MG TABLET 300 MG PO (08:33)
[2023-12-20] MEDS: CETIRIZINE HCL 10 MG TABLET 20 MG PO (08:33)
[2023-12-20] MEDS: OXYCODONE HCL/ACETAMINOPHEN 5MG/325MG 1 TAB PO (10:22)
[2023-12-20] MEDS: ENOXAPARIN SODIUM 40 MG/0.4 ML SYRINGE SUBQ (13:09)
== END 2023-12-20 14:15 | disposition home or self-care (01) | DRG 788 ==
PROVIDERS: Admitting Provider Obstetrics & Gynecology; Family Provider Internal Medicine; Visit Provider Obstetrics & Gynecology
PROC: 10D00Z1 Extraction of Products of Conception, Low, Open Approach (ICD-10-PCS; CPT 59514; principal; 2023-12-17 22:15)
DX: O11.4 Pre-existing hypertension with pre-eclampsia, complicating childbirth (principal); O69.81X0 Labor and delivery complicated by cord around neck, without compression, not applicable or unspecified; O61.0 Failed medical induction of labor; Z3A.37 37 weeks gestation of pregnancy; Z37.0 Single live birth; O99.824 Streptococcus B carrier state complicating childbirth; O99.324 Drug use complicating childbirth; F12.90 Cannabis use, unspecified, uncomplicated; F11.90 Opioid use, unspecified, uncomplicated
CPT/HCPCS: 36415; 51702; 59050; 80307; 80349; 80361; 85025; 85027; 86850; 86900; 86901; 94667; 94668; J0290; J0690; J1650; J1885; J2274; J2300; J2371; J2405; J2590; J2765; J2795; J3010

== ENCOUNTER 2024-02-18 08:17 | Outpatient (OUT) | payer OTHER, SELFPAY ==
--- NOTE | 2024-02-18 08:50 | XR_ITS ---
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 CLINICAL INDICATION: 38 years Female Preop exam FINDINGS: The cardiomediastinal silhouette and pulmonary vasculature are within normal limits. The lungs are clear. There is no evidence of pleural effusion or pneumothorax. XR/XR chest 2V IMPRESSION: Chest radiograph is within normal limits. Electronically authenticated by: DEEP VALDEZ Date: 02/19/2024 12:12
--- NOTE | 2024-02-18 08:50 | ECG_ITS ---
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
== END 2024-02-18 08:18 | disposition home or self-care (01) ==
PROVIDERS: Family Provider Internal Medicine; PCP Internal Medicine Gastroenterology; Visit Provider Obstetrics & Gynecology
DX: Z01.810 Encounter for preprocedural cardiovascular examination (principal)
CPT/HCPCS: 71046; 93005

== ENCOUNTER 2024-02-29 10:13 | Day surgery (SDC) | payer OTHER, SELFPAY ==
[2024-02-18 08:50] VITALS: BP 136/89; PULSE 87; TEMP 36.3; O2SAT 98; BMI 33.5
[2024-02-29] VITALS (9 sets, daily range): BP systolic 127–150; BP diastolic 81–96; PULSE 77–96; TEMP 36.4–36.6; O2SAT 94–98; BMI 33.3
[2024-02-29 10:22] LABS: Basophils Absolute Auto 0.1 10^3/uL (0.0-0.1); Basophils Percent Auto 0.6 % (0.2-2.0); Eosinophils Absolute Auto 0.1 10^3/uL (0.0-0.7); Eosinophils Percent Auto 1.2 % (0.9-7.0); Hematocrit 44.2 % (36.0-48.0); Hemoglobin 14.8 g/dL (12.0-16.0); Immature Granulocytes Abs Auto 0.03 10^3/uL (0.00-0.03); Immature Granulocytes Pct Auto 0.3 % (0.0-0.5); Lymphocytes Percent Auto 20.9 % (20.5-60.0); Mean Corpuscular HGB Conc 33.5 g/dL (29.9-35.2); Mean Corpuscular Hemoglobin 31.3 pg (26.7-34.0); Mean Corpuscular Volume 93.4 fL (81.0-99.0); Monocytes Absolute Auto 0.5 10^3/uL (0.3-0.8); Monocytes Percent Auto 5.1 % (1.7-12.0); Neutrophils Absolute Auto 6.7 10^3/uL (1.4-6.5); Neutrophils Percent Auto 71.9 % (43.0-75.0); Platelet Count 308 10^3/uL (150-450); Red Blood Count 4.73 10^6/uL (4.20-5.40); Red Cell Distribution Width 11.6 % (11.0-15.0); White Blood Count 9.3 10^3/uL (4.0-11.0)
[2024-02-29 10:51] LABS: HCG Quantitative <1 mIU/mL
[2024-02-29] MEDS: LACTATED RINGER'S SOLUTION 1,000 ML 50 ML IV (11:24)
--- NOTE | 2024-02-29 13:39 | P.ON_ITS ---
Brief Operative Note Date of procedure: 02/29/24 Pre-op diagnosis general: desires permanent sterilization, multiparity Post-op diagnosis: same as pre-op Procedure: NAME OF PROCEDURE: robotic assisted bilateral laparoscopic salpingectomy PROCEDURE: The patient was taken back to the Operating Room where she was given general anesthesia without difficulty. She was then prepped and draped in the normal sterile fashion after being placed in a dorsal lithotomy position. A wet sponge stick was placed into the patient's vagina. Attention was then turned to the patient's abdomen, where a scalpel was used to make a small infraumbilical incision. The S retractors were then used to dissect the underlying layers until the fascia could be seen. The fascia was then grasped with Dejan clamps and tented up. A knife was then used to make a small incision to the fascia. The muscle was identified, at that time two sutures of #0 Vicryl on a GI needle was then used and placed through the fascia. the peritoneum was then identified and entered bluntly. The 10-4 Italo was then placed into the patient's abdomen. This was confirmed with direct visualization of the bowel, using the laparoscope. The patient's abdomen was then insufflated using approximately 4 liters of CO2 gas. Survey of the patient's abdomen demonstrated ovaries were normal in appearance as well as both tubes and uterus. A second and third rt and lt lateral robotic ports which were 8 mm in size, was then placed after the skin incision was made under direct visualization . the robotic arms were engaged. The patient's tube on the patient's right side was identified and tented up using a grasper, the ligasure apparatus was then used to come across the mesosalpingx from the fimbriated end to the insertion site at the uterus, the tube was then amputated and removed in its entirety. This was done on the contralateral side. The tubes were the removed from the patients abdomen. Excellent hemostasis was noted. The lateral ports were then moved under direct visualization with excellent hemostasis. All instruments were removed from the patient's abdomen. The fascia was closed using the #0 Vicryl on GI needle. The skin was closed using 4-0 Vicryl subcuticularly. All instruments were removed from the patient's vagina as well. The patient was taken out of the dorsal lithotomy position and placed in the supine position and taken to recovery in s table condition. Sponge, lap and needle counts were correct x2. Anesthesia: CHRISTIANNEA Surgeon: Jb Pierre Delivery Table Operator: Shirley Cavazos Estimated blood loss (mL): 5 Pathology: other (tubes) Condition: stable Disposition: PACU Urinary Catheter Management Urinary Catheter Management Urethral: Cath placed during this visit: no
[2024-02-29] MEDS: HYDROCODONE/ACET 5-325 MG TABLET 1 TAB PO (15:27)
== END 2024-02-29 16:10 | disposition home or self-care (01) ==
PROVIDERS: Family Provider Internal Medicine; Visit Provider Obstetrics & Gynecology
PROC: (CPT 840; principal; 2024-02-29 11:25)
DX: Z30.2 Encounter for sterilization (principal); N83.8 Other noninflammatory disorders of ovary, fallopian tube and broad ligament; Z87.891 Personal history of nicotine dependence; J45.909 Unspecified asthma, uncomplicated; I10 Essential (primary) hypertension; F41.9 Anxiety disorder, unspecified
CPT/HCPCS: 58661; 36415; 84702; 85025; 88302; J1100; J1885; J2250; J2405; J2704; J3010

== ENCOUNTER 2024-08-27 19:48 | Outpatient (REF) | payer OTHER, SELFPAY ==
--- OUTSIDE RECORDS SUMMARY | 2024-08-27 19:58 | XMS_ITS | CCD ---
Author Organization [facility] Care Team Providers Care Sweet Potato Disintegrator Name Role Phone Unavailable Primary Care Provider UnavailWILFRED Hong Admitting Unavailable WILFRED VILLANUEAV Attending Unavailable Rene Cruz Unavailable Joseph Lamar Unavailable Bela Fishman Unavailable DO Jb Pierre Attending Provider Unavailable Primary Care Provider UnavailTori Coleman DOy Attending Provider Ignacio, Jb Attending Unavailable Ignacio, Jb Admitting Unavailable Ignacio, Jb Attending Unavailable Cayla Barroso Primary Care Unavailable Ignacio, Jb Admitting Unavailable IGNACIO, JB Attending Unavailable IGNACIO, JB Attending Unavailable IGNACIO, JB Attending Unavailable CORY, ROMY Attending Unavailable IGNACIO, JB Attending Unavailable IGNACIO, JB Attending Unavailable CORY, ROMY Attending Unavailable CORY, ROMY Attending Unavailable IGNACIO, JB Attending Unavailable CORY, ROMY Attending Unavailable CORY, ROMY Attending Unavailable IGNACIO, JB Attending Unavailable CORY, ROMY Attending Unavailable Medications Current Medications Medication Drug [...] COCET) 5-325 MG per tablet 1 tablet [id number] 200 actuat albuterol 0.09 mg/actuat metered dose inhaler (20 sources) beta2-Adrenergic Agonist Start: 07-22-2024 take 1 puff(s) by inhalation every four to six hours as needed for wheezing Albuterol Sulfate 90 mcg/actuation HFA aerosol inhaler Active 2 PUFF INHALATION EVERY 4-6 HOURS as needed for shortness of breath or wheezing 8.5 July 22, 2024 12:00am Start: 05-17-2023 albuterol HFA 90 mcg/act inhaler Every 4 hours 05/17/2023 Active Start: 05-17-2023 take 1 puff(s) by in halation every four hours as needed Albuterol Sulfate 90 mcg/actuation HFA aerosol inhaler Active 1 PUFF INHALATION Every 4 hours May 17, 2023 1:00am Free[employer] puff as needed Inhalation every 4 hrs; Note: Source Status: Taking; Provider: Sravanthi Cramer ( ) take 1 puff(s) by in halation every four hours as needed Albuterol Sulfate HFA 108 (90 Base) MCG/ACT 1 puff as needed Inhalation every 4 hrs Active buPROPion (20 sources) Aminoketone Start: 06-30-2024 take 1 tablet by mouth once daily in the morning Bupropion Hcl 150 mg tablet extended release 24 hr Active 0 .ROUTE .COMPLEX June 30, 2024 1:42pm TAKE 1 TABLET BY MOUTH EVERY DAY IN THE MORNING Start: 02-11-2024 End: 06-30-2024 Bupropion Hcl 150 mg tablet extended release 24 hr Discontinued 0 .ROUTE .COMPLEX February 11, 2024 3:40pm June 30, 2024 1:42pm TAKE 1 TABLET EVERY MORNING Start: 09-06-2023 End: 02-11-2024 Bupropion Hcl 150 mg tablet extended release 24 hr Discontinued 0 .ROUTE .COMPLEX September 06, 2023 8:13am February 11, 2024 3:40pm TAKE 1 TABLET EVERY MORNING Start: 09-06-2023 End: 02-11-2024 Bupropion Hcl 150 mg tablet extended release 24 hr Discontinued 0 .ROUTE .COMPLEX September 06, 2023 7:13am February 11, 2024 2:40pm TAKE 1 TABLET EVERY MORNING Start: 09-06-2023 Bupropion Hcl Active 0 .ROUTE .COMPLEX September 06, 2023 8:13am TAKE 1 TABLET EVERY MORNING Start: 06-11-2023 buPROPion XL ( Wellbutrin XL) 150 MG 24 hr tablet 06/11/2023 Active Start: 05-17-2023 End: 09-06-2023 take 1 tablet by mouth once daily in the morning Bupropion Hcl (Wellbutrin Xl) 150 mg tablet extended release 24 hr Discontinued 150 MG PO Every morning May 17, 2023 1:00am September 06, 2023 8:13am calcium chloride 0.0014 meq/ml / potassium chloride [...] End: 01-28-2021 diphenhydrAMINE (BENADRYL) injection 12.5 mg 1 ml hydrALAZINE hydrochloride 20 mg/ml injection (1 source) Arteriolar Vasodilator Start: 01-28-2021 hydrALAZINE (APRESOLINE) injection 10 mg labetalol (NORMODYNE;TRANDATE) injection syringe 10 mg (1 source) Start: 01-28-2021 labetalol (NORMODYNE;TRANDATE ) injection syringe 10 mg 10 ml lidocaine hydrochloride 10 mg/ml injection (1 source) Antiarrhythmic, Amide Local Anesthetic Start: 01-28-2021 End: 01-28-2021 lidocaine PF 1 % injection 1 mL losartan potassium 25 mg oral tablet (4 sources) Angiotensin 2 Receptor Radha Start: 02-11-2024 take 1 tablet by mouth once daily Losartan 25 mg tablet Active 25 MG PO Daily February 11, 2024 1:00am Start: 02-11-2024 End: 02-11-2024 take 1 tablet by mouth once daily Losartan 50 mg tablet Discontinued 50 MG PO Daily February 11, 2024 1:00am February 11, 2024 3:41pm magnesium oxide 400 mg oral tablet (20 sources) Start: 07-04-2023 End: 07-03-2024 take 1 tablet by mouth once daily magnesium oxide (Mag-Ox) 400 MG tablet Indications: Other migraine without status migrainosus, not intractable (CMS/HCC) Take 1 tablet (400 mg) by mouth Daily 30 tablet 11 07/04/2023 07/03/2024 Active meperidine hydrochloride 50 mg/ml injectable solution (1 source) Opioid Agonist Start: 01-28-2021 meperidine (DEMEROL) injection 12.5 mg 1 ml morphine sulfate 2 mg/ml cartridge (1 source) Opioid Agonist Start: 01-28-2021 morphine (PF) injection 2 mg Multivitamin tablet (4 sources) Start: 02-11-2024 take 1 tablet by mouth once daily Multivitamin tablet Active 1 TAB PO Daily February 11, 2024 1:00am Start: 02-11-2024 take 1 tablet by jaden th once daily Multivitamin tablet Active 1 TAB PO Daily February 11, 2024 12:00am Start: 05-17-2023 End: 06-26-2023 take 1 tablet by mouth once daily Multivitamin tablet Discontinued 1 TAB PO Daily May 17, 2023 1:00am June 26, 2023 7:36am Start: 05-17-2023 End: 06-26-2023 take 1 tablet by mouth once daily Multivitamin tablet Discontinued 1 TAB PO Daily May 17, 2023 12:00am June 26, 2023 6:36am norethindrone 0.35 mg oral tablet (10 sources) Start: 01-21-2024 End: 01-20-2025 Norethindrone (Contraceptive) (Incassia) 0.35 mg tablet Active 0.35 MG PO February 11, 2024 1:00am 2 ml ondansetron 2 mg/ml injection (1 source) Serotonin-3 Receptor Antagonist Start: 01-28-2021 End: 01-28-2021 ondansetron (ZOFRAN) injection 4 mg predniSONE 20 mg oral tablet (4 sources) Start: 07-22-2024 take 3 tablets by mouth once daily, then take 2 tablets by mouth once daily, then take 1 tablet by mouth once daily Prednisone 20 mg tablet Active 20 MG PO .COMPLEX July 22, 2024 12:00am Take 3 tabs po daily x 3 days, then take 2 tabs po daily x 3 days, then take 1 tab po daily x 3 days. Start: 12-10-2022 take 1 tablet by jaden th every twelve hours predniSONE 20 MG 1 tablet Orally bid for 5 day(s) Nov, Active Start: 11-11-2021 prednisone 10 mg 5 tablets for 2 days, 4 tablets x2 days, then 3 x2 days, 2 x2 days, 1 x2 days Orally as directed for 10 days Oct, Not-Taking MV-Min-Fe Fum-FA-DH A ( 1 PO) (20 sources) End: 03-13-2024 MV-Min-Fe Fum-FA-DH A ( 1 PO) Take by mouth 03/13/2024 Discontinued (Therapy completed) MV-Min- Fe Fum-FA-DHA ( 1 PO) Take by mouth Active 1 ml promethazine hydrochloride 25 mg/ml injection [...] / HYDROcodone bitartrate 5 mg oral tablet (5 sources) Opioid Agonist Start: 12-31-2020 End: 05-17-2023 take 1 tablet by mouth every six hours as needed for pain Hydrocodone-Acetam inophen 5-325 mg tablet Discontinued 1 TAB PO Q6H as needed for pain 12 26December 31, 2020 May 17, 2023 9:12am aprepitant 40 mg oral capsule (1 source) Substance P/Neurokinin-1 Receptor Antagonist Start: 01-28-2021 End: 01-28-2021 aprepitant (EMEND) 40 MG capsule cetirizine hydrochloride 10 mg oral capsule (20 sources) Histamine-1 Receptor Antagonist Start: 12-31-2020 End: 05-17-2023 take 2 capsules by mouth once daily Cetirizine (Zyrtec) 10 mg Capsule Discontinued 20 MG PO Daily December 31, 2020 12:00am May 17, 2023 9:12am cetirizine (ZyrT EC) 10 MG tablet Take 10 mg by mouth Active docosahexaenoic acid 200 mg oral capsule (19 sources) Start: 06-26-2023 End: 02-11-2024 Docosahexaenoic Acid ( Dha) 200 mg capsule Discontinued MG PO June 26, 2023 12:00am February 11, 2024 3:22pm 2 ml famotidine 10 mg/ml injection (1 [...] mg ketorolac tromethamine 10 mg oral tablet (8 sources) Nonsteroidal Anti-inflammatory Drug, Cyclooxygenase Inhibitor Start: 12-31-2020 End: 05-17-2023 take 1 tablet by mouth every eight hours as needed for pain Ketorolac 10 mg tablet Discontinued 10 MG PO Q8H as needed for pain December 31, 2020 12:00am May 17, 2023 9:13am labetalol hydrochloride 300 mg oral tablet (20 sources) beta-Adrenergic Radha Start: 02-11-2024 End: 02-11-2024 take 1 tablet by mouth once Labetalol 300 mg tablet Discontinued 300 MG PO Once February 11, 2024 1:00am February 11, 2024 3:39pm Start: 12-10-2023 End: 03-09-2024 take 1 tablet by mouth in the morning labetalol (Normodyne) 200 MG tablet Indications: Elevated blood pressure affecting in first trimester, antepartum Take 1 tablet (200 mg) by mouth in the morning and 1 tablet (200 mg) before bedtime. 60 tablet 2 12/10/2023 02/04/2024 Discontinued (Other) Start: 11-15-2023 take 1 tablet by jaden th in the morning labetalol (Normodyne) 200 MG tablet Take 1 tablet by mouth in the morning and 1 tablet before bedtime. 11/15/2023 Active End: 03-13-2024 take 1 tablet by mouth in the morning labetalol (Normodyne) 300 MG tablet Take 300 mg by mouth in the morning and 300 mg before bedtime. 03/13/2024 Discontinued (Therapy completed) 2 ml midazolam 1 mg/ml injection (1 source) Benzodiazepine Start: 01-28-2021 End: 01-28-2021 midazolam (VERSED) 2 MG/2ML injection Multivitamin preparation (3 sources) Start: 05-17-2023 End: 06-26-2023 take 1 tablet by mouth once daily Multivitamin Discontinued 1 TAB PO Daily May 17, 2023 1:00am June 26, 2023 7:36am Start: 05-17-2023 take 1 tablet by jaden th once daily Multivitamin Active 1 TAB PO Daily May 17, 2023 12:00am naproxen sodium 220 mg oral capsule (5 sources) Nonsteroidal Anti-inflammatory Drug Start: 05-17-2023 End: 06-26-2023 take 1 capsule by mouth every twelve hours as needed Naproxen Sodium (Aleve) 220 mg capsule Discontinued 220 MG PO Every 12 hours as needed May 17, 2023 1:00am June 26, 2023 [...] Onset: 11-11-2021 Resolved: 11-11-2021 Episodic Anxiety disorders (7 sources) Anxiety; Translations: [Anxiety disorder, unspecified] 05-17-2023 Chronic Cardiac dysrhythmias (5 sources) Palpitations; Translations: [Palpitations] 05-17-2023 Episodic Contraceptive and procreative management (2 sources) Sterilization requested; Translations: [Encounter for sterilization] 02-04-2024 Episodic Essential hypertension (2 sources) Hypertensive disorder; Translations: [Essential (primary) hypertension] 02-11-2024 Chronic Headache; including migraine (7 sources) Migraine; Translations: [Migraine, unspecified, not intractable, without status migrainosus] 05-17-2023 Chronic Hypertension complicating ; childbirth and the puerperium (2 sources) Elevated blood pressure; Translations: [Unspecified maternal hypertension, first trimester] 02-04-2024 Chronic Joint disorders and dislocations; trauma-related (6 sources) Internal derangement of right knee; Translations: [Unspecified internal derangement of right knee] Onset: 01-05-2021 Resolved: 01-05-2021 Chronic Joint disorders and dislocations; trauma-related (4 sources) Acute tear of lateral meniscus of right knee; Translations: [Other tear of lateral meniscus, current injury, right knee, initial encounter] Onset: 01-07-2021 Resolved: 01-07-2021 Episodic Other aftercare (2 sources) Postoperative visit; Translations: [Encounter for other specified surgical aftercare] 03-13-2024 Episodic Other nervous system disorders (7 sources) Attention and concentration deficit; Translations: [Impaired concentration] 05-17-2023 Chronic Other and delivery including normal (17 sources) Urine test positive; Translations: [Encounter for test, result positive] 05-30-2023 Episodic Other screening for suspected conditions (not mental disorders or infectious disease) (14 sources) Patient encounter status; Translations: [Encounter for screening for cardiovascular disorders] 05-17-2023 Episodic Residual codes; unclassified (5 sources) Insomnia; Translations: [Insomnia, unspecified] 05-17-2023 Episodic Residual codes; unclassified (2 sources) Insomnia, unspecified; Translations: [Insomnia, unspecified] 05-17-2023 Episodic Residual codes; unclassified (2 sources) Contraception ; Translations: [Other specified health status] 01-21-2024 Episodic Sprains and strains (5 sources) Rupture of anterior cruciate ligament of right knee; Translations: [Sprain of anterior cruciate ligament of right knee, initial encounter] Onset: 01-07-2021 Resolved: 01-07-2021 Episodic Unclassified (20 sources) OB Reminders Onset: 07-06-2023 07-06-2023 Past or Other Problems Problem Classification Problem Date Documented Da te Episodic/Chronic Other complications of (2 sources) Multigravida of advanced maternal age; Translations: [Supervision of elderly multigravida, third trimester] 11-29-2023 Episodic Other non-traumatic joint disorders (2 sources) Pain in right knee; Translations: [Acute pain of right knee M25.561] Onset: 01-05-2021 Resolved: 01-07-2021 Episodic Other non-traumatic joint disorders (1 source) Effusion, right knee; Translations: [Swelling of right knee joint M25.461] Onset: 01-05-2021 Resolved: 01-05-2021 Episodic Residual codes; unclassified (2 sources) Gestation period, 32 weeks; Translations: [32 weeks gestation of ] 11-14-2023 Episodic Results Test Name Value Interpretation Reference Range Facility ALL CBC WITH AUTO DIFFon BASOPHILS ABSOLUTE AUTO 0.1 [facility] Basophils/100 WBC (Bld) 0.6 % 0.2 - 2.0 % [facility] Eosinophils/100 WBC (Bld) 1.2 % 0.9 - 7.0 % [facility] Erythrocyte distribution width (RBC) [Ratio] 11.6 % 11.0 - 15.0 % [facility] Hematocrit (Bld) [Volume fraction] 44.2 % 36.0 - 48.0 % [facility] Hemoglobin (Bld) [Mass/Vol] 14.8 g/dL 12.0 - 16.0 g/dL [facility] IMMATURE GRANULOCYTES ABS AUTO 0.03 [facility] Immature granulocytes/100 WBC (Bld) 0.3 % 0.0 - 0.5 % [facility] Interpretation and review of laboratory results Abnormal [facility] LYMPHOCYTES ABSOLUTE AUTO 2 [facility] Lymphocytes/100 WBC (Bld) 20.9 % 20.5 - 60.0 % [facility] MCH (RBC) [Entitic mass] 31.3 pg 26.7 - 34.0 pg [facility] MCHC (RBC) [Mass/Vol] 33.5 g/dL 29.9 - 35.2 g/dL [facility] MCV (RBC) [Entitic vol] 93.4 fL 81.0 - 99.0 fL [facility] MONOCYTES ABSOLUTE AUTO 0.5 [facility] Monocytes/100 WBC (Bld) 5.1 % 1.7 - 12.0 % [facility] NEUTROPHILS ABSOLUTE AUTO 6.7 High [facility] Neutrophils/100 WBC (Bld) 71.9 % 43.0 - 75.0 % [facility] Platelet mean volume (Bld) [Entitic vol] 10 fL 9.5 - 13.5 fL [facility] EO # 0.1 [facility] PLT 308 [facility] RBC 4.73 [facility] WBC 9.3 [facility] [place] 02-29-2024 L -- ---- Specimen: [id number] Received: 03/03/24 Status: YOU Ybarra Num: [id number] Spec Type: Surgical Subm Dr: Jb Pierre Tissues: A Fallopian Tube - Sterilization (BILAT FAL TUBES) Procedures: HE/2, Gross/Micro L2 ---- Age/ Patient Sex Location Account Attending Physician ---- Kathia Martinez 38/F LABELL [id number] Jb Pierre ---- SPEC NUM: [id number] RECD: 03/03/24 STATUS: YOU YBARRA NUM: [id number] ARCHANA: 02/29/242664 [facility] DR: Jb Pierre ENTERED: 03/03/24 [facility] DR: Vinny Jones SPEC TYPE: Surgical DEPT: GRACIA MCNULTY ENTERED BY: [id number] RECV BY: [id number] ORDERED: HE/2, Gross/Micro L2 ORDERED: HE/2, Gross/Micro L2 Pathological Diagnosis Bilateral fallopian tubes, bilateral tubal ligation: - 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 Clinical Information Sterilization Gross Description Received in formalin labeled with the patients name, date of , and bilateral fallopian tubes are bilateral, unoriented fallopian tubes with fimbriated distal ends, 4.5 x 0.8 cm, and 5 x 0.8 cm. The serosa is becker-purple, smooth and glistening. Serial sections reveal pinpoint lumen in each segment. Cassettes: A1 Entirety of trisected fimbriated end and indirect sales representative cross-sections of shorter tube A2 Entirety of trisected fimbriated end and indirect sales representative cross-sections from longer fallopian tube (2, ss, [id number] A) Microscopic Description Microscopic examination is performed. ---- Specimen: [id number] Received: 03/03/24 Status: YOU Ybarra Num: [id number] Spec Type: Surgical Subm Dr: Jb Pierre Tissues: A Fallopian Tube - Sterilization (BILAT FAL TUBES) Procedures: HE/Da, Gross/Micro L2 ---- Patient: Kathia Martinez [id number] (Continued) ---- Specimen: [id number] Received: 03/03/24 (Continued) Signed (signature on file) Sumit Anderson MD 03/04/24 1141 ---- Specimen: [id number] Received: 03/03/24 Status: YOU Ybarra Num: [id number] Spec Type: Surgical Subm Dr: Jb Pierre Tissues: A Fallopian Tube - Sterilization (BILAT FAL TUBES) Procedures: Javi SCHAEFFER/Og L2 ---- Patient: Kathia Martinez [id number] (Continued) ---- Specimen: [id number] Received: 03/03/24 (Continued) CPT Codes 83668 ---- ---- Specimen: [id number] Received: 03/03/24 Status: YOU Ybarra Num: [id number] Spec Type: Surgical Subm Dr: Jb Pierre Tissues: A Fallopian Tube - Sterilization (BILAT FAL TUBES) Procedures: HE/2, Javi/Og L2 ---- Patient: Kathia Martinez [id number] (Continued) ---- Signed (signature on file) Sumit Anderson MD 03/04/24 1141 Normal [facility] ALL CBC WITH AUTO DIFFon BASOPHILS ABSOLUTE AUTO 0.0 [facility] Basophils/100 WBC (Bld) 0.2 % 0.2 - 2.0 % [facility] Eosinophils/100 WBC (Bld) 0.0 % Low 0.9 - 7.0 % [facility] Erythrocyte distribution width (RBC) [Ratio] 12.5 % 11.0 - 15.0 % [facility] Hematocrit (Bld) [Volume fraction] 36.5 % 36.0 - 48.0 % [facility] Hemoglobin (Bld) [Mass/Vol] 12.3 g/dL 12.0 - 16.0 g/dL [facility] IMMATURE GRANULOCYTES ABS AUTO 0.11 High [facility] Immature granulocytes/100 WBC (Bld) 0.6 % High 0.0 - 0.5 % [facility] Interpretation and review of laboratory results Abnormal [facility] LYMPHOCYTES ABSOLUTE AUTO 0.8 Low [facility] Lymphocytes/100 WBC (Bld) 4.0 % Low 20.5 - 60.0 % [facility] MCH (RBC) [Entitic mass] 31.3 pg 26.7 - 34.0 pg [facility] MCHC (RBC) [Mass/Vol] 33.7 g/dL 29.9 - 35.2 g/dL [facility] MCV (RBC) [Entitic vol] 92.9 fL 81.0 - 99.0 fL [facility] MONOCYTES ABSOLUTE AUTO 0.4 [facility] Monocytes/100 WBC (Bld) 2.0 % 1.7 - 12.0 % [facility] NEUTROPHILS ABSOLUTE AUTO 17.5 High [facility] Neutrophils/100 WBC (Bld) 93.2 % High 43.0 - 75.0 % [facility] Platelet mean volume (Bld) [Entitic vol] 11.7 fL 9.5 - 13.5 fL [facility] EO # 0.0 [facility] TB PLT 171 [facility] RBC 3.93 Low [facility] TB WBC 18.8 High [facility] CBC WITH PLATELET NO DI FFERENTIALon 12-17-2023 Erythrocyte distribution width (RBC) [Ratio] 12.6 % 11.0 - 15.0 % [facility] Hematocrit (Bld) [Volume fraction] 37.0 % 36.0 - 48.0 % [facility] Hemoglobin (Bld) [Mass/Vol] 12.6 g/dL 12.0 - 16.0 g/dL [facility] Interpretation and review of laboratory results Abnormal [facility] MCH (RBC) [Entitic mass] 31.9 pg 26.7 - 34.0 pg [facility] MCHC (RBC) [Mass/Vol] 34.1 g/dL 29.9 - 35.2 g/dL [facility] MCV (RBC) [Entitic vol] 93.7 fL 81.0 - 99.0 fL [facility] Platelet mean volume (Bld) [Entitic vol] 12.6 fL 9.5 - 13.5 fL [facility] PLT 187 [facility] RBC 3.95 Low [facility] WBC 10.4 [facility] [place] 12-17-2023 L Specimen: [id number] Received: 12/18/23 [facility]: [id number] Spec Type: Surgical Subm Dr: Jb Pierre Tissues: A Placenta - 3rd Trimester (Greater than 28 weeks) (PLACENTA) Procedures: HE/3, Gross/Micro L5 Age/ Patient Sex Location Account Attending Physician Kathia Martinez 38/F LABELL [id number] Jb Pierre SPEC NUM: [id number] RECD: 12/18/23 STATUS: YOU YBARRA NUM: [id number] ARCHANA: 12/17/[address]: Jb Pierre ENTERED: 12/18/[address] [facility] [address]: SPEC TYPE: Surgical DEPT: GRACIA MCNULTY ENTERED BY: [id number] RECV BY: [id number] ORDERED: HE/3, Gross/Micro L5 ORDERED: HE/3, Gross/Micro L5 Pathological Diagnosis Placental removal, unspecified delivery type per specimen registration: -Mature third trimester placenta with three-vessel cord, small for gestational age (258 g) -No evidence of acute chorioamnionitis, funisitis, or villitis -Incidental mild hypo-rotation of the umbilical cord -Incidental 1 small 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 The surface is blue-purple with a normal vascular pattern. The umbilical cord is inserted centrally 4.0 cm from the margin. The umbilical cord measures 25.0 cm in length with a diameter of 1.1 cm, and contains 3 vessels. 1 coil per 10 cm. The membranes are gómez-pink, translucent insert at the margin. The maternal surface is pink-red, spongy and complete. Hydraulic Assembler sections are as follows: A1 membranes and umbilical cord A2 central section A3 peripheral section ---- Specimen: [id number] Received: 12/18/23 Status: YOU Ybarra Num: [id number] Spec Type: Surgical Subm Dr: Jb Pierre Tissues: A Placenta - 3rd Trimester (Greater than 28 weeks) (PLACENTA) Procedures: /Jesus, Gross/Micro L5 ---- Patient: Kathia Martinez Ananth [id number] (Continued) ---- Specimen: [id number] Received: 12/18/23 (Continued) Gross Description (Continued) Signed (signature on file) Madelyn Romero MD 12/24/231911 ---- Specimen: [id number] Received: 12/18/23 Status: YOU Ybarra Num: [id number] Spec Type: Surgical Subm Dr: Jb Pierre Tissues: A Placenta - 3rd Trimester (Greater than 28 weeks) (PLACENTA) Procedures: /, Gross/Micro L5 ---- Patient: Kathia Martinez Ananth [id number] (Continued) ---- Specimen: [id number] Received: 12/18/23 (Continued) Gross Description (Continued) DM Microscopic Description Microscopic examinations are performed supporting the above interpretation CPT Codes 67931 ---- ---- Specimen: [id number] Received: 12/18/23 Status: YOU Ybarra Num: [id number] Spec Type: Surgical Subm Dr: Jb Pierre Tissues: A Placenta - 3rd Trimester (Greater than 28 weeks) (PLACENTA) Procedures: HE/3, Gross/Micro L5 ---- Patient: MichelleKathia [id number] (Continued) ---- Signed (signature on file) Madelyn Romero MD 12/24/231911 Normal [facility] Urinalysis macro (dipstick) panel (U)on 12-13-2023 Bilirubin, UA Negative Negative - 4(70) +++ mg/dL [facility] Healthcare Blood, UA Negative Negative - 50 Vinnie/mcL [facility] Clarity, UA Clear [facility] Color, UA Yellow [facility] Glucose, UA Negative Negative - 2000(110) ++++ mg/dL [facility] Interpretation and review of laboratory results Normal [facility] Ketones, UA Negative Negative - 160(16) ++++ mg/dL [facility] Leukocytes, UA Negative Negative - 500+++ Krzysztof/mcL [facility] Nitrite, UA Negative Negative - Positive [facility] pH, UA 6.0 5 - 9 [facility] Protein, UA Negative Negative - 1999(20) ++++ mg/dL [facility] Spec Grav, UA 1.025 1 - 1.03 [facility] Urobilinogen, UA 1.0 0.2 - 12 mg/dL [facility] ALL BUNon 12-07-2023 Urea nitrogen [Mass/Vol] 12.0 mg/dL 7.0 - 18.0 mg/dL [facility] ALL URIC ACIDon 12-07-2023 Urate [Mass/Vol] 5.0 mg/dL 2.6 - 6.0 mg/dL [facility] Del 12-07-2023 ALT [Catalytic activity/Vol] 24 U/L 14 - 59 U/L [facility] Lisa 12-07-2023 AST [Catalytic activity/Vol] 18 U/L 15 - 37 U/L [facility] No Panel Informationon 12-06 CL[facility] CREATININEon 12-07-2023 Creatinine [Mass/Vol] 0.67 mg/dL 0.55 - 1.02 mg/dL [facility] GFR/1.73 sq M.predicted CKD-EPI (S/P/Bld) [Vol rate/Area] >60 60 - PINF [facility] EGFR-NON AF COMORAN >60 60 - PINF [facility] Urinalysis macro (dipstick) panel (U)on 12-05-2023 Bilirubin, UA Negative Negative - 4(70) +++ mg/dL [facility] Blood, UA Negative Negative - 50 Vinnie/mcL [facility] Clarity, UA Clear [facility] Color, UA Yellow [facility] Glucose, UA Negative Negative - 1999(110) ++++ mg/dL [facility] Interpretation and review of laboratory results Normal [facility] Ketones, UA Negative Negative - 160(16) ++++ mg/dL [facility] Leukocytes, UA Negative Negative - 500+++ Krzysztof/mcL [facility] Nitrite, UA Negative Negative - Positive [facility] pH, UA 6.5 5 - 9 [facility] Protein, UA Negative Negative - 1999(20) ++++ mg/dL [facility] Spec Grav, UA 1.025 1 - 1.03 [facility] Urobilinogen, UA 0.2 0.2 - 12 mg/dL [facility] Urinalysis macro (dipstick) panel (U)on 11-29-2023 Bilirubin, UA Negative Negative - 4(70) +++ mg/dL [facility] Blood, UA Negative Negative - 50 Vinnie/mcL [facility] Clarity, UA Clear [facility] Color, UA Yellow [facility] Glucose, UA Negative Negative - 1999(110) ++++ mg/dL [facility] Interpretation and review of laboratory results Abnormal [facility] Ketones, UA Negative Negative - 160(16) ++++ mg/dL [facility] Leukocytes, UA Positive Negative - 500+++ Krzysztof/mcL [facility] Comment on above: small Nitrite, UA Negative Negative - Positive [facility] pH, UA 6.0 5 - 9 [facility] Protein, UA Negative Negative - 1999(20) ++++ mg/dL [facility] Spec Grav, UA 1.025 1 - 1.03 [facility] Urobilinogen, UA 0.2 0.2 - 12 mg/dL [facility] TBH TOTAL PROTEIN 24 HOUR UR INEon 11-17-2023 Interpretation and review of laboratory results Abnormal [facility] Protein (U) [Mass/Vol] 14.9 mg/dL High NINF - 11.9 mg/dL [facility] TOTAL PROTEIN 24 HOUR URINE 163.9 High [facility] TOTAL VOLUME 24 HOUR URINE 1100 mL/24hr [facility]ISYNC [facility] ALL CBC WITH AUTO DIFFon BASOPHILS ABSOLUTE AUTO 0.1 [facility] Basophils/100 WBC (Bld) 0.5 % 0.2 - 2.0 % [facility] Eosinophils/100 WBC (Bld) 1.0 % 0.9 - 7.0 % [facility] Erythrocyte distribution width (RBC) [Ratio] 11.9 % 11.0 - 15.0 % [facility] Hematocrit (Bld) [Volume fraction] 37.4 % 36.0 - 48.0 % [facility] Hemoglobin (Bld) [Mass/Vol] 12.8 g/dL 12.0 - 16.0 g/dL [facility] IMMATURE GRANULOCYTES ABS AUTO 0.09 High [facility] Immature granulocytes/100 WBC (Bld) 0.7 % High 0.0 - 0.5 % [facility] Interpretation and review of laboratory results Abnormal [facility] LYMPHOCYTES ABSOLUTE AUTO 2.2 [facility] Lymphocytes/100 WBC (Bld) 16.7 % Low 20.5 - 60.0 % [facility] MCH (RBC) [Entitic mass] 31.7 pg 26.7 - 34.0 pg [facility] MCHC (RBC) [Mass/Vol] 34.2 g/dL 29.9 - 35.2 g/dL [facility] MCV (RBC) [Entitic vol] 92.6 fL 81.0 - 99.0 fL [facility] MONOCYTES ABSOLUTE AUTO 1.1 High [facility] Monocytes/100 WBC (Bld) 7.9 % 1.7 - 12.0 % [facility] NEUTROPHILS ABSOLUTE AUTO 9.7 High [facility] Neutrophils/100 WBC (Bld) 73.2 % 43.0 - 75.0 % [facility] Platelet mean volume (Bld) [Entitic vol] 11.6 fL 9.5 - 13.5 fL [facility] TBH EO # 0.1 [facility] TB PLT 198 [facility] TB RBC 4.04 Low [facility] TB WBC 13.3 High [facility] Choriogonadotropin.beta subu nit ( test) [Presence] in Urineon 05-25-2023 Beta HCG ( test) Ql (U) Positive [facility] POCT urine pregnancyOrdered By: Wilfred Villanueva on 01-28-2021 Beta HCG ( test) Ql (U) Negative NEGATIVE [facility] Phone: Comment on above: Specimens with hCG l evels near the threshold of the test (25 mIU/mL) may give a negative or indeterminate result. In such cases, another test should be performed with a new specimen in 48-72 hours. If early is suspected clinically in this setting, correlation with quantitative serum b-hCG level is suggested. TESTING PERFORMED AT [address] [address] [employer] Phone: Vital Signs Date Time Vital Sign Value Performing Clinician Facility 07-22-2024 10:45-0400 Body height 160.02 cm [facility] 07-22-2024 10:45-0400 Body mass index (BMI) [Ratio] 35.2 kg/m2 [facility] 07-22-2024 10:45-0400 Body temperature 98.1 [degF] [facility] 07-22-2024 10:45-0400 Body weight 90.32 kg [facility] 07-22-2024 10:45-0400 Diastolic blood pressure 96 mm[Hg] [facility] 07-22-2024 10:45-0400 Heart rate 106 /min [facility] 07-22-2024 10:45-0400 Respiratory rate 18 /min [facility] 07-22-2024 10:45-0400 SaO2% (BldA) [Mass fraction] 96 % [facility] 07-22-2024 10:45-0400 Systolic blood pressure 133 mm[Hg] [facility] 03-13-2024 09:26-0500 Body mass index (BMI) [Ratio] 33.83 kg/m2 Romy NEVAREZ Work Phone: [facility] 03-13-2024 09:26-0500 Body weight 86.64 kg Romy NEVAREZ Work Phone: [facility] 03-13-2024 09:26-0500 Diastolic blood pressure 74 mm[Hg] Romy NEVAREZ Work Phone: [facility] 03-13-2024 09:26-0500 Systolic blood pressure 122 mm[Hg] Romy NEVAREZ Work Phone: [facility] 02-11-2024 14:19-0500 Body height 160.02 cm Jb Ignacio DO Work Phone: [facility] 02-11-2024 14:19-0500 Body mass index (BMI) [Ratio] 33.5 kg/m2 Bj Ignacio DO Work Phone: [facility] 02-11-2024 14:19-0500 Body weight 85.72 kg Jb Ignacio DO Work Phone: [facility] 02-11-2024 14:19-0500 Diastolic blood pressure 88 mm[Hg] Jb Ignacio DO Work Phone: [facility] 02-11-2024 14:19-0500 Heart rate 67 /min Jb Ignacio DO Work Phone: [facility] 02-11-2024 14:19-0500 SaO2% (BldA) [Mass fraction] 96 % Jb Ignacio DO Work Phone: [facility] 02-11-2024 14:19-0500 Systolic blood pressure 132 mm[Hg] Jb Ignacio DO Work Phone: [facility] 02-04-2024 10:10-0500 Body mass index (BMI) [Ratio] 34.33 kg/m2 Jb Ignacio DO Work Phone: [facility] 02-04-2024 10:10-0500 Body weight 87.91 kg Jb Ignacio DO Work Phone: [facility] 02-04-2024 10:10-0500 Diastolic blood pressure 78 mm[Hg] Jb Ignacio DO Work Phone: [facility] 02-04-2024 10:10-0500 Systolic blood pressure 122 mm[Hg] Jb Ignacio DO Work Phone: [facility] 01-21-2024 15:49-0400 Body mass index (BMI) [Ratio] 33.48 kg/m2 Romy NEVAREZ Work Phone: [facility] 01-21-2024 15:49-0400 Body weight 85.73 kg Romy NEVAREZ Work Phone: [facility] 01-21-2024 15:49-0400 Diastolic blood pressure 76 mm[Hg] Romy NEVAREZ Work Phone: [facility] 01-21-2024 15:49-0400 Systolic blood pressure 122 mm[Hg] Romy NEVAREZ Work Phone: [facility] 12-24-2023 10:22-0400 Body mass index (BMI) [Ratio] 32.91 kg/m2 Romy [place] PA Work Phone: [facility] 12-24-2023 10:22-0400 Body weight 84.28 kg Romy Cory PA Work Phone: [facility] 12-24-2023 10:22-0400 Diastolic blood pressure 70 mm[Hg] Romy Cory PA Work Phone: [facility] 12-24-2023 10:22-0400 Systolic blood pressure 116 mm[Hg] Romy Cory PA Work Phone: [facility] 12-13-2023 08:48-0400 Body mass index (BMI) [Ratio] 35.39 kg/m2 Jb Ignacio DO Work Phone: [facility] 12-13-2023 08:48-0400 Body weight 90.63 kg Jb Ignacio DO Work Phone: [facility] 12-13-2023 08:48-0400 Diastolic blood pressure 80 mm[Hg] Jb Ignacio DO Work Phone: [facility] 12-13-2023 08:48-0400 Systolic blood pressure 122 mm[Hg] Jb Ignacio DO Work Phone: [facility] 12-05-2023 08:49-0400 Body mass index (BMI) [Ratio] 35.87 kg/m2 Romy Cory PA Work Phone: [facility] 12-05-2023 08:49-0400 Body weight 91.85 kg Romy [place] PA Work Phone: [facility] 12-05-2023 08:49-0400 Diastolic blood pressure 80 mm[Hg] Romy Cory PA Work Phone: [facility] 12-05-2023 08:49-0400 Systolic blood pressure 124 mm[Hg] Romy [place] PA Work Phone: [facility] 11-29-2023 08:31-0400 Body mass index (BMI) [Ratio] 34.37 kg/m2 Romy Pacheco ROQUE Work Phone: [facility] 11-29-2023 08:31-0400 Body weight 88 kg Romy Pacheco PA Work Phone: [facility] 11-29-2023 08:31-0400 Diastolic blood pressure 72 mm[Hg] Romy Pacheco PA Work Phone: [facility] 11-29-2023 08:31-0400 Systolic blood pressure 120 mm[Hg] Romy Pacheco PA Work Phone: [facility] 11-14-2023 15:53-0400 Body mass index (BMI) [Ratio] 34.15 kg/m2 Jb Ignacio DO Work Phone: [facility] 11-14-2023 15:53-0400 Body weight 87.45 kg Jb Ignacio DO Work Phone: [facility] 11-14-2023 15:53-0400 Diastolic blood pressure 72 mm[Hg] Jb Ignacio DO Work Phone: [facility] 11-14-2023 15:53-0400 Systolic blood pressure 120 mm[Hg] Jb Ignacio DO Work Phone: [facility] 06-26-2023 07:35-0400 Body height 160.02 cm [facility] 06-26-2023 07:35-0400 Body mass index (BMI) [Ratio] 29.4 kg/m2 [facility] 06-26-2023 07:35-0400 Body weight 75.29 kg [facility] 06-26-2023 07:35-0400 Diastolic blood pressure 81 mm[Hg] [facility] 06-26-2023 07:35-0400 Heart rate 89 /min [facility] 06-26-2023 07:35-0400 SaO2% (BldA) [Mass fraction] 95 % [facility] 06-26-2023 07:35-0400 Systolic blood pressure 119 mm[Hg] [facility] 05-25-2023 10:30-0500 Body height 160.02 cm [facility] 05-25-2023 10:30-0500 Body mass index (BMI) [Ratio] 30.4 kg/m2 [facility] 05-25-2023 10:30-0500 Body weight 78.01 kg [facility] 05-25-2023 10:30-0500 Diastolic blood pressure 89 mm[Hg] [facility] 05-25-2023 10:30-0500 Heart rate 86 /min [facility] 05-25-2023 10:30-0500 SaO2% (BldA) [Mass fraction] 99 % [facility] 05-25-2023 10:30-0500 Systolic blood pressure 129 mm[Hg] [facility] 05-17-2023 08:11-0500 Body height 160.02 cm [facility] 05-17-2023 08:11-0500 Body mass index (BMI) [Ratio] 30.2 kg/m2 [facility] 05-17-2023 08:11-0500 Body weight 77.56 kg [facility] 05-17-2023 08:11-0500 Diastolic blood pressure 82 mm[Hg] [facility] 05-17-2023 08:11-0500 Heart rate 78 /min [facility] 05-17-2023 08:11-0500 SaO2% (BldA) [Mass fraction] 98 % [facility] 05-17-2023 08:11-0500 Systolic blood pressure 135 mm[Hg] [facility] 12-10-2022 12:05-0400 Body height 160.02 cm Bela Fishman Other [employer] Other 12-10-2022 12:05-0400 Body mass index (BMI) [Ratio] 30.11 kg/m2 Bela Fishman Other [facility] Other 12-10-2022 12:05-0400 Body temperature 100.3 [degF] Bela Fishman Other [facility] Other 12-10-2022 12:05-0400 Body weight 77.11 kg Bela Fishman Other [facility] Other 12-10-2022 12:05-0400 Diastolic blood pressure 106 mm[Hg] Bela Fishman Other [facility] Other 12-10-2022 12:05-0400 Respiratory rate 18 /min Bela Fishman Other [facility] [employer] [facility] Other 12-10-2022 12:05-0400 SaO2% (BldA) [Mass fraction] 99 % Bela Fishman Other [facility] Other 12-10-2022 12:05-0400 Systolic blood pressure 170 mm[Hg] Bela Fishman Other [facility] Other 11-11-2021 17:40-0400 Body height 160.02 cm Joseph Lamar Other [facility] Other 11-11-2021 17:40-0400 Body mass index (BMI) [Ratio] 31 kg/m2 Joseph Lamar Other [facility] Other 11-11-2021 17:40-0400 Body temperature 99.8 [degF] Joseph Lamar Other [facility] Other 11-11-2021 17:40-0400 Body weight 79.38 kg Joseph Lamar Other [facility] Other 11-11-2021 17:40-0400 Respiratory rate 18 /min Joseph Lamar Other [facility] [employer] [facility] Other 11-11-2021 17:40-0400 SaO2% (BldA) [Mass fraction] 98 % Joseph Lamar Other [facility] Other 01-28-2021 14:35-0400 Diastolic blood pressure 88 mm[Hg] Wilfred Villanueva MD Work Phone: [employer] Work Phone: 01-28-2021 14:35-0400 Heart rate 64 /min Wilfred Villanueva MD Work Phone: [employer] Work Phone: 01-28-2021 14:35-0400 Respiratory rate 11 /min Wilfred Villanueva MD Work Phone: [employer] Work Phone: 01-28-2021 14:35-0400 SaO2% (BldA) [Mass fraction] 98 % Wilfred Villanueva MD Work Phone: [employer] Work Phone: 01-28-2021 14:35-0400 Systolic blood pressure 132 mm[Hg] Wilfred Villanueva MD Work Phone: [employer] Work Phone: 01-28-2021 13:31-0400 Body temperature 97.81 [degF] Wilfred Villanueva MD Work Phone: [employer] Work Phone: 01-28-2021 10:22-0400 Body height 160 cm Wilfred Villanueva MD Work Phone: [employer] Work Phone: 01-28-2021 10:10-0400 Body mass index (BMI) [Ratio] 34.72 kg/m2 Wilfred Villanueva MD Work Phone: [employer] Work Phone: 01-28-2021 10:10-0400 Body weight 88.91 kg Wilfred Villanueva MD Work Phone: [facility] Work Phone: Encounters Encounter Date Encounter Type Care Provider Facility Start: 07-22-2024 End: 07-22-2024 ambulatory [facility] Work Phone: Start: 07-22-2024 End: 07-22-2024 Patient encounter procedure [facility] Work Phone: Start: 03-13-2024 End: 03-13-2024 Bamboo flowsheet Romy NEVAREZ Work Phone: [facility] Start: 03-13-2024 End: 03-13-2024 Bamboo flowsheet Romy NEVAREZ Work Phone: [facility] Start: 03-13-2024 End: 03-13-2024 Postop follow up visit related to original px Romy NEVAREZ Work Phone: [facility] Comment on above: Postoperative visit; S/P tubal ligation Start: 03-13-2024 End: 03-13-2024 ambulatory ROMY PACHECO Not Available Start: 02-29-2024 End: 02-29-2024 Clinisync Result Encounter Jb Ignacio DO Work Phone: [facility] Unsolicited Start: 02-29-2024 End: 02-29-2024 Clinisync Result Encounter Jb Ignacio DO Work Phone: [facility] Unsolicited Start: 02-29-2024 End: 02-29-2024 ambulatory Jb Ignacio Facility:[facility] Start: 02-11-2024 End: 02-11-2024 ambulatory Jb Ignacio DO Work Phone: [facility] Work Phone: Start: 02-11-2024 End: 02-11-2024 Patient encounter procedure Jb Ignacio DO Work Phone: [facility] Work Phone: Start: 02-04-2024 End: 02-04-2024 Office outpatient visit 15 minutes Jb Ignacio DO Work Phone: [facility] Comment on above: Encounter for postpa rtum visit; Pre-op examination; Request for sterilization; Elevated blood pressure affecting in first trimester, antepartum Start: 02-04-2024 End: 02-04-2024 Preprocedural examination done Jb Ignacio DO Work Phone: [facility] Start: 02-04-2024 End: 02-04-2024 ambulatory JB IGNACIO Not Available Start: 01-21-2024 End: 01-21-2024 care visit Romy NEVAREZ Work Phone: [facility] Comment on above: 6 weeks f ollow-up; S/P section; Uses control Start: 01-21-2024 End: 01-21-2024 ambulatory ROMY PACHECO Not Available Start: 12-24-2023 End: 12-24-2023 Bamboo flowsheet Romy NEVAREZ Work Phone: [facility] Start: 12-24-2023 End: 12-24-2023 Bamboo flowsheet Romy NEVAREZ Work Phone: [facility] Start: 12-24-2023 End: 12-24-2023 Postop follow up visit related to original px Romy NEVAREZ Work Phone: [facility] Comment on above: Encounter for postpa rtum visit; S/P section Start: 12-24-2023 End: 12-24-2023 ambulatory ROMY PACHECO Not Available Start: 12-18-2023 End: 12-18-2023 Clinisync Result Encounter Jb Ignacio DO Work Phone: [facility] External Department Unsolicited Start: 12-18-2023 End: 12-18-2023 Clinisync Result Encounter Jb Ignacio DO Work Phone: [facility] External Department Unsolicited Start: 12-17-2023 End: 12-17-2023 ambulatory Jb Ignacio [facility] Work Phone: Start: 12-17-2023 End: 12-17-2023 Departed Referred DO Jb Ignacio Work Phone: [facility] Start: 12-17-2023 End: 12-17-2023 Clinisync Result Encounter Jb Ignacio DO Work Phone: [facility] Unsolicited Start: 12-17-2023 End: 12-17-2023 Clinisync Result Encounter Jb Ignacio DO Work Phone: [facility] Unsolicited Start: 12-13-2023 End: 12-13-2023 Bamboo flowsheet Jb Ignacio DO Work Phone: [facility] Start: 12-13-2023 End: 12-13-2023 Bamboo flowsheet Jb Ignacio DO Work Phone: [facility] Start: 12-13-2023 End: 12-13-2023 flow sheet Jb Ignacio DO Work Phone: [facility] Comment on above: Third trimester preg reny Start: 12-13-2023 End: 12-13-2023 ambulatory JB IGNACIO Not Available Start: 12-07-2023 End: 12-07-2023 Clinisync Result Encounter Jb Ignacio DO Work Phone: [facility] Unsolicited Start: 12-07-2023 End: 12-07-2023 Clinisync Result Encounter Jb Ignacio DO Work Phone: [facility] Unsolicited Start: 12-07-2023 End: 12-07-2023 Telephone encounter Jb Ignacio DO Work Phone: [facility] Start: 12-05-2023 End: 12-05-2023 Bamboo flowsheet Romy NEVAREZ Work Phone: [facility] Start: 12-05-2023 End: 12-05-2023 Bamboo flowsheet Romy NEVAREZ Work Phone: [facility] Start: 12-05-2023 End: 12-05-2023 flow sheet Romy NEVAREZ Work Phone: [facility] Comment on above: Third trimester preg reny Start: 12-05-2023 End: 12-05-2023 ambulatory ROMY PACHECO Not Available Start: 11-29-2023 End: 11-29-2023 Bamboo flowsheet Romy Pacheco PA Work Phone: [facility] Start: 11-29-2023 End: 11-29-2023 Bamboo flowsheet Romy NEVAREZ Work Phone: [facility] Start: 11-29-2023 End: 11-29-2023 flow sheet Romy NEVAREZ Work Phone: [facility] Comment on above: Third trimester preg reny; Multigravida of advanced maternal age in third trimester Start: 11-29-2023 End: 11-29-2023 ambulatory ROMY PACHECO Not Available Start: 11-16-2023 End: 11-17-2023 Clinisync Result Encounter Jb Ignacio DO Work Phone: [facility] Unsolicited Start: 11-16-2023 End: 11-17-2023 Clinisync Result Encounter Jb Ignacio DO Work Phone: [facility] Unsolicited Start: 11-15-2023 End: 11-15-2023 Clinisync Result Encounter Jb Ignacio DO Work Phone: [facility] Unsolicited Start: 11-15-2023 End: 11-15-2023 Clinisync Result Encounter Jb Ignacio DO Work Phone: [facility] Unsolicited Start: 11-14-2023 End: 11-14-2023 flow sheet Jb Ignacio DO Work Phone: [facility] Comment on above: 32 weeks gestation o f Start: 11-14-2023 End: 11-14-2023 ambulatory JB IGNACIO Not Available Start: 11-14-2023 End: 11-14-2023 Bamboo flowsheet Jb Ignacio DO Work Phone: [facility] Start: 11-14-2023 End: 11-14-2023 Bamboo flowsheet Jb Ignacio DO Work Phone: [facility] Start: 10-31-2023 End: 10-31-2023 ambulatory JB IGNACIO Not Available Start: 10-17-2023 End: 10-17-2023 ambulatory ROMY RAMIREZEY Not Available Start: 09-19-2023 End: 09-19-2023 ambulatory JB IGNACIO Not Available Start: 08-21-2023 End: 08-21-2023 ambulatory JB IGNACIO Not Available Start: 07-18-2023 End: 07-18-2023 ambulatory JB IGNACIO Not Available Start: 06-26-2023 End: 06-26-2023 ambulatory [facility] Work Phone: Start: 06-26-2023 End: 06-26-2023 Patient encounter procedure [facility] Work Phone: Start: 06-14-2023 End: 06-14-2023 ambulatory JB IGNACIO Not Available Start: 05-25-2023 End: 05-25-2023 Patient encounter procedure [facility] Work Phone: Start: 05-17-2023 End: 05-17-2023 ambulatory [facility] Work Phone: Start: 05-17-2023 End: 05-17-2023 Patient encounter procedure [facility] Work Phone: Start: 12-10-2022 End: 12-10-2022 ambulatory Bela Fishman Other [facility] Other Start: 12-10-2022 Office outpatient vi sit 15 minutes Bela Fishman [facility] Start: 11-11-2021 End: 11-11-2021 ambulatory Joseph Lamar Other [facility] [employer] [facility] [employer] [facility] Other Start: 11-11-2021 Office outpatient vi sit 15 minutes Joseph Lamar [facility] Start: 01-28-2021 End: 01-28-2021 ambulatory WILFRED VILLANUEVA [facility] Start: 01-28-2021 End: 01-28-2021 Subsequent hospital visit by physician Wilfred Villanueva MD Work Phone: [facility] Comment on above: Rupture of anterior cruciate ligament of right knee, initial encounter (Primary Dx) Start: 01-25-2021 Subsequent hospital visit by physician [facility] Pat Schedule [facility] Pre-Admit Testing Comment on above: Canceled (Other) Start: 01-18-2021 Telephone encounter Rene Cruz [facility] Start: 01-07-2021 Office outpatient vi sit 25 minutes Rene Cruz [facility] Start: 01-05-2021 Office outpatient ne w 45 minutes Rene Cruz [facility] Procedures Date Procedure Procedure Detail Performing Clinician Start: 02-29-2024 ALL CBC WITH AUTO DIFF Jb Ignacio DO Work Phone: Start: 12-18-2023 ALL CBC WITH AUTO DIFF Jb Ignacio DO Work Phone: Start: 12-17-2023 [facility] CBC WITH PLATEL ET NO DIFFERENTIAL Jb Ignacio DO Work Phone: Start: 12-13-2023 Urnls dip stick/tabl et rgnt non-auto w/o micrscp Jb Ignacio DO Work Phone: Start: 12-07-2023 ALL BUN Jb Fazi o DO Work Phone: Start: 12-07-2023 ALL URIC ACID Jb Gricelda io DO Work Phone: Start: 12-07-2023 [facility] ALT Jb Fazi o DO Work Phone: Start: 12-07-2023 [facility] AST Jb Fazi o DO Work Phone: Start: 12-07-2023 [facility] CREATININE Jb Fa zio DO Work Phone: Start: 12-05-2023 Urnls dip stick/tabl et rgnt non-auto w/o micrscp Romy NEVAREZ Work Phone: Start: 11-29-2023 Urnls dip stick/tabl et rgnt non-auto w/o micrscp Romy NEVAREZ Work Phone: Start: 11-16-2023 [facility] TOTAL PROTEIN 24 HOUR URINE Jb Ignacio DO Work Phone: Start: 11-15-2023 ALL CBC WITH AUTO DIFF Jb Ignacio DO Work Phone: Start: 07-25-2023 Microscopic observat ion [Identifier] in Cervix by Cyto stain Jb Ignacio DO Work Phone: Start: 01-28-2021 Urine test visual color cmprsn ahmets Wilfred Villanueva MD Work Phone: H/O: section S/P sectio n Romy NEVAREZ Work Phone: H/O: section S/P sectio n Romy NEVAREZ Work Phone: H/O: tubal ligation S/P tubal ligation Am wally NEVAREZ Work Phone: Plan of Treatment Date Care Activity Detail Author Start: 07-24-2028 Screening for malign ant neoplasm of cervix [facility] Start: 08-27-2024 End: 08-27-2024 Patient encounter procedure 08/27/2024 4:00 PM EDT Office Visit [facility] [address] [place] [address] Jb Pierre, DO [address] [place] [address] [facility] Start: 03-13-2024 End: 03-13-2024 Patient encounter procedure 03/13/2024 9:20 AM EST Office Visit [facility] [address] [facility] [place] [phone] Romy Pacheco, PA [address] [facility] [place] [address] Arrived [facility] Comment on above: Arrived Start: 02-04-2024 End: 02-04-2024 ambulatory 02/04/2024 10:10 AM EST Visit [facility] [address] [facility] [place] [phone] Jb Pierre DO [address] [facility] [address] [place], [place] [id number] [facility] Start: 01-21-2024 End: 01-21-2024 ambulatory 01/21/2024 3:30 PM EDT Visit [facility] [address] [facility] [place] [phone] Romy Pacheco, PA [address] [facility] [address] [place], [place] [id number] [facility] Start: 12-24-2023 End: 12-24-2023 Patient encounter procedure 12/24/2023 10:00 AM EDT Office Visit [facility] [address] [facility] [place] [phone] Romy Pacheco, PA [address] [place] [address] [place] [address] Arrived [facility] Comment on above: Arrived Start: 12-13-2023 End: 12-12-2024 Strep B DNA probe, amplification Strep B DNA probe, amplification Lab Routine Third trimester Expected: 12/13/2023 (Approximate), Expires: 12/12/2024 [facility] Work Phone: Comment on above: Expected: 12/13/2023 (Approximate), Expires: 12/12/2024 Start: 12-13-2023 End: 12-13-2023 Patient encounter procedure [facility] Comment on above: Arrived Start: 12-05-2023 End: 12-05-2023 Patient encounter procedure [facility] Comment on above: Arrived Start: 12-05-2023 End: 12-05-2023 Professional / ancillary services management 12/05/2023 8:00 AM EDT Ancillary Procedure [facility] [address] [facility] [place] [phone] [facility] Start: 11-29-2023 End: 11-28-2024 US for US OB SCAN FOR GROWTH Imaging Routine Multigravida of advanced maternal age in third trimester Expected: 11/29/2023 (Approximate), Expires: 11/28/2024 [facility] Work Phone: Comment on above: Expected: 11/29/2023 (Approximate), Expires: 11/28/2024 Start: 11-29-2023 End: 11-29-2023 Patient encounter procedure [facility] Comment on above: Arrived Start: 11-25-2023 Influenza vaccination Influenza Vacc ine (#1) [facility] Start: 2023 Screening for malign ant neoplasm of breast Mammogram [facility] Start: 11-14-2023 End: 11-14-2023 Patient encounter procedure 11/14/2023 3:50 PM EDT Routine [facility] [address] [facility] [place] [phone] Jb Pierre, DO [address] [facility] [address] [place] [address] Arrived [facility] Comment on above: Arrived Start: 02-10-2021 End: 02-10-[address] [facility] Start: 11-24-2020 Influenza vaccination Flu vaccine (# 1) [facility] Start: 11-22-2013 Screening for malign ant neoplasm of cervix [facility] Start: 11-22-2004 Screening for malign ant neoplasm of cervix Pap smear [facility] Start: 11-22-2002 DTaP/Tdap/Td vaccine (1 - Tdap) DTaP/Tdap/Td vaccine (1 - Tdap) [facility] Start: 11-22-1998 HIV screening HIV screen [facility] Start: 11-22-1984 Varicella vaccine (1 of 2 - 2-dose childhood series) Varicella vaccine (1 of 2 - 2-dose childhood series) [facility] Start: 1983 Hepatitis C screening Hepatitis C sc reen [facility] Comprehensive metabo lic 2000 panel - Serum or Plasma [facility] Oxygen therapy [[facility] Data Set] Initiate Oxygen Therapy Protocol Respiratory Care Routine Daily until discontinued starting 01/28/2021 [facility] [employer] Phone: Comment on above: Daily until disconti nued starting 01/28/2021 Phase I & II - meter ed glucose Phase I & II - metered glucose Point of Care Testing Routine As Needed until discontinued starting 01/28/2021 [facility] [employer] Phone: Comment on above: As Needed until disc ontinued starting 01/28/2021 End: 01-28-2021 , urine POCT , urine POCT Point of Care Testing Routine One Time for 1 Occurrences starting 01/28/2021 until 01/28/2021 [facility] [employer] Phone: Comment on above: One Time for 1 Occur rences starting 01/28/2021 until 01/28/2021 [facility] Payers Date Payer Category Payer Self-pay [id number] 2023 Private Health Insurance [employer] [id number] 2023 Unknown [employer] [id number] 2023-Present [address] [place] [address] [id number] 2021 Unknown [id number] [id number]. [id number] 1983 Unknown [id number] 2.16.840.1.938181.3.579.2. 175 1983 Unknown [id number] 2.16.840.1.951491.3.579.2. 1259 1983 Unknown [id number] 2.16.840.1.048576.3.579.2. 1258 1983 Unknown [id number] 2.16.840.1.009092.3.579.2. 1259 1983 Unknown [id number] 2.16.840.1.142621.3.579.2. 1258 1983 Unknown [id number] 2.16.840.1.107950.3.579.2. 9 1983 Unknown [id number] 2.16.840.1.128837.3.579.2. 1259 1983 Unknown [id number] 2.16.840.1.638411.3.579.2. 1259 1983 Unknown [id number] 2.16.840.1.938737.3.579.2. 1258 1983 Unknown [id number] 2.16.840.1.830336.3.579.2. 1259 1983 Unknown [id number] 2.16.840.1.885796.3.579.2. 1259 1983 Unknown [id number] 2.16.840.1.314722.3.579.2. 1259 1983 Unknown [id number] 2.16.840.1.404701.3.579.2. 1259 1983 Unknown [id number] 2.16.840.1.757031.3.579.2. 1259 1983 Unknown [id number] 2.16.840.1.893645.3.579.2. 1259 Unknown HCAP/HFA/FAP Active [id number] Unknown [id number] 2.16.840.1.968772.3.579.2. 531 Unknown [id number] 2.16.840.1.802426.3.579.2. 531 Social History Date Type Detail Facility Start: 01-24-2021 End: 01-28-2021 Tobacco smoking status KYIS Never smoker [employer] Start: 01-24-2021 End: 01-28-2021 Tobacco use and exposure Never used [employer] Start: 01-28-2021 Alcohol intake Current drinker of alcohol (finding) [employer] Phone: Start: 01-24-2021 Alcohol Comment social [employer] Phone: Start: 1985 Sex Assigned At Not on file [employer] Work Phone: Exposure to SARS-CoV -2 (event) Not sure [employer] Sex Assigned At Sex Assigned At [facility] [employer] Other Start: 05-17-2023 End: 02-11-2024 Tobacco smoking status KYIS Ex-smoker (finding) [facility] Start: 1985 Sex Assigned At Female [facility] Tobacco smoking stat us KYIS Tobacco smoking consumption unknown [facility] Start: 06-14-2023 Gender identity Identifies as female gender (finding) [facility] Start: 06-14-2023 Sexual orientation Heterosexual (finding) [facility] Start: 02-11-2024 End: 07-22-2024 Sex Female (finding) [facility] Start: 04-15-2023 [facility] Medical Equipment Procedure Code Equipment Code Equipment Original Text Equipment Identifier Dates Implant Tib L30m m [id number] Jacques Drvr Fix Dev [employer] Ii [id number] Start: 01-28-2021 Implant Fem L24m m [id number] Insrt [employer] Am [id number] Start: 01-28-2021 Single Strand [employer] 0.45 X23.0cm [id number] Start: 01-28-2021 Single Strand [employer] 5mm X 22.3cm [id number] Start: 01-28-2021 Goals Date Patient Goal Desired Activity /State Personal health goal Clinical Notes 01-05-2021 to 03-13-2024 ROQUE Fernandes - 03/13/2024 9:20 AM Juanita Thorne - 02/04/2024 10:10 AM ROQUE Borges - 01/21/2024 3:30 PM ROQUE Rajan - 12/24/2023 10:00 AM Stew Lopez LPN - 12/13/2023 8:30 AM EDT Note Date & Type Note Facility 03-13-2024 History of Presen t illness Narrative Reason for Appointment: Patient ID: Kathia Martinez is a 38 y.o. female who presents for Post-op Visit (Pt present today for post operative visit. Pt had a robotic salpingectomy on 02/29/2024.) Patient presents today for 1 Week Post Op Follow Up appointment. MEDICATIONS Current Outpatient Medications Medication Instructions albuterol HFA 90 mcg/act inhaler Every 4 hours buPROPion XL (Wellbutrin XL) 150 MG 24 hr tablet cetirizine (ZYRTEC) 10 mg, Oral magnesium oxide (MAG-OX) 400 mg, Oral, Daily ALLERGIES No Known Allergies PROBLEMS Active Ambulatory Problems Diagnosis Date Noted No Active Ambulatory Problems Resolved Ambulatory Problems Diagnosis Date Noted No Resolved Ambulatory Problems No Additional Past Medical History HISTORY PAST MEDICAL HISTORY SOCIAL HISTORY No past medical history on file. Social History Tobacco Use Smoking status: Not on file Smokeless tobacco: Not on file Substance Use Topics Alcohol use: Not on file Drug use: Not on file FAMILY HISTORY No family history on file. SURGICAL HISTORY Past Surgical History: Procedure Laterality Date SECTION, LOW TRANSVERSE 12/18/2023 SALPINGECTOMY Bilateral 02/29/2024 Da Alejandro robotic salpingectomy REVIEW OF SYSTEMS Review of Systems: Review of Systems OBJECTIVE Objective: OBGyn Exam Vitals: Estimated body mass index is 34.33 kg/m as calculated from the following: Height as of 06/14/23: 5' 3 . Weight as of 02/04/24: 193 lb 12.8 oz. BP: No LMP recorded. ASSESSMENT & PLAN ICD-10-CM 1. Postoperative visit Z48.89 2. S/P tubal ligation Z98.51 Post Op Follow Up: Patient presents today for a postop follow up after having a Bilateral Laparoscopic Salpingectomy performed at [facility] with Dr. Pierre. Patient is healing well and shows no signs or symptoms of infection. Pathology results was reviewed with the patient in great detail and all restrictions have been lifted. Follow Up: Patient is to return to the office for annual exam unless needed otherwise. Documented by Nuris Cruz MA on behalf of: ROQUE Fernandes documented in this encounter [facility] 02-04-2024 History of Presen t illness Narrative Reason for Appointment: Patient ID: Kathia Martinez is a 38 y.o. female who presents for Care and Pre-op Visit Patient presents today for Pre Op/Post Follow Up appointment. Patient is scheduled to undergo Da Alejandro assisted Bilateral Laparoscopic Salpingectomy on 02/29/[address] Pierre at [facility]. MEDICATIONS Current Outpatient Medications Medication Instructions albuterol HFA 90 mcg/act inhaler Every 4 hours buPROPion XL (Wellbutrin XL) 150 MG 24 hr tablet cetirizine (ZYRTEC) 10 mg, Oral labetalol (NORMODYNE) 200 mg, Oral, 2 times daily magnesium oxide (MAG-OX) 400 mg, Oral, Daily MAGnesium-Oxide 400 mg, Oral, Daily norethindrone (MICRONOR) 0.35 mg, Oral, Daily MV-Min-Fe Fum-FA-DHA ( 1 PO) Oral ALLERGIES No Known Allergies PROBLEMS Active Ambulatory Problems Diagnosis Date Noted No Active Ambulatory Problems Resolved Ambulatory Problems Diagnosis Date Noted No Resolved Ambulatory Problems No Additional Past Medical History HISTORY PAST MEDICAL HISTORY SOCIAL HISTORY History reviewed. No pertinent past medical history. Social History Tobacco Use Smoking status: Not on file Smokeless tobacco: Not on file Substance Use Topics Alcohol use: Not on file Drug use: Not on file FAMILY HISTORY No family history on file. SURGICAL HISTORY Past Surgical History: Procedure Laterality Date SECTION, LOW TRANSVERSE 12/18/2023 REVIEW OF SYSTEMS Review of Systems: Review of Systems Constitutional: Negative. HENT: Negative. Eyes: Negative. Respiratory: Negative. Cardiovascular: Negative. Gastrointestinal: Negative. Genitourinary: Negative. Musculoskeletal: Negative. Skin: Negative. Neurological: Negative. All other systems reviewed and are negative. Hematological: Negative. Endocrine: Negative. Allergic/Immunologic: Negative. OBJECTIVE Objective: Physical Exam Constitutional: Appearance: Normal appearance. She is well-developed. Cardiovascular: Rate and Rhythm: Normal rate and regular rhythm. Pulmonary: Effort: Pulmonary effort is normal. Breath sounds: Normal breath sounds. Abdominal: General: Bowel sounds are normal. There is no distension. Palpations: Abdomen is soft. Tenderness: There is no abdominal tenderness. There is no guarding or rebound. Musculoskeletal: General: No swelling. Normal range of motion. Right lower leg: No edema. Left lower leg: No edema. Neurological: Mental Status: She is alert and oriented to person, place, and time. Skin: General: Skin is warm and dry. Psychiatric: Mood and Affect: Mood normal. Behavior: Behavior normal. Vitals and nursing note reviewed. Exam conducted with a front office agent present. Vitals: Estimated body mass index is 33.48 kg/m as calculated from the following: Height as of 06/14/23: 5' 3 . Weight as of 01/21/24: 189 lb. BP: No LMP recorded. ASSESSMENT & PLAN ICD-10-CM 1. Encounter for visit Z39.2 2. Pre-op examination Z01.818 3. Request for sterilization Z30.2 Post Follow Up: Patient is doing well but has complaints of no complaints at this time. Patient presents today for 6 week visit. Patient is s/p delivery. Patient denies any depression. All options were discussed with the patient regarding control and patient desires permanent sterilization. Follow Up: Patient is to return for annual unless needed otherwise. Pre Op: Patient is doing well but has desire for sterilization. I have discussed conservative management vs. surgical management with the patient in detail and patient desires surgical management at this time. Patient has voiced understanding that a Bilateral Salpingectomy is considered to be permanent and patient will undergo Da Alejandro assisted Bilateral Laparoscopic Salpingectomy on 02/29/2024. Surgical consents were signed, mmc was reviewed, and patient is to proceed to [facility] OR. Follow Up: Patient is to follow up between 1-2 weeks post op to assess proper healing and recovery from procedure. Documented by Sujatha Lopez LPN on behalf of: Jb Pierre DO documented in this encounter [facility] 01-21-2024 History of Presen t illness Narrative Reason for Appointment: Patient ID: Kathia Martinez is a 38 y.o. female who presents for Care (Pt present today for 6 week post visit. Pt had a C/S on 12/18/2023.) Patient presents today for Post Follow Up appointment. MEDICATIONS Current Outpatient Medications Medication Instructions albuterol HFA 90 mcg/act inhaler Every 4 hours buPROPion XL (Wellbutrin XL) 150 MG 24 hr tablet cetirizine (ZYRTEC) 10 mg, Oral labetalol (NORMODYNE) 200 mg, Oral, 2 times daily magnesium oxide (MAG-OX) 400 mg, Oral, Daily MAGnesium-Oxide 400 mg, Oral, Daily MV-Min-Fe Fum-FA-DHA ( 1 PO) Oral ALLERGIES No Known Allergies PROBLEMS Active Ambulatory Problems Diagnosis Date Noted No Active Ambulatory Problems Resolved Ambulatory Problems Diagnosis Date Noted No Resolved Ambulatory Problems No Additional Past Medical History HISTORY PAST MEDICAL HISTORY SOCIAL HISTORY No past medical history on file. Social History Tobacco Use Smoking status: Not on file Smokeless tobacco: Not on file Substance Use Topics Alcohol use: Not on file Drug use: Not on file FAMILY HISTORY No family history on file. SURGICAL HISTORY Past Surgical History: Procedure Laterality Date SECTION, LOW TRANSVERSE 12/18/2023 REVIEW OF SYSTEMS Review of Systems: Review of Systems Constitutional: Negative. HENT: Negative. Eyes: Negative. Respiratory: Negative. Cardiovascular: Negative. Gastrointestinal: Negative. Genitourinary: Negative. Musculoskeletal: Negative. Skin: Negative. Neurological: Negative. All other systems reviewed and are negative. Hematological: Negative. Endocrine: Negative. Allergic/Immunologic: Negative. OBJECTIVE Objective: Physical Exam Constitutional: Appearance: Normal appearance. She is normal weight. HENT: Head: Normocephalic. Cardiovascular: Rate and Rhythm: Normal rate. Pulses: Normal pulses. Pulmonary: Effort: Pulmonary effort is normal. Breath sounds: Normal breath sounds. Abdominal: Palpations: Abdomen is soft. Musculoskeletal: General: Normal range of motion. Neurological: General: No focal deficit present. Mental Status: She is alert and oriented to person, place, and time. Psychiatric: Mood and Affect: Mood normal. Behavior: Behavior normal. Thought Content: Thought content normal. Judgment: Judgment normal. Vitals and nursing note reviewed. Vitals: Estimated body mass index is 32.91 kg/m as calculated from the following: Height as of 06/14/23: 5' 3 . Weight as of 12/24/23: 185 lb 12.8 oz. BP: No LMP recorded. ASSESSMENT & PLAN ICD-10-CM 1. 6 weeks follow-up Z39.2 2. S/P section Z98.891 Post Follow Up: Patient is doing well. Patient presents today for 6 week visit. Patient is s/p delivery. Patient states depression but denies suicidal and homicidal ideations. All options were discussed with the patient regarding control and patient desires salpingectomy, scheduled for 02/2024 Follow Up: Patient is to return for annual unless needed otherwise. Documented by ROQUE Fernandes on behalf of: ROQUE Fernandes documented in this encounter [facility] 12-24-2023 History of Presen t illness Narrative Reason for Appointment: Patient ID: Kathia Martinez is a 38 y.o. female who presents for Care Patient presents today for Post Follow Up appointment. and 1 Week Post Op Follow Up appointment. MEDICATIONS Current Outpatient Medications Medication Instructions albuterol HFA 90 mcg/act inhaler Every 4 hours buPROPion XL (Wellbutrin XL) 150 MG 24 hr tablet cetirizine (ZYRTEC) 10 mg, Oral labetalol (NORMODYNE) 200 mg, Oral, 2 times daily magnesium oxide (MAG-OX) 400 mg, Oral, Daily MAGnesium-Oxide 400 mg, Oral, Daily MV-Min-Fe Fum-FA-DHA ( 1 PO) Oral ALLERGIES No Known Allergies PROBLEMS Active Ambulatory Problems Diagnosis Date Noted No Active Ambulatory Problems Resolved Ambulatory Problems Diagnosis Date Noted No Resolved Ambulatory Problems No Additional Past Medical History HISTORY PAST MEDICAL HISTORY SOCIAL HISTORY History reviewed. No pertinent past medical history. Social History Tobacco Use Smoking status: Not on file Smokeless tobacco: Not on file Substance Use Topics Alcohol use: Not on file Drug use: Not on file FAMILY HISTORY No family history on file. SURGICAL HISTORY History reviewed. No pertinent surgical history. REVIEW OF SYSTEMS Review of Systems: Review of Systems Constitutional: Negative. HENT: Negative. Eyes: Negative. Respiratory: Negative. Cardiovascular: Negative. Gastrointestinal: Negative. Genitourinary: Negative. Musculoskeletal: Negative. Skin: Negative. Neurological: Negative. All other systems reviewed and are negative. Hematological: Negative. Endocrine: Negative. Allergic/Immunologic: Negative. OBJECTIVE Objective: Physical Exam Constitutional: Appearance: Normal appearance. She is normal weight. HENT: Head: Normocephalic. Cardiovascular: Rate and Rhythm: Normal rate. Pulses: Normal pulses. Pulmonary: Effort: Pulmonary effort is normal. Breath sounds: Normal breath sounds. Abdominal: Palpations: Abdomen is soft. Musculoskeletal: General: Normal range of motion. Neurological: General: No focal deficit present. Mental Status: She is alert and oriented to person, place, and time. Psychiatric: Mood and Affect: Mood normal. Behavior: Behavior normal. Thought Content: Thought content normal. Judgment: Judgment normal. Vitals and nursing note reviewed. Exam conducted with a front office agent present. Vitals: Estimated body mass index is 32.91 kg/m as calculated from the following: Height as of 06/14/23: 5' 3 . Weight as of this encounter: 185 lb 12.8 oz. BP: 116/70 No LMP recorded. ASSESSMENT & PLAN ICD-10-CM 1. Encounter for visit Z39.2 2. S/P section Z98.891 Patient presents today for a one week postop section check. Patient is doing well with minor complaints of pain. Incision has been noted as healing well with no signs and symptoms of infection. Follow Up: Patient is to return in 5 weeks for 6 week evaluation. documented in this encounter [facility] 12-13-2023 History of Presen t illness Narrative Reason for Appointment: Patient ID: Kathia Martinez is a 38 y.o. female who presents for Routine Visit Patient presents today for Return OB appointment. MEDICATIONS Current Outpatient Medications Medication Instructions albuterol HFA 90 mcg/act inhaler Every 4 hours buPROPion XL (Wellbutrin XL) 150 MG 24 hr tablet cetirizine (ZYRTEC) 10 mg, Oral Docosahexaenoic Acid 200 MG capsule labetalol (NORMODYNE) 200 mg, Oral, 2 times daily magnesium oxide (MAG-OX) 400 mg, Oral, Daily MAGnesium-Oxide 400 mg, Oral, Daily MV-Min-Fe Fum-FA-DHA ( 1 PO) Oral ALLERGIES No Known Allergies PROBLEMS Active Ambulatory Problems Diagnosis Date Noted No Active Ambulatory Problems Resolved Ambulatory Problems Diagnosis Date Noted No Resolved Ambulatory Problems No Additional Past Medical History HISTORY PAST MEDICAL HISTORY SOCIAL HISTORY History reviewed. No pertinent past medical history. Social History Tobacco Use Smoking status: Not on file Smokeless tobacco: Not on file Substance Use Topics Alcohol use: Not on file Drug use: Not on file FAMILY HISTORY No family history on file. SURGICAL HISTORY History reviewed. No pertinent surgical history. REVIEW OF SYSTEMS Review of Systems: Review of Systems All other systems reviewed and are negative. OBJECTIVE Objective: Physical Exam Constitutional: Appearance: Normal appearance. She is well-developed. Genitourinary: Vulva normal. Cardiovascular: Rate and Rhythm: Normal rate and regular rhythm. Pulmonary: Effort: Pulmonary effort is normal. Breath sounds: Normal breath sounds. Abdominal: General: Bowel sounds are normal. There is no distension. Palpations: Abdomen is soft. Tenderness: There is no abdominal tenderness. There is no guarding or rebound. Musculoskeletal: General: No swelling. Normal range of motion. Right lower leg: No edema. Left lower leg: No edema. Neurological: Mental Status: She is alert and oriented to person, place, and time. Skin: General: Skin is warm and dry. Psychiatric: Mood and Affect: Mood normal. Behavior: Behavior normal. Vitals and nursing note reviewed. Exam conducted with a front office agent present. Vitals: Estimated body mass index is 35.39 kg/m as calculated from the following: Height as of 06/14/23: 5' 3 . Weight as of this encounter: 199 lb 12.8 oz. BP: 122/80 No LMP recorded. Patient is . ASSESSMENT & PLAN ICD-10-CM 1. Third trimester Z34.93 POCT urinalysis dipstick manually resulted Strep B DNA probe, amplification Patient is doing well but has complaints of being tired and having maternal discomfort due to . Patient verbalized frequent movement and was instructed to perform kick counts three times per day. labor precautions were given, LARC consent was signed/declined, and GBS was obtained. Cervical check was performed and patient is 1cm dilated. Orders Placed This Encounter Procedures Strep B DNA probe, amplification POCT urinalysis dipstick manually resulted Follow Up: Patient is to return to office in 1 week for routine OB appointment Patient is taking 300mg Labetalol currently BID. Patient signed IOL paperwork to leaving and is setup for IOL on 12/17/23 @0500. Documented by Sujatha Lopez LPN on behalf of: Jb Pierre DO documented in this encounter [facility] 12-07-2023 Telephone encounter Note Form atting of this note might be different from the original. Patient called, she is 35 weeks , she had elevated bp reading at her NST appointment yesterday, and she called today and she said that her bp feels elevated yet today and does not feel well. The nurse advised that she get checked at [facility], patient voiced understanding and is going to go and get checked out. [facility] 12-07-2023 Miscellaneous Notes Formattin g of this note might be different from the original. Patient called, she is 35 weeks , she had elevated bp reading at her NST appointment yesterday, and she called today and she said that her bp feels elevated yet today and does not feel well. The nurse advised that she get checked at [facility], patient voiced understanding and is going to go and get checked out. documented in this encounter [facility] 12-05-2023 History of Presen t illness Narrative Reason for Appointment: Patient ID: Kathia Martinez is a 38 y.o. female who presents for Routine Visit Patient presents today for Return OB appointment. MEDICATIONS Current Outpatient Medications Medication Instructions albuterol HFA 90 mcg/act inhaler Every 4 hours buPROPion XL (Wellbutrin XL) 150 MG 24 hr tablet cetirizine (ZYRTEC) 10 mg, Oral Docosahexaenoic Acid 200 MG capsule labetalol (Normodyne) 200 MG tablet 1 tablet, Oral, 2 times daily magnesium oxide (MAG-OX) 400 mg, Oral, Daily MAGnesium-Oxide 400 mg, Oral, Daily MV-Min-Fe Fum-FA-DHA ( 1 PO) Oral ALLERGIES No Known Allergies PROBLEMS Active Ambulatory Problems Diagnosis Date Noted No Active Ambulatory Problems Resolved Ambulatory Problems Diagnosis Date Noted No Resolved Ambulatory Problems No Additional Past Medical History HISTORY PAST MEDICAL HISTORY SOCIAL HISTORY History reviewed. No pertinent past medical history. Social History Tobacco Use Smoking status: Not on file Smokeless tobacco: Not on file Substance Use Topics Alcohol use: Not on file Drug use: Not on file FAMILY HISTORY No family history on file. SURGICAL HISTORY History reviewed. No pertinent surgical history. REVIEW OF SYSTEMS Review of Systems: Review of Systems Constitutional: Negative. HENT: Negative. Eyes: Negative. Respiratory: Negative. Cardiovascular: Negative. Gastrointestinal: Negative. Genitourinary: Negative. Musculoskeletal: Negative. Skin: Negative. Neurological: Negative. All other systems reviewed and are negative. Hematological: Negative. Endocrine: Negative. Allergic/Immunologic: Negative. OBJECTIVE Objective: Physical Exam Constitutional: Appearance: Normal appearance. She is normal weight. HENT: Head: Normocephalic. Cardiovascular: Rate and Rhythm: Normal rate. Pulses: Normal pulses. Pulmonary: Effort: Pulmonary effort is normal. Breath sounds: Normal breath sounds. Abdominal: Palpations: Abdomen is soft. Musculoskeletal: General: Normal range of motion. Neurological: General: No focal deficit present. Mental Status: She is alert and oriented to person, place, and time. Psychiatric: Mood and Affect: Mood normal. Behavior: Behavior normal. Thought Content: Thought content normal. Judgment: Judgment normal. Vitals and nursing note reviewed. Vitals: Estimated body mass index is 35.87 kg/m as calculated from the following: Height as of 06/14/23: 5' 3 . Weight as of this encounter: 202 lb 8 oz. BP: 124/80 No LMP recorded. Patient is . ASSESSMENT & PLAN ICD-10-CM 1. Third trimester Z34.93 POCT urinalysis dipstick manually resulted Return OB: Patient presents today for a routine obstetrics appointment. Patient is currently 35w3d . Patient states she is doing well but has complaints of being tired due to current . Patient has verbalizes frequent movement. labor precautions was discussed/given and patient was instructed to perform kick counts three times a day. Orders Placed This Encounter Procedures POCT urinalysis dipstick manually resulted Follow Up: Patient is to return to office in 1 week for routine OB appointment. Documented by ROQUE Fernandes on behalf of: ROQUE Fernandes documented in this encounter [facility] 11-29-2023 History of Presen t illness Narrative Reason for Appointment: Patient ID: Kathia Martinez is a 38 y.o. female who presents for Routine Visit Patient presents today for Return OB appointment. MEDICATIONS Current Outpatient Medications Medication Instructions albuterol HFA 90 mcg/act inhaler Every 4 hours buPROPion XL (Wellbutrin XL) 150 MG 24 hr tablet cetirizine (ZYRTEC) 10 mg, Oral Docosahexaenoic Acid 200 MG capsule labetalol (Normodyne) 200 MG tablet 1 tablet, Oral, 2 times daily magnesium oxide (MAG-OX) 400 mg, Oral, Daily MAGnesium-Oxide 400 mg, Oral, Daily MV-Min-Fe Fum-FA-DHA ( 1 PO) Oral ALLERGIES No Known Allergies PROBLEMS Active Ambulatory Problems Diagnosis Date Noted No Active Ambulatory Problems Resolved Ambulatory Problems Diagnosis Date Noted No Resolved Ambulatory Problems No Additional Past Medical History HISTORY PAST MEDICAL HISTORY SOCIAL HISTORY No past medical history on file. Social History Tobacco Use Smoking status: Not on file Smokeless tobacco: Not on file Substance Use Topics Alcohol use: Not on file Drug use: Not on file FAMILY HISTORY No family history on file. SURGICAL HISTORY History reviewed. No pertinent surgical history. REVIEW OF SYSTEMS Review of Systems: Review of Systems Constitutional: Negative. HENT: Negative. Eyes: Negative. Respiratory: Negative. Cardiovascular: Negative. Gastrointestinal: Negative. Genitourinary: Negative. Musculoskeletal: Negative. Skin: Negative. Neurological: Negative. All other systems reviewed and are negative. Hematological: Negative. Endocrine: Negative. Allergic/Immunologic: Negative. OBJECTIVE Objective: Physical Exam Constitutional: Appearance: Normal appearance. She is normal weight. HENT: Head: Normocephalic. Cardiovascular: Rate and Rhythm: Normal rate. Pulses: Normal pulses. Pulmonary: Effort: Pulmonary effort is normal. Breath sounds: Normal breath sounds. Abdominal: Palpations: Abdomen is soft. Musculoskeletal: General: Normal range of motion. Neurological: General: No focal deficit present. Mental Status: She is alert and oriented to person, place, and time. Psychiatric: Mood and Affect: Mood normal. Behavior: Behavior normal. Thought Content: Thought content normal. Judgment: Judgment normal. Vitals and nursing note reviewed. Vitals: Estimated body mass index is 34.37 kg/m as calculated from the following: Height as of 06/14/23: 5' 3 . Weight as of this encounter: 194 lb. BP: 120/72 No LMP recorded. Patient is . ASSESSMENT & PLAN ICD-10-CM 1. Third trimester Z34.93 POCT urinalysis dipstick manually resulted 2. Multigravida of advanced maternal age in third trimester O09.523 US OB SCAN FOR GROWTH Return OB: Patient presents today for a routine obstetrics appointment. Patient is currently 34w4d . Patient states she is doing well but has complaints of being tired due to current . Patient has verbalizes frequent movement. labor precautions was discussed/given and patient was instructed to perform kick counts three times a day. Orders Placed This Encounter Procedures US OB SCAN FOR GROWTH POCT urinalysis dipstick manually resulted Follow Up: Patient is to return to office in 1 week for routine OB appointment. Documented by ROQUE Fernandes on behalf of: ROQUE Fernandes documented in this encounter [facility] 11-14-2023 History of Presen t illness Narrative Reason for Appointment: Patient ID: Kathia Martinez is a 37 y.o. female who presents for Routine Visit Patient presents today for Return OB appointment. MEDICATIONS Current Outpatient Medications Medication Instructions buPROPion XL (Wellbutrin XL) 150 MG 24 hr tablet cetirizine (ZYRTEC) 10 mg, Oral magnesium oxide (MAG-OX) 400 mg, Oral, Daily MV-Min-Fe Fum-FA-DHA ( 1 PO) Oral ALLERGIES No Known Allergies PROBLEMS Active Ambulatory Problems Diagnosis Date Noted No Active Ambulatory Problems Resolved Ambulatory Problems Diagnosis Date Noted No Resolved Ambulatory Problems No Additional Past Medical History HISTORY PAST MEDICAL HISTORY SOCIAL HISTORY History reviewed. No pertinent past medical history. Social History Tobacco Use Smoking status: Not on file Smokeless tobacco: Not on file Substance Use Topics Alcohol use: Not on file Drug use: Not on file FAMILY HISTORY No family history on file. SURGICAL HISTORY History reviewed. No pertinent surgical history. REVIEW OF SYSTEMS Review of Systems: Review of Systems Constitutional: Negative. HENT: Negative. Eyes: Negative. Respiratory: Negative. Cardiovascular: Negative. Gastrointestinal: Negative. Genitourinary: Negative. Musculoskeletal: Negative. Skin: Negative. Neurological: Negative. All other systems reviewed and are negative. Hematological: Negative. Endocrine: Negative. Allergic/Immunologic: Negative. OBJECTIVE Objective: Physical Exam Constitutional: Appearance: Normal appearance. She is well-developed. Cardiovascular: Rate and Rhythm: Normal rate and regular rhythm. Pulmonary: Effort: Pulmonary effort is normal. Breath sounds: Normal breath sounds. Abdominal: General: Bowel sounds are normal. There is no distension. Palpations: Abdomen is soft. Tenderness: There is no abdominal tenderness. There is no guarding or rebound. Musculoskeletal: General: No swelling. Normal range of motion. Right lower leg: No edema. Left lower leg: No edema. Neurological: Mental Status: She is alert and oriented to person, place, and time. Skin: General: Skin is warm and dry. Psychiatric: Mood and Affect: Mood normal. Behavior: Behavior normal. Vitals and nursing note reviewed. Exam conducted with a front office agent present. Vitals: Estimated body mass index is 34.15 kg/m as calculated from the following: Height as of 06/14/23: 5' 3 . Weight as of this encounter: 192 lb 12.8 oz. BP: 120/72 No LMP recorded. Patient is . ASSESSMENT & PLAN ICD-10-CM 1. 32 weeks gestation of Z3A.32 Return OB: Patient presents today for a routine obstetrics appointment. Patient is currently 32w3d . Patient states she is doing well but has complaints of being tired due to current . Patient has verbalizes frequent movement. labor precautions was discussed/given and patient was instructed to perform kick counts three times a day. No orders of the defined types were placed in this encounter. Follow Up: Patient is to return to office in 2 week for routine OB appointment. Documented by Laurel Brownlee LPN on behalf of: Jb Pierre DO documented in this encounter [facility] 12-10-2022 Evaluation note Encounter Date Diagnosis Assessment Notes Nov, Poison lola dermatitis (ICD-10 - L23.7) Plenty fluids, get plenty of rest. Take the prednisone as prescribed until gone. You may take Benadryl as needed for itching. You may use calamine lotion as well. Follow-up with your family physician if no improvement in 2 to 3 days [facility] Other 08-19-2022 Evaluation note* Encounter Date Diagnosis [...] Pt understood and agreed to treatment plan. [facility] Other 11-05-2021 Hospital Discharge instructions* Discharge Instr - Activity* Wilfred Villanueva MD - 01/28/2021 1:36 PM EDT Crutches partial weightbearing right knee. Patient to wear previous brace as necessary * Additional Instructions* Wilfred Villanueva MD - 01/28/[address] [facility] Dr. Wilfred Villanueva M.D. [phone] POST OPERATIVE DISCHARGE INSTRUCTIONS KNEE ARTHROSCOPY 1. Follow-up in office seven to ten days after surgery. Call for appointment if not already made. ([phone]). 2. Take pain medication as ordered. 3. [...] that is not relieved by pain medications. [facility] Dr. Wilfred Villanueva M.D. [phone] POST OPERATIVE DISCHARGE INSTRUCTIONS KNEE ARTHROSCOPY Follow-up in office seven to ten days after surgery. Call for appointment if not already made. ([phone]). Take pain medication as ordered. Keep the [...] relieved by pain medications. [facility]: 1(727) 472-388811-02-2021 History of Present illness Narrative* Venkatesh Hoffman - 01/25/2021 1:00 PM EDT CLINICAL PHARMACY NOTE: MEDS TO BEDS Total # of Prescriptions Filled: 1 The following medications were delivered to the patient: Percocet 5/325 Additional Documentation: Delivered Medication to Patient * Mima Arias RN - 01/25/2021 1:00 PM EDT DAY OF SURGERY/PROCEDURE GUIDELINES As a patient at the [facility], you can expect quality medical and nursing [...] morning of your surgery/procedure (Hibiclens if directed) [place] your teeth, but do not swallow any [...] during surgery and recovery. documented in this [facility] Phone: 1(564) 571-592710-15-2021 Evaluation note* Encounter Date Diagnosis Assessment Notes [...] to sports surgery, Dr. Felipe Cortes at [facility] per patient request.at her last visit [...] also referred to Dr Felipe Cortes at [facility] Dec, Other The patient has been involved in our cooperative treatment plan and agrees to move forward with treatment at this time. [facility] Other 10-13-2021 Evaluation note* Encounter Date Diagnosis [...] of right knee joint (ICD-10 - M25.461) 13 Dec, 2020 Other See orders for this visit as documented in the electronic medical record. [facility] Other Evaluation note* Diagnosis Rupture of anterior cruciate ligament of right knee, initial encounter- Primary Acute lateral meniscus tear of right knee Tear of lateral cartilage or meniscus of knee, current documented in this encounter [employer] Phone: evaluation noteNo InformationNort [employer] Other Evaluation note* Diagnosis Onset Date Resolution Status Anxiety acute Impaired concentration acute Insomnia acute Migraine headache acute Screening for heart disease acute Screening for metabolic disorder acute [facility] Work Phone: Evaluation note* Diagnosis Onset Date Resolution Status Anxiety acute Impaired concentration acute Insomnia acute Migraine headache acute Palpitations acute Screening for heart disease acute Screening for metabolic disorder acute Encounter to establish care with new doctor noneactive Positive urine test acute [facility] Work Phone: Evaluation noteNo assessment information available [facility] Work Phone: Evaluation note* Diagnosis 6 weeks follow-up S/P section Other postprocedural status Uses control [facility] Diagnosis Encounter for visit Pre-op examination Request for sterilization Elevated blood pressure affecting in first trimester, antepartum [facility] Diagnosis 32 weeks gestation of documented [facility]* Diagnosis Third trimester state, incidental Multigravida of advanced maternal age in third trimester [facility] Diagnosis Third trimester state, incidental [facility] Diagnosis Third trimester state, incidental [facility] Diagnosis Encounter for visit S/P section Other postprocedural status [facility] Diagnosis Postoperative visit S/P tubal ligation Tubal ligation status [facility] N[facility]ative - Reported* Type Description Date Medical History migraine headache Medical History bacterial infection- stomach inf ection Medical History asthma [facility] Other History general Narrative - Reported* Type Description Date Medical History migraine headache Medical History bacterial infection- stomach inf ection Medical History asthma Surgical History acl repair [facility] Other Summary Purpose Family History Relationship Condition Age at Onset Recorded Date/T sonny father Diabetes mellitus Unknown Not Specified Cerebrovascular accident (CVA) Unknown Relationship Condition Age at Onset Recorded Date/T sonny father Diabetes mellitus Unknown mother Cerebrovascular accident (CVA) Unknown Advance Directives Advance Directive Response Recorded Date/ Time Advance Directives No April 25, 2023 9:26am Advance Directive Response Recorded Date/ Time Advance Directives No April 25, 2023 10:26am Reason for Referral Reason Please refer to Miguelina Cortes [facility] Diagnosis 1 Rupture of anterior cruciate ligament of right knee, initial encounter (S83.511A) Referral Organization [facility] Referring Provider First Name Rene Referring Provider Last Name Nancy Referring Provider Specialty Orthopedic Surgery Referred Organization [facility] Referred Address [address],[place], [place],[address] Referred Provider Specialty Orthopedic S urgery Referral [...] care with new doctor Positive urine test Chief Complaint Unknown Chief Complaint Admit Date Unknown December 17, 2023 11:05pm follow up February 11, 2024 2:19pm Chief Complaint Admit Date cough, chest congestion, headache July 22, 2024 10:37am Additional Source Comments Reason for Visit (unrecogniz ed section and content) Status Reason Specialty Diagnoses / Procedures Re ferred By Contact Referred To Contact Diagnoses Tears of meniscus and anterior cruciate ligament of right knee RIGHT KNEE ACL TEAR Procedures [place] KNEE SCOPE,AID ANT CRUCIATE REPAIR RIGHT KNEE ACL ARTHROSCOPIC RECONSTRUCTION WITH BIOMET Wilfred Villanueva MD [address] [facility] [address] [place] [address] [facility] Reason Comments Care Pt present today for 6 week post visit. Pt had a C/S on 12/18/2023. Reason Comments Care Pre-op Visit Reason Comments Routine Visit Reason Comments Care Reason Comments Post-op Visit Pt present today for post operative visit. Pt had a robotic salpingectomy on 02/29/2024. Ordered Prescriptions (unrec ognized section and content) [...] Adjustment - Provider: Yolis Montiel APRN - DOUBLE BOTTOM DRIVER)1333 (Anesthesia Volume Adjustment - Provider: Mitchel Saucedo [...] 1058 (Given - Provid er: Lisa Arellano, RN) dexamethasone (DECADRON) 4 MG/ML injection Starting on [...] 1132 (Given - Provid er: Lisa Arellano, SIRI) scopolamine (TRANSDERM-SCOP) 1 MG/3DAYS transdermal patch (COMPLETED) [...] section and content) DATE CREATED AUTHOR 01/29/2021 [facility] DATE CREATED AUTHOR AUTHOR'S ORGANIZ ATION 03/06/2024 [facility] DATE CREATED AUTHOR AUTHOR'S ORGANIZ ATION 03/16/2024 [facility] EPIC Care Teams (unrecognized sec [...] June 26, 2023 End: June 26, 2023 Team Status: Inactive Member Role Status Dates Jb Pierre DO Attending Provider Active Start : December 17, 2023 End: December 17, 2023 Team Status: Inactive Member Role Status Dates Cayla Barroso APRN Primary Care Provider, Attending Provider Active Start: February 11, 2024 End: February 11, 2024 Team Status: Inactive Member Role Status Dates Cayla Barroso APRN Primary Care Provider Activ e Start: July 22, 2024 End: July 22, 2024 Stephenie Bill APRN Attending Provider Active Start: July 22, 2024 End: July 22, 2024 Goals (unrecognized section and content) Goals may [...] BE BASED ON THE PRIMARY CLINICAL RECORDS. [facility]. provides no warranty or guarantee of the accuracy or completeness of information in this document.
[2024-09-01 14:08] LABS: Age Gdln ACOG Testing Note (.); HPV Aptima Negative (Negative); IGP, Aptima HPV, rfx 16/18,45 Note (.)
== END 2024-08-27 19:49 | disposition home or self-care (01) ==
LOC: LAB 19:48
PROVIDERS: Family Provider Internal Medicine; PCP Internal Medicine Gastroenterology; Visit Provider Obstetrics & Gynecology
DX: Z01.419 Encounter for gynecological examination (general) (routine) without abnormal findings (principal)
CPT/HCPCS: 87624; 88175